=== PATIENT | female | born 1955 | race Caucasian/White ===

== ENCOUNTER 2022-12-22 15:17 | Inpatient (IN) | payer MEDICARE, OTHER ==
--- NOTE | 2022-12-22 16:55 | ED ---
SOB HPI - General Chief Complaint: Shortness of Breath Stated Complaint: sob Time Seen by Provider: 12/22/22 16:36 Source: patient Mode of arrival: wheelchair - History of Present Illness Initial Comments: This patient is 67-year-old woman arriving here from the medical clinic to have evaluation for shortness of breath. The patient states that she has been feeling progressively more short of breath going back approximately 2 months. Around that time she had been diagnosed with covid infection. Patient had gone to the clinic today had chest x-ray and was sent here because the x-ray reportedly showed problem with the left lung. The patient has had occasional cough though not remarkable. No sputum. No fever or chills now. She does have occasional sharp pain in the left upper arm/axilla which is brief. She states it sometimes feels like there is a band around her lower chest/upper abdomen. MD Complaint: shortness of breath, chest pain Onset/Timin -: month(s) Radiation: left arm Severity: mild Quality: aching, sharp Consistency: intermittent Improves With: nothing Worsens With: nothing Treatments Prior to Arrival: none - Related Data Home Medications Medication Instructions Recorded Confirmed Cetirizine HCl [Zyrtec] 10 mg PO DAILY PRN 12/22/22 12/22/22 Guaifenesin/Dextromethorphan 1 tab PO DAILY PRN 12/22/22 12/22/22 [Guaifenesin-Dm 400-20 mg Tab] ePHEDrine HCL [Primatene] 12.5 mg PO DAILY PRN 12/22/22 12/22/22 Previous Rx's Medication Instructions Recorded Acetaminophen Tab [Tylenol] 650 mg PO Q6HR PRN #60 tab 12/31/22 HYDROcodone/APAP 5-325MG [[place] 1 tab PO Q6HR PRN 3 Days #12 tab 12/31/22 5-325] Lidocaine 5% Patch [Lidoderm 5% 1 patch TOPICAL DAILY #14 patch 12/31/22 Patch] Sennosides-Docusate Sodium 1 each PO BID #30 tab 12/31/22 [Senokot-S] polyethylene glycoL 3350 [Miralax] 17 gm PO DAILY #30 packet 12/31/22 Allergies Allergy/AdvReac Type Severity Reaction Status Date / Time No Known Allergies Allergy Verified 12/22/22 22:08 Review of Systems ROS Statement: Those systems with pertinent positive or pertinent negative responses have been documented in the HPI. ROS Other: All systems not noted in ROS Statement are negative. Constitutional: Denies: fever, chills Respiratory: Reports: dyspnea. Denies: cough, wheezes, hemoptysis Cardiovascular: Reports: chest pain. Denies: palpitations, edema, syncope Gastrointestinal: Denies: abdominal pain, nausea, vomiting Genitourinary: Denies: dysuria, hematuria Musculoskeletal: Denies: back pain Skin: Denies: rash Neurological: Denies: headache, weakness, numbness Past Medical History Past Medical History: No Reported History History of Any Multi-Drug Resistant Organisms: None Reported Past Surgical History: Section, Tonsillectomy Past Psychological History: No Psychological Hx Reported Smoking Status: Current every day smoker Past Alcohol Use History: None Reported Past Drug Use History: None Reported - Past Family History Father Family Medical History: Diabetes Mellitus Additional Family Medical History / Comment(s): Migraines, depression, unsure but had heart issues Mother Family Medical History: Cancer, COPD, Diabetes Mellitus, Hypertension, Thyroid Disorder Additional Family Medical History / Comment(s): Breast CA, enlarged Heart, Macular degeneration, "Mini strokes" Brother(s) Family Medical History: Cancer, Diabetes Mellitus, Hyperlipidemia Additional Family Medical History / Comment(s): Prostate Cancer, Macular dege neration General Exam General appearance: alert, in distress (Mild respiratory distress), cachectic Head exam: Present: atraumatic, normocephalic Eye exam: Present: normal appearance. Absent: scleral icterus, conjunctival injection Neck exam: Present: normal inspection Respiratory exam: Present: respiratory distress (Mild tachypnea and speaking in phrases), decreased breath sounds (Left-sided), other (Bronchial breath sounds on the left and egophony). Absent: wheezes, rales, rhonchi, chest wall tenderness Cardiovascular Exam: Present: regular rate, normal rhythm, normal heart sounds. Absent: systolic murmur, diastolic murmur, rubs, gallop GI/Abdominal exam: Present: soft. Absent: distended, tenderness, guarding, rebound, rigid, mass Extremities exam: Present: normal inspection, normal capillary refill. Absent: pedal edema, calf tenderness Back exam: Present: normal inspection. Absent: CVA tenderness (R), CVA tenderness (L) Neurological exam: Present: alert Skin exam: Present: warm, dry, intact, normal color. Absent: rash Course Vital Signs 12/22/22 12/22/22 12/22/22 15:51 16:45 18:05 Temperature 98.2 F 98.3 F Pulse Rate 114 H 92 Respiratory 22 22 20 Rate Blood Pressure 164/99 148/94 O2 Sat by Pulse 96 93 L Oximetry 12/22/22 12/22/22 19:39 22:31 Temperature 98.4 F Pulse Rate 87 83 Respiratory 19 16 Rate Blood Pressure 147/91 140/93 O2 Sat by Pulse 95 97 Oximetry Medical Decision Making - Medical Decision Making The patient had chest x-ray which I interpreted as showing total left-sided opacity probable effusion The patient had CT of the chest which I interpreted to show left-sided pleural effusion. Was pt. sent in by a medical professional or institution (, PA, END PACKER, urgent care, hospital, or usp...) When possible be specific @ -[Yes patient sent from clinic for further evaluation Did you speak to anyone other than the patient for history (EMS, parent, family, police, friend...)? What history was obtained from this source @ -[Family did give some history Did you review nursing and triage notes (agree or disagree)? Why? @ -[I reviewed and agree with nursing and triage notes] Were old charts reviewed (outside hosp., previous admission, EMS record, old EKG, old radiological studies, urgent care reports/EKG's, usp records)? Report findings @ -[No old charts were reviewed] Differential Diagnosis (chest pain, altered mental status, abdominal pain women, abdominal pain men, vaginal bleeding, weakness, fever, dyspnea, syncope, headache, dizziness, GI bleed, back pain, seizure, CVA, palpatations, mental health, musculoskeletal)? @ -[Differential Dyspnea: Coronary syndrome, arrhythmia, tamponade, asthma, COPD, pulmonary embolism, pneumonia, pneumothorax, pulmonary effusion, anaphylaxis, diabetic ketoacidosis, flailed chest, pulmonary contusion, diaphragmatic rupture, anemia, neuromuscular, this is not meant to be an all-inclusive list. EKG interpreted by me (3pts min.). @ -[I interpreted as above X-rays interpreted by me (1pt min.). @ -[I interpreted as above CT interpreted by me (1pt min.). @ -[I interpreted as above U/S interpreted by me (1pt. min.). @ -[None done] What testing was considered but not performed or refused? (CT, X-rays, U/S, labs)? Why? @ -[None] What meds were considered but not given or refused? Why? @ -[None] Did you discuss the management of the patient with other professionals (professionals i.e. , PA, END PACKER, lab, RT, psych nurse, executive secretary social welfare, computer support analyst, teacher, optics technical officer, case briefer)? Give summary @ -[Case discussed with admitting physician Was smoking cessation discussed for >3mins.? @ -[No] Was critical care preformed (if so, how long)? @ -[No] Were there social determinants of health that impacted care today? How? (Homelessness, low income, unemployed, alcoholism, drug addiction, t ransportation, low edu. Level, literacy, decrease access to med. care, correction, rehab)? @ -[No] Was there de-escalation of care discussed even if they declined (Discuss DNR or withdrawal of care, Hospice)? DNR status @ -[No] What co-morbidities impacted this encounter? (DM, HTN, Smoking, COPD, CAD, Cancer, CVA, ARF, Chemo, Hep., AIDS, mental health diagnosis, sleep apnea, morbid obesity)? @ -[COPD Was patient admitted / discharged? Hospital course, mention meds given and route, prescriptions, significant lab abnormalities, going to OR and other pertinent info. @ -[This patient is 67-year-old woman who is sent here from the clinic to have further evaluation related to shortness of breath and abnormal chest x-ray. The patient here found to have large left-sided pleural effusion. She'll be admitted to have further evaluation and treatment including pulmonology consultation and probable thoracentesis. Undiagnosed new problem with uncertain prognosis? @ -[No] Drug Therapy requiring intensive monitoring for toxicity (Heparin, Nitro, Insulin, Cardizem)? @ -[No] Were any procedures done? @ -[No] Diagnosis/symptom? @ -[Large left pleural effusion, acute Acute, or Chronic, or Acute on Chronic? @ -[Acute Uncomplicated (without systemic symptoms) or Complicated (systemic symptoms)? @ -[Uncomplicated Side effects of treatment? @ -[No] Exacerbation, Progression, or Severe Exacerbation? @ -[No] Poses a threat to life or bodily function? How? (Chest pain, [place], [place], pneumonia, PE, COPD, DKA, ARF, appy, cholecystitis, CVA, Diverticulitis, Homicidal, Suicidal, threat to staff... and all critical care pts) @ -[Yes, pleural effusion of this size presents risk of pulmonary failure/. Also risk of underlying cancer - Lab Data Result diagrams: 12/30/22 09:22 12/30/22 09:22 Lab Results 12/22/22 12/22/22 12/22/22 Range/Units 16:44 16:44 16:44 WBC 12.0 H (3.8-10.6) k/uL RBC 5.51 H (3.80-5.40) m/uL Hgb 16.4 H (11.4-16.0) gm/dL Hct 48.8 H (34.0-46.0) % MCV 88.4 (80.0-100.0) fL MCH 29.7 (25.0-35.0) pg MCHC 33.6 (31.0-37.0) g/dL RDW 13.1 (11.5-15.5) % Plt Count 441 (150-450) k/uL MPV 7.5 Neutrophils % 77 % Lymphocytes % 14 % Monocytes % 6 % Eosinophils % 1 % Basophils % 1 % Neutrophils # 9.1 H (1.3-7.7) k/uL Lymphocytes # 1.7 (1.0-4.8) k/uL Monocytes # 0.7 (0-1.0) k/uL Eosinophils # 0.1 (0-0.7) k/uL Basophils # 0.1 (0-0.2) k/uL PT 9.6 (9.0-12.0) sec INR 0.9 (<1.2) APTT 23.0 (22.0-30.0) sec Sodium 138 (137-145) mmol/L Potassium 4.5 (3.5-5.1) mmol/L Chloride 106 (98-107) mmol/L Carbon Dioxide 27 (22-30) mmol/L Anion Gap 5 mmol/L BUN 18 H (7-17) mg/dL Creatinine 0.57 (0.52-1.04) mg/dL Est GFR (CKD-EPI)AfAm >90 (>60 ml/min/1.73 sqM) Est GFR (CKD-EPI)NonAf >90 (>60 ml/min/1.73 sqM) Glucose 109 H (74-99) mg/dL Plasma Lactic Acid Rayo (0.7-2.0) mmol/L Calcium 10.2 (8.4-10.2) mg/dL Total Bilirubin 0.6 (0.2-1.3) mg/dL AST 21 (14-36) U/L ALT 18 (4-34) U/L Alkaline Phosphatase 78 (38-126) U/L Troponin I (0.000-0.034) ng/mL Total Protein 7.4 (6.3-8.2) g/dL Albumin 4.4 (3.5-5.0) g/dL Procalcitonin (0.02-0.09) ng/mL 12/22/22 12/22/22 12/22/22 Range/Units 16:44 16:44 16:44 WBC (3.8-10.6) k/uL RBC (3.80-5.40) m/uL Hgb (11.4-16.0) gm/dL Hct (34.0-46.0) % MCV (80.0-100.0) fL MCH (25.0-35.0) pg MCHC (31.0-37.0) g/dL RDW (11.5-15.5) % Plt Count (150-450) k/uL MPV Neutrophils % % Lymphocytes % % Monocytes % % Eosinophils % % Basophils % % Neutrophils # (1.3-7.7) k/uL Lymphocytes # (1.0-4.8) k/uL Monocytes # (0-1.0) k/uL Eosinophils # (0-0.7) k/uL Basophils # (0-0.2) k/uL PT (9.0-12.0) sec INR (<1.2) APTT (22.0-30.0) sec Sodium (137-145) mmol/L Potassium (3.5-5.1) mmol/L Chloride (98-107) mmol/L Carbon Dioxide (22-30) mmol/L Anion Gap mmol/L BUN (7-17) mg/dL Creatinine (0.52-1.04) mg/dL Est GFR (CKD-EPI)AfAm (>60 ml/min/1.73 sqM) Est GFR (CKD-EPI)NonAf (>60 ml/min/1.73 sqM) Glucose (74-99) mg/dL Plasma Lactic Acid Rayo 1.2 (0.7-2.0) mmol/L Calcium (8.4-10.2) mg/dL Total Bilirubin (0.2-1.3) mg/dL AST (14-36) U/L ALT (4-34) U/L Alkaline Phosphatase (38-126) U/L Troponin I <0.012 (0.000-0.034) ng/mL Total Protein (6.3-8.2) g/dL Albumin (3.5-5.0) g/dL Procalcitonin 0.03 (0.02-0.09) ng/mL - EKG Data -: EKG Interpreted by Tn EKG shows normal: sinus rhythm, axis (Normal), intervals (Normal), QRS complexes (Normal), ST-T waves (Normal) Rate: normal (Rate 97 bpm) Disposition Clinical Impression: Pleural effusion, left Disposition: ADMITTED IP TO THIS HOSP Condition: Stable Is patient prescribed a controlled substance at d/c from ED?: No
[2022-12-22 17:07] LABS: Basophils # (A) 0.1 k/uL (0-0.2); Basophils % (A) 1 %; Eosinophils # (A) 0.1 k/uL (0-0.7); Eosinophils % (A) 1 %; HCT 48.8 % (34.0-46.0); HGB 16.4 gm/dL (11.4-16.0); Lymphocytes # (A) 1.7 k/uL (1.0-4.8); Lymphocytes % (A) 14 %; MCH 29.7 pg (25.0-35.0); MCHC 33.6 g/dL (31.0-37.0); MCV 88.4 fL (80.0-100.0); Mean Platelet Volume 7.5; Monocytes # (A) 0.7 k/uL (0-1.0); Monocytes % (A) 6 %; Neutrophils # (A) 9.1 k/uL (1.3-7.7); Neutrophils % (A) 77 %; Platelet Count 441 k/uL (150-450); RBC 5.51 m/uL (3.80-5.40); RDW 13.1 % (11.5-15.5)
[2022-12-22 17:24] LABS: INR 0.9 (<1.2); Prothrombin Time 9.6 sec (9.0-12.0)
[2022-12-22 17:25] LABS: ALT 18 U/L (4-34); AST 21 U/L (14-36); African American GFR (CKD) >90 (>60 ml/min/1.73 sqM); Albumin 4.4 g/dL (3.5-5.0); Alkaline Phosphatase 78 U/L (38-126); Anion Gap 5 mmol/L; Blood Urea Nitrogen 18 mg/dL (7-17); Calcium 10.2 mg/dL (8.4-10.2); Carbon Dioxide 27 mmol/L (22-30); Chloride 106 mmol/L (98-107); Glucose 109 mg/dL (74-99); Non-African American GFR(CKD) >90 (>60 ml/min/1.73 sqM); Potassium 4.5 mmol/L (3.5-5.1); Sodium 138 mmol/L (137-145); Total Bilirubin 0.6 mg/dL (0.2-1.3); Total Protein 7.4 g/dL (6.3-8.2)
--- NOTE | 2022-12-22 17:26 | XR ---
EXAMINATION TYPE: XR chest 2V DATE OF EXAM: 12/22/2022 COMPARISON: None INDICATION: Difficulty breathing TECHNIQUE: Frontal and lateral views of the chest are obtained. FINDINGS: The heart size is indistinct. The pulmonary vasculature is prominent. There is opacification of the left lung. There is scoliosis through the thoracic spine. Some patchy i ncreased lung markings within the right lung field. Infectious etiology and masses including neoplasm could be within the differential. Follow-up is recommended. IMPRESSION: 1. Opacified left lung. Early for atelectasis or large pleural effusion 2. Some patchy suspicious densities within the right suprahilar and perihilar region. Follow-up is re commended.
[2022-12-22] MEDS ORDERED: RX INFO: IV CONTRAST WAS GIVEN 1 EACH MISC MISCELLANE PRN (18:08)
--- NOTE | 2022-12-22 18:48 | CT ---
EXAMINATION TYPE: CT chest w con DATE OF EXAM: 12/22/2022 COMPARISON: Chest x-ray same date HISTORY: SOB CT DLP: 172.3 mGycm, Automated exposure control for dose reduction was used. CONTRAST: Performed injected with 100 mL of Isovue 300. TECHNIQUE: Axial images were obtained at 5 mm thick sections. Reconstructed images are reviewed on [place] computer in the coronal plane. FINDINGS: Portion of the thyroid visualized is normal. There is a large left pleural effusion nearly completely opacifying the left lung. A few central air bronchograms remain present with adjacent compressive atelectasis. There are multiple scattered areas of pneumonitis or irregular lung masses. Consider atypical pneumon ia. Consider metastasis. The largest of these appears to be in the posterior lateral right lung base measuring 1.4 cm. Series 201 image 42. Enlarged subcarinal lymph node measuring 1.2 cm is present. A pretracheal lymph node is subcentimete r in size. The ascending aorta diameter at the level of the main pulmonary artery is 3.2 cm. The navdeep n pulmonary artery diameter at the bifurcation is 2.[address] sections are obtained through the upper abdomen. Abdomen is essentially unremarkable. IMPRESSION: 1. Multiple spiculated densities within the right lung. Correlate for metastasis. Infectious etiology is within the differential. 2. Large left pleural effusion with compressive atelectasis. 3. Enlarged subcarinal lymph node
[2022-12-22] MEDS ORDERED: ACETAMINOPHEN TAB 325 MG TAB PO PRN (22:06)
[2022-12-22] MEDS ORDERED: NALOXONE 0.4 MG/ML 1 ML VIAL IV PRN (22:06)
[2022-12-22] MEDS: SODIUM CHLORIDE 0.9% 1,000 ML IV SCH (23:17)
[2022-12-22] MEDS: MORPHINE SULFATE 4 MG/ML SYRINGE IV PRN (23:17)
--- NOTE | 2022-12-22 23:46 | P.HPIM ---
History of Present Illness H&P Date: 12/22/22 Patient is a 67-year-old female with a PMH of lifelong tobacco abuse who presents to the emergency room with complaints of gradually worsening shortness of breath. Patient suspects she had COVID roughly a year and a half ago and subsequently had chronic fatigue and mild exertional dyspnea. She then was again diagnosed with COVID 2 months ago and reports that her breathing has worsened significantly since then. She reports an unintentional 80 pound weight loss in the last one year. Reports a chronic productive cough. Denies chest discomfort. Denied fever or chills. Denied lower extremity swelling or pain. She also states left foot drop and left lower extremity weakness over the past 1 month. Denied lower back pain, urinary or bowel incontinence. Denied facial droop, speech impairment, visual impairments, or left upper extremity weakness. Chest CT in the emergency room revealed findings of multiple densities in the right lung suspicious for metastasis with large left-sided pleural effusion and compressive atelectasis with enlarged subcarinal lymph node at 1.2 cm. EKG revealed sinus rhythm at [address]/T-wave changes noted as reviewed by me. Laboratory evaluation revealed leukocytosis of 12.0, in the 116.5, troponin less than 0.012, with BUN 18. ED documentation reviewed and case discussed with ED provider. Review of systems: Pertinent positives and negatives as discussed in HPI, a complete review of systems was performed and all other systems are negative. Physical examination: Vital signs reviewed General: non toxic, no distress, appears at stated age, normal weight Derm: no unusual rashes/lesions, warm Head: atraumatic, normocephalic, symmetric Eyes: EOMI, no lid lag, anicteric sclera, pupils equal round reactive to light ENT: Nose and ears atraumatic Neck: No cervical lymphadenopathy, trachea midline, supple Mouth: no lip lesion, mucus membranes moist Cardiovascular: S1S2 reg, no murmur, positive dorsalis pedis pulse bilateral, no edema Lungs: Poor breath sounds over the entire left lung, some scattered coarse breath sounds bilaterally, no accessory muscle use Abdominal: soft, nontender to palpation, no guarding Ext: muscle strength 3/5 of LLE at ankle, knee, and hip joints, strength 5 out of 5 in all other extremities grossly, no gross muscle atrophy, no contractures, Neuro: CN II-XI grossly intact, no gross focal neuro deficits Psych: Alert, oriented, appropriate affect Assessment: Exertional dyspnea with suspected pulmonary metastatic lesions with left-sided pleural effusion vs less likely atypical pneumonia Significant unintentional weight loss LLE weakness, unclear etiology Leukocytosis, likely reactive from metastasis Imaging: Chest CT in the emergency room revealed findings of multiple densities in the right lung suspicious for metastasis with large left-sided pleural effusion and compressive atelectasis with enlarged subcarinal lymph node at 1.2 cm. EKG revealed sinus rhythm at [address]/T-wave changes noted as reviewed by me. Data Review: Laboratory evaluation revealed leukocytosis of 12.0, in the 116.5, troponin less than 0.012, with BUN 18. Plan: Hold off on antibiotics at this time Obtain procalcitonin levels Pulmonary consult for thoracentesis PT consult DVT prophylaxis: Lovenox subq The patient is admitted with an anticipated greater than 2 midnight stay for evaluation of dyspnea CODE STATUS: Full Code Discussed with: Patient Anticipated discharge place: Home Past Medical History Past Medical History: No Reported History History of Any Multi-Drug Resistant Organisms: None Reported Past Surgical History: Section, Tonsillectomy Past Psychological History: No Psychological Hx Reported Smoking Status: Current every day smoker Past Alcohol Use History: None Reported Past Drug Use History: None Reported - Past Family History Father Family Medical History: Diabetes Mellitus Additional Family Medical History / Comment(s): Migraines, depression, unsure but had heart issues Mother Family Medical History: Cancer, COPD, Diabetes Mellitus, Hypertension, Thyroid Disorder Additional Family Medical History / Comment(s): Breast CA, enlarged Heart, Macular degeneration, "Mini strokes" Brother(s) Family Medical History: Cancer, Diabetes Mellitus, Hyperlipidemia Additional Family Medical History / Comment(s): Prostate Cancer, Macular de generation Medications and Allergies Home Medications Medication Instructions Recorded Confirmed Type Cetirizine HCl [Zyrtec] 10 mg PO DAILY PRN 12/22/22 12/22/22 History Guaifenesin/Dextromethorphan 1 tab PO DAILY PRN 12/22/22 12/22/22 History [Guaifenesin-Dm 400-20 mg Tab] ePHEDrine HCL [Primatene] 12.5 mg PO DAILY PRN 12/22/22 12/22/22 History Allergies Allergy/AdvReac Type Severity Reaction Status Date / Time No Known Allergies Allergy Verified 12/22/22 22:08 Physical Exam Vitals: Vital Signs Temp Pulse Resp BP Pulse Ox 12/22/22 22:31 98.4 F 83 16 140/93 97 12/22/22 19:39 87 19 147/91 95 12/22/22 18:05 98.3 F 92 20 148/94 93 L 12/22/22 16:45 22 12/22/22 15:51 98.2 F 114 H 22 164/99 96 Intake and Output 12/22/22 12/22/22 12/23/22 14:59 22:59 06:59 Other: Weight 45.132 kg Results CBC & Chem 7: 12/22/22 16:44 12/22/22 16:44 Labs: Abnormal Lab Results - Last 24 Hours (Table) 12/22/22 12/22/22 Range/Units 16:44 16:44 WBC 12.0 H (3.8-10.6) k/uL RBC 5.51 H (3.80-5.40) m/uL Hgb 16.4 H (11.4-16.0) gm/dL Hct 48.8 H (34.0-46.0) % Neutrophils # 9.1 H (1.3-7.7) k/uL BUN 18 H (7-17) mg/dL Glucose 109 H (74-99) mg/dL
[2022-12-23] MEDS ORDERED: HEPARIN SODIUM,PORCINE 5,000 UNIT/ML 1 ML VIAL SQ SCH
--- NOTE | 2022-12-23 05:56 | P.CNPUL ---
History of Present Illness Consult date: 12/23/22 Requesting physician: Shanna Ortega Reason for consult: pleural effusion, abnormal CXR/CT Chief complaint: Shortness of breath History of present illness: I am seeing this patient in new consultation today 12/23/2022 on the general medical floor after she presented yesterday evening with a chief complaint of chronic/progressive shortness of breath. Patient is a 67-year-old female with a limited past medical history, she does not routinely follow with a doctor. She has significant familial history of cancer, her mother had breast cancer, and her brother had prostate cancer. She does continue to smoke approximately 3/4 to 1 pack per day, and has over a [id number] history. She admits to losing approximately 80 pounds over the last year. She is cachectic and frail. Patient has been experiencing chronic fatigue and dyspnea especially on exertion for the last year. She attributes this to possible COVID-19 infection 1 year ago. The shortness of breath has been worse over the last month and a half. She does report a positive home Covid test approximately 1-1/2 months ago. At that time, she had fever, cough, and worsening shortness of breath. She is not improved, so she went to a local urgent care clinic yesterday, which found some abnormal chest x-ray findings, and directed her to the emergency room. Patient is currently sitting up in bed, on room air, in no acute distress. Chest CT shows multiple spiculated densities within the right lung, with the largest measuring 1.4 cm. There is a large left pleural effusion with compressive atelectasis, and there are also and enlarged 1.2 cm subcarinal lymph node. These findings are suspicious for metastasis, however, infectious etiology is not entirely ruled out. Currently patient denies any fever, chills, myalgias, chest pain, hemoptysis. Denies any other infectious symptoms. Denies history of malignancies or heart failure. CBC on arrival shows a WBC count of 12, hemoglobin 16.4, hematocrit 48.8, platelets 441. BMP on arrival was unremarkable. Troponin less than 0.012. She also has had some issues with ambulating. There is a walker at the bedside. Patient is hemodynamically stable. Review of Systems REVIEW OF SYSTEMS: CONSTITUTIONAL: Admits significant weight loss over the past year of approximately 80 pounds EYES: Denies change in vision. EARS, NOSE, MOUTH, THROAT: Denies headaches, denies sore throat. CARDIOVASCULAR: Denies chest pain, palpitations or syncopal episodes. RESPIRATORY: See HPI GASTROINTESTINAL: Denies abdominal pain, nausea and vomiting, or diarrhea. Admits reduced appetite GENITOURINARY: Denies hematuria, denies infections. MUSKULOSKELETAL: Denies pain, denies swelling. Admits difficulty ambulating and left lower extremity weakness INTEGUMENTARY: Denies rash, denies eczema. NEUROLOGICAL: Denies recent memory loss, no recent seizure activity. PSYCHIATRIC: Denies anxiety, denies depression. HEMATOLOGIC/LYMPHATIC: Denies anemia, denies enlarged lymph node Past Medical History Past Medical History: No Reported History History of Any Multi-Drug Resistant Organisms: None Reported Past Surgical History: Section, Tonsillectomy Past Anesthesia/Blood Transfusion Reactions: No Reported Reaction Past Psychological History: No Psychological Hx Reported Smoking Status: Current every day smoker Past Alcohol Use History: None Reported Past Drug Use History: None Reported - Past Family History Father Family Medical History: Diabetes Mellitus Additional Family Medical History / Comment(s): Migraines, depression, unsure but had heart issues Mother Family Medical History: Cancer, COPD, Diabetes Mellitus, Hypertension, Thyroid Disorder Additional Family Medical History / Comment(s): Breast CA, enlarged Heart, Macular degeneration, "Mini strokes" Brother(s) Family Medical History: Cancer, Diabetes Mellitus, Hyperlipidemia Additional Family Medical History / Comment(s): Prostate Cancer, Macular dege neration Medications and Allergies Home Medications Medication Instructions Recorded Confirmed Type Cetirizine HCl [Zyrtec] 10 mg PO DAILY PRN 12/22/22 12/22/22 History Guaifenesin/Dextromethorphan 1 tab PO DAILY PRN 12/22/22 12/22/22 History [Guaifenesin-Dm 400-20 mg Tab] ePHEDrine HCL [Primatene] 12.5 mg PO DAILY PRN 12/22/22 12/22/22 History Allergies Allergy/AdvReac Type Severity Reaction Status Date / Time No Known Allergies Allergy Verified 12/22/22 22:08 Physical Exam Vitals: Vital Signs Temp Pulse Pulse Resp BP BP Pulse Ox 12/23/22 01:05 97.8 F 80 18 148/87 96 12/22/22 23:50 80 18 12/22/22 23:15 98.4 F 87 18 160/81 97 12/22/22 22:31 98.4 F 83 16 140/93 97 12/22/22 19:39 87 19 147/91 95 12/22/22 18:05 98.3 F 92 20 148/94 93 L 12/22/22 16:45 22 12/22/22 15:51 98.2 F 114 H 22 164/99 96 Intake and Output 12/22/22 12/22/22 12/23/22 14:59 22:59 06:59 Other: Voiding Method Toilet Weight 45.132 kg 45.132 kg GENERAL EXAM: Alert, 67-year-old white female who is frail and cachectic, comfortable in no apparent distress. HEAD: Normocephalic and atraumatic EYES: Normal reaction of pupils, equal size. NOSE: Clear with pink turbinates. THROAT: No erythema or exudates. NECK: No masses, no JVD. CHEST: No chest wall deformity. LUNGS: Equal air entry with diminished left lung sounds, with evidence of effusion/consolidation. On room air. No conversational dyspnea or accessory muscle use.. CVS: S1 and S2 normal with no audible murmur, regular rhythm. No extra heart sounds ABDOMEN: No hepatosplenomegaly, active bowel sounds, no guarding or rigidity. SPINE: No scoliosis or deformity SKIN: No rashes CENTRAL NERVOUS SYSTEM: No focal deficits, tone is normal in all 4 extremities. EXTREMITIES: There is no peripheral edema, clubbing, or cyanosis. Left lower extremity strength 3/5, other remaining extremity strength 5/5. Peripheral pulses are intact. Results - Laboratory Findings CBC and BMP: 12/22/22 16:44 12/22/22 16:44 PT/INR, D-dimer PT 9.6 sec (9.0-12.0) 12/22/22 16:44 INR 0.9 (<1.2) 12/22/22 16:44 Abnormal lab findings: Abnormal Labs 12/22/22 12/22/22 16:44 16:44 WBC 12.0 H RBC 5.51 H Hgb 16.4 H Hct 48.8 H Neutrophils # 9.1 H BUN 18 H Glucose 109 H - Diagnostic Findings Chest x-ray: image reviewed CT scan - chest: image reviewed Assessment and Plan Assessment: Dyspnea, secondary to a large left pleural effusion, possibly malignant. Chest CT shows multiple spiculated densities within the right lung, with the largest measuring 1.4 cm. There is a large left pleural effusion with compressive atelectasis, and there are also and enlarged 1.2 cm subcarinal lymph node. These findings are suspicious for pulmonary malignancy with metastasis, however, infectious etiology is not entirely ruled out. Multiple spiculated pulmonary nodules, seen in the right lung, with the largest measuring 1.4 cm Cachexia and severe protein-calorie malnutrition Leukocytosis, possibly reactive Unintentional weight loss, approximately 80 lbs over the last one year Chronic ongoing nicotine dependence, with over [id number]-[id number] history Difficulties ambulating, related to left lower extremity weakness Plan: Patient's medications, labs, imaging reviewed On room air Anticipate left-sided thoracentesis later this morning for diagnostic and therapeutic purposes Chest ultrasound with markings planed for the morning Not taking any anticoagulants Procalcitonin level is pending, however, pneumonia with parapneumonic effusion is felt to be less likely. We will continue to follow, and further recommendations are forthcoming I have personally seen and examined the patient, performed the documentation and the assessment and plan as written. Number of minutes spent on the visit:20 Time with Patient: Greater than 30
--- NOTE | 2022-12-23 09:01 | US ---
EXAMINATION TYPE: US chest DATE OF EXAM: 12/23/2022 COMPARISON: NONE CLINICAL INDICATION: Female, 67 years old with history of left pleural effusion; pain and SOB TECHNIQUE: Targeted ultrasound of the posterior lower Left EXAM MEASUREMENTS: Left Pleural Effusion pocket size: 14.5 cm Left skin surface to fluid distance: 3.1 cm Left side marked for possible thoracentesis outside the dept. Pulmonologists are able to review the images in the patient?s EMR. IMPRESSIONS: Left pleural effusion
--- NOTE | 2022-12-23 09:28 | P.PN ---
Subjective Progress Note Date: 12/23/22 Ongoing dyspnea on exertion and pain with inspiration. Pending thoracentesis today. Gen: awake, alert HEENT: normocephalic, atraumatic, good hearing acuity, moist mucous membranes Resp: good air exchange, breathing comfortably with no accessory muscle use, diminished breath sounds on the left CVS: good distal perfusion x 4, GI: soft, NTTP, ND : no SPT, no CVAT, bernard catheter not present MSK: no pitting edema, no clubbing Neuro: non-focal, moving all extremities Psych: cooperative, euthymic mood Hospital course: Patient is a 67-year-old female with a PMH of lifelong tobacco abuse who presents to the emergency room with complaints of gradually worsening shortness of breath. Chest CT in the emergency room revealed findings of multiple densities in the right lung suspicious for metastasis with large left-sided pleural effusion and compressive atelectasis with enlarged subcarinal lymph node at 1.2 cm. EKG revealed sinus rhythm at [address]/T-wave changes noted as reviewed by me. Laboratory evaluation revealed leukocytosis of 12.0, in the 116.5, troponin less than 0.012, with BUN 18. ED documentation reviewed and case discussed with ED provider and patient was admitted for further workup. Seen by pulmonology, who recommended thoracentesis. Pro calcitonin was 0.03, therefore no antibiotics were initiated. Assessment/plan: Left-sided pleural effusion Multiple spiculated pulmonary nodules Subcarinal lymphadenopathy -Pulmonology consulted -Pro calcitonin is reviewed as above in hospital course -Lab work reviewed in the hospital course above -EKG is personally interpreted: Normal sinus rhythm with appropriate axis, intervals, no evidence of ischemia -Computed tomography scan of the chest is personally interpreted: Significant left-sided pleural effusion, multiple right-sided nodules -Chest x-ray is personally interpreted: Significant left-sided effusion -A.m. labs ordered: CBC, basic metabolic panel, magnesium Significant unintentional weight loss -Dietitian consult for calorie count LLE weakness, unclear etiology -PT consult DVT prophylaxis: Lovenox subq The patient is admitted with an anticipated greater than 2 midnight stay for evaluation of dyspnea CODE STATUS: Full Code Discussed with: Patient Anticipated discharge place: Home Objective - Vital Signs Vital signs: Vital Signs Temp 97.6 F 12/23/22 07:30 Pulse 86 12/23/22 07:30 Resp 18 12/23/22 07:30 BP 148/88 12/23/22 07:30 Pulse Ox 95 12/23/22 07:30 FiO2 Intake & Output 12/22/22 12/23/22 12/23/22 18:59 06:59 18:59 Intake Total 100 Balance 100 Weight 45.132 kg 45.132 kg Intake: Oral 100 Other: Voiding Method Toilet # Voids 2 - Labs CBC & Chem 7: 12/22/22 16:44 12/22/22 16:44 Labs: Abnormal Lab Results - Last 24 Hours (Table) 12/22/22 12/22/22 Range/Units 16:44 16:44 WBC 12.0 H (3.8-10.6) k/uL RBC 5.51 H (3.80-5.40) m/uL Hgb 16.4 H (11.4-16.0) gm/dL Hct 48.8 H (34.0-46.0) % Neutrophils # 9.1 H (1.3-7.7) k/uL BUN 18 H (7-17) mg/dL Glucose 109 H (74-99) mg/dL
[2022-12-23] MEDS: ENOXAPARIN 40 MG/0.4 ML SYRINGE SQ SCH (09:43)
[2022-12-23] MEDS: FAMOTIDINE 20 MG TAB PO SCH ×2 (09:43→21:30)
[2022-12-23] MEDS ORDERED: LIDOCAINE 1% INJ 10MG/ML (20 ML MDV) ONE (10:21)
[2022-12-23] MEDS: MORPHINE SULFATE 4 MG/ML SYRINGE IV PRN ×3 (10:39→21:30)
--- NOTE | 2022-12-23 10:57 | XR ---
EXAMINATION TYPE: XR chest 1V portable DATE OF EXAM: 12/23/2022 COMPARISON: NONE HISTORY: Postthoracentesis. TECHNIQUE: Single frontal view of the chest is obtained. FINDINGS: There is a large left hydropneumothorax with complete collapse of the lung at this time. S mallbore chest tube is seen on the left side. IMPRESSION: Large hydropneumothorax on the left side. These findings were relayed to the ordering provider.
--- NOTE | 2022-12-23 11:02 | XR ---
EXAMINATION TYPE: XR chest 1V portable DATE OF EXAM: 12/23/2022 COMPARISON: 22,023 at 9:45 AM. HISTORY: Follow-up for pneumothorax after thoracentesis. TECHNIQUE: Single frontal view of the chest is obtained. IMPRESSION: Left-sided chest tube there is positioned toward the left apex. There is no significant change in the appearance to the large hydropneumothorax on the left side.
[2022-12-23 11:25] LABS: Basophils # (A) 0.09 X 10*3/uL (0.00-0.10); Basophils % (A) 0.9 %; Eosinophils # (A) 0.07 X 10*3/uL (0.04-0.35); Eosinophils % (A) 0.7 %; HCT 42.5 % (37.2-46.3); HGB 14.7 d/dL (12.0-15.0); Lymphocytes # (A) 1.52 X 10*3/uL (0.90-5.00); Lymphocytes % (A) 15.8 %; MCH 30.4 pg (27.0-32.0); MCHC 34.6 d/dL (32.0-37.0); MCV 87.8 FL (80.0-97.0); Monocytes # (A) 0.84 X 10*3/uL (0.20-1.00); Monocytes % (A) 8.7 %; NRBC Per 100 WBC 0 X 10*3/uL (0.00-0.01); Neutrophils # (A) 7.07 X 10*3/uL (1.80-7.70); Neutrophils % (A) 73.5 %; Platelet Count 395 X 10*3/uL (140-440); RBC 4.84 X 10*6/uL (4.10-5.20); WBC 9.63 X 10*3/uL (4.50-10.00)
[2022-12-23 12:00] LABS: BUN/Creat Ratio 21.33 Ratio (12.00-20.00); Blood Urea Nitrogen 12.8 mg/dL (9.0-27.0); Calcium 9.4 mg/dL (8.7-10.3); Carbon Dioxide 26.3 mmol/L (21.6-31.8); Chloride 101 mmol/L (96-109); Glucose 120 mg/dL (70-110); Magnesium 2.2 mg/dL (1.5-2.4); Potassium 3.7 mmol/L (3.5-5.5); Sodium 136 mmol/L (135-145)
--- NOTE | 2022-12-23 12:22 | OP ---
OPERATIVE REPORT DATE OF SERVICE : PROCEDURE PERFORMED: Placement of an 11-Azeri left-sided Thora-Vent/chest tube. PREOPERATIVE DIAGNOSES: Left-sided hydropneumothorax, and trapped lung, failure of the lung to expand post thoracentesis. POSTOPERATIVE DIAGNOSIS: Left-sided hydropneumothorax, and trapped lung, failure of the lung to expand post thoracentesis. ANESTHESIA USED: 5 mL of 1% lidocaine. DESCRIPTION OF PROCEDURE: The patient was placed in the sitting upright position, the area of the left anterior chest wall was prepared in a sterile fashion. Drapes were applied. The area at the level of the midclavicular line and 3rd intercostal space was locally anesthetized with lidocaine, and the pleural space was entered with the needle and the area was localized and anesthetized. Then a small tiny incision was made at the same site, and a size 11- Azeri Thora-Vent was used, trocar and catheter were advanced over that site into the pleural space and when the pleural surface was entered, the catheter was advanced over the trocar, and the trocar was pulled out of pleural space. There was bubbling noted in the Pleur-evac container, and this was connected to a Pleur-evac with suction. The procedure was well tolerated, no complications, still followup chest x-ray showed no expansion of the left lung, mostly because it is trapped and is a trapped lung. The Thora-Vent will remain in place for now. Procedure tolerated. No complications. MMODL / IJN: [id number] /
--- NOTE | 2022-12-23 12:22 | OP ---
OPERATIVE REPORT DATE OF SERVICE : PROCEDURE PERFORMED: Left-sided thoracentesis. PREOPERATIVE DIAGNOSIS: Large left-sided pleural effusion. POSTOPERATIVE DIAGNOSES: Large left-sided pleural effusion and trapped lung with failure of lung to expand and hydropneumothorax. ANESTHESIA USED: 2 mL of 1% lidocaine. DESCRIPTION OF PROCEDURE: The patient was placed in a sitting upright position, the area below the left scapula was prepared in a sterile fashion. Drapes were applied. The area was localized earlier by ultrasound, and the area was locally anesthetized with lidocaine after it was prepared in a sterile fashion and drapes were applied. Then, a 26-gauge needle was inserted at the same site, which is the 8th intercostal space at the tip of the scapula, advanced into the pleural space until fluid was obtained. Then, a small tiny incision was made at the same site and a thoracentesis catheter was used, the catheter and needle were inserted at the same site, advanced into the pleural space. Fluid was obtained and as soon as the fluid was obtained, the catheter was advanced over the needle into the pleural space. I was able to drain a total of 1200 mL of dark blackish and brown fluid from the left pleural space. The patient was drained fully, at the end of the procedure, there was evidence of air noted, and obviously the patient had what seemed to be a trapped lung, and the lung failed to expand. I attempted to evacuate the air with a large syringe from the thoracentesis catheter, but no changes were noted. Chest x-ray showed a large hydropneumothorax, and again, the lung was completely collapsed and not expanding a bit. I then discussed the different options with the patient, and decided to place a Thora-Vent tube in the left pleural space and this was done. Please refer to separate operative report. MMODL / IJN: [id number] /
[2022-12-23 13:18] VITALS: BMI 19.4
[2022-12-23] MEDS: HYDROmorphone 1 MG/ML 1 ML SYRINGE IVP PRN (13:43)
[2022-12-23] MEDS: ONDANSETRON 4 MG/2 ML VIAL IVP PRN (14:16)
--- NOTE | 2022-12-23 14:42 | P.GSCN ---
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 She has a previous medical history of current tobacco dependence, COPD, covid infection, 80 pound unintentional weight loss over the last year, and significant family history of cancer. The patient was seen yesterday in her primary care office for evaluation for significant shortness of breath which has got progressively worse over the last 2 months. Chest x-ray was completed and was abnormal and the patient was recommended to report to [facility] emergency room for evaluation and treatment. Chest x-ray completed in the emergency room demonstrated opacified left lung, and patchy suspicious densities in the right suprahilar and perihilar regions. CT of the chest was completed demonstrating large left pleural effusion with compressive atelectasis, as well as multiple spiculated densities within the right lung concerning for metastasis. Laboratory demonstrated WBC 12, hemoglobin 16.4, INR 0.9, creatinine 0.57, lactic acid 1.2, procalcitonin 0.03. The patient was admitted for evaluation and treatment with consultation placed to pulmonology. This morning she underwent left-sided thoracentesis with removal of 1.2 L dark brown fluid which was sent for culture and cytology, hi ghly suspicious for carcinoma based on patient's history. Unfortunately after her thoracentesis the left lung was not reexpanding and decision was made to place a thoravent, however the lung did not reexpand even with thoravent to suction. Consultation was placed to Dr. Garcia from cardiothoracic surgery for surgical recommendations. Review of Systems Review of systems was completed and is negative except as noted - Respiratory Reports as per HPI, Reports dyspnea Past Medical History Past Medical History: COPD Additional Past Medical History / Comment(s): Covid History of Any Multi-Drug Resistant Organisms: None Reported Past Surgical History: Section, Tonsillectomy Past Anesthesia/Blood Transfusion Reactions: No Reported Reaction Past Psychological History: No Psychological Hx Reported Smoking Status: Current every day smoker Past Alcohol Use History: None Reported Past Drug Use History: None Reported - Past Family History Father Family Medical History: Diabetes Mellitus Additional Family Medical History / Comment(s): Migraines, depression, unsure but had heart issues Mother Family Medical History: Cancer, COPD, Diabetes Mellitus, Hypertension, Thyroid Disorder Additional Family Medical History / Comment(s): Breast CA, enlarged Heart, Ma cular degeneration, "Mini strokes" Brother(s) Family Medical History: Cancer, Diabetes Mellitus, Hyperlipidemia Additional Family Medical History / Comment(s): Prostate Cancer, Macular degeneration Medications and Allergies Home Medications Medication Instructions Recorded Confirmed Type Cetirizine HCl [Zyrtec] 10 mg PO DAILY PRN 12/22/22 12/22/22 History Guaifenesin/Dextromethorphan 1 tab PO DAILY PRN 12/22/22 12/22/22 History [Guaifenesin-Dm 400-20 mg Tab] ePHEDrine HCL [Primatene] 12.5 mg PO DAILY PRN 12/22/22 12/22/22 History Acetaminophen Tab [Tylenol] 650 mg PO Q6HR PRN #60 tab 12/31/22 Rx HYDROcodone/APAP 5-325MG [Linden 1 tab PO Q6HR PRN 3 Days #12 tab 12/31/22 Rx 5-325] Lidocaine 5% Patch [Lidoderm 5% 1 patch TOPICAL DAILY #14 patch 12/31/22 Rx Patch] Sennosides-Docusate Sodium 1 each PO BID #30 tab 12/31/22 Rx [Senokot-S] polyethylene glycoL 3350 [Miralax] 17 gm PO DAILY #30 packet 12/31/22 Rx Allergies Allergy/AdvReac Type Severity Reaction Status Date / Time No Known Allergies Allergy Verified 12/22/22 22:08 Surgical - Exam Vital Signs Temp Pulse Resp BP Pulse Ox 98.2 F 114 H 22 164/99 96 12/22/22 15:51 12/22/22 15:51 12/22/22 15:51 12/22/22 15:51 12/22/22 15:51 CONSTITUTIONAL: Awake and alert, appears short of breath including conversational dyspnea, cachectic and frail EYES: Pupils equal, round, reactive to light, normal ocular movement ENT: Moist mucous membranes without oral lesions present NECK: No masses, no bruits, trachea midline RESPIRATORY: Lungs sounds diminished bilaterally, left greater than right. Respirations even, nonlabored. Currently on room air with oxygen saturation 95%. Weak cough. Left-sided thoravent present to continuous wall suction, no air leak present, positive tidaling, no drainage CARDIOVASCULAR: S1, S2 present. Regular rate and rhythm. Palpable peripheral pulses bilaterally. No edema present GASTROINTESTINAL: Abdomen soft, nontender, nondistended without masses or organomegaly noted. There is no rebound or guarding present. Active bowel sounds present 4 quadrants. GENITOURINARY: Deferred INTEGUMENTARY: Skin is warm and dry NEUROLOGIC: Cranial nerves II through XII intact, normal coordination, no obvious motor or sensory deficits, speech is normal MUSKULOSKELETAL: Able to move all extremities, strength equal bilaterally, normal posture PSYCHIATRIC: Alert and oriented to person place and time, appropriate affect, intact judgment and insight Results - Labs 12/30/22 09:22 12/30/22 09:22 Abnormal Lab Results - Last 24 Hours (Table) 12/22/22 12/22/22 12/23/22 Range/Units 16:44 16:44 07:39 WBC 12.0 H (3.8-10.6) k/uL RBC 5.51 H (3.80-5.40) m/uL Hgb 16.4 H (11.4-16.0) gm/dL Hct 48.8 H (34.0-46.0) % Neutrophils # 9.1 H (1.3-7.7) k/uL BUN 18 H (7-17) mg/dL BUN/Creatinine Ratio 21.33 H (12.00-20.00) Ratio Glucose 109 H 120 H (74-99) mg/dL Diabetes panel 12/22/22 12/23/22 Range/Units 16:44 07:39 Sodium 138 136 (137-145) mmol/L Potassium 4.5 3.7 (3.5-5.1) mmol/L Chloride 106 101 (98-107) mmol/L Carbon Dioxide 27 26.3 (22-30) mmol/L BUN 18 H 12.8 (7-17) mg/dL Creatinine 0.57 0.6 (0.52-1.04) mg/dL Glucose 109 H 120 H (74-99) mg/dL Calcium 10.2 9.4 (8.4-10.2) mg/dL AST 21 (14-36) U/L ALT 18 (4-34) U/L Alkaline Phosphatase 78 (38-126) U/L Total Protein 7.4 (6.3-8.2) g/dL Albumin 4.4 (3.5-5.0) g/dL Calcium panel 12/22/22 12/23/22 Range/Units 16:44 07:39 Calcium 10.2 9.4 (8.4-10.2) mg/dL Albumin 4.4 (3.5-5.0) g/dL Pituitary panel 12/22/22 12/23/22 Range/Units 16:44 07:39 Sodium 138 136 (137-145) mmol/L Potassium 4.5 3.7 (3.5-5.1) mmol/L Chloride 106 101 (98-107) mmol/L Carbon Dioxide 27 26.3 (22-30) mmol/L BUN 18 H 12.8 (7-17) mg/dL Creatinine 0.57 0.6 (0.52-1.04) mg/dL Glucose 109 H 120 H (74-99) mg/dL Calcium 10.2 9.4 (8.4-10.2) mg/dL Adrenal panel 12/22/22 12/23/22 Range/Units 16:44 07:39 Sodium 138 136 (137-145) mmol/L Potassium 4.5 3.7 (3.5-5.1) mmol/L Chloride 106 101 (98-107) mmol/L Carbon Dioxide 27 26.3 (22-30) mmol/L BUN 18 H 12.8 (7-17) mg/dL Creatinine 0.57 0.6 (0.52-1.04) mg/dL Glucose 109 H 120 H (74-99) mg/dL Calcium 10.2 9.4 (8.4-10.2) mg/dL Total Bilirubin 0.6 (0.2-1.3) mg/dL AST 21 (14-36) U/L ALT 18 (4-34) U/L Alkaline Phosphatase 78 (38-126) U/L Total Protein 7.4 (6.3-8.2) g/dL Albumin 4.4 (3.5-5.0) g/dL - Imaging Chest x-ray: report reviewed, image reviewed CT scan - chest: report reviewed, image reviewed Assessment and Plan Assessment: Large left pleural effusion, status post thoracentesis without reexpansion of the left lung, status post thoravent placement Shortness of breath Multiple spiculated densities within the right lung concerning for metastasis on CT Frail, cachectic 80 pound unintentional weight loss over the last year Current tobacco dependence COPD History of covid infection Significant family history of cancer Plan: The patient was seen and examined at the bedside. Chart/diagnoses reviewed. Case to be discussed with Dr. Garcia. Thoravent increased to -30 cm wall suction. Continue current treatment. Encourage smoking cessation. Await fluid pathology, suspicious for cancer. Medical management of the comorbidities per internal medicine, pulmonology. More recommendations to follow once discussed with Dr. Garcia. Thank you Dr. Small for this consult. I have personally seen and examined the patient, performed the documentation and the assessment and plan as written. Number of minutes spent on the visit: 30. Jazz Ahumada NP-C I have personally seen and examined the patient and agree with the assessment and plan as dictated by the ANESTHESIOLOGISTS' ASSISTANT. Lane Garcia MD
[2022-12-23 16:34] LABS: Total Protein 7.8 d/dL (6.2-8.2)
[2022-12-23 17:27] LABS: Appearance,BF Turbid (Clear)
[2022-12-23] MEDS: SODIUM CHLORIDE 0.9% 1,000 ML IV SCH (21:34)
[2022-12-24] MEDS: HYDROmorphone 1 MG/ML 1 ML SYRINGE IVP PRN (00:31)
[2022-12-24] MEDS: ONDANSETRON 4 MG/2 ML VIAL IVP PRN ×2 (00:31→18:24)
[2022-12-24] MEDS: MORPHINE SULFATE 4 MG/ML SYRINGE IV PRN ×5 (06:10→22:09)
[2022-12-24] MEDS: ENOXAPARIN 40 MG/0.4 ML SYRINGE SQ SCH (08:43)
[2022-12-24] MEDS: FAMOTIDINE 20 MG TAB PO SCH ×2 (08:44→22:08)
--- NOTE | 2022-12-24 09:13 | XR ---
EXAMINATION TYPE: XR chest 1V portable DATE OF EXAM: 12/24/2022 COMPARISON: 12/23/2022. HISTORY: Pneumothorax after thoracentesis. TECHNIQUE: Single frontal view of the chest is obtained. FINDINGS: There is no significant change in the position of the chest tube and no significant change in the large hydropneumothorax on the left side. Patchy interstitial changes on the right are unchanged. The heart is also unchanged. IMPRESSION: No significant change.
[2022-12-24 10:57] LABS: Basophils # (A) 0.08 X 10*3/uL (0.00-0.10); Basophils % (A) 0.5 %; Eosinophils # (A) 0.03 X 10*3/uL (0.04-0.35); Eosinophils % (A) 0.2 %; HCT 43.7 % (37.2-46.3); HGB 14.6 d/dL (12.0-15.0); Lymphocytes # (A) 1.18 X 10*3/uL (0.90-5.00); Lymphocytes % (A) 7.9 %; MCH 29.9 pg (27.0-32.0); MCHC 33.4 d/dL (32.0-37.0); MCV 89.4 FL (80.0-97.0); Mean Platelet Volume 10.3 FL (9.5-12.2); Monocytes # (A) 1.49 X 10*3/uL (0.20-1.00); NRBC Per 100 WBC 0 X 10*3/uL (0.00-0.01); Neutrophils # (A) 12.02 X 10*3/uL (1.80-7.70); Neutrophils % (A) 80.9 %; Platelet Count 424 X 10*3/uL (140-440); RBC 4.89 X 10*6/uL (4.10-5.20); RDW 13.1 % (11.5-14.5); WBC 14.87 X 10*3/uL (4.50-10.00)
--- NOTE | 2022-12-24 10:57 | P.PN ---
Subjective Progress Note Date: 12/24/22 Principal diagnosis: Large left pleural effusion, status post thoracentesis without reexpansion of the left lung (ex vacuo pneumothorax), status post thoravent placement, multiple spiculated densities within the right lung concerning for metastasis on CT. History of 80 pound unintentional weight loss over the last year, current tobacco dependence, COPD, covid infection, significant family history of cancer The patient was seen and examined yesterday with Dr. Garcia. Case was discussed between Dr. Garcia and pulmonology. No plans for surgical intervention. Dr. Garcia did recommend possible bronchoscopy. The patient was seen this morning with family present. Discussed plan with patient/family. All questions answered. Objective - Vital Signs Vital signs: Vital Signs Temp 99.7 F H 12/24/22 07:32 Pulse 95 12/24/22 08:00 Resp 18 12/24/22 08:00 BP 130/85 12/24/22 07:32 Pulse Ox 92 L 12/24/22 07:32 FiO2 Intake & Output 12/23/22 12/24/22 12/24/22 18:59 06:59 18:59 Intake Total 160 Output Total 0 0 0 Balance 160 0 0 Weight 45.132 kg Intake: Intake, IV Titration 160 Amount Sodium Chloride 0.9% 1, 160 000 ml @ 20 mls/hr IV . Q24H ON LICENSE OF [facility] Rx#:[id number] Output: Chest Tube Drainage 0 0 0 Thora-Vent Left Upper 0 0 0 Anterior Chest Other: Voiding Method Bedside Commode Bedside Commode # Voids 2 - Exam CONSTITUTIONAL: Appears calm, cooperative, no acute distress RESPIRATORY: Lungs sounds very diminished bilaterally, left greater than right. Respirations even, slightly labored with talking. Currently on room air with oxygen saturation 92%. Left-sided thoravent present to continuous wall suction without air leak present CARDIOVASCULAR: S1, S2 present. Regular rate and rhythm. Palpable peripheral pulses bilaterally. No edema present. No calf pain or tenderness noted GASTROINTESTINAL: Abdomen soft, nontender, nondistended. Active bowel sounds present 4 quadrants. GENITOURINARY: Continues to void INTEGUMENTARY: Skin is warm and dry NEUROLOGIC: Cranial nerves II through XII intact MUSKULOSKELETAL: Able to move all extremities, strength equal bilaterally, gait normal PSYCHIATRIC: Alert and oriented to person place and time, appropriate affect, intact judgment and insight - Allied health notes Allied health notes reviewed: nursing - Labs CBC & Chem 7: 12/23/22 07:39 12/23/22 07:39 Labs: Abnormal Lab Results - Last 24 Hours (Table) 12/23/22 12/23/22 12/23/22 Range/Units 07:39 07:39 09:30 BUN/Creatinine Ratio 21.33 H (12.00-20.00) Ratio Glucose 120 H (70-110) mg/dL Lactate Dehydrogenase 345 H (120-246) U/L Fluid Appearance Turbid A (Clear) Microbiology - Last 24 Hours (Table) 12/23/22 09:30 Gram Stain - Preliminary Pleural Fluid Body Fluid Culture - Preliminary - Imaging and Cardiology Chest x-ray: report reviewed, image reviewed Assessment and Plan Assessment: Large left pleural effusion, status post thoracentesis without reexpansion of the left lung (ex-vacuo pneumothorax), status post thoravent placement Shortness of breath Multiple spiculated densities within the right lung concerning for metastasis on CT Frail, cachectic 80 pound unintentional weight loss over the last year Current tobacco dependence COPD History of covid infection Significant family history of cancer Plan: No surgical intervention recommended Recommend possible bronchoscopy, will defer to pulmonology judgment Continue current treatment Encourage smoking cessation Patient has very poor prognosis, consider hospice Medical management of the comorbidities per internal medicine, pulmonology Please call us with any further questions
[2022-12-24 11:07] LABS: BUN/Creat Ratio 29.83 Ratio (12.00-20.00); Blood Urea Nitrogen 17.9 mg/dL (9.0-27.0); Calcium 9.7 mg/dL (8.7-10.3); Carbon Dioxide 26.3 mmol/L (21.6-31.8); Chloride 102 mmol/L (96-109); Glucose 121 mg/dL (70-110); Magnesium 2.3 mg/dL (1.5-2.4); Potassium 4.7 mmol/L (3.5-5.5); Sodium 137 mmol/L (135-145)
--- NOTE | 2022-12-24 11:08 | P.PN ---
Subjective Progress Note Date: 12/24/22 Dyspnea has improved today per patient. Pt underwent thoracentesis yesterday, but noted to have no re-expansion of the left lung. CT surgery was consulted and thoravent placed to suction Gen: awake, alert HEENT: normocephalic, atraumatic, good hearing acuity, moist mucous membranes Resp: good air exchange, breathing comfortably with no accessory muscle use, diminished breath sounds on the left CVS: good distal perfusion x 4, GI: soft, NTTP, ND : no SPT, no CVAT, bernard catheter not present MSK: no pitting edema, no clubbing Neuro: non-focal, moving all extremities Psych: cooperative, euthymic mood Hospital course: Patient is a 67-year-old female with a PMH of lifelong tobacco abuse who prese nts to the emergency room with complaints of gradually worsening shortness of breath. Chest CT in the emergency room revealed findings of multiple densities in the right lung suspicious for metastasis with large left-sided pleural effusion and compressive atelectasis with enlarged subcarinal lymph node at 1.2 cm. EKG revealed sinus rhythm at [address]/T-wave changes noted as reviewed by me. Laboratory evaluation revealed leukocytosis of 12.0, in the 116.5, troponin less than 0.012, with BUN 18. ED documentation reviewed and case discussed with ED provider and patient was admitted for further workup. Seen by pulmonology, who recommended thoracentesis. Pro calcitonin was 0.03, th erefore no antibiotics were initiated. Pulmonology did thoracentesis on 12/23 and drained 1.2L of blackish brown fluid from pleural space. F/u CXR demonstrated hydropneumothorax ex vacuo and trapped lung. CT surgery was consulted. Thoravent placed to suction on 12/23. Assessment/plan: Left-sided pleural effusion Left hydropneumothorax ex vacuo Multiple spiculated pulmonary nodules Subcarinal lymphadenopathy -Pulmonology consulted, their thoracentesis note and progress note reviewed today - thoracentesis on 12/23 and drained 1.2L of blackish brown fluid from pleural space. F/u CXR demonstrated hydropneumothorax ex vacuo and trapped lung. CT surgery was consulted. Thoravent placed to suction on 12/23. -CT surgery consult, appreciate recs - no surgical intervention, consider bronchoscopy -CXR on 12/23 post thoracentesis was personally interpreted, see hospital course above for my interpretation -CBC shows leukocytosis to 15; Pleural Fluid shows turbid appearance, [address] WBC, 574196 RBC, 67% PMNs -A.m. labs ordered: CBC, basic metabolic panel, magnesium Significant unintentional weight loss Moderate protein-calorie malnutrition -Dietitian consult for calorie count note reviewed, recommend ensure plus high protein TID, heart healthy diet, high kcal/pro ONS TID LLE weakness, unclear etiology -PT consult, dc recs - home with home care vs [facility] depending on progress DVT prophylaxis: Lovenox subq The patient is admitted with an anticipated greater than 2 midnight stay for evaluation of dyspnea CODE STATUS: Full Code Discussed with: Patient Anticipated discharge place: Home vs [facility] Objective - Vital Signs Vital signs: Vital Signs Temp 99.7 F H 12/24/22 07:32 Pulse 95 12/24/22 08:00 Resp 18 12/24/22 08:00 BP 130/85 12/24/22 07:32 Pulse Ox 92 L 12/24/22 07:32 FiO2 Intake & Output 12/23/22 12/24/22 12/24/22 18:59 06:59 18:59 Intake Total 160 Output Total 0 0 0 Balance 160 0 0 Weight 45.132 kg Intake: Intake, IV Titration 160 Amount Sodium Chloride 0.9% 1, 160 000 ml @ 20 mls/hr IV . Q24H [facility] Rx#:[id number] Output: Chest Tube Drainage 0 0 0 Thora-Vent Left Upper 0 0 0 Anterior Chest Other: Voiding Method Bedside Commode Bedside Commode # Voids 2 - Labs CBC & Chem 7: 12/24/22 06:25 12/23/22 07:39 Labs: Abnormal Lab Results - Last 24 Hours (Table) 12/23/22 12/23/22 12/23/22 Range/Units 07:39 07:39 09:30 WBC (4.50-10.00) X 10*3/uL Neutrophils # (1.80-7.70) X 10*3/uL Monocytes # (0.20-1.00) X 10*3/uL Eosinophils # (0.04-0.35) X 10*3/uL BUN/Creatinine Ratio 21.33 H (12.00-20.00) Ratio Glucose 120 H (70-110) mg/dL Lactate Dehydrogenase 345 H (120-246) U/L Fluid Appearance Turbid A (Clear) 12/24/22 Range/Units 06:25 WBC 14.87 H (4.50-10.00) X 10*3/uL Neutrophils # 12.02 H (1.80-7.70) X 10*3/uL Monocytes # 1.49 H (0.20-1.00) X 10*3/uL Eosinophils # 0.03 L (0.04-0.35) X 10*3/uL BUN/Creatinine Ratio (12.00-20.00) Ratio Glucose (70-110) mg/dL Lactate Dehydrogenase (120-246) U/L Fluid Appearance (Clear) Microbiology - Last 24 Hours (Table) 12/23/22 09:30 Gram Stain - Preliminary Pleural Fluid Body Fluid Culture - Preliminary
--- NOTE | 2022-12-24 12:31 | P.PN ---
Subjective Progress Note Date: 12/24/22 I am seeing this patient in new consultation today 12/23/2022 on the general medical floor after she presented yesterday evening with a chief complaint of chronic/progressive shortness of breath. Patient is a 67-year-old female with a limited past medical history, she does not routinely follow with a doctor. She has significant familial history of cancer, her mother had breast cancer, and her brother had prostate cancer. She does continue to smoke approximately 3/4 to 1 pack per day, and has over a [id number] history. She admits to losing approximately 80 pounds over the last year. She is cachectic and frail. Patient has been experiencing chronic fatigue and dyspnea especially on exertion for the last year. She attributes this to possible COVID-19 infection 1 year ago. The shortness of breath has been worse over the last month and a half. She does report a positive home Covid test approximately 1-1/2 months ago. At that time, she had fever, cough, and worsening shortness of breath. She is not improved, so she went to a local urgent care clinic yesterday, which found some abnormal chest x-ray findings, and directed her to the emergency room. Patient is currently sitting up in bed, on room air, in no acute distress. Chest CT shows multiple spiculated densities within the right lung, with the largest measuring 1.4 cm. There is a large left pleural effusion with compressive atelectasis, and there are also and enlarged 1.2 cm subcarinal lymph node. These findings are suspicious for metastasis, however, infectious etiology is not entirely ruled out. Currently patient denies any fever, chills, myalgias, chest pain, hemoptysis. Denies any other infectious symptoms. Denies history of malignancies or heart failure. CBC on arrival shows a WBC count of 12, hemoglobin 16.4, hematocrit 48.8, platelets 441. BMP on arrival was unremarkable. Troponin less than 0.012. She also has had some issues with ambulating. There is a walker at the bedside. Patient is hemodynamically stable. The patient is seen today 12/24/2022 in follow-up on the regular medical floor. She is currently sitting up in bed. Awake and alert in no acute distress. She is maintaining good O2 saturations in the 90s on room air. Yesterday she did undergo a left-sided thoracentesis with 1.2 L of dark black fluid returned. She did have a trapped lung with failure to expand and a hydropneumothorax. She subsequently had undergone Thoravent placement. Her chest x-ray reveals no significant change. No improvement in the large hydropneumothorax on the left. Fluid cytology and cultures pending. Pro-calcitonin 0.03. White count 14.8. Hemoglobin 14.6. Platelets 424. Sodium 137. Potassium 4.7. Bicarb 26. BUN 18. Creatinine 0.6. Glucose 121. Lovenox for DVT prophylaxis. Objective - Vital Signs Vital signs: Vital Signs Temp 99.7 F H 12/24/22 07:32 Pulse 95 12/24/22 08:00 Resp 18 12/24/22 08:00 BP 130/85 12/24/22 07:32 Pulse Ox 92 L 12/24/22 07:32 FiO2 Intake & Output 12/23/22 12/24/22 12/24/22 18:59 06:59 18:59 Intake Total 160 Output Total 0 0 0 Balance 160 0 0 Weight 45.132 kg Intake: Intake, IV Titration 160 Amount Sodium Chloride 0.9% 1, 160 000 ml @ 20 mls/hr IV . Q24H [facility] Rx#:[id number] Output: Chest Tube Drainage 0 0 0 Thora-Vent Left Upper 0 0 0 Anterior Chest Other: Voiding Method Bedside Commode Bedside Commode # Voids 2 - Exam GENERAL EXAM: Alert, pleasant 67-year-old female who is frail and cachectic, on room air, fairly comfortable in no apparent distress. HEAD: Normocephalic and atraumatic EYES: Normal reaction of pupils, equal size. NOSE: Clear with pink turbinates. THROAT: No erythema or exudates. NECK: No masses, no JVD. CHEST: No chest wall deformity. LUNGS: Equal air entry with diminished left lung sounds, with evidence of effusion/consolidation. No conversational dyspnea. CVS: S1 and S2 normal with no audible murmur, regular rhythm. No extra heart sounds ABDOMEN: No hepatosplenomegaly, active bowel sounds, no guarding or rigidity. SPINE: No scoliosis or deformity SKIN: No rashes CENTRAL NERVOUS SYSTEM: No focal deficits, tone is normal in all 4 extremities. EXTREMITIES: There is no peripheral edema, clubbing, or cyanosis. Left lower extremity strength 3/5, other remaining extremity strength 5/5. Peripheral pulses are intact. - Labs CBC & Chem 7: 12/24/22 06:25 12/24/22 06:25 Labs: Abnormal Lab Results - Last 24 Hours (Table) 12/23/22 12/23/22 12/24/22 Range/Units 07:39 09:30 06:25 WBC 14.87 H (4.50-10.00) X 10*3/uL Neutrophils # 12.02 H (1.80-7.70) X 10*3/uL Monocytes # 1.49 H (0.20-1.00) X 10*3/uL Eosinophils # 0.03 L (0.04-0.35) X 10*3/uL BUN/Creatinine Ratio (12.00-20.00) Ratio Glucose (70-110) mg/dL Lactate Dehydrogenase 345 H (120-246) U/L Fluid Appearance Turbid A (Clear) 12/24/22 Range/Units 06:25 WBC (4.50-10.00) X 10*3/uL Neutrophils # (1.80-7.70) X 10*3/uL Monocytes # (0.20-1.00) X 10*3/uL Eosinophils # (0.04-0.35) X 10*3/uL BUN/Creatinine Ratio 29.83 H (12.00-20.00) Ratio Glucose 121 H (70-110) mg/dL Lactate Dehydrogenase (120-246) U/L Fluid Appearance (Clear) Microbiology - Last 24 Hours (Table) 12/23/22 09:30 Gram Stain - Preliminary Pleural Fluid Body Fluid Culture - Preliminary Assessment and Plan Assessment: Dyspnea, secondary to a large left pleural effusion, possibly malignant. Chest CT shows multiple spiculated densities within the right lung, with the largest measuring 1.4 cm. There is a large left pleural effusion with compressive atelectasis, and there are also and enlarged 1.2 cm subcarinal lymph node. These findings are suspicious for pulmonary malignancy with metastasis, however, infectious etiology is not entirely ruled out. Large left pleural effusion status post thoracentesis 12/23/2022 with 1.2 L of dark black fluid returned with trapped lung and hydropneumothorax, status post T hora-Vent placement on 12/23/2022. Cytology and cultures pending. Multiple spiculated pulmonary nodules, seen in the right lung, with the largest measuring 1.4 cm Cachexia and severe protein-calorie malnutrition Leukocytosis, possibly reactive Unintentional weight loss, approximately 80 lbs over the last one year Chronic ongoing nicotine dependence, with over 90-mmbi-ssbm history Difficulties ambulating, related to left lower extremity weakness Plan: The patient was seen and evaluated Chest x-ray, labs and medications reviewed Fluid analysis, cytology and cultures are pending No plans for bronchoscopy at this time Thora vent flushed and remains in place Lovenox for DVT prophylaxis We will continue to follow I have personally seen and examined the patient, performed the documentation and the assessment and plan as written. Number of minutes spent on the visit: 10.
[2022-12-24] MEDS: SODIUM CHLORIDE 0.9% 1,000 ML IV SCH (22:12)
[2022-12-25] MEDS: MORPHINE SULFATE 4 MG/ML SYRINGE IV PRN ×5 (05:17→22:15)
[2022-12-25 08:43] LABS: Basophils # (A) 0.06 X 10*3/uL (0.00-0.10); Basophils % (A) 0.5 %; Eosinophils # (A) 0.06 X 10*3/uL (0.04-0.35); Eosinophils % (A) 0.5 %; HCT 39.2 % (37.2-46.3); HGB 13.2 d/dL (12.0-15.0); Lymphocytes # (A) 1.11 X 10*3/uL (0.90-5.00); Lymphocytes % (A) 9.1 %; MCH 29.8 pg (27.0-32.0); MCHC 33.7 d/dL (32.0-37.0); MCV 88.5 FL (80.0-97.0); Monocytes % (A) 10.6 %; NRBC Per 100 WBC 0 X 10*3/uL (0.00-0.01); Neutrophils # (A) 9.67 X 10*3/uL (1.80-7.70); Platelet Count 322 X 10*3/uL (140-440); RBC 4.43 X 10*6/uL (4.10-5.20); RDW 13.2 % (11.5-14.5); WBC 12.24 X 10*3/uL (4.50-10.00)
[2022-12-25] MEDS: ENOXAPARIN 40 MG/0.4 ML SYRINGE SQ SCH (09:21)
[2022-12-25] MEDS: FAMOTIDINE 20 MG TAB PO SCH ×2 (09:21→22:12)
--- NOTE | 2022-12-25 10:35 | P.PN ---
Subjective Progress Note Date: 12/25/22 Dyspnea has improved today again per patient. thoravent is still to suction. Gen: awake, alert HEENT: normocephalic, atraumatic, good hearing acuity, moist mucous membranes Resp: good air exchange, breathing comfortably with no accessory muscle use, diminished breath sounds on the left CVS: good distal perfusion x 4, GI: soft, NTTP, ND : no SPT, no CVAT, bernard catheter not present MSK: no pitting edema, no clubbing Neuro: non-focal, moving all extremities Psych: cooperative, euthymic mood Hospital course: Patient is a 67-year-old female with a PMH of lifelong tobacco abuse who presents to the emergency room with complaints of gradually worsening shortness of breath. Chest CT in the emergency room revealed findings of multiple densities in the right lung suspicious for metastasis with large left-sided pleural effusion and compressive atelectasis with enlarged subcarinal lymph node at 1.2 cm. EKG revealed sinus rhythm at [address]/T-wave changes noted as reviewed by me. Laboratory evaluation revealed leukocytosis of 12.0, in the 116.5, troponin less than 0.012, with BUN 18. ED documentation reviewed and case discussed with ED provider and patient was admitted for further workup. Seen by pulmonology, who recommended thoracentesis. Pro calcitonin was 0.03, therefore no antibiotics were initiated. Pulmonology did thoracentesis on 12/23 and drained 1.2L of blackish brown fluid from pleural space. F/u CXR demonstrated hydropneumothorax ex vacuo and trapped lung. CT surgery was consulted. Thoravent placed to suction on 12/23. Pleural Fluid shows turbid appearance, 92152 WBC, 132668 RBC, 67% PMNs. Assessment/plan: Left-sided pleural effusion Left hydropneumothorax ex vacuo Multiple spiculated pulmonary nodules Subcarinal lymphadenopathy -Pulmonology consulted, their note reviewed today from 12/24 - no plans for bronchoscopy at this time -CT surgery consult, appreciate recs - note today pending, no surgical intervention planned -CXR on 12/23 post thoracentesis was personally interpreted, see hospital course above for my interpretation -CBC shows leukocytosis to 12 -A.m. labs ordered: CBC, basic metabolic panel, magnesium -AM CXR ordered for tomorrow Significant unintentional weight loss Moderate protein-calorie malnutrition -Dietitian consult for calorie count note reviewed on 12/24, recommend ensure plus high protein TID, heart healthy diet, high kcal/pro ONS TID LLE weakness, unclear etiology -PT consult, dc recs - home with home care vs [facility] depending on progress DVT prophylaxis: Lovenox subq The patient is admitted with an anticipated greater than 2 midnight stay for evaluation of dyspnea CODE STATUS: Full Code Discussed with: Patient Anticipated discharge place: Home vs [facility] Objective - Vital Signs Vital signs: Vital Signs Temp 98.1 F 12/25/22 07:24 Pulse 93 12/25/22 07:24 Resp 18 12/25/22 07:24 BP 136/86 12/25/22 07:24 Pulse Ox 96 12/25/22 07:24 FiO2 Intake & Output 12/24/22 12/25/22 12/25/22 18:59 06:59 18:59 Output Total 0 5 0 Balance 0 -5 0 Output: Chest Tube Drainage 0 5 0 Thora-Vent Left Upper 0 5 0 Anterior Chest Other: Voiding Method Bedside Commode # Voids 5 1 - Labs CBC & Chem 7: 12/25/22 06:20 12/24/22 06:25 Labs: Abnormal Lab Results - Last 24 Hours (Table) 12/24/22 12/24/22 12/25/22 Range/Units 06:25 06:25 06:20 WBC 14.87 H 12.24 H (4.50-10.00) X 10*3/uL Neutrophils # 12.02 H 9.67 H (1.80-7.70) X 10*3/uL Monocytes # 1.49 H 1.30 H (0.20-1.00) X 10*3/uL Eosinophils # 0.03 L (0.04-0.35) X 10*3/uL BUN/Creatinine Ratio 29.83 H (12.00-20.00) Ratio Glucose 121 H (70-110) mg/dL Microbiology - Last 24 Hours (Table) 12/23/22 09:30 Gram Stain - Preliminary Pleural Fluid Body Fluid Culture - Preliminary 12/23/22 09:30 Acid Fast Bacilli Smear - Preliminary Pleural Fluid
--- NOTE | 2022-12-25 13:43 | P.PN ---
Subjective Progress Note Date: 12/25/22 I am seeing this patient in new consultation today 12/23/2022 on the general medical floor after she presented yesterday evening with a chief complaint of chronic/progressive shortness of breath. Patient is a 67-year-old female with a limited past medical history, she does not routinely follow with a doctor. She has significant familial history of cancer, her mother had breast cancer, and her brother had prostate cancer. She does continue to smoke approximately 3/4 to 1 pack per day, and has over a 20-wccu-barh history. She admits to losing approximately 80 pounds over the last year. She is cachectic and frail. Patient has been experiencing chronic fatigue and dyspnea especially on exertion for the last year. She attributes this to possible COVID-19 infection 1 year ago. The shortness of breath has been worse over the last month and a half. She does report a positive home Covid test approximately 1-1/2 months ago. At that time, she had fever, cough, and worsening shortness of breath. She is not improved, so she went to a local urgent care clinic yesterday, which found some abnormal chest x-ray findings, and directed her to the emergency room. Patient is currently sitting up in bed, on room air, in no acute distress. Chest CT shows multiple spiculated densities within the right lung, with the largest measuring 1.4 cm. There is a large left pleural effusion with compressive atelectasis, and there are also and enlarged 1.2 cm subcarinal lymph node. These findings are suspicious for metastasis, however, infectious etiology is not entirely ruled out. Currently patient denies any fever, chills, myalgias, chest pain, hemoptysis. Denies any other infectious symptoms. Denies history of malignancies or heart failure. CBC on arrival shows a WBC count of 12, hemoglobin 16.4, hematocrit 48.8, platelets 441. BMP on arrival was unremarkable. Troponin less than 0.012. She also has had some issues with ambulating. There is a walker at the bedside. Patient is hemodynamically stable. The patient is seen today 12/24/2022 in follow-up on the regular medical floor. She is currently sitting up in bed. Awake and alert in no acute distress. She is maintaining good O2 saturations in the 90s on room air. Yesterday she did undergo a left-sided thoracentesis with 1.2 L of dark black fluid returned. She did have a trapped lung with failure to expand and a hydropneumothorax. She subsequently had undergone Thoravent placement. Her chest x-ray reveals no significant change. No improvement in the large hydropneumothorax on the left. Fluid cytology and cultures pending. Pro-calcitonin 0.03. White count 14.8. Hemoglobin 14.6. Platelets 424. Sodium 137. Potassium 4.7. Bicarb 26. BUN 18. Creatinine 0.6. Glucose 121. Lovenox for DVT prophylaxis. The patient is seen today 12/25/2022 in follow-up on the regular medical floor. She is currently sitting up in a chair at the bedside. Awake and alert in no acute distress. Her event remains in place to the left chest attached to a Pleur-evac and wall suction. There continues to be black colored drainage. C ytology is pending. Gram stain and cultures are revealing no growth thus far. White count 12.2. Hemoglobin 13.2. Platelets 322. Normal saline at KVO. Lovenox for DVT prophylaxis. Objective - Vital Signs Vital signs: Vital Signs Temp 98.1 F 12/25/22 07:24 Pulse 93 12/25/22 07:24 Resp 18 12/25/22 07:24 BP 136/86 12/25/22 07:24 Pulse Ox 96 12/25/22 07:24 FiO2 Intake & Output 12/24/22 12/25/22 12/25/22 18:59 06:59 18:59 Output Total 0 5 0 Balance 0 -5 0 Output: Chest Tube Drainage 0 5 0 Thora-Vent Left Upper 0 5 0 Anterior Chest Other: Voiding Method Bedside Commode # Voids 5 1 - Exam GENERAL EXAM: Alert, 67-year-old female, sitting up in a chair, on room air, fairly comfortable in no apparent distress. HEAD: Normocephalic and atraumatic EYES: Normal reaction of pupils, equal size. NOSE: Clear with pink turbinates. THROAT: No erythema or exudates. NECK: No masses, no JVD. CHEST: No chest wall deformity. LUNGS: Equal air entry with diminished left lung sounds, with evidence of effusion/consolidation. CVS: S1 and S2 normal with no audible murmur, regular rhythm. No extra heart sounds ABDOMEN: No hepatosplenomegaly, active bowel sounds, no guarding or rigidity. SPINE: No scoliosis or deformity SKIN: No rashes CENTRAL NERVOUS SYSTEM: No focal deficits, tone is normal in all 4 extremities. EXTREMITIES: There is no peripheral edema, clubbing, or cyanosis. Peripheral pulses are intact. - Labs CBC & Chem 7: 12/25/22 06:20 12/24/22 06:25 Labs: Abnormal Lab Results - Last 24 Hours (Table) 12/25/22 Range/Units 06:20 WBC 12.24 H (4.50-10.00) X 10*3/uL Neutrophils # 9.67 H (1.80-7.70) X 10*3/uL Monocytes # 1.30 H (0.20-1.00) X 10*3/uL Microbiology - Last 24 Hours (Table) 12/23/22 09:30 Gram Stain - Preliminary Pleural Fluid Body Fluid Culture - Preliminary 12/23/22 09:30 Acid Fast Bacilli Smear - Preliminary Pleural Fluid Assessment and Plan Assessment: Dyspnea, secondary to a large left pleural effusion, possibly malignant. Chest CT shows multiple spiculated densities within the right lung, with the largest m easuring 1.4 cm. There is a large left pleural effusion with compressive atelectasis, and there are also and enlarged 1.2 cm subcarinal lymph node. These findings are suspicious for pulmonary malignancy with metastasis, however, infectious etiology is not entirely ruled out. Large left pleural effusion status post thoracentesis 12/23/2022 with 1.2 L of dark black fluid returned with trapped lung and hydropneumothorax, status post Thora-Vent placement on 12/23/2022. Gram stain and cultures reveal no growth thus far. Cytology pending. Multiple spiculated pulmonary nodules, seen in the right lung, with the largest measuring 1.4 cm Cachexia and severe protein-calorie malnutrition Leukocytosis, possibly reactive Unintentional weight loss, approximately 80 lbs over the last one year Chronic ongoing nicotine dependence, with over [id number] history Difficulties ambulating, related to left lower extremity weakness Plan: The patient was seen and evaluated Labs and medications reviewed Cultures revealing no growth thus far Cytology pending pending Thora vent remains in place Lovenox for DVT prophylaxis We will continue to follow I have personally seen and examined the patient, performed the documentation and the assessment and plan as written. Number of minutes spent on the visit: 10.
[2022-12-26] MEDS: MORPHINE SULFATE 4 MG/ML SYRINGE IV PRN ×5 (02:32→21:36)
[2022-12-26] MEDS: SODIUM CHLORIDE 0.9% 1,000 ML IV SCH ×2 (06:38→21:38)
--- NOTE | 2022-12-26 07:46 | XR ---
EXAMINATION TYPE: XR chest 1V portable DATE OF EXAM: 12/26/2022 CLINICAL HISTORY: Difficulty breathing progress study. Trapped lung. TECHNIQUE: Single AP portable upright view of the chest is obtained. COMPARISON: Chest x-ray from 2 days earlier FINDINGS: Persistent left apical chest tube with improved left apical pneumothorax. Osseous structur es are demineralized with underlying scoliosis. Worsening left lung consolidation but improving left apical pneumothorax. Chronic changes in the right lung are redemonstrated. IMPRESSION: Worsening left mid lung opacity suggesting increasing left-sided pleural fluid. Left apic al pneumothorax slightly improved. Stable left apical chest tube. Persistent left lung atelectasis. R ight lung remains clear.
[2022-12-26 08:05] LABS: African American GFR (CKD) >90 (>60 ml/min/1.73 sqM); Anion Gap 3 mmol/L; Blood Urea Nitrogen 15 mg/dL (7-17); Calcium 9.1 mg/dL (8.4-10.2); Carbon Dioxide 27 mmol/L (22-30); Chloride 103 mmol/L (98-107); Glucose 91 mg/dL (74-99); Non-African American GFR(CKD) >90 (>60 ml/min/1.73 sqM); Potassium 4.3 mmol/L (3.5-5.1); Sodium 133 mmol/L (137-145)
[2022-12-26 08:06] LABS: Basophils % (A) 0 %; Eosinophils # (A) 0.1 k/uL (0-0.7); Eosinophils % (A) 1 %; HCT 40.8 % (34.0-46.0); HGB 13.8 gm/dL (11.4-16.0); Lymphocytes # (A) 1.3 k/uL (1.0-4.8); Lymphocytes % (A) 12 %; MCHC 33.7 g/dL (31.0-37.0); MCV 88.8 fL (80.0-100.0); Mean Platelet Volume 9.2; Monocytes # (A) 1.1 k/uL (0-1.0); Monocytes % (A) 11 %; Neutrophils # (A) 7.9 k/uL (1.3-7.7); Neutrophils % (A) 74 %; Platelet Count 303 k/uL (150-450); RBC 4.59 m/uL (3.80-5.40); RDW 13.5 % (11.5-15.5); WBC 10.7 k/uL (3.8-10.6)
[2022-12-26] MEDS: FAMOTIDINE 20 MG TAB PO SCH ×2 (08:12→20:12)
[2022-12-26] MEDS: ENOXAPARIN 40 MG/0.4 ML SYRINGE SQ SCH (08:12)
--- NOTE | 2022-12-26 11:21 | P.PN ---
Subjective Progress Note Date: 12/26/22 Dyspnea is a bit worse today. CXR shows improved apical aeration and likely mild expansion of the left lung, but re-accumulation of left pleural effusion. Gen: awake, alert HEENT: normocephalic, atraumatic, good hearing acuity, moist mucous membranes Resp: good air exchange, breathing comfortably with no accessory muscle use, diminished breath sounds on the left CVS: good distal perfusion x 4, GI: soft, NTTP, ND : no SPT, no CVAT, bernard catheter not present MSK: no pitting edema, no clubbing Neuro: non-focal, moving all extremities Psych: cooperative, euthymic mood Hospital course: Patient is a 67-year-old female with a PMH of lifelong tobacco abuse who presents to the emergency room with complaints of gradually worsening shortness of breath. Chest CT in the emergency room revealed findings of multiple densities in the right lung suspicious for metastasis with large left-sided pleural effusion and compressive atelectasis with enlarged subcarinal lymph node at 1.2 cm. EKG revealed sinus rhythm at [address]/T-wave changes noted as reviewed by me. Laboratory evaluation revealed leukocytosis of 12.0, in the 116.5, troponin less than 0.012, with BUN 18. ED documentation reviewed and case discussed with ED provider and patient was admitted for further workup. Seen by pulmonology, who recommended thoracentesis. Pro calcitonin was 0.03, therefore no antibiotics were initiated. Pulmonology did thoracentesis on 12/23 and drained 1.2L of blackish brown fluid from pleural space. F/u CXR demonstrated hydropneumothorax ex vacuo and trapped lung. CT surgery was consulted. Thoravent placed to suction on 12/23. Pleural Fluid shows turbid appearance, 67059 WBC, [id number] RBC, 67% PMNs. Repeat CXR on 12/26 showed improved apical aeration and likely mild expansion of the left lung, but re-accumulation of left pleural effusion. Assessment/plan: Left-sided pleural effusion Left hydropneumothorax ex vacuo Multiple spiculated pulmonary nodules Subcarinal lymphadenopathy -Pulmonology consulted, their note reviewed today from 12/25 - pending pathology -CT surgery consult, appreciate recs - no surgical intervention planned -CXR on 12/26 was personally interpreted, see hospital course above -CBC shows leukocytosis to 10.7, BMP shows Na of 133 -A.m. labs ordered: CBC, basic metabolic panel, magnesium -For pain control, her morphine 4mg IV q4h PRN was increased to frequency of q2h PRN today Significant unintentional weight loss Moderate protein-calorie malnutrition -Dietitian consult for calorie count note reviewed on 12/24, recommend ensure plus high protein TID, heart healthy diet, high kcal/pro ONS TID LLE weakness, unclear etiology -PT consult, dc recs - home with home care vs [facility] depending on progress DVT prophylaxis: Lovenox subq The patient is admitted with an anticipated greater than 2 midnight stay for evaluation of dyspnea CODE STATUS: Full Code Discussed with: Patient Anticipated discharge place: Home vs [facility] Objective - Vital Signs Vital signs: Vital Signs Temp 97.2 F L 12/26/22 06:59 Pulse 98 12/26/22 06:59 Resp 20 12/26/22 09:13 BP 135/88 12/26/22 06:59 Pulse Ox 93 L 12/26/22 06:59 FiO2 Intake & Output 12/25/22 12/26/22 12/26/22 18:59 06:59 18:59 Intake Total 1080 Output Total 210 910 Balance 870 -910 Weight 45.132 kg Intake: Oral 1080 Output: Chest Tube Drainage 210 910 Thora-Vent Left Upper 210 910 Anterior Chest Other: Voiding Method Bedside Commode # Voids 4 1 - Labs CBC & Chem 7: 12/26/22 06:31 12/26/22 06:31 Labs: Abnormal Lab Results - Last 24 Hours (Table) 12/26/22 12/26/22 Range/Units 06:31 06:31 WBC 10.7 H (3.8-10.6) k/uL Neutrophils # 7.9 H (1.3-7.7) k/uL Monocytes # 1.1 H (0-1.0) k/uL Sodium 133 L (137-145) mmol/L Microbiology - Last 24 Hours (Table) 12/23/22 09:30 Gram Stain - Preliminary Pleural Fluid Body Fluid Culture - Preliminary
--- NOTE | 2022-12-26 12:17 | P.PN ---
Subjective Progress Note Date: 12/26/22 I am seeing this patient in new consultation today 12/23/2022 on the general medical floor after she presented yesterday evening with a chief complaint of chronic/progressive shortness of breath. Patient is a 67-year-old female with a limited past medical history, she does not routinely follow with a doctor. She has significant familial history of cancer, her mother had breast cancer, and her brother had prostate cancer. She does continue to smoke approximately 3/4 to 1 pack per day, and has over a 74-[id number]-eqne history. She admits to losing approximately 80 pounds over the last year. She is cachectic and frail. Patient has been experiencing chronic fatigue and dyspnea especially on exertion for the last year. She attributes this to possible COVID-19 infection 1 year ago. The shortness of breath has been worse over the last month and a half. She does report a positive home Covid test approximately 1-1/2 months ago. At that time, she had fever, cough, and worsening shortness of breath. She is not improved, so she went to a local urgent care clinic yesterday, which found some abnormal chest x-ray findings, and directed her to the emergency room. Patient is currently sitting up in bed, on room air, in no acute distress. Chest CT shows multiple spiculated densities within the right lung, with the largest measuring 1.4 cm. There is a large left pleural effusion with compressive atelectasis, and there are also and enlarged 1.2 cm subcarinal lymph node. These findings are suspicious for metastasis, however, infectious etiology is not entirely ruled out. Currently patient denies any fever, chills, myalgias, chest pain, hemoptysis. Denies any other infectious symptoms. Denies history of malignancies or heart failure. CBC on arrival shows a WBC count of 12, hemoglobin 16.4, hematocrit 48.8, platelets 441. BMP on arrival was unremarkable. Troponin less than 0.012. She also has had some issues with ambulating. There is a walker at the bedside. Patient is hemodynamically stable. The patient is seen today 12/24/2022 in follow-up on the regular medical floor. She is currently sitting up in bed. Awake and alert in no acute distress. She is maintaining good O2 saturations in the 90s on room air. Yesterday she did undergo a left-sided thoracentesis with 1.2 L of dark black fluid returned. She did have a trapped lung with failure to expand and a hydropneumothorax. She subsequently had undergone Thoravent placement. Her chest x-ray reveals no significant change. No improvement in the large hydropneumothorax on the left. Fluid cytology and cultures pending. Pro-calcitonin 0.03. White count 14.8. Hemoglobin 14.6. Platelets 424. Sodium 137. Potassium 4.7. Bicarb 26. BUN 18. Creatinine 0.6. Glucose 121. Lovenox for DVT prophylaxis. The patient is seen today 12/25/2022 in follow-up on the regular medical floor. She is currently sitting up in a chair at the bedside. Awake and alert in no acute distress. Her event remains in place to the left chest attached to a Pleur-evac and wall suction. There continues to be black colored drainage. C ytology is pending. Gram stain and cultures are revealing no growth thus far. White count 12.2. Hemoglobin 13.2. Platelets 322. Normal saline at KVO. Lovenox for DVT prophylaxis. The patient is seen today 12/26/2022 in follow-up on the regular medical floor. She is resting comfortably in bed. Awake and alert in no acute distress. Chest x-ray shows worsening left midlung opacity suggesting increased left-sided pleural fluid. Left apical pneumothorax slightly improved. Thora-Vent remains in place. Right lung remains clear. Pleural fluid cytology pending. White count 10.7. 13.8. Platelets 303. Sodium 133. Potassium 4.3. Bicarb 27. BUN 15. Creatinine 0.53. She remains on Lovenox for DVT prophylaxis. Objective - Vital Signs Vital signs: Vital Signs Temp 97.2 F L 12/26/22 06:59 Pulse 98 12/26/22 06:59 Resp 20 12/26/22 09:13 BP 135/88 12/26/22 06:59 Pulse Ox 93 L 12/26/22 06:59 FiO2 Intake & Output 12/25/22 12/26/22 12/26/22 18:59 06:59 18:59 Intake Total 1080 Output Total 210 910 Balance 870 -910 Weight 45.132 kg Intake: Oral 1080 Output: Chest Tube Drainage 210 910 Thora-Vent Left Upper 210 910 Anterior Chest Other: Voiding Method Bedside Commode # Voids 4 1 - Exam GENERAL EXAM: Alert, 67-year-old female, sitting up in a chair, on room air, fairly comfortable in no apparent distress. HEAD: Normocephalic and atraumatic EYES: Normal reaction of pupils, equal size. NOSE: Clear with pink turbinates. THROAT: No erythema or exudates. NECK: No masses, no JVD. CHEST: No chest wall deformity. LUNGS: Equal air entry with diminished left lung sounds, with evidence of effusion/consolidation. Thora-Vent in place CVS: S1 and S2 normal with no audible murmur, regular rhythm. No extra heart sounds ABDOMEN: No hepatosplenomegaly, active bowel sounds, no guarding or rigidity. SPINE: No scoliosis or deformity SKIN: No rashes CENTRAL NERVOUS SYSTEM: No focal deficits, tone is normal in all 4 extremities. EXTREMITIES: There is no peripheral edema, clubbing, or cyanosis. Peripheral pulses are intact. - Labs CBC & Chem 7: 12/26/22 06:31 12/26/22 06:31 Labs: Abnormal Lab Results - Last 24 Hours (Table) 12/26/22 12/26/22 Range/Units 06:31 06:31 WBC 10.7 H (3.8-10.6) k/uL Neutrophils # 7.9 H (1.3-7.7) k/uL Monocytes # 1.1 H (0-1.0) k/uL Sodium 133 L (137-145) mmol/L Microbiology - Last 24 Hours (Table) 12/23/22 09:30 Gram Stain - Preliminary Pleural Fluid Body Fluid Culture - Preliminary Assessment and Plan Assessment: Dyspnea, secondary to a large left pleural effusion, possibly malignant. Chest CT shows multiple spiculated densities within the right lung, with the largest measuring 1.4 cm. There is a large left pleural effusion with compressive atelectasis, and there are also and enlarged 1.2 cm subcarinal lymph node. These findings are suspicious for pulmonary malignancy with metastasis, however, infectious etiology is not entirely ruled out. Large left pleural effusion status post thoracentesis 12/23/2022 with 1.2 L of dark black fluid returned with trapped lung and hydropneumothorax, status post Thora-Vent placement on 12/23/2022. Gram stain and cultures reveal no growth thus far. Cytology pending. Multiple spiculated pulmonary nodules, seen in the right lung, with the largest measuring 1.4 cm Cachexia and severe protein-calorie malnutrition Leukocytosis, possibly reactive Unintentional weight loss, approximately 80 lbs over the last one year Chronic ongoing nicotine dependence, with over [id number] history Difficulties ambulating, related to left lower extremity weakness Plan: The patient was seen and evaluated Chest x-ray, labs and medications reviewed Cultures revealing no growth thus far Cytology pending Thora vent remains in place We will continue to follow I have personally seen and examined the patient, performed the documentation and the assessment and plan as written. Number of minutes spent on the visit: 10.
[2022-12-27] MEDS: MORPHINE SULFATE 4 MG/ML SYRINGE IV PRN ×5 (05:13→20:04)
--- NOTE | 2022-12-27 08:21 | P.PN ---
Subjective Progress Note Date: 12/27/22 Dyspnea is a bit worse today. Gen: awake, alert HEENT: normocephalic, atraumatic, good hearing acuity, moist mucous membranes Resp: good air exchange, breathing comfortably with no accessory muscle use, diminished breath sounds on the left CVS: good distal perfusion x 4, GI: soft, NTTP, ND : no SPT, no CVAT, bernard catheter not present MSK: no pitting edema, no clubbing Neuro: non-focal, moving all extremities Psych: cooperative, euthymic mood Hospital course: Patient is a 67-year-old female with a PMH of lifelong tobacco abuse who presents to the emergency room with complaints of gradually worsening shortness of breath. Chest CT in the emergency room revealed findings of multiple densities in the right lung suspicious for metastasis with large left-sided pleural effusion and compressive atelectasis with enlarged subcarinal lymph node at 1.2 cm. EKG revealed sinus rhythm at [address]/T-wave changes noted as reviewed by me. Laboratory evaluation revealed leukocytosis of 12.0, in the 116.5, troponin less than 0.012, with BUN 18. ED documentation reviewed and case discussed with ED provider and patient was admitted for further workup. Seen by pulmonology, who recommended thoracentesis. Pro calcitonin was 0.03, therefore no antibiotics were initiated. Pulmonology did thoracentesis on 12/23 and drained 1.2L of blackish brown fluid from pleural space. F/u CXR demonstrat ed hydropneumothorax ex vacuo and trapped lung. CT surgery was consulted. Thoravent placed to suction on 12/23. Pleural Fluid [place] turbid appearance, [address] WBC, 173717 RBC, 67% PMNs. Repeat CXR on 12/26 showed improved apical aeration and likely mild expansion of the left lung, but re-accumulation of left pleural effusion. Assessment/plan: Left-sided pleural effusion Left hydropneumothorax ex vacuo Multiple spiculated pulmonary nodules Subcarinal lymphadenopathy -Pulmonology consulted, their note reviewed today from 12/25 - pending pathology -CT surgery consult, appreciate recs - no surgical intervention planned -CXR on 12/26 was personally interpreted, see hospital course above -A.m. labs ordered: CBC, basic metabolic panel, magnesium -For pain control, her morphine 4mg IV q4h PRN was increased to frequency of q2h PRN today Significant unintentional weight loss Moderate protein-calorie malnutrition -Dietitian consult for calorie count note reviewed on 12/24, recommend ensure p tsering high protein TID, heart healthy diet, high kcal/pro ONS TID LLE weakness, unclear etiology -PT consult, dc recs - home with home care vs [facility] depending on progress DVT prophylaxis: Lovenox subq The patient is admitted with an anticipated greater than 2 midnight stay for evaluation of dyspnea CODE STATUS: Full Code Discussed with: Patient Anticipated discharge place: Home vs [facility] Objective - Vital Signs Vital signs: Vital Signs Temp 98.2 F 12/27/22 07:26 Pulse 98 12/27/22 07:26 Resp 19 12/27/22 07:26 BP 150/92 12/27/22 07:26 Pulse Ox 93 L 12/27/22 07:26 FiO2 Intake & Output 12/26/22 12/27/22 12/27/22 18:59 06:59 18:59 Intake Total 200 Output Total 350 160 Balance -150 -160 Intake: Oral 200 Output: Chest Tube Drainage 350 160 Thora-Vent Left Upper 350 160 Anterior Chest Other: Voiding Method Bedside Commode # Voids 1 2 - Labs CBC & Chem 7: 12/26/22 06:31 12/26/22 06:31 Labs: Abnormal Lab Results - Last 24 Hours (Table) 12/26/22 Range/Units 06:31 Sodium 133 L (137-145) mmol/L Microbiology - Last 24 Hours (Table) 12/23/22 09:30 Gram Stain - Preliminary Pleural Fluid Body Fluid Culture - Preliminary
[2022-12-27] MEDS: FAMOTIDINE 20 MG TAB PO SCH ×2 (08:29→20:04)
[2022-12-27] MEDS: guaiFENesin-DM 600/30MG 1 EACH TAB.ER.12H PO SCH ×2 (08:30→20:35)
[2022-12-27] MEDS: ENOXAPARIN 40 MG/0.4 ML SYRINGE SQ SCH (08:30)
--- NOTE | 2022-12-27 10:29 | P.PN ---
Subjective Progress Note Date: 12/27/22 I am seeing this patient in new consultation today 12/23/2022 on the general medical floor after she presented yesterday evening with a chief complaint of chronic/progressive shortness of breath. Patient is a 67-year-old female with a limited past medical history, she does not routinely follow with a doctor. She has significant familial history of cancer, her mother had breast cancer, and her brother had prostate cancer. She does continue to smoke approximately 3/4 to 1 pack per day, and has over a [id number] history. She admits to losing approximately 80 pounds over the last year. She is cachectic and frail. Patient has been experiencing chronic fatigue and dyspnea especially on exertion for the last year. She attributes this to possible COVID-19 infection 1 year ago. The shortness of breath has been worse over the last month and a half. She does report a positive home Covid test approximately 1-1/2 months ago. At that time, she had fever, cough, and worsening shortness of breath. She is not improved, so she went to a local urgent care clinic yesterday, which found some abnormal chest x-ray findings, and directed her to the emergency room. Patient is currently sitting up in bed, on room air, in no acute distress. Chest CT shows multiple spiculated densities within the right lung, with the largest measuring 1.4 cm. There is a large left pleural effusion with compressive atelectasis, and there are also and enlarged 1.2 cm subcarinal lymph node. These findings are suspicious for metastasis, however, infectious etiology is not entirely ruled out. Currently patient denies any fever, chills, myalgias, chest pain, hemoptysis. Denies any other infectious symptoms. Denies history of malignancies or heart failure. CBC on arrival shows a WBC count of 12, hemoglobin 16.4, hematocrit 48.8, platelets 441. BMP on arrival was unremarkable. Troponin less than 0.012. She also has had some issues with ambulating. There is a walker at the bedside. Patient is hemodynamically stable. The patient is seen today 12/24/2022 in follow-up on the regular medical floor. She is currently sitting up in bed. Awake and alert in no acute distress. She is maintaining good O2 saturations in the 90s on room air. Yesterday she did undergo a left-sided thoracentesis with 1.2 L of dark black fluid returned. She did have a trapped lung with failure to expand and a hydropneumothorax. She subsequently had undergone Thoravent placement. Her chest x-ray reveals no significant change. No improvement in the large hydropneumothorax on the left. Fluid cytology and cultures pending. Pro-calcitonin 0.03. White count 14.8. Hemoglobin 14.6. Platelets 424. Sodium 137. Potassium 4.7. Bicarb 26. BUN 18. Creatinine 0.6. Glucose 121. Lovenox for DVT prophylaxis. The patient is seen today 12/25/2022 in follow-up on the regular medical floor. She is currently sitting up in a chair at the bedside. Awake and alert in no acute distress. Her event remains in place to the left chest attached to a Pleur-evac and wall suction. There continues to be black colored drainage. C ytology is pending. Gram stain and cultures are revealing no growth thus far. White count 12.2. Hemoglobin 13.2. Platelets 322. Normal saline at KVO. Lovenox for DVT prophylaxis. The patient is seen today 12/26/2022 in follow-up on the regular medical floor. She is resting comfortably in bed. Awake and alert in no acute distress. Chest x-ray shows worsening left midlung opacity suggesting increased left-sided pleural fluid. Left apical pneumothorax slightly improved. Thora-Vent remains in place. Right lung remains clear. Pleural fluid cytology pending. White count 10.7. 13.8. Platelets 303. Sodium 133. Potassium 4.3. Bicarb 27. BUN 15. Creatinine 0.53. She remains on Lovenox for DVT prophylaxis. The patient is seen today the 2022 in follow-up on the regular medical floor. She is currently sitting up in bed. Awake and alert in no acute distress. She denies any worsening shortness of breath, cough or hemoptysis. Maintaining O2 saturation in the 90s on room air. Afebrile. Hemodynamically stable. Left-sided Thora vent remains in place. Continuing to drain fluid with a total of 850 ML's. The fluid is less dark and more blood-tinged. Culture revealed no growth. Cytology is pending. Objective - Vital Signs Vital signs: Vital Signs Temp 98.2 F 12/27/22 07:26 Pulse 98 12/27/22 07:26 Resp 19 12/27/22 07:26 BP 150/92 12/27/22 07:26 Pulse Ox 93 L 12/27/22 07:26 FiO2 Intake & Output 12/26/22 12/27/22 12/27/22 18:59 06:59 18:59 Intake Total 200 Output Total 350 160 Balance -150 -160 Intake: Oral 200 Output: Chest Tube Drainage 350 160 Thora-Vent Left Upper 350 160 Anterior Chest Other: Voiding Method Bedside Commode # Voids 1 2 - Exam GENERAL EXAM: Alert, pleasant 67-year-old female, appears older than stated age, fairly comfortable in no apparent distress. HEAD: Normocephalic and atraumatic EYES: Normal reaction of pupils, equal size. NOSE: Clear with pink turbinates. THROAT: No erythema or exudates. NECK: No masses, no JVD. CHEST: No chest wall deformity. LUNGS: Equal air entry with diminished left lung sounds, with evidence of effus ion/consolidation. Thora-Vent in place CVS: S1 and S2 normal with no audible murmur, regular rhythm. No extra heart sounds ABDOMEN: No hepatosplenomegaly, active bowel sounds, no guarding or rigidity. SPINE: No scoliosis or deformity SKIN: No rashes CENTRAL NERVOUS SYSTEM: No focal deficits, tone is normal in all 4 extremities. EXTREMITIES: There is no peripheral edema, clubbing, or cyanosis. Peripheral pulses are intact. - Labs CBC & Chem 7: 12/26/22 06:31 12/26/22 06:31 Labs: Microbiology - Last 24 Hours (Table) 12/23/22 09:30 Gram Stain - Final Pleural Fluid Body Fluid Culture - Final Assessment and Plan Assessment: Dyspnea, secondary to a large left pleural effusion, possibly malignant. Chest CT shows multiple spiculated densities within the right lung, with the largest measuring 1.4 cm. There is a large left pleural effusion with compressive atelectasis, and there are also and enlarged 1.2 cm subcarinal lymph node. These findings are suspicious for pulmonary malignancy with metastasis, however, infectious etiology is not entirely ruled out. Large left pleural effusion status post thoracentesis 12/23/2022 with 1.2 L of dark black fluid returned with trapped lung and hydropneumothorax, status post Thora-Vent placement on 12/23/2022. Gram stain and cultures reveal no growth thus far. Cytology pending. Multiple spiculated pulmonary nodules, seen in the right lung, with the largest measuring 1.4 cm Cachexia and severe protein-calorie malnutrition Leukocytosis, possibly reactive Unintentional weight loss, approximately 80 lbs over the last one year Chronic ongoing nicotine dependence, with over [id number] history Difficulties ambulating, related to left lower extremity weakness Plan: The patient was seen and evaluated Medications reviewed Cultures revealing no growth thus far Cytology pending Thora vent remains in place Follow-up chest x-ray in a.m. We will continue to follow I have personally seen and examined the patient, performed the documentation and the assessment and plan as written. Number of minutes spent on the visit: 10.
[2022-12-27] MEDS: SENNOSIDES-DOCUSATE SODIUM 1 EACH TAB PO SCH ×2 (14:24→20:04)
[2022-12-27] MEDS: polyethylene glycoL 3350 17 GM POWD.PACK PO SCH (14:24)
[2022-12-27] MEDS: LIDOCAINE 5% PATCH TOPICAL SCH (14:25)
[2022-12-28] MEDS: MORPHINE SULFATE 4 MG/ML SYRINGE IV PRN ×5 (05:17→20:56)
[2022-12-28] MEDS: SODIUM CHLORIDE 0.9% 1,000 ML IV SCH (05:44)
--- NOTE | 2022-12-28 07:44 | XR ---
EXAMINATION TYPE: XR chest 1V portable DATE OF EXAM: 12/28/2022 6:52 AM CLINICAL INDICATION:Female, 67 years old with history of Left effusion, pneumothorax; [facility] COMPARISON: Chest radiographs from 12/26/[address]22 radiographs. 12/22/2022 CT TECHNIQUE: XR chest 1V portable Frontal view of the chest. FINDINGS: Lungs/Pleura: Large left pleural effusion. There is no evidence of right pleural effusion, focal cons olidation, or pneumothorax. Scattered right airspace opacities/pulmonary nodules. Pulmonary vascularity: Unremarkable. Heart/mediastinum: Cardiomediastinal silhouette is unremarkable. Musculoskeletal: No acute osseous pathology. Other findings: None Lines/Tubes: Left thoracotomy tube is present with small pneumothorax similar prior. IMPRESSION: No change from 12/26/2022 with small pneumothorax, chest tube in place and large left pleural effusion . Patchy right airspace opacities/nodules remain
[2022-12-28] MEDS: LIDOCAINE 5% PATCH TOPICAL SCH (09:18)
[2022-12-28] MEDS: ENOXAPARIN 40 MG/0.4 ML SYRINGE SQ SCH (09:18)
[2022-12-28] MEDS: polyethylene glycoL 3350 17 GM POWD.PACK PO SCH (09:19)
[2022-12-28] MEDS: guaiFENesin-DM 600/30MG 1 EACH TAB.ER.12H PO SCH ×2 (09:19→20:57)
[2022-12-28] MEDS: SENNOSIDES-DOCUSATE SODIUM 1 EACH TAB PO SCH ×2 (09:19→20:57)
[2022-12-28] MEDS: FAMOTIDINE 20 MG TAB PO SCH ×2 (09:19→20:57)
--- NOTE | 2022-12-28 13:20 | P.PN ---
Subjective Progress Note Date: 12/28/22 I am seeing this patient in new consultation today 12/23/2022 on the general medical floor after she presented yesterday evening with a chief complaint of chronic/progressive shortness of breath. Patient is a 67-year-old female with a limited past medical history, she does not routinely follow with a doctor. She has significant familial history of cancer, her mother had breast cancer, and her brother had prostate cancer. She does continue to smoke approximately 3/4 to 1 pack per day, and has over a [id number] history. She admits to losing approximately 80 pounds over the last year. She is cachectic and frail. Patient has been experiencing chronic fatigue and dyspnea especially on exertion for the last year. She attributes this to possible COVID-19 infection 1 year ago. The shortness of breath has been worse over the last month and a half. She does report a positive home Covid test approximately 1-1/2 months ago. At that time, she had fever, cough, and worsening shortness of breath. She is not improved, so she went to a local urgent care clinic yesterday, which found some abnormal chest x-ray findings, and directed her to the emergency room. Patient is currently sitting up in bed, on room air, in no acute distress. Chest CT shows multiple spiculated densities within the right lung, with the largest measuring 1.4 cm. There is a large left pleural effusion with compressive atelectasis, and there are also and enlarged 1.2 cm subcarinal lymph node. These findings are suspicious for metastasis, however, infectious etiology is not entirely ruled out. Currently patient denies any fever, chills, myalgias, chest pain, hemoptysis. Denies any other infectious symptoms. Denies history of malignancies or heart failure. CBC on arrival shows a WBC count of 12, hemoglobin 16.4, hematocrit 48.8, platelets 441. BMP on arrival was unremarkable. Troponin less than 0.012. She also has had some issues with ambulating. There is a walker at the bedside. Patient is hemodynamically stable. The patient is seen today 12/24/2022 in follow-up on the regular medical floor. She is currently sitting up in bed. Awake and alert in no acute distress. She is maintaining good O2 saturations in the 90s on room air. Yesterday she did undergo a left-sided thoracentesis with 1.2 L of dark black fluid returned. She did have a trapped lung with failure to expand and a hydropneumothorax. She subsequently had undergone Thoravent placement. Her chest x-ray reveals no significant change. No improvement in the large hydropneumothorax on the left. Fluid cytology and cultures pending. Pro-calcitonin 0.03. White count 14.8. Hemoglobin 14.6. Platelets 424. Sodium 137. Potassium 4.7. Bicarb 26. BUN 18. Creatinine 0.6. Glucose 121. Lovenox for DVT prophylaxis. The patient is seen today 12/25/2022 in follow-up on the regular medical floor. She is currently sitting up in a chair at the bedside. Awake and alert in no acute distress. Her event remains in place to the left chest attached to a Pleur-evac and wall suction. There continues to be black colored drainage. C ytology is pending. Gram stain and cultures are revealing no growth thus far. White count 12.2. Hemoglobin 13.2. Platelets 322. Normal saline at KVO. Lovenox for DVT prophylaxis. The patient is seen today 12/26/2022 in follow-up on the regular medical floor. She is resting comfortably in bed. Awake and alert in no acute distress. Chest x-ray shows worsening left midlung opacity suggesting increased left-sided pleural fluid. Left apical pneumothorax slightly improved. Thora-Vent remains in place. Right lung remains clear. Pleural fluid cytology pending. White count 10.7. 13.8. Platelets 303. Sodium 133. Potassium 4.3. Bicarb 27. BUN 15. Creatinine 0.53. She remains on Lovenox for DVT prophylaxis. The patient is seen today the 2022 in follow-up on the regular medical floor. She is currently sitting up in bed. Awake and alert in no acute distress. She denies any worsening shortness of breath, cough or hemoptysis. Maintaining O2 saturation in the 90s on room air. Afebrile. Hemodynamically stable. Left-sided Thora vent remains in place. Continuing to drain fluid with a total of 850 ML's. The fluid is less dark and more blood-tinged. Culture revealed no growth. Cytology is pending. The patient is seen today 12/28/2022 in follow-up on the regular medical floor. She is awake and alert in no acute distress. Continues to maintain good O2 saturations in the 90s on room air. She denies any worsening shortness of breath, cough or congestion. No hemoptysis. Chest x-ray reveals no significant change from previous a small pneumothorax and large left pleural effusion. Thora vent remains in place. Additional 210 MLS output since yesterday. Pathology still pending on pleural fluid. Objective - Vital Signs Vital signs: Vital Signs Temp 98.2 F 12/28/22 08:00 Pulse 96 12/28/22 08:00 Resp 22 12/28/22 08:00 BP 133/84 12/28/22 08:00 Pulse Ox 90 L 12/28/22 13:09 FiO2 Intake & Output 12/27/22 12/28/22 12/28/22 18:59 06:59 18:59 Output Total 430 80 Balance -430 -80 Output: Chest Tube Drainage 130 80 Thora-Vent Left Upper 130 80 Anterior Chest Urine 300 Other: Voiding Method Bedside Commode # Voids 2 1 - Exam GENERAL EXAM: Alert, frail 67-year-old female, comfortable in no apparent distress. HEAD: Normocephalic and atraumatic EYES: Normal reaction of pupils, equal size. NOSE: Clear with pink turbinates. THROAT: No erythema or exudates. NECK: No masses, no JVD. CHEST: No chest wall deformity. LUNGS: Equal air entry with diminished left lung sounds, with evidence of effusion/consolidation. Thora-Vent in place CVS: S1 and S2 normal with no audible murmur, regular rhythm. No extra heart sounds ABDOMEN: No hepatosplenomegaly, active bowel sounds, no guarding or rigidity. SPINE: No scoliosis or deformity SKIN: No rashes CENTRAL NERVOUS SYSTEM: No focal deficits, tone is normal in all 4 extremities. EXTREMITIES: There is no peripheral edema, clubbing, or cyanosis. Peripheral pulses are intact. - Labs CBC & Chem 7: 12/26/22 06:31 12/26/22 06:31 Labs: Microbiology - Last 24 Hours (Table) 12/23/22 09:30 Gram Stain - Final Pleural Fluid Body Fluid Culture - Final Assessment and Plan Assessment: Dyspnea, secondary to a large left pleural effusion, possibly malignant. Chest CT shows multiple spiculated densities within the right lung, with the largest measuring 1.4 cm. There is a large left pleural effusion with compressive atelectasis, and there are also and enlarged 1.2 cm subcarinal lymph node. These findings are suspicious for pulmonary malignancy with metastasis, however, infectious etiology is not entirely ruled out. Large left pleural effusion status post thoracentesis 12/23/2022 with 1.2 L of dark black fluid returned with trapped lung and hydropneumothorax, status post Thora-Vent placement on 12/23/2022. Gram stain and cultures reveal no growth thus far. Cytology pending. Multiple spiculated pulmonary nodules, seen in the right lung, with the largest measuring 1.4 cm Cachexia and severe protein-calorie malnutrition Leukocytosis, possibly reactive Unintentional weight loss, approximately 80 lbs over the last one year Chronic ongoing nicotine dependence, with over [id number] history Difficulties ambulating, related to left lower extremity weakness Plan: The patient was seen and evaluated Medications reviewed Cytology pending Thora vent remains in place We will continue to follow I have personally seen and examined the patient, performed the documentation and the assessment and plan as written. Number of minutes spent on the visit: 10.
--- NOTE | 2022-12-28 15:46 | P.PN ---
Subjective Progress Note Date: 12/28/22 Hospital Course: suspicious for metastasis with large left-sided pleural effusion and compressive atelectasis with enlarged subcarinal lymph node at 1.2 cm. EKG revealed sinus rhythm at [address]/T-wave changes noted as reviewed by me. Laboratory evaluation revealed leukocytosis of 12.0, in the 116.5, troponin less than 0.012, with BUN 18. ED documentation reviewed and case discussed with ED provider and patient was admitted for further workup. Seen by pulmonology, who recommended thoracentesis. Pro calcitonin was 0.03, therefore no antibiotics were initiated. Pulmonology did thoracentesis on 12/23 and drained 1.2L of blackish brown fluid from pleural space. F/u CXR demonstrated hydropneumothorax ex vacuo and trapped lung. CT surgery was consulted. Thoravent placed to suction on 12/23. Pleural Fluid shows turbid appearance, [address] WBC, 363852 RBC, 67% PMNs. Repeat CXR on 12/26 showed improved apical aeration and likely mild expansion of the left lung, but re-accumulation of left pleural effusion. Subjective: Patient seen and examined at bedside. No acute events overnight. He claims that her respiratory function is slightly improving. Able to ambulate without assistance. Thoravent in place. Pertinent positives and negatives as discussed above, a complete review of systems was performed and all other systems are negative. Vitals Signs Reviewed. General: nontoxic, no distress, appears at stated age, thin-appearing Derm: warm, dry, left sided thoravent in place Head: atraumatic, normocephalic, symmetric Eyes: EOMI, no lid lag, anicteric sclera Mouth: no lip lesion, mucus membranes moist Cardiovascular: S1S2 reg, no murmur Lungs: Bilateral rales, worse on left , no accessory muscle use Abdominal: soft, nontender to palpation, no guarding, no appreciable organomegaly Ext: no gross muscle atrophy, no edema, no contractures Neuro: CN II-XI grossly intact, no focal neuro deficits Psych: Alert, oriented, appropriate affect Data Reviewed Today: Pertinent Labs: No new labs Imaging: Chest x-ray independently interpreted, similar experience 12/26 Assessment and Plan: Left-sided pleural effusion Left hydropneumothorax ex vacuo Multiple spiculated pulmonary nodules Subcarinal lymphadenopathy -Pulmonology note reviewed, pending cytology -CT surgery also following -For pain control, on Dilaudid 1 mg every 4 hours IV as needed, IV morphine 4 mg as needed every 2 hours Significant unintentional weight loss Moderate protein-calorie malnutrition -Dietitian following LLE weakness, unclear etiology -PT consult, dc recs - home with home care vs [facility] depending on progress DVT prophylaxis: Lovenox subq CODE STATUS: Full Code Discussed with: Patient Anticipated discharge place: Home vs [facility] Objective - Vital Signs Vital signs: Vital Signs Temp 97.9 F 12/28/22 13:56 Pulse 94 12/28/22 13:56 Resp 16 12/28/22 13:56 BP 123/82 12/28/22 13:56 Pulse Ox 96 12/28/22 13:56 FiO2 Intake & Output 12/27/22 12/28/22 12/28/22 18:59 06:59 18:59 Output Total 430 80 Balance -430 -80 Weight 45.132 kg Output: Chest Tube Drainage 130 80 Thora-Vent Left Upper 130 80 Anterior Chest Urine 300 Other: Voiding Method Bedside Commode # Voids 2 1 - Labs CBC & Chem 7: 12/26/22 06:31 12/26/22 06:31
[2022-12-29] MEDS: SODIUM CHLORIDE 0.9% 1,000 ML IV SCH (01:04)
[2022-12-29] MEDS: MORPHINE SULFATE 4 MG/ML SYRINGE IV PRN ×7 (03:06→20:31)
[2022-12-29] MEDS: FAMOTIDINE 20 MG TAB PO SCH ×2 (08:30→20:31)
[2022-12-29] MEDS: ENOXAPARIN 40 MG/0.4 ML SYRINGE SQ SCH (08:30)
[2022-12-29] MEDS: LIDOCAINE 5% PATCH TOPICAL SCH (08:30)
[2022-12-29] MEDS: polyethylene glycoL 3350 17 GM POWD.PACK PO SCH ×2 (08:31→08:32)
[2022-12-29] MEDS: guaiFENesin-DM 600/30MG 1 EACH TAB.ER.12H PO SCH ×3 (08:31→20:31)
[2022-12-29] MEDS: SENNOSIDES-DOCUSATE SODIUM 1 EACH TAB PO SCH ×2 (08:31→20:31)
--- NOTE | 2022-12-29 13:57 | P.PN ---
Subjective Progress Note Date: 12/29/22 I am seeing this patient in new consultation today 12/23/2022 on the general medical floor after she presented yesterday evening with a chief complaint of chronic/progressive shortness of breath. Patient is a 67-year-old female with a limited past medical history, she does not routinely follow with a doctor. She has significant familial history of cancer, her mother had breast cancer, and her brother had prostate cancer. She does continue to smoke approximately 3/4 to 1 pack per day, and has over a [id number] history. She admits to losing approximately 80 pounds over the last year. She is cachectic and frail. Patient has been experiencing chronic fatigue and dyspnea especially on exertion for the last year. She attributes this to possible COVID-19 infection 1 year ago. The shortness of breath has been worse over the last month and a half. She does report a positive home Covid test approximately 1-1/2 months ago. At that time, she had fever, cough, and worsening shortness of breath. She is not improved, so she went to a local urgent care clinic yesterday, which found some abnormal chest x-ray findings, and directed her to the emergency room. Patient is currently sitting up in bed, on room air, in no acute distress. Chest CT shows multiple spiculated densities within the right lung, with the largest measuring 1.4 cm. There is a large left pleural effusion with compressive atelectasis, and there are also and enlarged 1.2 cm subcarinal lymph node. These findings are suspicious for metastasis, however, infectious etiology is not entirely ruled out. Currently patient denies any fever, chills, myalgias, chest pain, hemoptysis. Denies any other infectious symptoms. Denies history of malignancies or heart failure. CBC on arrival shows a WBC count of 12, hemoglobin 16.4, hematocrit 48.8, platelets 441. BMP on arrival was unremarkable. Troponin less than 0.012. She also has had some issues with ambulating. There is a walker at the bedside. Patient is hemodynamically stable. The patient is seen today 12/24/2022 in follow-up on the regular medical floor. She is currently sitting up in bed. Awake and alert in no acute distress. She is maintaining good O2 saturations in the 90s on room air. Yesterday she did undergo a left-sided thoracentesis with 1.2 L of dark black fluid returned. She did have a trapped lung with failure to expand and a hydropneumothorax. She subsequently had undergone Thoravent placement. Her chest x-ray reveals no significant change. No improvement in the large hydropneumothorax on the left. Fluid cytology and cultures pending. Pro-calcitonin 0.03. White count 14.8. Hemoglobin 14.6. Platelets 424. Sodium 137. Potassium 4.7. Bicarb 26. BUN 18. Creatinine 0.6. Glucose 121. Lovenox for DVT prophylaxis. The patient is seen today 12/25/2022 in follow-up on the regular medical floor. She is currently sitting up in a chair at the bedside. Awake and alert in no acute distress. Her event remains in place to the left chest attached to a Pleur-evac and wall suction. There continues to be black colored drainage. C ytology is pending. Gram stain and cultures are revealing no growth thus far. White count 12.2. Hemoglobin 13.2. Platelets 322. Normal saline at KVO. Lovenox for DVT prophylaxis. The patient is seen today 12/26/2022 in follow-up on the regular medical floor. She is resting comfortably in bed. Awake and alert in no acute distress. Chest x-ray shows worsening left midlung opacity suggesting increased left-sided pleural fluid. Left apical pneumothorax slightly improved. Thora-Vent remains in place. Right lung remains clear. Pleural fluid cytology pending. White count 10.7. 13.8. Platelets 303. Sodium 133. Potassium 4.3. Bicarb 27. BUN 15. Creatinine 0.53. She remains on Lovenox for DVT prophylaxis. The patient is seen today the 2022 in follow-up on the regular medical floor. She is currently sitting up in bed. Awake and alert in no acute distress. She denies any worsening shortness of breath, cough or hemoptysis. Maintaining O2 saturation in the 90s on room air. Afebrile. Hemodynamically stable. Left-sided Thora vent remains in place. Continuing to drain fluid with a total of 850 ML's. The fluid is less dark and more blood-tinged. Culture revealed no growth. Cytology is pending. The patient is seen today 12/28/2022 in follow-up on the regular medical floor. She is awake and alert in no acute distress. Continues to maintain good O2 saturations in the 90s on room air. She denies any worsening shortness of breath, cough or congestion. No hemoptysis. Chest x-ray reveals no significant change from previous a small pneumothorax and large left pleural effusion. Thora vent remains in place. Additional 210 MLS output since yesterday. Pathology still pending on pleural fluid. The patient is seen today 12/29/2022 in follow-up on the regular medical floor. She is awake and alert in no acute distress. Maintaining O2 saturations in the 90s on room air. She's been afebrile. Hemodynamically stable. Oral fluid cultures revealed no growth. Pathology is still pending. White count 10.7. Hemoglobin 13.8. Platelets 303. Sodium 133. Potassium 4.3. Bicarb 27. BUN 15. Creatinine 0.53. Thoravent remains in place. Additional 425 ML's bloody return today. Objective - Vital Signs Vital signs: Vital Signs Temp 98.5 F 12/29/22 13:18 Pulse 107 H 12/29/22 13:18 Resp 18 12/29/22 13:18 BP 145/91 12/29/22 13:18 Pulse Ox 94 L 12/29/22 13:18 FiO2 Intake & Output 12/28/22 12/29/22 12/29/22 18:59 06:59 18:59 Intake Total 720 Output Total 295 130 Balance 425 -130 Weight 45.132 kg Intake: Oral 720 Output: Chest Tube Drainage 295 130 Thora-Vent Left Upper 295 130 Anterior Chest Other: # Voids 2 2 1 # Bowel Movements 0 - Exam GENERAL EXAM: Alert, frail 67-year-old female, sitting up in bed, on room air, comfortable in no apparent distress. HEAD: Normocephalic and atraumatic EYES: Normal reaction of pupils, equal size. NOSE: Clear with pink turbinates. THROAT: No erythema or exudates. NECK: No masses, no JVD. CHEST: No chest wall deformity. LUNGS: Equal air entry with diminished left lung sounds, with evidence of effusion/consolidation. Thora-Vent in place CVS: S1 and S2 normal with no audible murmur, regular rhythm. No extra heart sounds ABDOMEN: No hepatosplenomegaly, active bowel sounds, no guarding or rigidity. SPINE: No scoliosis or deformity SKIN: No rashes CENTRAL NERVOUS SYSTEM: No focal deficits, tone is normal in all 4 extremities. EXTREMITIES: There is no peripheral edema, clubbing, or cyanosis. Peripheral pulses are intact. - Labs CBC & Chem 7: 12/26/22 06:31 12/26/22 06:31 Assessment and Plan Assessment: Dyspnea, secondary to a large left pleural effusion, possibly malignant. Chest CT shows multiple spiculated densities within the right lung, with the largest measuring 1.4 cm. There is a large left pleural effusion with compressive atelectasis, and there are also and enlarged 1.2 cm subcarinal lymph node. These findings are suspicious for pulmonary malignancy with metastasis, however, infectious etiology is not entirely ruled out. Large left pleural effusion status post thoracentesis 12/23/2022 with 1.2 L of dark black fluid returned with trapped lung and hydropneumothorax, status post Thora-Vent placement on 12/23/2022. Gram stain and cultures reveal no growth thus far. Cytology pending. Multiple spiculated pulmonary nodules, seen in the right lung, with the largest measuring 1.4 cm Cachexia and severe protein-calorie malnutrition Leukocytosis, possibly reactive Unintentional weight loss, approximately 80 lbs over the last one year Chronic ongoing nicotine dependence, with over [id number] history Difficulties ambulating, related to left lower extremity weakness Plan: The patient was seen and evaluated Medications and labs reviewed Called pathology, cytology pending Thora vent remains in place Continues to drain bloody fluid We will continue to follow I have personally seen and examined the patient, performed the documentation and the assessment and plan as written. Number of minutes spent on the visit: 10.
--- NOTE | 2022-12-29 15:13 | P.PN ---
Subjective Progress Note Date: 12/29/22 Hospital Course: Patient is a 67-year-old female with a PMH of lifelong tobacco abuse who presents to the emergency room with complaints of gradually worsening shortness of breath. Chest CT in the emergency room revealed findings of multiple densities in the right lung suspicious for metastasis with large left-sided pleural effusion and compressive atelectasis with enlarged subcarinal lymph node at 1.2 cm. EKG revealed sinus rhythm at [address]/T-wave changes noted as reviewed by me. Laboratory evaluation revealed leukocytosis of 12.0, in the 116.5, troponin less than 0.012, with BUN 18. ED documentation reviewed and case discussed with ED provider and patient was admitted for further workup. Seen by pulmonology, who recommended thoracentesis. Pro calcitonin was 0.03, therefore no antibiotics were initiated. Pulmonology did thoracentesis on 12/23 and drained 1.2L of blackish brown fluid from pleural space. F/u CXR demonstrated hydropneumothorax ex vacuo and trapped lung. CT surgery was consulted. Thoravent placed to suction on 12/23. Pleural Fluid [place] turbid appearance, [address]207 WBC, 073080 RBC, 67% PMNs. Repeat CXR on 12/26 showed improved apical aeration and likely mild expansion of the left lung, but re-accumulation of left pleural effusion. Subjective: Patient seen and examined at bedside. No acute events overnight. She claims that her respiratory function is slightly improving. Able to ambulate without assistance. Thoravent in place. Pertinent positives and negatives as discussed above, a complete review of systems was performed and all other systems are negative. Vitals Signs Reviewed. General: nontoxic, no distress, appears at stated age, thin-appearing Derm: warm, dry, left sided thoravent in place Head: atraumatic, normocephalic, symmetric Eyes: EOMI, no lid lag, anicteric sclera Mouth: no lip lesion, mucus membranes moist Cardiovascular: S1S2 reg, no murmur Lungs: Bilateral rales, worse on left , no accessory muscle use Abdominal: soft, nontender to palpation, no guarding, no appreciable organomegaly Ext: no gross muscle atrophy, no edema, no contractures Neuro: CN II-XI grossly intact, no focal neuro deficits Psych: Alert, oriented, appropriate affect Data Reviewed Today: Pertinent Labs: No new labs Imaging: No new imaging Assessment and Plan: Left-sided pleural effusion Left hydropneumothorax ex vacuo Multiple spiculated pulmonary nodules Subcarinal lymphadenopathy -Pulmonology note reviewed, pending cytology -CT surgery also following -For pain control, on Dilaudid 1 mg every 4 hours IV as needed, IV morphine 4 mg as needed every 2 hours -Patient may need a Pleurx catheter if continues to have recurrent effusion Significant unintentional weight loss Moderate protein-calorie malnutrition -Dietitian following LLE weakness, unclear etiology -PT consult, dc recs - home with home care vs [facility] depending on progress DVT prophylaxis: Lovenox subq CODE STATUS: Full Code Discussed with: Patient Anticipated discharge place: Home vs [facility] Objective - Vital Signs Vital signs: Vital Signs Temp 98.5 F 12/29/22 13:18 Pulse 107 H 12/29/22 13:18 Resp 18 12/29/22 13:18 BP 145/91 12/29/22 13:18 Pulse Ox 94 L 12/29/22 13:18 FiO2 Intake & Output 12/28/22 12/29/22 12/29/22 18:59 06:59 18:59 Intake Total 720 Output Total 295 130 250 Balance 425 -130 -250 Weight 45.132 kg Intake: Oral 720 Output: Chest Tube Drainage 295 130 250 Thora-Vent Left Upper 295 130 250 Anterior Chest Other: # Voids 2 2 1 # Bowel Movements 0 - Labs CBC & Chem 7: 12/26/22 06:31 12/26/22 06:31
[2022-12-30] MEDS: SODIUM CHLORIDE 0.9% 1,000 ML IV SCH ×2 (01:04→23:14)
[2022-12-30] MEDS: MORPHINE SULFATE 4 MG/ML SYRINGE IV PRN ×7 (01:38→23:47)
[2022-12-30] MEDS: LIDOCAINE 5% PATCH TOPICAL SCH (07:50)
[2022-12-30 09:50] LABS: HCT 41.4 % (34.0-46.0); MCHC 33.8 g/dL (31.0-37.0); Mean Platelet Volume 7.2; Platelet Count 447 k/uL (150-450); RBC 4.66 m/uL (3.80-5.40); RDW 12.9 % (11.5-15.5); WBC 8.8 k/uL (3.8-10.6)
[2022-12-30 10:18] LABS: African American GFR (CKD) >90 (>60 ml/min/1.73 sqM); Anion Gap 4 mmol/L; Blood Urea Nitrogen 10 mg/dL (7-17); Carbon Dioxide 29 mmol/L (22-30); Chloride 100 mmol/L (98-107); Glucose 88 mg/dL (74-99); Non-African American GFR(CKD) >90 (>60 ml/min/1.73 sqM); Sodium 133 mmol/L (137-145)
[2022-12-30] MEDS: SENNOSIDES-DOCUSATE SODIUM 1 EACH TAB PO SCH ×2 (10:19→21:15)
[2022-12-30] MEDS: polyethylene glycoL 3350 17 GM POWD.PACK PO SCH (10:19)
[2022-12-30] MEDS: FAMOTIDINE 20 MG TAB PO SCH ×2 (10:19→21:15)
[2022-12-30] MEDS: guaiFENesin-DM 600/30MG 1 EACH TAB.ER.12H PO SCH ×2 (10:19→21:15)
--- NOTE | 2022-12-30 11:31 | CDI ---
Documentation Clarification Form Date: 12/30/2022 09:54:46 AM From: Juliet Crouch RN CCDS Phone: [phone] Admit Date: 12/22/2022 10:08:00 PM Patient Name: Yoko Vazquez Visit Number: [id number] Discharge Date: ATTENTION: The Clinical Documentation Specialists (CDI) and [facility] Coding Staff appreciate your assistance in clarifying documentation. Please respond to the clarification below the line at the bottom and electronically sign. The CDI & [facility] Coding staff will review the response and follow-up if needed. Please note: Queries are made part of the Legal Health Record. If you have any questions, please contact the author of this message via ITS. Dr. Dima Bacon Conflicting documentation has been found in the medical record. As attending physician, please provide clarification. Moderate protein-calorie malnutrition, Medicine progress notes 12/26 12/29 Severe protein calorie malnutrition, Pulmonary consult 12/23 and through Pulmonary notes 12/29. History/Risk Factors: 67-year-old female was sent to the ED from the medical clinic for evaluation of shortness of breath progressively getting worse for two months with occasional cough. Exertional dyspnea with suspected pulmonary metastatic lesions with left- sided pleural effusion vs less likely atypical pneumonia Chest x-ray reportedly showed a problem with the left lung. Medical history: COVID 19 approximately two months prior with worsening shortness of breath and current every day smoker. 12/23, Pulmonary consult. Clinical Indicators: 12/23, Pulmonary consult: Alert, 67 year old white female who is frail and cachectic, comfortable in no apparent distress. Admits significant weight loss over the past year. Dietitian Consult Patients weight is: 45.132kg Patients height is: 5ft Calculated BMI is: 19.4kg Dietary consult 12/28 Diagnostic statement: SOB interfering with to moderate muscle wasting and fat loss. Mild to moderate muscle wasting to clavicle, acromion process, thigh, and patellar region. Mild to moderate subcutaneous fat wasting to temples and check region. Unable to chew foods due to lack of molars and a sound in her ear when she chews. Nutrition: fair 25/50% consumed. Treatment: Nutritional education, dietary consult above, calorie count, 1.5 Boosts per day. Food texture changed. Please clarify which diagnosis is most appropriate: [ x ] Moderate protein calorie malnutrition. [ ] Severe protein calorie malnutrition. [ ] Other (please specify) [ ] Unable to determine Reference: Using the ASPEN Guidelines, Undernutrition (Malnutrition) is characterized by at least two of the following six findings. The severity can be determined based on the criteria listed below. Malnutrition Characteristics for Moderate and Severe Malnutrition Type of Malnutrition Acute Illness or Injury Chronic Illness Degree of Malnutrition Non-severe (moderate) Malnutrition Severe Malnutrition Non-severe (moderate) Malnutrition Severe Malnutrition Energy Intake <75% for >7 days = 50% for = 5 days <75% for = 1 month =75% for = 1 month Weight Loss 1-2% in one week, 5% in 1 month, 7.5% in 3 months 2% in one week, >5% in 1 month, >7.5% in 3 months 5% in one month, 7.5% in 3 months, 10% in 6 months, 20% in 1 year >5% in one month, >7.5% in 3 months, >10% in 6 months, >20% in 1 year Body Fat Wasting Mild Moderate Mild Severe Muscle Wasting Mild Moderate Mild Severe Presence of Edema Mild Moderate to Severe 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 Consensus statement: Academy of Nutrition and Dietetics and [place] [employer] for Parenteral and Enteral Nutrition: characteristics recommended for the identification and documentation of adult malnutrition (undernutrition).FLAVIO Renner Parenter Enteral Nutr. 2012;36(3):275-283. (Template Last Revised: June 2020) MTDD
--- NOTE | 2022-12-30 13:06 | P.PN ---
Subjective Progress Note Date: 12/30/22 Hospital Course: Patient is a 67-year-old female with a PMH of lifelong tobacco abuse who presents to the emergency room with complaints of gradually worsening shortness of breath. Chest CT in the emergency room revealed findings of multiple densities in the right lung suspicious for metastasis with large left-sided pleural effusion and compressive atelectasis with enlarged subcarinal lymph node at 1.2 cm. EKG revealed sinus rhythm at [address]/T-wave changes noted as reviewed by me. Laboratory evaluation revealed leukocytosis of 12.0, in the 116.5, troponin less than 0.012, with BUN 18. ED documentation reviewed and case discussed with ED provider and patient was admitted for further workup. Seen by pulmonology, who recommended thoracentesis. Pro calcitonin was 0.03, therefore no antibiotics were initiated. Pulmonology did thoracentesis on 12/23 and drained 1.2L of blackish brown fluid from pleural space. F/u CXR demonstrated hydropneumothorax ex vacuo and trapped lung. CT surgery was consulted. Thoravent placed to suction on 12/23. Pleural Fluid shows turbid appearance, 97529 WBC, 569278 RBC, 67% PMNs. Repeat CXR on 12/26 showed improved apical aeration and likely mild expansion of the left lung, but re-accumulation of left pleural effusion. Cytology showed rare atypia. Patient pending bronchoscopy. Subjective: Patient seen and examined at bedside. No acute events overnight. She claims that her respiratory function is slightly improving. Able to ambulate without assistance. Thoravent in place. Pertinent positives and negatives as discussed above, a complete review of systems was performed and all other systems are negative. Vitals Signs Reviewed. General: nontoxic, no distress, appears at stated age, thin-appearing Derm: warm, dry, left sided thoravent in place Head: atraumatic, normocephalic, symmetric Eyes: EOMI, no lid lag, anicteric sclera Mouth: no lip lesion, mucus membranes moist Cardiovascular: S1S2 reg, no murmur Lungs: Bilateral rales, worse on left , no accessory muscle use Abdominal: soft, nontender to palpation, no guarding, no appreciable organomegaly Ext: no gross muscle atrophy, no edema, no contractures Neuro: CN II-XI grossly intact, no focal neuro deficits Psych: Alert, oriented, appropriate affect Data Reviewed Today: Pertinent Labs: WBC 8.8, hemoglobin 14, sodium 133, creatinine 0.5 to Imaging: No new imaging Assessment and Plan: Left-sided pleural effusion Left hydropneumothorax ex vacuo Multiple spiculated pulmonary nodules Subcarinal lymphadenopathy -Pulmonology following, likely bronchoscopy today -Cytology showed rare atypia -CT surgery also following -For pain control, on Dilaudid 1 mg every 4 hours IV as needed, IV morphine 4 mg as needed every 2 hours -Patient may need a Pleurx catheter if continues to have recurrent effusion Significant unintentional weight loss Moderate protein-calorie malnutrition -Dietitian following LLE weakness, unclear etiology -PT consult, dc recs - home with home care vs [facility] depending on progress DVT prophylaxis: Lovenox subq CODE STATUS: Full Code Discussed with: Patient Anticipated discharge place: Home vs [facility] Objective - Vital Signs Vital signs: Vital Signs Temp 97.7 F 12/30/22 07:29 Pulse 101 H 12/30/22 08:00 Resp 19 12/30/22 08:00 BP 146/95 12/30/22 07:29 Pulse Ox 94 L 12/30/22 08:24 FiO2 Intake & Output 12/29/22 12/30/22 12/30/22 18:59 06:59 18:59 Intake Total 720 Output Total 250 285 Balance -250 435 Intake: Intake, IV Titration 240 Amount Sodium Chloride 0.9% 1, 240 000 ml @ 20 mls/hr IV . [facility] Rx#:[id number] Oral 480 Output: Chest Tube Drainage 250 285 Thora-Vent Left Upper 250 285 Anterior Chest Other: Voiding Method Bedside Commode # Voids 3 2 - Labs CBC & Chem 7: 12/30/22 09:22 12/30/22 09:22 Labs: Abnormal Lab Results - Last 24 Hours (Table) 12/30/22 Range/Units 09:22 Sodium 133 L (137-145) mmol/L
[2022-12-30] MEDS ORDERED: LACTATED RINGERS 1,000 ML IV ONE (13:40)
[2022-12-30] MEDS ORDERED: fentaNYL (PF) 50 MCG/ML 2 ML AMP ONE (13:51)
[2022-12-30] MEDS ORDERED: MIDAZOLAM 2 MG/2 ML VIAL ONE (13:51)
[2022-12-30] MEDS ORDERED: SUCCINYLCHOLINE CHLORIDE 200 MG/10 ML VIAL IV ONE (13:51)
[2022-12-30] MEDS ORDERED: LIDOCAINE 2% INJ 20 MG/ML (2 ML VIAL) ONE (13:51)
[2022-12-30] MEDS ORDERED: PHENYLEPHRINE-0.9% NACL SYG 1,000 MCG/10 ML SYRINGE ONE (13:51)
[2022-12-30] MEDS ORDERED: PROPOFOL 10 MG/ML 20 ML VIAL IV ONE (13:51)
--- NOTE | 2022-12-30 16:04 | P.PN ---
Subjective Progress Note Date: 12/30/22 I am seeing this patient in new consultation today 12/23/2022 on the general medical floor after she presented yesterday evening with a chief complaint of chronic/progressive shortness of breath. Patient is a 67-year-old female with a limited past medical history, she does not routinely follow with a doctor. She has significant familial history of cancer, her mother had breast cancer, and her brother had prostate cancer. She does continue to smoke approximately 3/4 to 1 pack per day, and has over a [id number] history. She admits to losing approximately 80 pounds over the last year. She is cachectic and frail. Patient has been experiencing chronic fatigue and dyspnea especially on exertion for the last year. She attributes this to possible COVID-19 infection 1 year ago. The shortness of breath has been worse over the last month and a half. She does report a positive home Covid test approximately 1-1/2 months ago. At that time, she had fever, cough, and worsening shortness of breath. She is not improved, so she went to a local urgent care clinic yesterday, which found some abnormal chest x-ray findings, and directed her to the emergency room. Patient is currently sitting up in bed, on room air, in no acute distress. Chest CT shows multiple spiculated densities within the right lung, with the largest measuring 1.4 cm. There is a large left pleural effusion with compressive atelectasis, and there are also and enlarged 1.2 cm subcarinal lymph node. These findings are suspicious for metastasis, however, infectious etiology is not entirely ruled out. Currently patient denies any fever, chills, myalgias, chest pain, hemoptysis. Denies any other infectious symptoms. Denies history of malignancies or heart failure. CBC on arrival shows a WBC count of 12, hemoglobin 16.4, hematocrit 48.8, platelets 441. BMP on arrival was unremarkable. Troponin less than 0.012. She also has had some issues with ambulating. There is a walker at the bedside. Patient is hemodynamically stable. The patient is seen today 12/24/2022 in follow-up on the regular medical floor. She is currently sitting up in bed. Awake and alert in no acute distress. She is maintaining good O2 saturations in the 90s on room air. Yesterday she did undergo a left-sided thoracentesis with 1.2 L of dark black fluid returned. She did have a trapped lung with failure to expand and a hydropneumothorax. She subsequently had undergone Thoravent placement. Her chest x-ray reveals no significant change. No improvement in the large hydropneumothorax on the left. Fluid cytology and cultures pending. Pro-calcitonin 0.03. White count 14.8. Hemoglobin 14.6. Platelets 424. Sodium 137. Potassium 4.7. Bicarb 26. BUN 18. Creatinine 0.6. Glucose 121. Lovenox for DVT prophylaxis. The patient is seen today 12/25/2022 in follow-up on the regular medical floor. She is currently sitting up in a chair at the bedside. Awake and alert in no acute distress. Her event remains in place to the left chest attached to a Pleur-evac and wall suction. There continues to be black colored drainage. C ytology is pending. Gram stain and cultures are revealing no growth thus far. White count 12.2. Hemoglobin 13.2. Platelets 322. Normal saline at KVO. Lovenox for DVT prophylaxis. The patient is seen today 12/26/2022 in follow-up on the regular medical floor. She is resting comfortably in bed. Awake and alert in no acute distress. Chest x-ray shows worsening left midlung opacity suggesting increased left-sided pleural fluid. Left apical pneumothorax slightly improved. Thora-Vent remains in place. Right lung remains clear. Pleural fluid cytology pending. White count 10.7. 13.8. Platelets 303. Sodium 133. Potassium 4.3. Bicarb 27. BUN 15. Creatinine 0.53. She remains on Lovenox for DVT prophylaxis. The patient is seen today the 2022 in follow-up on the regular medical floor. She is currently sitting up in bed. Awake and alert in no acute distress. She denies any worsening shortness of breath, cough or hemoptysis. Maintaining O2 saturation in the 90s on room air. Afebrile. Hemodynamically stable. Left-sided Thora vent remains in place. Continuing to drain fluid with a total of 850 ML's. The fluid is less dark and more blood-tinged. Culture revealed no growth. Cytology is pending. The patient is seen today 12/28/2022 in follow-up on the regular medical floor. She is awake and alert in no acute distress. Continues to maintain good O2 saturations in the 90s on room air. She denies any worsening shortness of breath, cough or congestion. No hemoptysis. Chest x-ray reveals no significant change from previous a small pneumothorax and large left pleural effusion. Thora vent remains in place. Additional 210 MLS output since yesterday. Pathology still pending on pleural fluid. The patient is seen today 12/29/2022 in follow-up on the regular medical floor. She is awake and alert in no acute distress. Maintaining O2 saturations in the 90s on room air. She's been afebrile. Hemodynamically stable. Oral fluid cultures revealed no growth. Pathology is still pending. White count 10.7. Hemoglobin 13.8. Platelets 303. Sodium 133. Potassium 4.3. Bicarb 27. BUN 15. Creatinine 0.53. Thoravent remains in place. Additional 425 ML's bloody return today. The patient is seen today 12/30/2022 in follow-up on the regular medical floor. She is sitting up in bed. Awake and alert in no acute distress. Continues to maintain good O2 saturations in the 90s on room air. White count 8.8. Hemoglobin 14.0. Platelets 447. Sodium 133. Potassium 4.0. Bicarb 29. BUN 10. Creatinine 0.52. Thora vent remains in place. Pleural fluid cultures revealed no growth. Cytology revealed rare atypia cells but no significant evidence of malignancy. The plan is for bronchoscopy with biopsies today. The patient and her family are agreeable to the plan. Objective - Vital Signs Vital signs: Vital Signs Temp 96.9 F L 12/30/22 14:33 Pulse 99 12/30/22 15:03 Resp 22 12/30/22 15:03 BP 107/62 12/30/22 15:03 Pulse Ox 97 12/30/22 15:03 FiO2 Intake & Output 12/29/22 12/30/22 12/30/22 18:59 06:59 18:59 Intake Total 720 450 Output Total 250 285 Balance -250 435 450 Weight 45.132 kg Intake: IV 450 Intake, IV Titration 240 Amount Sodium Chloride 0.9% 1, 240 000 ml @ 20 mls/hr IV . Q24H [facility] Rx#:[id number] Oral 480 Output: Chest Tube Drainage 250 285 Thora-Vent Left Upper 250 285 Anterior Chest Other: Voiding Method Bedside Commode # Voids 3 2 - Exam GENERAL EXAM: Alert, frail pleasant 67-year-old female, on room air, comfortable in no apparent distress. HEAD: Normocephalic and atraumatic EYES: Normal reaction of pupils, equal size. NOSE: Clear with pink turbinates. THROAT: No erythema or exudates. NECK: No masses, no JVD. CHEST: No chest wall deformity. LUNGS: Equal air entry with diminished left lung sounds, with evidence of effusion/consolidation. Thora-Vent in place CVS: S1 and S2 normal with no audible murmur, regular rhythm. No extra heart sounds ABDOMEN: No hepatosplenomegaly, active bowel sounds, no guarding or rigidity. SPINE: No scoliosis or deformity SKIN: No rashes CENTRAL NERVOUS SYSTEM: No focal deficits, tone is normal in all 4 extremities. EXTREMITIES: There is no peripheral edema, clubbing, or cyanosis. Peripheral pulses are intact. - Labs CBC & Chem 7: 12/30/22 09:22 12/30/22 09:22 Labs: Abnormal Lab Results - Last 24 Hours (Table) 12/30/22 Range/Units 09: Sodium 133 L (137-145) mmol/L Assessment and Plan Assessment: Dyspnea, secondary to a large left pleural effusion, possibly malignant. Chest CT shows multiple spiculated densities within the right lung, with the largest measuring 1.4 cm. There is a large left pleural effusion with compressive atelectasis, and there are also and enlarged 1.2 cm subcarinal lymph node. These findings are suspicious for pulmonary malignancy with metastasis, however, infectious etiology is not entirely ruled out. Bronchoscopy with BAL and biopsies performed today 12/30/2022 Large left pleural effusion status post thoracentesis 12/23/2022 with 1.2 L of dark black fluid returned with trapped lung and hydropneumothorax, status post Thora-Vent placement on 12/23/2022. Gram stain and cultures reveal no growth. Cytology revealed rare atypia but no definitive malignancy. Multiple spiculated pulmonary nodules, seen in the right lung, with the largest measuring 1.4 cm Cachexia and severe protein-calorie malnutrition Leukocytosis, possibly reactive Unintentional weight loss, approximately 80 lbs over the last one year Chronic ongoing nicotine dependence, with over 21-[id number]-vayu history Difficulties ambulating, related to left lower extremity weakness Plan: The patient was seen and evaluated Medications and labs reviewed Pleural fluid cytology negative for malignancy Bronchoscopy with BAL and biopsies today Plan to remove the Thora vent tomorrow Possible discharge in the a.m. We will continue to follow I have personally seen and examined the patient, performed the documentation and the assessment and plan as written. Number of minutes spent on the visit: 10.
--- NOTE | 2022-12-30 20:46 | PCN ---
PROCEDURE NOTE PROCEDURES PERFORMED: Bronchoscopy, airway examination, therapeutic lavage, BAL left lower lobe, brushes left lower lobe, transbronchial and endobronchial biopsies left lower lobe, and transbronchial needle aspiration of station 7 nodes subcarinal. PREOPERATIVE DIAGNOSIS: Rule out lung cancer. POSTOPERATIVE DIAGNOSIS: Rule out lung cancer. [employer] POSITIONER: Dr. Polanco. [employer] PHYSICIAN: Dr. Patrica Pritchard. The patient's procedure was done in room #1 [facility]. The patient was provided general anesthesia by Anesthesia including Dr. Snow. There was informed consent and universal timeout. The patient was moved to the endoscopy suite, where the patient received general anesthesia provided by [facility]. The patient was intubated. The patient was connected to the ventilator. Next, once the patient was adequately sedated and under the effects of general anesthesia, the bronchoscope was inserted through the bronchoscope. The adapter connected to the endotracheal tube. Next, we did a thorough inspection of the right lung. Right upper lobe and its 3 segments, right middle lobe and its 2 segments, right lower lobe and its 5 segments, all appeared normal. On the left side, there was distinct abnormality in the left lower lobe. Firstly, there were thick secretions noted in the left upper lobe, which were suctioned with some difficulty. Afterwards, there was significant abnormality noted in the yanna the left lower lobe proper to the superior basal segment of the left lower lobe. Those areas were the areas that we sampled. Initially, we did brushes in this area, subsequent to that, we did multiple endobronchial and transbronchial biopsies in this area. Subsequently, we did a wash in the left lower lobe. Next, we used the transbronchial needle aspiration device to do a sampling of the subcarinal nodes/station 7 nodes. The patient seemed to tolerate the procedure well. We did take pictures of the left lower lobe. The yanna in the mucosa was very macerated, very abnormal, and somewhat heaped. It bled easily. There was no distinct mass or tumor to know of note. The patient tolerated the procedure well. The bronchoscope was withdrawn. There was no significant bleeding. The patient will be recovered. The samples will be sent to the laboratory for analysis. MMODL / IJN: [id number] /
--- NOTE | 2022-12-30 22:02 | XR ---
EXAMINATION TYPE: XR chest 1V portable DATE OF EXAM: 12/30/2022 COMPARISON: 12/28/2022 INDICATION: Post left lung biopsies TECHNIQUE: Single frontal view of the chest is obtained. FINDINGS: The heart size is enlarged. The pulmonary vasculature is normal. There is a left apical pneumothorax . Finding appears similar to the earlier exam. Second chest tube is present. Patchy infiltrates in the right lung. IMPRESSION: 1. Left apical pneumothorax appears similar to comparison.
[2022-12-31] MEDS: MORPHINE SULFATE 4 MG/ML SYRINGE IV PRN ×3 (05:25→13:49)
[2022-12-31 08:30] LABS: Appearance,BF Blood Tinged (Clear); RBC, Body Fluid 3885 /UL (0-2000)
[2022-12-31] MEDS: FAMOTIDINE 20 MG TAB PO SCH (09:41)
[2022-12-31] MEDS: SENNOSIDES-DOCUSATE SODIUM 1 EACH TAB PO SCH (09:41)
[2022-12-31] MEDS: polyethylene glycoL 3350 17 GM POWD.PACK PO SCH (09:42)
[2022-12-31] MEDS: guaiFENesin-DM 600/30MG 1 EACH TAB.ER.12H PO SCH (09:42)
[2022-12-31] MEDS: LIDOCAINE 5% PATCH TOPICAL SCH (09:42)
[2022-12-31 11:57] LABS: Nucleated Cells, Body Fluid 210 /UL
[2022-12-31 14:13] VITALS: BP 101/67; PULSE 99; RESP 16; TEMP 97.7
--- NOTE | 2022-12-31 14:15 | P.PN ---
Subjective Progress Note Date: 12/31/22 I am seeing this patient in new consultation today 12/23/2022 on the general medical floor after she presented yesterday evening with a chief complaint of chronic/progressive shortness of breath. Patient is a 67-year-old female with a limited past medical history, she does not routinely follow with a doctor. She has significant familial history of cancer, her mother had breast cancer, and her brother had prostate cancer. She does continue to smoke approximately 3/4 to 1 pack per day, and has over a 47-[id number]-bhkj history. She admits to losing approximately 80 pounds over the last year. She is cachectic and frail. Patient has been experiencing chronic fatigue and dyspnea especially on exertion for the last year. She attributes this to possible COVID-19 infection 1 year ago. The shortness of breath has been worse over the last month and a half. She does report a positive home Covid test approximately 1-1/2 months ago. At that time, she had fever, cough, and worsening shortness of breath. She is not improved, so she went to a local urgent care clinic yesterday, which found some abnormal chest x-ray findings, and directed her to the emergency room. Patient is currently sitting up in bed, on room air, in no acute distress. Chest CT shows multiple spiculated densities within the right lung, with the largest measuring 1.4 cm. There is a large left pleural effusion with compressive atelectasis, and there are also and enlarged 1.2 cm subcarinal lymph node. These findings are suspicious for metastasis, however, infectious etiology is not entirely ruled out. Currently patient denies any fever, chills, myalgias, chest pain, hemoptysis. Denies any other infectious symptoms. Denies history of malignancies or heart failure. CBC on arrival shows a WBC count of 12, hemoglobin 16.4, hematocrit 48.8, platelets 441. BMP on arrival was unremarkable. Troponin less than 0.012. She also has had some issues with ambulating. There is a walker at the bedside. Patient is hemodynamically stable. The patient is seen today 12/24/2022 in follow-up on the regular medical floor. She is currently sitting up in bed. Awake and alert in no acute distress. She is maintaining good O2 saturations in the 90s on room air. Yesterday she did undergo a left-sided thoracentesis with 1.2 L of dark black fluid returned. She did have a trapped lung with failure to expand and a hydropneumothorax. She subsequently had undergone Thoravent placement. Her chest x-ray reveals no significant change. No improvement in the large hydropneumothorax on the left. Fluid cytology and cultures pending. Pro-calcitonin 0.03. White count 14.8. Hemoglobin 14.6. Platelets 424. Sodium 137. Potassium 4.7. Bicarb 26. BUN 18. Creatinine 0.6. Glucose 121. Lovenox for DVT prophylaxis. The patient is seen today 12/25/2022 in follow-up on the regular medical floor. She is currently sitting up in a chair at the bedside. Awake and alert in no acute distress. Her event remains in place to the left chest attached to a Pleur-evac and wall suction. There continues to be black colored drainage. C ytology is pending. Gram stain and cultures are revealing no growth thus far. White count 12.2. Hemoglobin 13.2. Platelets 322. Normal saline at KVO. Lovenox for DVT prophylaxis. The patient is seen today 12/26/2022 in follow-up on the regular medical floor. She is resting comfortably in bed. Awake and alert in no acute distress. Chest x-ray shows worsening left midlung opacity suggesting increased left-sided pleural fluid. Left apical pneumothorax slightly improved. Thora-Vent remains in place. Right lung remains clear. Pleural fluid cytology pending. White count 10.7. 13.8. Platelets 303. Sodium 133. Potassium 4.3. Bicarb 27. BUN 15. Creatinine 0.53. She remains on Lovenox for DVT prophylaxis. The patient is seen today the 2022 in follow-up on the regular medical floor. She is currently sitting up in bed. Awake and alert in no acute distress. She denies any worsening shortness of breath, cough or hemoptysis. Maintaining O2 saturation in the 90s on room air. Afebrile. Hemodynamically stable. Left-sided Thora vent remains in place. Continuing to drain fluid with a total of 850 ML's. The fluid is less dark and more blood-tinged. Culture revealed no growth. Cytology is pending. The patient is seen today 12/28/2022 in follow-up on the regular medical floor. She is awake and alert in no acute distress. Continues to maintain good O2 saturations in the 90s on room air. She denies any worsening shortness of breath, cough or congestion. No hemoptysis. Chest x-ray reveals no significant change from previous a small pneumothorax and large left pleural effusion. Thora vent remains in place. Additional 210 MLS output since yesterday. Pathology still pending on pleural fluid. The patient is seen today 12/29/2022 in follow-up on the regular medical floor. She is awake and alert in no acute distress. Maintaining O2 saturations in the 90s on room air. She's been afebrile. Hemodynamically stable. Oral fluid cultures revealed no growth. Pathology is still pending. White count 10.7. Hemoglobin 13.8. Platelets 303. Sodium 133. Potassium 4.3. Bicarb 27. BUN 15. Creatinine 0.53. Thoravent remains in place. Additional 425 ML's bloody return today. The patient is seen today 12/30/2022 in follow-up on the regular medical floor. She is sitting up in bed. Awake and alert in no acute distress. Continues to maintain good O2 saturations in the 90s on room air. White count 8.8. Hemoglobin 14.0. Platelets 447. Sodium 133. Potassium 4.0. Bicarb 29. BUN 10. Creatinine 0.52. Thora vent remains in place. Pleural fluid cultures revealed no growth. Cytology revealed rare atypia cells but no significant evidence of malignancy. The plan is for bronchoscopy with biopsies today. The patient and her family are agreeable to the plan. The patient is seen today 12/31/2022 in follow-up on the regular medical floor. She is awake and alert in no acute distress. Continues to maintain good O2 saturations in the 90s on room air. She did undergo bronchoscopy with biopsies yesterday. Cultures and cytology pending. Thoravent remains in place to the left chest. Denies any worsening shortness of breath, cough or congestion. Objective - Vital Signs Vital signs: Vital Signs Temp 98.5 F 12/31/22 07:13 Pulse 96 12/31/22 07:13 Resp 15 12/31/22 07:13 BP 130/82 12/31/22 07:13 Pulse Ox 95 12/31/22 07:13 FiO2 Intake & Output 12/30/22 12/31/22 12/31/22 18:59 06:59 18:59 Intake Total 450 Output Total 125 110 Balance 325 -110 Weight 45.132 kg Intake: IV 450 Output: Chest Tube Drainage 125 110 Thora-Vent Left Upper 125 110 Anterior Chest Other: Voiding Method Bedside Commode Bedside Commode # Voids 3 2 - Exam GENERAL EXAM: Alert, frail pleasant 67-year-old female, comfortable in no apparent distress. HEAD: Normocephalic and atraumatic EYES: Normal reaction of pupils, equal size. NOSE: Clear with pink turbinates. THROAT: No erythema or exudates. NECK: No masses, no JVD. CHEST: No chest wall deformity. Thora-Vent in place LUNGS: Equal air entry with diminished left lung sounds, with evidence of effus ion/consolidation. CVS: S1 and S2 normal with no audible murmur, regular rhythm. No extra heart so unds ABDOMEN: No hepatosplenomegaly, active bowel sounds, no guarding or rigidity. SPINE: No scoliosis or deformity SKIN: No rashes CENTRAL NERVOUS SYSTEM: No focal deficits, tone is normal in all 4 extremities. EXTREMITIES: There is no peripheral edema, clubbing, or cyanosis. Peripheral pulses are intact. - Labs CBC & Chem 7: 12/30/22 09:22 12/30/22 09:22 Labs: Abnormal Lab Results - Last 24 Hours (Table) 12/30/22 Range/Units 14:00 Fluid Appearance Blood Tinged A (Clear) Fluid RBC 3885 H (0-2000) /uL Assessment and Plan Assessment: Dyspnea, secondary to a large left pleural effusion, possibly malignant. Chest CT shows multiple spiculated densities within the right lung, with the largest measuring 1.4 cm. There is a large left pleural effusion with compressive atelectasis, and there are also and enlarged 1.2 cm subcarinal lymph node. These findings are suspicious for pulmonary malignancy with metastasis, however, infectious etiology is not entirely ruled out. Bronchoscopy with BAL and biopsies performed 12/30/2022. Otalgia pending Large left pleural effusion status post thoracentesis 12/23/2022 with 1.2 L of dark black fluid returned with trapped lung and hydropneumothorax, status post Thora-Vent placement on 12/23/2022 and removed on 12/31/2022. Gram stain and cultures reveal no growth. Cytology revealed rare atypia but no definitive mal ignancy. Multiple spiculated pulmonary nodules, seen in the right lung, with the largest measuring 1.4 cm Cachexia and severe protein-calorie malnutrition Leukocytosis, possibly reactive Unintentional weight loss, approximately 80 lbs over the last one year Chronic ongoing nicotine dependence, with over [id number] history Difficulties ambulating, related to left lower extremity weakness Plan: The patient was seen and evaluated Medications and labs reviewed Thora vent removed today Follow up chest x-ray reviewed Cleared for discharge Follow up in our office in 1 week for biopsy results I have personally seen and examined the patient, performed the documentation and the assessment and plan as written. Number of minutes spent on the visit: 10.
--- NOTE | 2022-12-31 14:27 | P.DS ---
Providers Date of admission: 12/22/22 22:08 Expected date of discharge: 12/31/22 Attending physician: Shanna Ortega MD Consults: 12/22/22 23:45 Consult Physician Urgent Consulting Provider: Lila Guzman Consult Reason/Comments: Pleural effusion, suspected malignancy Do you want consulting provider notified?: Yes 12/23/22 12:16 Consult Physician Routine Consulting Provider: Dev Garcia Consult Reason/Comments: rt pneumothorax/trapped lung postthoracentesis/post thoravent placement Do you want consulting provider notified?: Yes 12/31/22 10:15 Consult Physician Routine Consulting Provider: Irma Durham Consult Reason/Comments: chronic pain Do you want consulting provider notified?: Yes Primary care physician: Physician Nonstaff Hospital Course: Discharge Diagnosis: Left-sided pleural effusion Left hydropneumothorax ex vacuo Multiple spiculated pulmonary nodules Subcarinal lymphadenopathy Significant unintentional weight loss Moderate protein-calorie malnutrition LLE weakness Hospital Course: Patient is a 67-year-old female with a PMH of lifelong tobacco abuse who presents to the emergency room with complaints of gradually worsening shortness of breath. Chest CT in the emergency room revealed findings of multiple densities in the right lung suspicious for metastasis with large left-sided pleural effusion and compressive atelectasis with enlarged subcarinal lymph node at 1.2 cm. EKG revealed sinus rhythm at [address]/T-wave changes noted as reviewed by me. Laboratory evaluation revealed leukocytosis of 12.0, in the 116.5, troponin less than 0.012, with BUN 18. ED documentation reviewed and case discussed with ED provider and patient was admitted for further workup. Seen by pulmonology, who recommended thoracentesis. Pro calcitonin was 0.03, therefore no antibiotics were initiated. Pulmonology did thoracentesis on 12/23 and drained 1.2L of blackish brown fluid from pleural space. F/u CXR demonstrated hydropneumothorax ex vacuo and trapped lung. CT surgery was consulted. Thoravent placed to suction on 12/23. Pleural Fluid shows turbid appearance, [address] WBC, 097139 RBC, 67% PMNs. Repeat CXR on 12/26 showed improved apical aeration and likely mild expansion of the left lung, but re-accumulation of left pleural effusion. Cytology showed rare atypia. Bronchoscopy showed some friable tissue, no distinct mass, biopsies taken. Thoravent discontinued, patient being discharged home with close follow-up with pulmonology. Patient seen and examined at bedside. Vital signs reviewed and stable. General: nontoxic, no distress, appears at stated age, thin-appearing Derm: warm, dry Head: atraumatic, normocephalic, symmetric Eyes: EOMI, no lid lag, anicteric sclera Mouth: no lip lesion, mucus membranes moist Cardiovascular: S1S2 reg, no murmur Lungs: Reduced breath sounds on the left, no accessory muscle use Abdominal: soft, nontender to palpation, no guarding, no appreciable organomegaly Ext: no gross muscle atrophy, no edema, no contractures Neuro: CN II-XI grossly intact, no focal neuro deficits Psych: Alert, oriented, appropriate affect A total of 36 minutes of time were spent preparing this complex discharge summary. Patient was discharged on 12/31/22 at 14:21. Patient Condition at Discharge: Stable Plan - Discharge Summary Discharge Rx Participant: Yes New Discharge Prescriptions: New Lidocaine 5% Patch [Lidoderm 5% Patch] 1 patch TOPICAL DAILY #14 patch polyethylene glycoL 3350 [Miralax] 17 gm PO DAILY #30 packet HYDROcodone/APAP 5-325MG [[place] 5-325] 1 tab PO Q6HR PRN 3 Days #12 tab PRN Reason: Breakthrough Pain Sennosides-Docusate Sodium [Senokot-S] 1 each PO BID #30 tab Acetaminophen Tab [Tylenol] 650 mg PO Q6HR PRN #60 tab PRN Reason: Mild Pain Or Fever > 100.5 Continue ePHEDrine HCL [Primatene] 12.5 mg PO DAILY PRN PRN Reason: Shortness Of Breath Cetirizine HCl [Zyrtec] 10 mg PO DAILY PRN PRN Reason: Allergy Symptoms Guaifenesin/Dextromethorphan [Guaifenesin-Dm 400-20 mg Tab] 1 tab PO DAILY PRN PRN Reason: Congestion Discharge Medication List Cetirizine HCl [Zyrtec] 10 mg PO DAILY PRN 12/22/22 [History] Guaifenesin/Dextromethorphan [Guaifenesin-Dm 400-20 mg Tab] 1 tab PO DAILY PRN 12/22/22 [History] ePHEDrine HCL [Primatene] 12.5 mg PO DAILY PRN 12/22/22 [History] Acetaminophen Tab [Tylenol] 650 mg PO Q6HR PRN #60 tab 12/31/22 [Rx] HYDROcodone/APAP 5-325MG [[place] 5-325] 1 tab PO Q6HR PRN 3 Days #12 tab 12/31/22 [Rx] Lidocaine 5% Patch [Lidoderm 5% Patch] 1 patch TOPICAL DAILY #14 patch 12/31/22 [Rx] Sennosides-Docusate Sodium [Senokot-S] 1 each PO BID #30 tab 12/31/22 [Rx] polyethylene glycoL 3350 [Miralax] 17 gm PO DAILY #30 packet 12/31/22 [Rx] Follow up Appointment(s)/Referral(s): Rg Polanco DO [Doctor of Osteopathic Medicine] - 1 Week None,Stated [REFERRING] - 1-2 days Enio &Michael [NON-STAFF] - As Needed (*Contact Gwen to inquire about obtaining the AFO ankle brace. ) Patient Instructions/Handouts: Pleural Effusion (DC) Activity/Diet/Wound Care/Special Instructions: Please see pulmonology in 1 week. Also see PCP. Discharge Disposition: HOME SELF-CARE
--- NOTE | 2022-12-31 14:28 | XR ---
EXAMINATION TYPE: XR chest 1V portable DATE OF EXAM: 12/31/2022 12:17 PM CLINICAL INDICATION:Female, 67 years old with history of pneumothorax; [facility] COMPARISON: Chest radiographs from and 12/30/2022. TECHNIQUE: XR chest 1V portable Frontal view of the chest. FINDINGS/IMPRESSION: 1. Removal of left thoracotomy tube with persistent pleural effusion and pneumothorax with increased collapse of the lung compared to prior. 2. Stable appearing right lung with multiple opacities throughout the lung..
--- NOTE | 2022-12-31 15:27 | P.PAINPG ---
Objective - Vital Signs Vital signs: Vital Signs Temp 97.7 F 12/31/22 14:00 Pulse 99 12/31/22 14:00 Resp 16 12/31/22 14:00 BP 101/67 12/31/22 14:00 Pulse Ox 96 12/31/22 14:00 FiO2 Intake & Output 12/30/22 12/31/22 12/31/22 18:59 06:59 18:59 Intake Total 450 Output Total 125 110 Balance 325 -110 Weight 45.132 kg Intake: IV 450 Output: Chest Tube Drainage 125 110 Thora-Vent Left Upper 125 110 Anterior Chest Other: Voiding Method Bedside Commode Bedside Commode # Voids 3 2 - Labs CBC & Chem 7: 12/30/22 09:22 12/30/22 09:22 Labs: Abnormal Lab Results - Last 24 Hours (Table) 12/30/22 Range/Units 14:00 Fluid Appearance Blood Tinged A (Clear) Fluid RBC 3885 H (0-2000) /uL PQRS Measure Charge Sheet Comment: HISTORY OF PRESENT ILLNESS: 67 yr old inpatient female w family at side as a referral from Dr Polanco presents today w severe and chronic LBP secondary to DDD, spondylosis and facet arthropathy without myelopathy for evaluation. Pt states pain level is provoked at 8 /10 in intensity, constant, localized in the mid to lower lumbar spine, sharp, achy in character w shooting pain towards the BLEs. Pain is provoked by any movement. Pain is alleviated by medications (Dilaudid 1mg IVP q4h prn, MS 4mg IVP q2h prn, Tyl 650mg q6h prn, Narcan prn), heat, repositioning and rest. Pt is interested in an VON if OR ready. PMH: OA PSH: Section, Tonsillectomy SH: Daily tobacco use, No ETOH abuse, No illicit drug use FH: Fa- DM. Mo- BreastCA, DM II, HTN, CAD, CVA. Bro- Prostate CA/ DM II. All: See list Meds: See list REVIEW OF ORGAN SYSTEMS: CONSTITUTIONAL: No fevers or chills. No recent weight loss. NEUROLOGICAL: + numbness and tingling along the distal extremities. No seizure disorders or headaches. MUSCULOSKELETAL: + pain PSYCHIATRIC: Denies current depression or suicidal thoughts. Physical Examinations : Constitutional : Cooperative , not in acute distress . Neurologic : Cranial nerve II to XII intact. No focal neurological deficits. Psychiatric : alert & oriented x 3. Matching mood & appropriate affect. Judgment & insight intact. Musculoskeletal : Cervical Spine Motor strength in the deltoid and biceps: Normal right side. Normal Left side Motor strength biceps and the wrist extensors: Normal right side . Normal left side Motor strength in the triceps muscle: Normal right side. Normal left side Deep tendon reflexes: Normal at the biceps. Normal at Brachioradialis. Normal at triceps Vertebral body tenderness to deep palpation over Cervical facet loading test: positive bilaterally Spurling test: positive bilaterally Neck distraction test: positive bilater ally Marco sign: positive bilaterally Lumbar spine Motor strength lower extremities ,thigh and legs 5/5 Right side , 5/5 Left side Deep tendon reflexes : Normal Knee Jerk. Normal Ankle Jerk Vertebral body tenderness over Hsu Test positive Lumbar facet Loading Test: positive Right / positive Left Range of motion of the lumbar spine Flexion 30 degrees, extension 10 degrees Straight Leg Raise test: Left/ Right po sitive at degree Idalia test: positive right / positive left. Severe tenderness over the Sacroiliac joint on the Right / Left sides Gaenslen test: positive bilaterally Seated flexion test: positive bilaterally. Sacral spine : Severe tenderness over the Sacroiliac joint: right side / left side Range of motion: Flexion of the lumbar spine <60 degrees Range of motion: Extension of the lumbar spine <20 degrees Gaenslen's Test positive Antonio's Test positive Idalia test: positive right side / left side Thigh Thrust Test Sacral Thrust Test Imaging: None on file Assessment/ Plan : Lumbar DDD Recommendation of medication management. [place] 5/325mg 3 day course, to take with Tyl 650mg q6h prn pain. May follow up in Pain Clinic on an outpatient basis. All questions answered. I have spent greater than 30 minutes on patient care today. Dr August was avai lable by phone for the evaluation of this patient. The time was used to review the medical records including relevant urine studies and Prescription history (MAPs), review of the available imaging, evaluation and examination of the patient, coordination of care with the medical staff and if applicable referring physicians, as well as creation of the medical record - Pain Location Back Non-Pharmacological Interventions: Darkened Room, Distraction, Inactivity, Reduce Environmental Stimuli, Relaxation Technique Pharmacological Interventions: Discuss Pain Med Options, PRN Medication Left Chest Non-Pharmacological Interventions: Position/Reposition Pharmacological Interventions: Scheduled Medication PQRS Narrative: Blood Pressure [Left Arm] 101/67 Blood Pressure 140/93 Pain Intensity [Left Chest] 4 Pain Intensity [None] 0 Pain Intensity [Back] 5 Pain Intensity 3 Pain Scale Used Numeric (1 - 10) Scale Used Numeric (1 - 10) Home Medications: Ambulatory Orders Cetirizine HCl [Zyrtec] 10 mg PO DAILY PRN 12/22/22 Guaifenesin/Dextromethorphan [Guaifenesin-Dm 400-20 mg Tab] 1 tab PO DAILY PRN 12/22/22 ePHEDrine HCL [Primatene] 12.5 mg PO DAILY PRN 12/22/22 Acetaminophen Tab [Tylenol] 650 mg PO Q6HR PRN #60 tab 12/31/22 HYDROcodone/APAP 5-325MG [[place] 5-325] 1 tab PO Q6HR PRN 3 Days #12 tab 12/31/22 Lidocaine 5% Patch [Lidoderm 5% Patch] 1 patch TOPICAL DAILY #14 patch 12/31/22 Sennosides-Docusate Sodium [Senokot-S] 1 each PO BID #30 tab 12/31/22 polyethylene glycoL 3350 [Miralax] 17 gm PO DAILY #30 packet 12/31/22 Controlled Substance Measures - Controlled Substance Measures Is patient prescribed a controlled substance at discharge?: No
--- NOTE | 2023-01-05 10:39 | CDI ---
Documentation Clarification Form Date: 01/05/23 From: Kacy Meyer Admit Date: 12/22/2022 10:08:00 PM Patient Name: Yoko Vazquez Visit Number: [id number] Discharge Date: 12/31/2022 04:38:00 PM ATTENTION: The Clinical Documentation Specialists (CDI) and [facility] Coding Staff appreciate your assistance in clarifying documentation. Please respond to the clarification below the line at the bottom and electronically sign. The CDI & [facility] Coding staff will review the response and follow-up if needed. Please note: Queries are made part of the Legal Health Record. If you have any questions, please contact the author of this message via ITS. Dr. Dima Bacon, The final diagnosis of the pathology report states Lung, Left Lower Lobe Biopsy: Invasive pulmonary adenocarcinoma. Coding guidelines do not allow coding professionals to code based on pathology results; therefore, clarification is requested. History/risk factors: 67 year old smoker with left chest mass. Worsening shortness of breath, chronic fatigue and mild exertional dyspnea. Clinical Indicators: Left sided pleural effusion, left hydropneumothorax ex vacuo. Multiple speculated pulmonary nodules. Subcarnial lymphadenopathy. Moderate PCM. Treatment: Bronchoscopy, airway examination, therapeuticlavage,BALleft lower lobe, brushes left lower lobe, transbronchial and endobronchialbiopsiesleft lower lobe, and transbronchial needle aspirationof station [id number]. Please clarify if you agree with the pathology report diagnosis of left lower lobe of lung invasive adnenocarcinoma: [x ] Yes [ ] No [ ] Other (please specify) [ ] Unable to determine MTDD
== END 2022-12-31 16:38 | disposition home or self-care (01) | DRG 167 ==
LOC: EC 15:17 → 4SSUR 22:08
PROVIDERS: ADMIT Internal Medicine; ATTEND Internal Medicine
PROC: 0W9B30Z Drainage of Left Pleural Cavity with Drainage Device, Percutaneous Approach (ICD-10-PCS; 2022-12-23)
PROC: 0BDB8ZX Extraction of Left Lower Lobe Bronchus, Via Natural or Artificial Opening Endoscopic, Diagnostic (ICD-10-PCS; principal; 2022-12-30 07:30)
PROC: 0B9J8ZX Drainage of Left Lower Lung Lobe, Via Natural or Artificial Opening Endoscopic, Diagnostic (ICD-10-PCS; principal; 2022-12-30 07:30)
PROC: 07D78ZX Extraction of Thorax Lymphatic, Via Natural or Artificial Opening Endoscopic, Diagnostic (ICD-10-PCS; principal; 2022-12-30 07:30)
PROC: 0BBB8ZX Excision of Left Lower Lobe Bronchus, Via Natural or Artificial Opening Endoscopic, Diagnostic (ICD-10-PCS; principal; 2022-12-30 07:30)
PROC: 0BBJ8ZX Excision of Left Lower Lung Lobe, Via Natural or Artificial Opening Endoscopic, Diagnostic (ICD-10-PCS; principal; 2022-12-30 07:30)
PROC: 0BBG8ZX Excision of Left Upper Lung Lobe, Via Natural or Artificial Opening Endoscopic, Diagnostic (ICD-10-PCS; principal; 2022-12-30 07:30)
DX: C34.32 Malignant neoplasm of lower lobe, left bronchus or lung (principal); C77.1 Secondary and unspecified malignant neoplasm of intrathoracic lymph nodes; E44.0 Moderate protein-calorie malnutrition; R64 Cachexia; J94.8 Other specified pleural conditions; Z68.1 Body mass index [BMI] 19.9 or less, adult; J98.11 Atelectasis; J91.0 Malignant pleural effusion; J44.9 Chronic obstructive pulmonary disease, unspecified; G89.29 Other chronic pain; M51.36 Other intervertebral disc degeneration, lumbar region; M47.816 Spondylosis without myelopathy or radiculopathy, lumbar region; M21.372 Foot drop, left foot; R91.8 Other nonspecific abnormal finding of lung field; R59.0 Localized enlarged lymph nodes; R53.82 Chronic fatigue, unspecified; F17.210 Nicotine dependence, cigarettes, uncomplicated; Z71.6 Tobacco abuse counseling; Z79.899 Other long term (current) drug therapy; Z86.16 Personal history of COVID-19
CPT/HCPCS: 31623; 31624; 31625; 31629; 36415; 71045; 71046; 71260; 76604; 80048; 80053; 83605; 83615; 83735; 84145; 84155; 84157; 84484; 85025; 85027; 85610; 85730; 87070; 87102; 87116; 87205; 87206; 87252; 87496; 87498; 87502; 87529; 87634; 87798; 88104; 88108; 88305; 88341; 88342; 89050; 93005; 94760; 99285

== ENCOUNTER 2023-01-15 15:43 | Inpatient (IN) | payer MEDICARE, OTHER ==
[2023-01-15] MEDS ORDERED: MORPHINE SULFATE 4 MG/ML SYRINGE IV STA (16:28)
--- NOTE | 2023-01-15 16:42 | ED ---
General Adult HPI - General Chief complaint: Recheck/Abnormal Lab/Rx Stated complaint: oxygen low Time Seen by Provider: 01/15/23 16:17 Source: patient Mode of arrival: ambulatory Limitations: no limitations - History of Present Illness Initial comments: This patient is 67-year-old woman recently found to have large left pleural effusion which was subsequently drained (12/23) here. She had a follow-up with her primary physician today. She states she went in because she has been having some left sided pain similar to what she had with the initial effusion. They took an x-ray and found that she was having reaccumulation of fluid though not to the extent of the previous effusion. She was then sent here. The patient states that she had not received a diagnosis. She states that the thoracentesis fluid was nondiagnostic. She subsequently had bronchoscopy and has not received results of that. Patient denies fever or chills. She does have occasional cough, nonproductive. -: days(s) Location: chest Radiation: other (Left arm) Quality: aching Consistency: intermittent Improves with: none Worsens with: none Associated Symptoms: chest pain, cough Treatments Prior to Arrival: none - Related Data Home Medications Medication Instructions Recorded Confirmed Cetirizine HCl [Zyrtec] 10 mg PO DAILY PRN 12/22/22 01/15/23 Guaifenesin/Dextromethorphan 1 tab PO DAILY PRN 12/22/22 01/15/23 [Guaifenesin-Dm 400-20 mg Tab] ePHEDrine HCL [Primatene] 12.5 mg PO DAILY PRN 12/22/22 01/15/23 Previous Rx's Medication Instructions Recorded Acetaminophen Tab [Tylenol] 650 mg PO Q6HR PRN #60 tab 12/31/22 Allergies Allergy/AdvReac Type Severity Reaction Status Date / Time No Known Allergies Allergy Verified 01/15/23 17:08 Review of Systems ROS Statement: Those systems with pertinent positive or pertinent negative responses have been documented in the HPI. ROS Other: All systems not noted in ROS Statement are negative. Constitutional: Denies: fever, chills, weakness Respiratory: Reports: cough. Denies: dyspnea, wheezes, hemoptysis Cardiovascular: Reports: chest pain, dyspnea on exertion. Denies: palpitations, edema, syncope Gastrointestinal: Denies: abdominal pain, vomiting, diarrhea Genitourinary: Denies: dysuria, hematuria Musculoskeletal: Denies: back pain Skin: Denies: rash Neurological: Denies: headache, weakness, numbness Past Medical History Past Medical History: No Reported History Additional Past Medical History / Comment(s): plueral effusion History of Any Multi-Drug Resistant Organisms: None Reported Past Surgical History: Section, Tonsillectomy Additional Past Surgical History / Comment(s): breast biopsy Past Anesthesia/Blood Transfusion Reactions: No Reported Reaction Past Psychological History: No Psychological Hx Reported Smoking Status: Former smoker Past Alcohol Use History: None Reported Past Drug Use History: None Reported - Past Family History Father Family Medical History: Diabetes Mellitus Additional Family Medical History / Comment(s): Migraines, depression, unsure but had heart issues Mother Family Medical History: Cancer, COPD, Diabetes Mellitus, Hypertension, Thyroid Disorder Additional Family Medical History / Comment(s): Breast CA, enlarged Heart, Macular degeneration, "Mini strokes" Brother(s) Family Medical History: Cancer, Diabetes Mellitus, Hyperlipidemia Additional Family Medical History / Comment(s): Prostate Cancer, Macular degeneration General Exam Limitations: no limitations General appearance: alert, in no apparent distress, cachectic Head exam: Present: atraumatic, normocephalic Eye exam: Present: normal appearance. Absent: scleral icterus, conjunctival injection Neck exam: Present: normal inspection Respiratory exam: Present: wheezes, decreased breath sounds (Left base). Absent: respiratory distress, rales, rhonchi, stridor Cardiovascular Exam: Present: normal rhythm, tachycardia, normal heart sounds. Absent: systolic murmur, diastolic murmur, rubs, gallop GI/Abdominal exam: Present: soft. Absent: distended, tenderness, guarding, rebound, rigid, mass Extremities exam: Present: normal inspection, normal capillary refill. Absent: pedal edema, calf tenderness Back exam: Present: normal inspection. Absent: CVA tenderness (R), CVA tenderness (L) Neurological exam: Present: alert Skin exam: Present: warm, dry, intact, normal color. Absent: rash Course Vital Signs 01/15/23 01/15/23 01/15/23 15:47 18:12 21:47 Temperature 97.8 F 97.6 F Pulse Rate 128 H 106 H 89 Respiratory 20 16 20 Rate Blood Pressure 130/82 131/99 144/95 O2 Sat by Pulse 89 L 98 97 Oximetry EKG Findings - EKG Results: EKG: interpreted by ERMD, sinus rhythm, normal axis, normal ST/T EKG shows: tachycardia (Rate 111 bpm) - Blocks, Williams, Hypertrophy, ST Abn: AV and intraventricular conduction: right bundle branch block (fixed/intermittent, complete/incomplete) (Incomplete) Medical Decision Making - Medical Decision Making Patient had chest x-ray which I interpreted as showing presence of left sided pneumothorax and left pleural effusion. Was pt. sent in by a medical professional or institution (, PA, LOAN COLLECTOR, urgent care, hospital, or assisted...) When possible be specific @ -Patient is sent from the clinic to have further evaluation Did you speak to anyone other than the patient for history (EMS, parent, family, police, friend...)? What history was obtained from this source @ -[No] Did you review nursing and triage notes (agree or disagree)? Why? @ -[I reviewed and agree with nursing and triage notes] Were old charts reviewed (outside hosp., previous admission, EMS record, old EKG, old radiological studies, urgent care reports/EKG's, assisted records)? Report findings @ -[Yes old charts were reviewed] Differential Diagnosis (chest pain, altered mental status, abdominal pain women, abdominal pain men, vaginal bleeding, weakness, fever, dyspnea, syncope, headache, dizziness, GI bleed, back pain, seizure, CVA, palpatations, mental health, musculoskeletal)? @ -[Differential Dyspnea: Coronary syndrome, arrhythmia, tamponade, asthma, COPD, pulmonary embolism, pneumonia, pneumothorax, pulmonary effusion, anaphylaxis, diabetic ketoacidosis, flailed chest, pulmonary contusion, diaphragmatic rupture, anemia, neuromuscular, this is not meant to be an all-inclusive list. EKG interpreted by me (3pts min.). @ -[I interpreted As above] X-rays interpreted by me (1pt min.). @ -[I interpreted as above CT interpreted by me (1pt min.). @ -[None done] U/S interpreted by me (1pt. min.). @ -[None done] What testing was considered but not performed or refused? (CT, X-rays, U/S, labs)? Why? @ -[None] What meds were considered but not given or refused? Why? @ -[None] Did you discuss the management of the patient with other professionals (professionals i.e. , PA, LOAN COLLECTOR, lab, RT, psych nurse, clinical social work aide, sheet metal assembler and riveter, teacher, staff air tactical officer, case consultant)? Give summary @ -[Case discussed with admitting physician and patient will be admitted. Treatment recommendations are incorporated Was smoking cessation discussed for >3mins.? @ -[No] Was critical care preformed (if so, how long)? @ -[No] Were there social determinants of health that impacted care today? How? (Homelessness, low income, unemployed, alcoholism, drug addiction, transportation, low edu. Level, literacy, decrease access to med. care, alf, rehab)? @ -[No] Was there de-escalation of care discussed even if they declined (Discuss DNR or withdrawal of care, Hospice)? DNR status @ -[No] What co-morbidities impacted this encounter? (DM, HTN, Smoking, COPD, CAD, Cancer, CVA, ARF, Chemo, Hep., AIDS, mental health diagnosis, sleep apnea, morbid obesity)? @ -[None] Was patient admitted / discharged? Hospital course, mention meds given and route, prescriptions, significant lab abnormalities, going to OR and other pertinent info. @ -[Patient admitted to have pulmonology and oncology consultations. Undiagnosed new problem with uncertain prognosis? @ -[No] Drug Therapy requiring intensive monitoring for toxicity (Heparin, Nitro, Insulin, Cardizem)? @ -[No] Were any procedures done? @ -[No] Diagnosis/symptom? @ -[Acute dyspnea. Left lung pneumothorax and pleural effusion Lung cancer Acute, or Chronic, or Acute on Chronic? @ -[Acute on chronic Uncomplicated (without systemic symptoms) or Complicated (systemic symptoms)? @ -[Complicated by low pulse oximetry/dyspnea Side effects of treatment? @ -[No] Exacerbation, Progression, or Severe Exacerbation? @ -[No] Poses a threat to life or bodily function? How? (Chest pain, USA, VT, pneumonia, PE, COPD, DKA, ARF, appy, cholecystitis, CVA, Diverticulitis, Homicidal, Suicidal, threat to staff... and all critical care pts) @ -[Yes worsening of pneumothorax/pleural effusion may result in respiratory failure/ - Lab Data Result diagrams: 01/16/23 06:36 01/16/23 06:36 Lab Results 01/15/23 01/15/23 01/15/23 Range/Units 16:55 16:55 16:55 WBC 12.2 H (3.8-10.6) k/uL RBC 5.74 H (3.80-5.40) m/uL Hgb 16.9 H (11.4-16.0) gm/dL Hct 50.4 H (34.0-46.0) % MCV 87.7 (80.0-100.0) fL MCH 29.4 (25.0-35.0) pg MCHC 33.5 (31.0-37.0) g/dL RDW 12.9 (11.5-15.5) % Plt Count 545 H (150-450) k/uL MPV 7.2 Neutrophils % 74 % Lymphocytes % 16 % Monocytes % 6 % Eosinophils % 2 % Basophils % 1 % Neutrophils # 9.1 H (1.3-7.7) k/uL Lymphocytes # 2.0 (1.0-4.8) k/uL Monocytes # 0.7 (0-1.0) k/uL Eosinophils # 0.2 (0-0.7) k/uL Basophils # 0.1 (0-0.2) k/uL PT 10.0 (10.0-12.5) sec INR 0.9 (<1.2) APTT 22.6 (22.0-30.0) sec Sodium 138 (137-145) mmol/L Potassium 4.5 (3.5-5.1) mmol/L Chloride 105 (98-107) mmol/L Carbon Dioxide 23 (22-30) mmol/L Anion Gap 10 mmol/L BUN 14 (7-17) mg/dL Creatinine 0.46 L (0.52-1.04) mg/dL Est GFR (CKD-EPI)AfAm >90 (>60 ml/min/1.73 sqM) Est GFR (CKD-EPI)NonAf >90 (>60 ml/min/1.73 sqM) Glucose 101 H (74-99) mg/dL Calcium 10.4 H (8.4-10.2) mg/dL Magnesium 2.3 (1.6-2.3) mg/dL Total Bilirubin 0.6 (0.2-1.3) mg/dL AST 23 (14-36) U/L ALT 15 (4-34) U/L Alkaline Phosphatase 80 (38-126) U/L Troponin I (0.000-0.034) ng/mL NT-Pro-B Natriuret Pep 160 pg/mL Total Protein 7.0 (6.3-8.2) g/dL Albumin 4.1 (3.5-5.0) g/dL 01/15/23 Range/Units 16:55 WBC (3.8-10.6) k/uL RBC (3.80-5.40) m/uL Hgb (11.4-16.0) gm/dL Hct (34.0-46.0) % MCV (80.0-100.0) fL MCH (25.0-35.0) pg MCHC (31.0-37.0) g/dL RDW (11.5-15.5) % Plt Count (150-450) k/uL MPV Neutrophils % % Lymphocytes % % Monocytes % % Eosinophils % % Basophils % % Neutrophils # (1.3-7.7) k/uL Lymphocytes # (1.0-4.8) k/uL Monocytes # (0-1.0) k/uL Eosinophils # (0-0.7) k/uL Basophils # (0-0.2) k/uL PT (10.0-12.5) sec INR (<1.2) APTT (22.0-30.0) sec Sodium (137-145) mmol/L Potassium (3.5-5.1) mmol/L Chloride (98-107) mmol/L Carbon Dioxide (22-30) mmol/L Anion Gap mmol/L BUN (7-17) mg/dL Creatinine (0.52-1.04) mg/dL Est GFR (CKD-EPI)AfAm (>60 ml/min/1.73 sqM) Est GFR (CKD-EPI)NonAf (>60 ml/min/1.73 sqM) Glucose (74-99) mg/dL Calcium (8.4-10.2) mg/dL Magnesium (1.6-2.3) mg/dL Total Bilirubin (0.2-1.3) mg/dL AST (14-36) U/L ALT (4-34) U/L Alkaline Phosphatase (38-126) U/L Troponin I <0.012 (0.000-0.034) ng/mL NT-Pro-B Natriuret Pep pg/mL Total Protein (6.3-8.2) g/dL Albumin (3.5-5.0) g/dL Disposition Clinical Impression: Pleural effusion, left, Pneumothorax, Lung cancer Disposition: ADMITTED IP TO THIS HOSP Condition: Fair Is patient prescribed a controlled substance at d/c from ED?: No
--- NOTE | 2023-01-15 17:16 | XR ---
EXAMINATION TYPE: XR chest 2V DATE OF EXAM: 01/15/2023 4:55 PM CLINICAL INDICATION:Female, 67 years old with history of Chest Pain; [facility] COMPARISON: 12/31/2022 and before TECHNIQUE: XR chest 2V Frontal and lateral views of the chest. FINDINGS: Lines/Tubes: No indwelling lines are seen. Lungs/Pleura: Large left-sided hydropneumothorax redemonstrated, with overall slightly increased size from 12/31/2022. The fluid component appears increased more than the pneumothorax component. Underlyi ng collapse of the left lung appears similar. Left-sided mass not excluded. Right lung remains well-a erated with reticular nodular densities again seen throughout. No sizable right effusion or right pne umothorax. Pulmonary vascularity: Unremarkable. Heart/mediastinum: Stable cardiomediastinal silhouette. Heart size is indeterminate, not grossly enl arged. Musculoskeletal: No acute osseous abnormality identified. Degenerative changes throughout the spine w ith apex right scoliosis. Mild asymmetric elevation of the left hemidiaphragm Other findings: None IMPRESSION: 1. Large left-sided hydropneumothorax redemonstrated, with overall slightly increased size from 12/31. The fluid component appears increased more than the pneumothorax component. Underlying collaps e of the left lung appears similar. 2. Right lung remains well-aerated with reticulonodular densities again seen throughout.
[2023-01-15 17:24] LABS: Basophils # (A) 0.1 k/uL (0-0.2); Basophils % (A) 1 %; Eosinophils # (A) 0.2 k/uL (0-0.7); Eosinophils % (A) 2 %; HCT 50.4 % (34.0-46.0); HGB 16.9 gm/dL (11.4-16.0); Lymphocytes % (A) 16 %; MCH 29.4 pg (25.0-35.0); MCHC 33.5 g/dL (31.0-37.0); MCV 87.7 fL (80.0-100.0); Mean Platelet Volume 7.2; Monocytes # (A) 0.7 k/uL (0-1.0); Monocytes % (A) 6 %; Neutrophils # (A) 9.1 k/uL (1.3-7.7); Neutrophils % (A) 74 %; Platelet Count 545 k/uL (150-450); RBC 5.74 m/uL (3.80-5.40); RDW 12.9 % (11.5-15.5); WBC 12.2 k/uL (3.8-10.6)
[2023-01-15 17:55] LABS: ALT 15 U/L (4-34); African American GFR (CKD) >90 (>60 ml/min/1.73 sqM); Albumin 4.1 g/dL (3.5-5.0); Anion Gap 10 mmol/L; Blood Urea Nitrogen 14 mg/dL (7-17); Calcium 10.4 mg/dL (8.4-10.2); Carbon Dioxide 23 mmol/L (22-30); Chloride 105 mmol/L (98-107); Glucose 101 mg/dL (74-99); INR 0.9 (<1.2); Non-African American GFR(CKD) >90 (>60 ml/min/1.73 sqM); Partial Thromboplastin Time 22.6 sec (22.0-30.0); Sodium 138 mmol/L (137-145); Total Bilirubin 0.6 mg/dL (0.2-1.3)
[2023-01-15 18:01] LABS: NT-Pro-B-Type Natriuretic Pept 160 pg/mL
[2023-01-15 18:06] LABS: AST 23 U/L (14-36); Alkaline Phosphatase 80 U/L (38-126); Magnesium 2.3 mg/dL (1.6-2.3); Potassium 4.5 mmol/L (3.5-5.1)
--- NOTE | 2023-01-15 22:47 | P.HPIM ---
History of Present Illness H&P Date: 01/15/23 Patient is a 67-year-old female with a PMH of tobacco abuse and recently diagnosed metastatic lung cancer presents to the emergency room with complaints of left-sided chest pain and shortness of breath. Patient was recently hospitalized on 12/22 for shortness of breath, at which time a CT chest revealed multiple right lung densities concerning for metastasis with large left-sided pleural effusion. She underwent a thoracentesis and subsequent finding of hydropneumothorax with the Serevent placed. She had bronchoscopy with transbronchial biopsy and was discharged home pending biopsy results. Biopsy results reviewed, showing invasive pulmonary adenocarcinoma. She was seen at her PCPs office earlier today with complaints of intermittent left-sided chest pain, sharp in nature, nonradiating, 4 out of 10 on maximal intensity, somewhat pruritic. She also reported mild shortness of breath with nonproductive cough. She also reports weight loss of 100 pounds in the last one year. Chest x-ray at her PCPs office showed reticulation of left-sided pleural fusion. She was sent into the emergency room. The patient had an SpO2 of 89% on room air upon arrival. Patient also reports gradually worsening left lower extremity weakness, for which she was previously seen by PT. In the emergency room, chest x-ray revealed large left-sided hydropneumothorax slightly increased from 12/31 with fluid component. To have increased. There are also right lung reticulonodular densities throughout. EKG revealed sinus tachycardia [address]/T-wave changes as reviewed by me. Laboratory evaluation is remarkable for WBC count 12.2, hemoglobin 16.9, platelets 545, glucose 101, calcium 10.4, troponin less than 0.012. ED documentation reviewed and case discussed with ED provider. Review of systems: Pertinent positives and negatives as discussed in HPI, a complete review of systems was performed and all other systems are negative. Physical examination: Vital signs reviewed General: Somewhat ill-appearing, no distress, appears at stated age, frail Derm: no unusual rashes/lesions, warm Head: atraumatic, normocephalic, symmetric Eyes: EOMI, no lid lag, anicteric sclera, pupils equal round reactive to light ENT: Nose and ears atraumatic Neck: No cervical lymphadenopathy, trachea midline, supple Mouth: no lip lesion, mucus membranes moist Cardiovascular: S1S2 reg, no murmur, positive dorsalis pedis pulse bilateral, no edema Lungs: Absent breath sounds at left lung base, clear breath sounds elsewhere with no wheezing, rales or rub, or rhonchi noted, no accessory muscle use Abdominal: soft, nontender to palpation, no guarding Ext: muscle strength 5 out of 5 in all extremities grossly except left lower extremity 3 out of 5 proximal and distal, no gross muscle atrophy, no cont ractures, Neuro: CN II-XI grossly intact, no gross focal neuro deficits Psych: Alert, oriented, appropriate affect Assessment: Hypoxic respiratory failure, likely secondary to large left-sided hydropneumothorax in setting of metastatic pulmonary adenocarcinoma Left lower extremity weakness, unclear etiology Leukocytosis, likely reactive in setting of malignancy Protein calorie malnutrition Imaging: In the emergency room, chest x-ray revealed large left-sided hydropneumothorax slightly increased from 12/31 with fluid component. To have increased. There are also right lung reticulonodular densities throughout. EKG revealed sinus tachycardia [address]/T-wave changes as reviewed by me. Data Review: Laboratory evaluation is remarkable for WBC count 12.2, hemoglobin 16.9, platelets 545, glucose 101, calcium 10.4, troponin less than 0.012. Plan: Pulmonary and oncology consulted Supplemental oxygen Pain control DVT prophylaxis: Lovenox subcu The patient is admitted with an anticipated greater than 2 midnight stay for evaluation of hypoxic resp failure CODE STATUS: Full Code Discussed with: Patient, daughter Anticipated discharge place: Home Past Medical History Past Medical History: No Reported History Additional Past Medical History / Comment(s): plueral effusion History of Any Multi-Drug Resistant Organisms: None Reported Past Surgical History: Section, Tonsillectomy Additional Past Surgical History / Comment(s): breast biopsy Past Anesthesia/Blood Transfusion Reactions: No Reported Reaction Past Psychological History: No Psychological Hx Reported Smoking Status: Former smoker Past Alcohol Use History: None Reported Past Drug Use History: None Reported - Past Family History Father Family Medical History: Diabetes Mellitus Additional Family Medical History / Comment(s): Migraines, depression, unsure but had heart issues Mother Family Medical History: Cancer, COPD, Diabetes Mellitus, Hypertension, Thyroid Disorder Additional Family Medical History / Comment(s): Breast CA, enlarged Heart, Macular degeneration, "Mini strokes" Brother(s) Family Medical History: Cancer, Diabetes Mellitus, Hyperlipidemia Additional Family Medical History / Comment(s): Prostate Cancer, Macular degeneration Medications and Allergies Home Medications Medication Instructions Recorded Confirmed Type Cetirizine HCl [Zyrtec] 10 mg PO DAILY PRN 12/22/22 01/15/23 History Guaifenesin/Dextromethorphan 1 tab PO DAILY PRN 12/22/22 01/15/23 History [Guaifenesin-Dm 400-20 mg Tab] ePHEDrine HCL [Primatene] 12.5 mg PO DAILY PRN 12/22/22 01/15/23 History Acetaminophen Tab [Tylenol] 650 mg PO Q6HR PRN #60 tab 12/31/22 01/15/23 Rx Allergies Allergy/AdvReac Type Severity Reaction Status Date / Time No Known Allergies Allergy Verified 01/15/23 17:08 Physical Exam Vitals: Vital Signs Temp Pulse Resp BP Pulse Ox 01/15/23 21:47 89 20 144/95 97 01/15/23 18:12 97.6 F 106 H 16 131/99 98 01/15/23 15:47 97.8 F 128 H 20 130/82 89 L Intake and Output 01/15/23 01/15/23 01/15/23 06:59 14:59 22:59 Other: Weight 40.823 kg Results CBC & Chem 7: 01/15/23 16:55 01/15/23 16:55 Labs: Abnormal Lab Results - Last 24 Hours (Table) 01/15/23 01/15/23 Range/Units 16:55 16:55 WBC 12.2 H (3.8-10.6) k/uL RBC 5.74 H (3.80-5.40) m/uL Hgb 16.9 H (11.4-16.0) gm/dL Hct 50.4 H (34.0-46.0) % Plt Count 545 H (150-450) k/uL Neutrophils # 9.1 H (1.3-7.7) k/uL Creatinine 0.46 L (0.52-1.04) mg/dL Glucose 101 H (74-99) mg/dL Calcium 10.4 H (8.4-10.2) mg/dL
[2023-01-16] MEDS: HYDROcodone/APAP 5-325MG 1 EACH TAB PO PRN ×4 (02:25→18:22)
[2023-01-16 07:38] LABS: HCT 46.2 % (34.0-46.0); HGB 15.3 gm/dL (11.4-16.0); MCH 29.7 pg (25.0-35.0); MCHC 33.1 g/dL (31.0-37.0); MCV 89.7 fL (80.0-100.0); Mean Platelet Volume 7.1; Platelet Count 474 k/uL (150-450); RBC 5.14 m/uL (3.80-5.40); RDW 13.1 % (11.5-15.5); WBC 8.9 k/uL (3.8-10.6)
[2023-01-16 07:58] LABS: African American GFR (CKD) >90 (>60 ml/min/1.73 sqM); Anion Gap 5 mmol/L; Blood Urea Nitrogen 18 mg/dL (7-17); Calcium 9.9 mg/dL (8.4-10.2); Carbon Dioxide 30 mmol/L (22-30); Chloride 102 mmol/L (98-107); Glucose 97 mg/dL (74-99); Non-African American GFR(CKD) >90 (>60 ml/min/1.73 sqM); Sodium 137 mmol/L (137-145)
[2023-01-16] MEDS: ENOXAPARIN 40 MG/0.4 ML SYRINGE SQ SCH (08:09)
[2023-01-16 12:18] VITALS: BMI 18.1
--- NOTE | 2023-01-16 13:28 | P.CNPUL ---
History of Present Illness Consult date: 01/16/23 Requesting physician: Juan Rizo Reason for consult: dyspnea, abnormal CXR/CT Chief complaint: Shortness of breath History of present illness: This is a pleasant 67-year-old female with a limited past medical history, she does not routinely follow with a doctor. She does smoke approximately 3/4 to 1 pack per day, and has over a [id number] history. She admits to losing approximately 80 pounds over the last year. She is cachectic and frail. Patient has been experiencing chronic fatigue and dyspnea especially on exertion for the last year. She was admitted here last month for severe shortness of breath and she was found to have significant abnormalities of the lungs. She had undergone thoracentesis and subsequent bronchoscopy with biopsies on 12/30/2022. Recently found to be positive for non-small cell carcinoma. She returned here to the emergency room yesterday after being at her new PCPs office. A chest x-ray showed reaccumulation of left pleural effusion. She was referred here for the same. Chest x-ray reveals large left-sided hydropneumothorax redemonstrated, slightly increased from 12/31/2022. Underlying collapse of the left lung appears similar. White count 8.9. Hemoglobin 15.3. Platelets 474. Sodium 137. Potassium 5.0. Bicarb 30. BUN 18. Creatinine 0.62. He is seen today in consultation on the regular medical floor. She is currently resting fairly comfortably in bed. Awake and alert in no acute distress. Maintaining O2 saturations up to 99% on 3 L/m per nasal cannula. She's afebrile. Hemodynamically stable. Review of Systems REVIEW OF SYSTEMS: CONSTITUTIONAL: Positive for significant weight loss. EYES: Denies change in vision. EARS, NOSE, MOUTH, THROAT: Denies headaches, denies sore throat. CARDIOVASCULAR: Denies chest pain, palpitations or syncopal episodes. RESPIRATORY: Positive for shortness of breath, cough, congestion no hemoptysis. GASTROINTESTINAL: Denies change in appetite, denies abdominal pain GENITOURINARY: Denies hematuria, denies infections. MUSKULOSKELETAL: Denies pain, denies swelling. INTEGUMENTARY: Denies rash, denies eczema. NEUROLOGICAL: Denies recent memory loss, no recent seizure activity. PSYCHIATRIC: Denies anxiety, denies depression. HEMATOLOGIC/LYMPHATIC: Denies anemia, denies enlarged lymph nodes. Past Medical History Past Medical History: No Reported History Additional Past Medical History / Comment(s): plueral effusion History of Any Multi-Drug Resistant Organisms: None Reported Past Surgical History: Section, Tonsillectomy Additional Past Surgical History / Comment(s): breast biopsy Past Anesthesia/Blood Transfusion Reactions: No Reported Reaction Past Psychological History: No Psychological Hx Reported Smoking Status: Former smoker Past Alcohol Use History: None Reported Past Drug Use History: None Reported - Past Family History Father Family Medical History: Diabetes Mellitus Additional Family Medical History / Comment(s): Migraines, depression, unsure but had heart issues Mother Family Medical History: Cancer, COPD, Diabetes Mellitus, Hypertension, Thyroid Disorder Additional Family Medical History / Comment(s): Breast CA, enlarged Heart, Macular degeneration, "Mini strokes" Brother(s) Family Medical History: Cancer, Diabetes Mellitus, Hyperlipidemia Additional Family Medical History / Comment(s): Prostate Cancer, Macular degeneration Medications and Allergies Home Medications Medication Instructions Recorded Confirmed Type Cetirizine HCl [Zyrtec] 10 mg PO DAILY PRN 12/22/22 01/15/23 History Guaifenesin/Dextromethorphan 1 tab PO DAILY PRN 12/22/22 01/15/23 History [Guaifenesin-Dm 400-20 mg Tab] ePHEDrine HCL [Primatene] 12.5 mg PO DAILY PRN 12/22/22 01/15/23 History Acetaminophen Tab [Tylenol] 650 mg PO Q6HR PRN #60 tab 12/31/22 01/15/23 Rx Allergies Allergy/AdvReac Type Severity Reaction Status Date / Time No Known Allergies Allergy Verified 01/15/23 17:08 Physical Exam Vitals: Vital Signs Temp Pulse Pulse Resp BP BP Pulse Ox 01/16/23 08:00 98.1 F 75 20 133/85 01/16/23 01:48 97.9 F 89 15 135/84 99 01/15/23 22:36 97.8 F 80 16 135/85 01/15/23 21:47 89 20 144/95 97 01/15/23 18:12 97.6 F 106 H 16 131/99 98 01/15/23 15:47 97.8 F 128 H 20 130/82 89 L Intake and Output 01/15/23 01/16/23 01/16/23 22:59 06:59 14:59 Output Total 0 Balance 0 Output: Urine 0 Other: Voiding Method Bedside Commode Bedside Commode Weight 40.823 kg 40.823 kg 40.823 kg GENERAL EXAM: Alert, doesn't, cachectic 67-year-old female appears older than stated age, on 3 L nasal cannula, fairly comfortable in no apparent distress. HEAD: Normocephalic. EYES: Normal reaction of pupils, equal size. NOSE: Clear with pink turbinates. THROAT: No erythema or exudates. NECK: No masses, no JVD. CHEST: No chest wall deformity. LUNGS: Equal air entry with diminished, crackles, few scattered rhonchi at the left lung. CVS: S1 and S2 normal with no audible murmur, regular rhythm. ABDOMEN: No hepatosplenomegaly, normal bowel sounds, no guarding or rigidity. SPINE: No scoliosis or deformity SKIN: No rashes CENTRAL NERVOUS SYSTEM: No focal deficits, tone is normal in all 4 extremities. EXTREMITIES: There is no peripheral edema. No clubbing, no cyanosis. Peripheral pulses are intact. Results - Laboratory Findings CBC and BMP: 01/16/23 06:36 01/16/23 06:36 PT/INR, D-dimer PT 10.0 sec (10.0-12.5) 01/15/23 16:55 INR 0.9 (<1.2) 01/15/23 16:55 Abnormal lab findings: Abnormal Labs 01/15/23 01/15/23 01/16/23 16:55 16:55 06:36 WBC 12.2 H RBC 5.74 H Hgb 16.9 H Hct 50.4 H 46.2 H Plt Count 545 H 474 H Neutrophils # 9.1 H BUN Creatinine 0.46 L Glucose 101 H Calcium 10.4 H 01/16/23 06:36 WBC RBC Hgb Hct Plt Count Neutrophils # BUN 18 H Creatinine Glucose Calcium - Diagnostic Findings Chest x-ray: image reviewed Assessment and Plan Assessment: Acute on chronic hypoxemic respiratory failure secondary to recurrent left-sided pleural effusions and invasive non-small cell carcinoma of the lung. Bronchoscopy with biopsies performed 12/30/2022. No treatment has been initiated thus far. History of large left pleural effusion status post thoracentesis 12/23/2022 with 1.2 L of dark black fluid returned with trapped lung and hydropneumothorax, status post Thora-Vent placement on 12/23/2022 and removed on 12/31/2022. Gram stain and cultures reveal no growth. Cytology revealed rare atypia but no definitive malignancy. Multiple spiculated pulmonary nodules, seen in the right lung, with the largest measuring 1.4 cm Cachexia and severe protein-calorie malnutrition Unintentional weight loss, approximately 80 lbs over the last one year Chronic and ongoing nicotine dependence, with over [id number] history Difficulties ambulating, related to left lower extremity weakness Plan: The patient was seen and evaluated Chest x-ray, labs and medications reviewed No plans for repeat thoracentesis at this time Patient and family aware of diagnosis Oncology consult pending Would need outpatient PET scan Evaluate for possible home oxygen Assure adequate pain control DO NOT RESUSCITATE/DO NOT INTUBATE CODE STATUS Could be discharged from the pulmonary standpoint I have personally seen and examined the patient, performed the documentation and the assessment and plan as written. Number of minutes spent on the visit: 20.
--- NOTE | 2023-01-16 14:09 | P.CONS ---
History of Present Illness - Reason for Consult Consult date: 01/16/23 lung cancer Requesting physician: Clara Small - Chief Complaint SOB - History of Present Illness Patient is a 67 year old female with a history of recently diagnosed non small cell lung carcinoma and 50 pack years smoking history. She was admitted approximately 1 month ago with complaints of shortness of breath and abnormal chest x-ray that was obtained outpatient. Upon admission CT chest revealed multiple spiculated densities within the right lung. And large left pleural effusion with compressive atelectasis and enlarged subcarinal lymph node, measuring 1.2 cm and pretracheal lymph node subcentimeter in size. Patient underwent left-sided thoracentesis and cytology was suspicious for non-small cell carcinoma but was nondiagnostic. Patient then underwent bronchoscopy with transbronchial biopsy on 12/30/2022 which revealed invasive pulmonary adenoc arcinoma. Patient is awaiting follow-up with pulmonology outpatient, but missed follow-up appointment and had to reschedule. She has not yet been referred to an oncologist. Patient reports prior to last admission she was experiencing worsening shortness of breath over the previous 2 months. She also reports approximately 90 pound weight loss over the last 1 year. Denies night sweats. Denies hemoptysis. Patient represented to the emergency room with complaints of worsening shortness of breath, chest pain and cough. Upon admission chest x-ray showed large left- sided hydropneumothorax that was redemonstrated with overall slightly increased size from previous exam on 12/31/2022. Underlying collapse of the left lung appears similar in nature. Right lung remains well aerated with reticular nodular densities again seen throughout. Patient is afebrile. SPO2 99% on 3 L. Counts stable, WBC 8.9, hemoglobin 15.3, platelets 474,000. Pulmonology has been consulted, upon review of note no plan for thoracentesis at this time. Review of Systems 10 point ROS is negative except as stated in the HPI Past Medical History Past Medical History: No Reported History Additional Past Medical History / Comment(s): plueral effusion History of Any Multi-Drug Resistant Organisms: None Reported Past Surgical History: Section, Tonsillectomy Additional Past Surgical History / Comment(s): breast biopsy Past Anesthesia/Blood Transfusion Reactions: No Reported Reaction Past Psychological History: No Psychological Hx Reported Smoking Status: Former smoker Past Alcohol Use History: None Reported Past Drug Use History: None Reported - Past Family History Father Family Medical History: Diabetes Mellitus Additional Family Medical History / Comment(s): Migraines, depression, unsure but had heart issues Mother Family Medical History: Cancer, COPD, Diabetes Mellitus, Hypertension, Thyroid Disorder Additional Family Medical History / Comment(s): Breast CA, enlarged Heart, Macular degeneration, "Mini strokes" Brother(s) Family Medical History: Cancer, Diabetes Mellitus, Hyperlipidemia Additional Family Medical History / Comment(s): Prostate Cancer, Macular degeneration Medications and Allergies Home Medications Medication Instructions Recorded Confirmed Type Cetirizine HCl [Zyrtec] 10 mg PO DAILY PRN 12/22/22 01/15/23 History Guaifenesin/Dextromethorphan 1 tab PO DAILY PRN 12/22/22 01/15/23 History [Guaifenesin-Dm 400-20 mg Tab] ePHEDrine HCL [Primatene] 12.5 mg PO DAILY PRN 12/22/22 01/15/23 History Acetaminophen Tab [Tylenol] 650 mg PO Q6HR PRN #60 tab 12/31/22 01/15/23 Rx Allergies Allergy/AdvReac Type Severity Reaction Status Date / Time No Known Allergies Allergy Verified 01/15/23 17:08 Physical Exam Vitals: Vital Signs Temp Pulse Pulse Resp BP BP Pulse Ox 01/16/23 08:00 98.1 F 75 20 133/85 01/16/23 01:48 97.9 F 89 15 135/84 99 01/15/23 22:36 97.8 F 80 16 135/85 01/15/23 21:47 89 20 144/95 97 01/15/23 18:12 97.6 F 106 H 16 131/99 98 01/15/23 15:47 97.8 F 128 H 20 130/82 89 L Intake and Output 01/15/23 01/16/23 01/16/23 22:59 06:59 14:59 Output Total 0 Balance 0 Output: Urine 0 Other: Voiding Method Bedside Commode Bedside Commode Weight 40.823 kg 40.823 kg - Constitutional General appearance: no acute distress, thin - EENT Eyes: anicteric sclerae, EOMI ENT: hearing grossly normal - Respiratory Respiratory: right: CTA, left: diminished - Cardiovascular Rhythm: regular Heart sounds: normal: S1, S2 - Gastrointestinal General gastrointestinal: soft, no tenderness - Integumentary Integumentary: no cyanotic, no jaundiced - Neurologic grossly intact - Musculoskeletal Musculoskeletal: generalized weakness - Psychiatric Psychiatric: A&O x's 3, appropriate affect, intact judgment & insight Results CBC & Chem 7: 01/16/23 06:36 01/16/23 06:36 Labs: Abnormal Lab Results - Last 24 Hours (Table) 01/15/23 01/15/23 01/16/23 Range/Units 16:55 16:55 06:36 WBC 12.2 H (3.8-10.6) k/uL RBC 5.74 H (3.80-5.40) m/uL Hgb 16.9 H (11.4-16.0) gm/dL Hct 50.4 H 46.2 H (34.0-46.0) % Plt Count 545 H 474 H (150-450) k/uL Neutrophils # 9.1 H (1.3-7.7) k/uL BUN (7-17) mg/dL Creatinine 0.46 L (0.52-1.04) mg/dL Glucose 101 H (74-99) mg/dL Calcium 10.4 H (8.4-10.2) mg/dL 01/16/23 Range/Units 06:36 WBC (3.8-10.6) k/uL RBC (3.80-5.40) m/uL Hgb (11.4-16.0) gm/dL Hct (34.0-46.0) % Plt Count (150-450) k/uL Neutrophils # (1.3-7.7) k/uL BUN 18 H (7-17) mg/dL Creatinine (0.52-1.04) mg/dL Glucose (74-99) mg/dL Calcium (8.4-10.2) mg/dL Comments: cytology and pathology reviewed Chest x-ray: report reviewed CT scan - chest: report reviewed Assessment and Plan (1) Non-small cell lung cancer Current Visit: Yes Status: Acute Priority: High Code(s): C34.90 - MALIGNANT NEOPLASM OF UNSP PART OF UNSP BRONCHUS OR LUNG SNOMED Code(s): 138233595 (2) Pleural effusion, left Current Visit: Yes Status: Acute Priority: High Code(s): J90 - PLEURAL EFF USION, NOT ELSEWHERE CLASSIFIED SNOMED Code(s): 22338302 (3) Pneumothorax Current Visit: Yes Status: Acute Priority: High Code(s): J93.9 - PNEUMOTHORAX, UNSPECIFIED SNOMED Code(s): 53119075 Plan: NSCLC: -New diagnosis of non small cell lung carcinoma. Was admitted approximately 1 month ago with complaints of shortness of breath and abnormal chest x-ray that was obtained outpatient. Upon admission CT chest revealed multiple spiculated densities within the right lung. And large left pleural effusion with compressive atelectasis and enlarged subcarinal lymph node, measuring 1.2 cm and pretracheal lymph node subcentimeter in size. Patient underwent left-sided thoracentesis and cytology was suspicious for non-small cell carcinoma but was nondiagnostic. Patient then underwent bronchoscopy with transbronchial biopsy on 12/30/2022 which revealed invasive pulmonary adenocarcinoma -Hx of 50 pack years smoker. 90lb weight loss over the last 1 yr -Spoke with pulmonology regarding case, has hospital f/u in the next cpl weeks with Dr. Polanco -MRI brain ordered for staging -Will plan to obtain PET CT oupt and request NGS and PDL 1 on pathology Patient and family updated on diagnosis and plan of care
--- NOTE | 2023-01-16 19:34 | P.PN ---
Subjective Progress Note Date: 01/16/23 Hospital course: Patient is a 67-year-old female with a PMH of tobacco abuse and recently diagnosed metastatic lung cancer presents to the emergency room with complaints of left-sided chest pain and shortness of breath. Patient was recently hospitalized on 12/22 for shortness of breath, at which time a CT chest revealed multiple right lung densities concerning for metastasis with large left-sided pleural effusion. She underwent a thoracentesis and subsequent finding of hydropneumothorax with the Serevent placed. She had bronchoscopy with transbronchial biopsy and was discharged home pending biopsy results. Biopsy results reviewed, showing invasive pulmonary adenocarcinoma. She was seen at her PCPs office earlier today with complaints of intermittent left-sided chest pain, sharp in nature, nonradiating, 4 out of 10 on maximal intensity, somewhat pruritic. She also reported mild shortness of breath with nonproductive cough. She also reports weight loss of 100 pounds in the last one year. Chest x-ray at her PCPs office showed reticulation of left-sided pleural fusion. She was sent into the emergency room. The patient had an SpO2 of 89% on room air upon arrival. Patient also reports gradually worsening left lower extremity weakness, for which she was previously seen by PT. Physical examination: Vital signs reviewed General: Chronically ill-appearing, no distress, appears at stated age, frail and emaciated Derm: no unusual rashes/lesions, skin warm and dry Head: atraumatic, normocephalic, symmetric Eyes: EOMI, no lid lag, anicteric sclera ENT: Nose and ears atraumatic Neck: No cervical lymphadenopathy, supple Mouth: no lip lesion, mucus membranes moist Cardiovascular: S1S2 reg, no murmur, positive posterior tibial pulses bilaterally, no edema Lungs: Absent breath sounds at left lung base, clear breath sounds elsewhere with no wheezing, rales or rub, or rhonchi noted, no accessory muscle use Abdominal: soft, nontender to palpation, no guarding Ext: ROM intact. No gross muscle atrophy, no edema, no contractures Neuro: Speech clear, face symmetrical and CN II-XII grossly intact with no noted focal neuro deficits Psych: Alert and oriented to person, place, time, and situation. Appropriate and pleasant affect. Assessment and Plan of Care: Hypoxic respiratory failure, likely secondary to large left-sided hydropneumothorax in setting of metastatic pulmonary adenocarcinoma Left lower extremity weakness, unclear etiology Leukocytosis, likely reactive in setting of malignancy Protein calorie malnutrition -Pulmonary and oncology consulted -Continuation of Supplemental oxygen, wean as patient tolerates. Patient will require home oxygen evaluation prior to discharge. -Symptomatic care and pain management. Data and imaging reviewed: No new imaging for review at this time. Morning labs reviewed. CBC showing resolution of leukocytosis with WBC count of 8.9, normal hemoglobin of 15.3 and improving thrombocytosis with platelet count of 474. BMP was unremarkable. vital signs reviewed. Blood pressure 133/85, heart rate 75, respiratory rate 20, temp 90.1F, SpO2 of 90% on room air. CODE STATUS: DO NOT RESUSCITATE/DO NOT INTUBATE DVT prophylaxis: Lovenox subcu Discussed with: Patient and RN Anticipated discharge date: Clinical course to determine Anticipated discharge place: Home Patient was seen independently by Nurse Pracitioner. This document was prepared using [employer] dictation software. Please allow for errors in automotive service director, while rare they do occur. Objective - Vital Signs Vital signs: Vital Signs Temp 97.9 F 01/16/23 01:48 Pulse 89 01/16/23 01:48 Resp 15 01/16/23 01:48 BP 135/84 01/16/23 01:48 Pulse Ox 99 01/16/23 01:48 FiO2 Intake & Output 01/15/23 01/16/23 01/16/23 18:59 06:59 18:59 Output Total 0 Balance 0 Weight 40.823 kg 40.823 kg Output: Urine 0 Other: Voiding Method Bedside Commode - Labs CBC & Chem 7: 01/16/23 06:36 01/16/23 06:36 Labs: Abnormal Lab Results - Last 24 Hours (Table) 01/15/23 01/15/23 01/16/23 Range/Units 16:55 16:55 06:36 WBC 12.2 H (3.8-10.6) k/uL RBC 5.74 H (3.80-5.40) m/uL Hgb 16.9 H (11.4-16.0) gm/dL Hct 50.4 H 46.2 H (34.0-46.0) % Plt Count 545 H 474 H (150-450) k/uL Neutrophils # 9.1 H (1.3-7.7) k/uL BUN (7-17) mg/dL Creatinine 0.46 L (0.52-1.04) mg/dL Glucose 101 H (74-99) mg/dL Calcium 10.4 H (8.4-10.2) mg/dL 01/16/23 Range/Units 06:36 WBC (3.8-10.6) k/uL RBC (3.80-5.40) m/uL Hgb (11.4-16.0) gm/dL Hct (34.0-46.0) % Plt Count (150-450) k/uL Neutrophils # (1.3-7.7) k/uL BUN 18 H (7-17) mg/dL Creatinine (0.52-1.04) mg/dL Glucose (74-99) mg/dL Calcium (8.4-10.2) mg/dL
[2023-01-17] MEDS: HYDROcodone/APAP 5-325MG 1 EACH TAB PO PRN ×4 (04:11→19:31)
[2023-01-17] MEDS: ENOXAPARIN 40 MG/0.4 ML SYRINGE SQ SCH (08:04)
--- NOTE | 2023-01-17 11:58 | P.PN ---
Subjective Progress Note Date: 01/17/23 This is a pleasant 67-year-old female with a limited past medical history, she does not routinely follow with a doctor. She does smoke approximately 3/4 to 1 pack per day, and has over a 81-[id number]-[id number] history. She admits to losing approximately 80 pounds over the last year. She is cachectic and frail. Elida frankel has been experiencing chronic fatigue and dyspnea especially on exertion for the last year. She was admitted here last month for severe shortness of breath and she was found to have significant abnormalities of the lungs. She had undergone thoracentesis and subsequent bronchoscopy with biopsies on 12/30/2022. Recently found to be positive for non-small cell carcinoma. She returned here to the emergency room yesterday after being at her new PCPs office. A chest x-ray showed reaccumulation of left pleural effusion. She was referred here for the same. Chest x-ray reveals large left-sided hydropneumothorax redemonstrated, slightly increased from 12/31/2022. Underlying collapse of the left lung appears similar. White count 8.9. Hemoglobin 15.3. Platelets 474. Sodium 137. Potassium 5.0. Bicarb 30. BUN 18. Creatinine 0.62. He is seen today in consultation on the regular medical floor. She is currently resting fairly comfortably in bed. Awake and alert in no acute distress. Maintaining O2 saturations up to 99% on 3 L/m per nasal cannula. She's afebrile. Hemodynamically stable. The patient is seen today 01/17/2023 in follow-up on the regular medical floor. She is currently resting in bed. Awake and alert in no acute distress. Denies any worsening shortness of breath, cough or congestion. No fever or chills. She is maintaining O2 saturations in the high 90s on 3 L/m per nasal cannula. Afebrile. Hemodynamically stable. She is scheduled to have an MRI of the brain. She's being followed by oncology. Lovenox for DVT prophylaxis. Objective - Vital Signs Vital signs: Vital Signs Temp 97.8 F 01/17/23 07:40 Pulse 75 01/17/23 07:40 Resp 18 01/17/23 07:40 BP 126/79 01/17/23 07:40 Pulse Ox 99 01/17/23 07:40 FiO2 Intake & Output 10/14/23 10/15/23 10/15/23 18:59 06:59 18:59 Weight 40.823 kg Other: Voiding Method Bedside Commode Bedside Commode Bedside Commode # Voids 1 - Exam GENERAL EXAM: Alert, pleasant, frail 67-year-old female appears older than stated age, on 3 L nasal cannula, fairly comfortable in no apparent distress. HEAD: Normocephalic. EYES: Normal reaction of pupils, equal size. NOSE: Clear with pink turbinates. THROAT: No erythema or exudates. NECK: No masses, no JVD. CHEST: No chest wall deformity. LUNGS: Equal air entry with diminished, crackles, few scattered rhonchi at the left lung. CVS: S1 and S2 normal with no audible murmur, regular rhythm. ABDOMEN: No hepatosplenomegaly, normal bowel sounds, no guarding or rigidity. SPINE: No scoliosis or deformity SKIN: No rashes CENTRAL NERVOUS SYSTEM: No focal deficits, tone is normal in all 4 extremities. EXTREMITIES: There is no peripheral edema. No clubbing, no cyanosis. Peripheral pulses are intact. - Labs CBC & Chem 7: 01/16/23 06:36 01/16/23 06:36 Assessment and Plan Assessment: Acute on chronic hypoxemic respiratory failure secondary to recurrent left-sided pleural effusions and invasive non-small cell carcinoma of the lung. Bronchoscopy with biopsies performed 12/30/2022. No treatment has been initiated thus far. History of large left pleural effusion status post thoracentesis 12/23/2022 with 1.2 L of dark black fluid returned with trapped lung and hydropneumothorax, status post Thora-Vent placement on 12/23/2022 and removed on 12/31/2022. Gram stain and cultures reveal no growth. Cytology revealed rare atypia but no definitive malignancy. Multiple spiculated pulmonary nodules, seen in the right lung, with the largest measuring 1.4 cm Cachexia and severe protein-calorie malnutrition Unintentional weight loss, approximately 80 lbs over the last one year Chronic and ongoing nicotine dependence, with over [id number]-fasy-[id number] history Difficulties ambulating, related to left lower extremity weakness Plan: The patient was seen and evaluated Medications reviewed Awaiting MRI of the brain Would need outpatient PET scan Titrate down the FiO2 as tolerated Evaluate for possible home oxygen This patient was seen independently by the nurse practitioner I have personally seen and examined the patient, performed the documentation and the assessment and plan as written. Number of minutes spent on the visit: 33.
[2023-01-17] MEDS ORDERED: LORazepam 2 MG/ML INJ IV PRN (12:23)
--- NOTE | 2023-01-17 12:31 | P.PN ---
Subjective Progress Note Date: 01/17/23 Hospital course: Patient is a very pleasant 67-year-old female with a past medical history of tobacco use and recently diagnosed metastatic lung cancer. She presented to the emergency department on 01/15/23 with a chief complaint of worsening left-sided chest pain and shortness of breath. Patient was recently hospitalized on 12/22/22-12/31/22 for similar complaints including shortness of breath, nonproductive cough, 90 pound weight loss over the past year, and gradually worsening left lower extremity weakness in which she has been following with physical therapy outpatient. It was during this last admission that patient was found to have a large left sided hydropneumothorax and underwent thoracentesis and biopsy which later resulted in diagnosis of invasive pulmonary small cell lung adenocarcinoma with an endobronchial tumor in the left mainstem bronchus. Patient was discharged home on 12/31/22 and upon outpatient follow-up with her PCP she again reported complaints of intermittent left-sided chest pain, shortness of breath, and worsening left lower extremity weakness and was advised to return to the emergency department for further evaluation. Upon arrival to the emergency department patient was found to be hypoxic at rest with SpO2 of 89% on room air. Patient was placed on supplemental oxygen and underwent a chest x-ray which again confirmed recurrence of large left-sided hydropneumothorax redemonstrated with overall slightly increased from 12/2822. Labs were completed and reviewed. CBC showing polycythemia vera with WBC count of 12.2, hemoglobin 16.9, and platelet count of 545. CMP was unremarkable. Blood glucose was 101. Magnesium normal findings at 2.3. Troponin less than 0.012 and proBNP 160. Physical examination: Vital signs reviewed and stable. Patient appeared to be resting comfortably and currently denies having any complaints of pain or discomfort at this time. She remains on 3 L O2 via nasal cannula. Patient and her daughter were updated on plan of care and all questions answered at this time. General: Chronically ill-appearing, no distress, appears at stated age, frail and emaciated Derm: no unusual rashes/lesions, skin warm and dry Head: atraumatic, normocephalic, symmetric Eyes: EOMI, no lid lag, anicteric sclera ENT: Nose and ears atraumatic Neck: No cervical lymphadenopathy, supple Mouth: no lip lesion, mucus membranes moist Cardiovascular: S1S2 reg, no murmur, positive posterior tibial pulses bilaterally, no edema Lungs: Absent breath sounds at left lung base, clear breath sounds elsewhere with no wheezing, rales or rub, or rhonchi noted, no accessory muscle use Abdominal: soft, nontender to palpation, no guarding Ext: ROM intact. No gross muscle atrophy, no edema, no contractures Neuro: Speech clear, face symmetrical and CN II-XII grossly intact with no noted focal neuro deficits Psych: Alert and oriented to person, place, time, and situation. Appropriate and pleasant affect. Assessment and Plan of Care: Hypoxic respiratory failure, likely secondary to large left-sided hydropneumothorax in setting of metastatic pulmonary adenocarcinoma Left lower extremity weakness, unclear etiology Leukocytosis, likely reactive in setting of malignancy Severe Protein calorie malnutrition -Orders placed for home oxygen evaluation and discussed with RN the importance of weaning patient back off of oxygen as tolerated and completing home oxygen evaluation/ambulatory pulse ox to determine if there is a home oxygen need upon discharge. -Order placed for protein supplements 3 times daily between meals -Pulmonology following and discussed plan of care with pulmonary [employer]. Pulmonology stating no plans for repeat thoracentesis at this time and in agreement with attempts at weaning patient off of oxygen and completing home oxygen evaluation. -Hematology/oncology following and ordered for MRI brain to be completed and recommending patient will need outpatient PET scan upon discharge. -Continue with Symptomatic care and pain management. -PT/OT was consulted for patient's reports of gradually worsening left lower extremity weakness 1 year. Data and imaging reviewed: No new imaging for review at this time. MRI was ordered by hematology/oncology and scheduled for completion tomorrow morning. Morning labs reviewed. CBC showing resolution of leukocytosis with WBC count of 8.9, normal hemoglobin of 15.3 and improving thrombocytosis with platelet c ount of 474. BMP was unremarkable. Vital signs reviewed. Blood pressure 126/79, heart rate 75, respiratory rate 18, and temp 97.8F with SpO2 of 99% on 3 L O2. Discussed with RN and encourage weaning patient back off of oxygen in order placed for ambulatory pulse ox to determine if there is a home oxygen need upon discharge. CODE STATUS: DO NOT RESUSCITATE/DO NOT INTUBATE DVT prophylaxis: Lovenox subcu Discussed with: Patient, patient's daughter at bedside, pulmonary [employer] and RN Anticipated discharge date: Clinical course to determine Anticipated discharge place: Home Patient was seen independently by Nurse Pracitioner. This document was prepared using [employer] dictation software. Please allow for errors in sales training coordinator, while rare they do occur. Objective - Vital Signs Vital signs: Vital Signs Temp 97.8 F 01/17/23 07:40 Pulse 75 01/17/23 07:40 Resp 18 01/17/23 07:40 BP 126/79 01/17/23 07:40 Pulse Ox 99 01/17/23 07:40 FiO2 Intake & Output 01/16/23 01/17/23 01/17/23 18:59 06:59 18:59 Weight 40.823 kg Other: Voiding Method Bedside Commode Bedside Commode # Voids 1 - Labs CBC & Chem 7: 01/16/23 06:36 01/16/23 06:36
[2023-01-18] MEDS: HYDROcodone/APAP 5-325MG 1 EACH TAB PO PRN ×3 (04:08→14:36)
[2023-01-18] MEDS: ENOXAPARIN 40 MG/0.4 ML SYRINGE SQ SCH (08:19)
[2023-01-18] MEDS ORDERED: LORazepam 2 MG/ML INJ IV PRN (09:54)
--- NOTE | 2023-01-18 11:46 | MR ---
EXAMINATION TYPE: MR brain wo/w con DATE OF EXAM: 01/18/2023 COMPARISON: None HISTORY: Lung cancer, evaluate for mets. TECHNIQUE: Multiplanar, multisequence images of the brain and brainstem is performed without and with IV contras t, utilizing 4 mL intravenous Gadavist . FINDINGS: Diffusion weighted images demonstrate no evidence of a recent infarct or other diffusion ab normality. There is mild generalized degenerative changes with focal diffuse areas of abnormal signal in the whi te matter most compatible with remote white matter microvascular ischemia. There is abnormal signal i nvolving the chip ischemia. Midline structures demonstrate normal morphology. The craniocervical junction appears within normal limits. Post contrast images demonstrate a rim-enhancing cystic lesion in the left parietal lobe measuring 2. 5 cm. A 1 cm left lateral parietal lobe ring enhancing lesion Is ill-defined right superior parietal lesion measuring 2.4 cm Right temporal lobe lesion measuring 8 mm Left cerebellar hemisphere 4 mm ring-enhancing lesion There is a 2 mm left cerebellar punctate area of enhancement. There is no midline shift or mass effect.. The dural venous sinuses appear patent. There is changes o f mild chronic sinusitis mastoiditis. Orbits are symmetric. IMPRESSION: 1. Multiple ring-enhancing lesions as described and measured above compatible with intracranial metas tasis.
--- NOTE | 2023-01-18 13:12 | P.PN ---
Subjective Progress Note Date: 01/18/23 Hospital course: Patient is a very pleasant 67-year-old female with a past medical history of tobacco use and recently diagnosed metastatic lung cancer. She presented to the emergency department on 01/15/23 with a chief complaint of worsening left-sided chest pain and shortness of breath. Patient was recently hospitalized on 12/22/22-12/31/22 for similar complaints including shortness of breath, nonproductive cough, 90 pound weight loss over the past year, and gradually worsening left lower extremity weakness in which she has been following with physical therapy outpatient. It was during this last admission that patient was found to have a large left sided hydropneumothorax and underwent thoracentesis and biopsy which later resulted in diagnosis of invasive pulmonary small cell lung adenocarcinoma with an endobronchial tumor in the left mainstem bronchus. Patient was discharged home on 12/31/22 and upon outpatient follow-up with her PCP she again reported complaints of intermittent left-sided chest pain, shortness of breath, and worsening left lower extremity weakness and was advised to return to the emergency department for further evaluation. Upon arrival to the emergency department patient was found to be hypoxic at rest with SpO2 of 89% on room air. Patient was placed on supplemental oxygen and underwent a chest x-ray which again confirmed recurrence of large left-sided hydropneumothorax redemonstrated with overall slightly increased from 12/2822. Labs were completed and reviewed. CBC showing polycythemia vera with WBC count of 12.2, hemoglobin 16.9, and platelet count of 545. CMP was unremarkable. Blood glucose was 101. Magnesium normal findings at 2.3. Troponin less than 0.012 and proBNP 160. Physical examination: Patient appeared to be resting comfortably at this time, she just returned from MRI and reports feeling "sleepy". Patient was premedicated for MRI with Ativan. Patient and patient's daughter at bedside, all questions answered at this time. Patient denies having any new complaints at this time. She reports breathing comfortably at rest but reports significantly worsens with any movement or exertion. In addition patient reports feeling weak and tired. General: Chronically ill-appearing, no distress, appears at stated age, frail and emaciated Derm: no unusual rashes/lesions, skin warm and dry Head: atraumatic, normocephalic, symmetric Eyes: EOMI, no lid lag, anicteric sclera ENT: Nose and ears atraumatic Neck: No cervical lymphadenopathy, supple Mouth: no lip lesion, mucus membranes moist Cardiovascular: S1S2 reg, no murmur, positive posterior tibial pulses bilaterally, no edema Lungs: Absent breath sounds at left lung base, clear breath sounds elsewhere with no wheezing, rales or rub, or rhonchi noted, no accessory muscle use Abdominal: soft, nontender to palpation, no guarding Ext: Movement and sensation intact. No gross muscle atrophy, no edema, no contractures. Patient with left foot drop. Neuro: Speech clear, face symmetrical and CN II-XII grossly intact with no noted focal neuro deficits Psych: Alert and oriented to person, place, time, and situation. Appropriate and pleasant affect. Assessment and Plan of Care: Hypoxic respiratory failure, likely secondary to large left-sided hydropne umothorax in setting of metastatic pulmonary adenocarcinoma Left lower extremity weakness with foot drop 1 year Leukocytosis, likely reactive in setting of malignancy Severe Protein calorie malnutrition -Orders placed for home oxygen evaluation and discussed with RN the importance of weaning patient back off of oxygen as tolerated and completing home oxygen evaluation/ambulatory pulse ox to determine if there is a home oxygen need upon discharge. -Continue protein supplements 3 times daily between meals -Pulmonology following and discussed plan of care with pulmonary [employer] ADMINISTR[employer]. Pulmonology stating no plans for repeat thoracentesis at this time and in agreement with attempts at weaning patient off of oxygen and completing home oxygen evaluation. -Hematology/oncology following and ordered for MRI brain to be completed and recommending patient will need outpatient PET scan upon discharge. MRI was completed and currently pending results -Continue with Symptomatic care and pain management. -PT/OT was consulted for patient's reports of gradually worsening left lower extremity weakness 1 year. -Patient requires AFO brace for treatment of left foot drop to optimize patient's ability to ambulate and complete ADLs. Data and imaging reviewed: Vital signs reviewed. Blood pressure 136/80, heart rate 78, respiratory rate 17, temp 97.8F, SpO2 of 99% on 3 L O2. Noted imaging available for review at this time, patient completed MRI brain and currently pending results. CODE STATUS: DO NOT RESUSCITATE/DO NOT INTUBATE DVT prophylaxis: Lovenox subcu Discussed with: Patient, patient's daughter at bedside, pulmonary ACCOUNTS ADMINISTRATOR and RN Anticipated discharge date: Clinical course to determine Anticipated discharge place: Home Patient was seen independently by Nurse Pracitioner. This document was prepared using [employer] dictation software. Please allow for errors in intervention teacher, while rare they do occur. Objective - Vital Signs Vital signs: Vital Signs Temp 97.8 F 01/18/23 07:03 Pulse 78 01/18/23 07:03 Resp 17 01/18/23 07:03 BP 136/80 01/18/23 07:03 Pulse Ox 99 01/18/23 07:03 FiO2 Intake & Output 01/17/23 01/18/23 01/18/23 18:59 06:59 18:59 Intake Total 590 Output Total 0 Balance 590 Intake: Oral 590 Output: Urine 0 Other: Voiding Method Bedside Commode Bedside Commode # Voids 1 2 - Labs CBC & Chem 7: 01/16/23 06:36 01/16/23 06:36
--- NOTE | 2023-01-18 13:21 | P.PN ---
Subjective Progress Note Date: 01/18/23 This is a pleasant 67-year-old female with a limited past medical history, she does not routinely follow with a doctor. She does smoke approximately 3/4 to 1 pack per day, and has over a [id number] history. She admits to losing approximately 80 pounds over the last year. She is cachectic and frail. Elida frankel has been experiencing chronic fatigue and dyspnea especially on exertion for the last year. She was admitted here last month for severe shortness of breath and she was found to have significant abnormalities of the lungs. She had undergone thoracentesis and subsequent bronchoscopy with biopsies on 12/30/2022. Recently found to be positive for non-small cell carcinoma. She returned here to the emergency room yesterday after being at her new PCPs office. A chest x-ray showed reaccumulation of left pleural effusion. She was referred here for the same. Chest x-ray reveals large left-sided hydropneumothorax redemonstrated, slightly increased from 12/31/2022. Underlying collapse of the left lung appears similar. White count 8.9. Hemoglobin 15.3. Platelets 474. Sodium 137. Potassium 5.0. Bicarb 30. BUN 18. Creatinine 0.62. He is seen today in consultation on the regular medical floor. She is currently resting fairly comfortably in bed. Awake and alert in no acute distress. Maintaining O2 saturations up to 99% on 3 L/m per nasal cannula. She's afebrile. Hemodynamically stable. The patient is seen today 01/17/2023 in follow-up on the regular medical floor. She is currently resting in bed. Awake and alert in no acute distress. Denies any worsening shortness of breath, cough or congestion. No fever or chills. She is maintaining O2 saturations in the high 90s on 3 L/m per nasal cannula. Afebrile. Hemodynamically stable. She is scheduled to have an MRI of the brain. She's being followed by oncology. Diamond for DVT prophylaxis. The patient is seen today 01/18/2023 in follow-up on the regular medical floor. She is awake and alert in no acute distress. Resting in bed. Denies any worsening shortness of breath, cough or congestion. Is currently maintaining O2 saturations in the 90s on 3 L/m per nasal cannula. Afebrile. Hemodynamically stable. MRI of the brain reveals multiple ring-enhancing lesions compatible with intracranial metastasis. She remains on Lovenox for DVT prophylaxis. Objective - Vital Signs Vital signs: Vital Signs Temp 97.6 F 01/18/23 12:30 Pulse 71 01/18/23 12:30 Resp 16 01/18/23 12:30 BP 136/91 01/18/23 12:30 Pulse Ox 100 01/18/23 12:30 FiO2 Intake & Output 01/17/23 01/18/23 01/18/23 18:59 06:59 18:59 Intake Total 590 Output Total 0 Balance 590 Intake: Oral 590 Output: Urine 0 Other: Voiding Method Bedside Commode Bedside Commode Bedside Commode # Voids 1 2 - Exam GENERAL EXAM: Alert, pleasant, frail 67-year-old female on 3 L nasal cannula, comfortable in no apparent distress. HEAD: Normocephalic. EYES: Normal reaction of pupils, equal size. NOSE: Clear with pink turbinates. THROAT: No erythema or exudates. NECK: No masses, no JVD. CHEST: No chest wall deformity. LUNGS: Equal air entry with diminished, crackles, few scattered rhonchi at the left lung. CVS: S1 and S2 normal with no audible murmur, regular rhythm. ABDOMEN: No hepatosplenomegaly, normal bowel sounds, no guarding or rigidity. SPINE: No scoliosis or deformity SKIN: No rashes CENTRAL NERVOUS SYSTEM: No focal deficits, tone is normal in all 4 extremities. EXTREMITIES: There is no peripheral edema. No clubbing, no cyanosis. Peripheral pulses are intact. - Labs CBC & Chem 7: 01/16/23 06:36 01/16/23 06:36 Assessment and Plan Assessment: Acute on chronic hypoxemic respiratory failure secondary to recurrent left-sided pleural effusions and invasive non-small cell carcinoma of the lung. Bronchoscopy with biopsies performed 12/30/2022. No treatment has been initiated thus far. MRI of the brain reveals multiple ring-enhancing lesions compatible with metastatic disease. History of large left pleural effusion status post thoracentesis 12/23/2022 with 1.2 L of dark black fluid returned with trapped lung and hydropneumothorax, status post Thora-Vent placement on 12/23/2022 and removed on 12/31/2022. Gram stain and cultures reveal no growth. Cytology revealed rare atypia but no definitive malignancy. Multiple spiculated pulmonary nodules, seen in the right lung, with the largest measuring 1.4 cm Cachexia and severe protein-calorie malnutrition Unintentional weight loss, approximately 80 lbs over the last one year Chronic and ongoing nicotine dependence, with over [id number] history Difficulties ambulating, related to left lower extremity weakness Plan: The patient was seen and evaluated Medications reviewed MRI of the brain results reviewed May need radiation prior to chemotherapy Will need outpatient PET scan Titrate down the FiO2 as tolerated Evaluate for possible home oxygen Prognosis is guarded DO NOT INTUBATE/DO NOT RESUSCITATE CODE STATUS This patient was seen independently by the nurse practitioner I have personally seen and examined the patient, performed the documentation and the assessment and plan as written. Number of minutes spent on the visit: 23.
[2023-01-18] MEDS ORDERED: DEXAMETHASONE SOD PHOSPHATE 4 MG/ML 1 ML VIAL IVP PRN (15:25)
--- NOTE | 2023-01-18 16:44 | P.PN ---
Subjective Progress Note Date: 01/18/23 Principal diagnosis: NSCLC In follow-up today patient is drowsy as she received Ativan prior to her MRI of the brain. Patient's family reports that the left foot drop started as a "limp" about a year ago, this was progressive over the last 6 months to now, there is no numbness or tingling in the leg. Patient is lost about 90 pounds in the last year, she reports some difficulty finding words at times and organizing her thoughts. She is reporting uncontrolled pain on her left side on current analgesic regimen. Mild shortness of breath on exertion. Utilizes a walker for ambulating Objective - Vital Signs Vital signs: Vital Signs Temp 97.6 F 01/18/23 12:30 Pulse 71 01/18/23 12:30 Resp 16 01/18/23 12:30 BP 136/91 01/18/23 12:30 Pulse Ox 100 01/18/23 12:30 FiO2 Intake & Output 01/17/23 01/18/23 01/18/23 18:59 06:59 18:59 Intake Total 590 Output Total 0 Balance 590 Intake: Oral 590 Output: Urine 0 Other: Voiding Method Bedside Commode Bedside Commode Bedside Commode # Voids 1 2 1 - Constitutional General appearance: Present: cooperative, no acute distress, thin - EENT Eyes: Present: anicteric sclerae, EOMI ENT: Present: hearing grossly normal - Respiratory Respiratory: left: diminished (LLL), bilateral: CTA - Cardiovascular Details: Skin warm and dry to the touch, radial pulse 2+ - Peripheral edema leg Peripheral Edema: bilateral: None - Neurologic Neurologic: Present: CNII-XII intact (Grossly) - Psychiatric Psychiatric: Present: A&O x's 3, appropriate affect, intact judgment & insight - Labs CBC & Chem 7: 01/16/23 06:36 01/16/23 06:36 - Imaging and Cardiology MRI - head: report reviewed (MRI of the brain with and without contrast. Rim enhancing cystic lesion in the left parietal lobe 2.5 cm, 1 cm left lateral parietal lobe ring enhancing lesion, ill-defined right superior parietal lesion 2.4 cm, right temporal lobe lesion measuring 8 mm, left cerebellar hemisphere 4 mm ring-enhanci) Assessment and Plan (1) Non-small cell lung cancer Current Visit: Yes Status: Acute Priority: High Code(s): C34.90 - MALIGNANT NEOPLASM OF UNSP PART OF UNSP BRONCHUS OR LUNG SNOMED Code(s): 792674818 (2) Metastatic adenocarcinoma to brain Current Visit: Yes Status: Acute Priority: High Code(s): C79.31 - SECONDARY MALIGNANT NEOPLASM OF BRAIN SNOMED Code(s): 37536819 (3) Pleural effusion, left Current Visit: Yes Status: Acute Priority: High Code(s): J90 - PLEURAL EFFUSION, NOT ELSEWHERE CLASSIFIED SNOMED Code(s): 89934597 Plan: Metastatic non-small cell lung cancer -MRI of the brain was unfortunately positive for multiple lesions. -Discussed the case at length with Radiation Oncology. Radiation Oncology consulted. -Dexamethasone for mild symptoms. Will prescribe oral dexamethasone once patient is closer to discharge -PET scan for initial staging scheduled, appointment in discharge plan -Tissue block requested for NGS and PDL 1 testing -Follow up with Medical Oncologist after staging PET and molecular testing completed -Follow-up with Radiation Oncologist as soon as possible after discharge Pain, suspect from malignancy -Katy changed to Percocet. Will see how patient's pain is controlled tomorrow. Rx will be sent for the same from the office so that patient has enough medication to get to her follow-up appointment with Medical Oncologist who is prescribing -Stool softeners for prevention of narcotic-induced constipation ordered All of the above was discussed with the patient and both of her daughters. All questions were answered to their satisfaction at this time. Pending recommendations from Pulmonary regarding possible drain placement for recurrent pleural effusion. attests: I seen and examined patient, performed H&P, developed impression and plan of care. Discussed with dictator. Agree with documentation, dictated as a scribe. Time with Patient: Greater than 30 (>60 min)
[2023-01-18] MEDS: oxyCODONE-APAP 7.5-325MG 1 EACH TAB PO PRN (19:33)
[2023-01-18] MEDS: SENNOSIDES-DOCUSATE SODIUM 1 EACH TAB PO SCH (22:02)
[2023-01-19] MEDS: DEXAMETHASONE SOD PHOSPHATE 4 MG/ML 1 ML VIAL IVP SCH ×3 (00:08→16:04)
[2023-01-19] MEDS: oxyCODONE-APAP 7.5-325MG 1 EACH TAB PO PRN ×3 (04:58→13:52)
[2023-01-19] MEDS: ENOXAPARIN 40 MG/0.4 ML SYRINGE SQ SCH (09:04)
[2023-01-19] MEDS: SENNOSIDES-DOCUSATE SODIUM 1 EACH TAB PO SCH (09:04)
--- NOTE | 2023-01-19 11:19 | P.PN ---
Subjective Progress Note Date: 01/19/23 This is a pleasant 67-year-old female with a limited past medical history, she does not routinely follow with a doctor. She does smoke approximately 3/4 to 1 pack per day, and has over a [id number] history. She admits to losing approximately 80 pounds over the last year. She is cachectic and frail. Elida frankel has been experiencing chronic fatigue and dyspnea especially on exertion for the last year. She was admitted here last month for severe shortness of breath and she was found to have significant abnormalities of the lungs. She had undergone thoracentesis and subsequent bronchoscopy with biopsies on 12/30/2022. Recently found to be positive for non-small cell carcinoma. She returned here to the emergency room yesterday after being at her new PCPs office. A chest x-ray showed reaccumulation of left pleural effusion. She was referred here for the same. Chest x-ray reveals large left-sided hydropneumothorax redemonstrated, slightly increased from 12/31/2022. Underlying collapse of the left lung appears similar. White count 8.9. Hemoglobin 15.3. Platelets 474. Sodium 137. Potassium 5.0. Bicarb 30. BUN 18. Creatinine 0.62. He is seen today in consultation on the regular medical floor. She is currently resting fairly comfortably in bed. Awake and alert in no acute distress. Maintaining O2 saturations up to 99% on 3 L/m per nasal cannula. She's afebrile. Hemodynamically stable. The patient is seen today 01/17/2023 in follow-up on the regular medical floor. She is currently resting in bed. Awake and alert in no acute distress. Denies any worsening shortness of breath, cough or congestion. No fever or chills. She is maintaining O2 saturations in the high 90s on 3 L/m per nasal cannula. Afebrile. Hemodynamically stable. She is scheduled to have an MRI of the brain. She's being followed by oncology. Diamond for DVT prophylaxis. The patient is seen today 01/18/2023 in follow-up on the regular medical floor. She is awake and alert in no acute distress. Resting in bed. Denies any worsening shortness of breath, cough or congestion. Is currently maintaining O2 saturations in the 90s on 3 L/m per nasal cannula. Afebrile. Hemodynamically stable. MRI of the brain reveals multiple ring-enhancing lesions compatible with intracranial metastasis. She remains on Lovenox for DVT prophylaxis. The patient is seen today 01/19/2023 in follow-up on the regular medical floor. She is sitting up in bed having breakfast. No worsening shortness breath, cough or congestion. Maintaining O2 saturations in the 90s on 3 L/m per nasal cannula. She is aware of her MRI results. She has been initiated on Decadron. Pending radiation oncology consultation. Her pain is adequately controlled. She remains on Lovenox for DVT prophylaxis. Objective - Vital Signs Vital signs: Vital Signs Temp 97.9 F 01/19/23 08:57 Pulse 82 01/19/23 08:57 Resp 14 01/19/23 08:57 BP 136/85 01/19/23 08:57 Pulse Ox 100 01/19/23 08:57 FiO2 Intake & Output 01/18/23 01/19/23 01/19/23 18:59 06:59 18:59 Intake Total 890 Balance 890 Intake: Oral 890 Other: Voiding Method Bedside Commode Bedside Commode Bedside Commode # Voids 1 2 - Exam GENERAL EXAM: Alert, pleasant, frail 67-year-old female sitting up in bed, on 3 liters nasal cannula, fairly comfortable in no apparent distress. HEAD: Normocephalic. EYES: Normal reaction of pupils, equal size. NOSE: Clear with pink turbinates. THROAT: No erythema or exudates. NECK: No masses, no JVD. CHEST: No chest wall deformity. LUNGS: Equal air entry with diminished, crackles, few scattered rhonchi at the left lung. CVS: S1 and S2 normal with no audible murmur, regular rhythm. ABDOMEN: No hepatosplenomegaly, normal bowel sounds, no guarding or rigidity. SPINE: No scoliosis or deformity SKIN: No rashes CENTRAL NERVOUS SYSTEM: No focal deficits, tone is normal in all 4 extremities. EXTREMITIES: There is no peripheral edema. No clubbing, no cyanosis. Peripheral pulses are intact. - Labs CBC & Chem 7: 01/16/23 06:36 01/16/23 06:36 Assessment and Plan Assessment: Acute on chronic hypoxemic respiratory failure secondary to recurrent left-sided pleural effusions and invasive non-small cell carcinoma of the lung. Bronchoscopy with biopsies performed 12/30/2022. No treatment has been initiated thus far. MRI of the brain reveals multiple ring-enhancing lesions compatible with metastatic disease. She's been initiated on Decadron History of large left pleural effusion status post thoracentesis 12/23/2022 with 1.2 L of dark black fluid returned with trapped lung and hydropneumothorax, status post Thora-Vent placement on 12/23/2022 and removed on 12/31/2022. Gram stain and cultures reveal no growth. Cytology revealed rare atypia but no definitive malignancy. Multiple spiculated pulmonary nodules, seen in the right lung, with the largest measuring 1.4 cm Cachexia and severe protein-calorie malnutrition Unintentional weight loss, approximately 80 lbs over the last one year Chronic and ongoing nicotine dependence, with over [id number] history Difficulties ambulating, related to left lower extremity weakness Plan: The patient was seen and evaluated Medications reviewed Radiation oncology consult pending Follow-up chest x-ray today Titrate down the FiO2 as tolerated Evaluate for possible home oxygen Prognosis is guarded DO NOT INTUBATE/DO NOT RESUSCITATE CODE STATUS This patient was seen independently by the nurse practitioner I have personally seen and examined the patient, performed the documentation and the assessment and plan as written. Number of minutes spent on the visit: 22.
[2023-01-19 12:55] VITALS: BP 126/75; PULSE 84; RESP 20; TEMP 98.2
--- NOTE | 2023-01-19 13:18 | P.PN ---
Subjective Progress Note Date: 01/19/23 Principal diagnosis: NSCLC In follow-up today patient is much more awake then yesterday, she reports that she has noted a few more TIDWELL then she has had in the past, rt temporal area, no other new neurological symptoms. Pain in the left flank/back is well controlled since changes to pain medications. Pt and family feel that she is able to go home. Objective - Vital Signs Vital signs: Vital Signs Temp 98.2 F 01/19/23 11:40 Pulse 84 01/19/23 11:40 Resp 20 01/19/23 11:40 BP 126/75 01/19/23 11:40 Pulse Ox 97 01/19/23 11:40 FiO2 Intake & Output 01/18/23 01/19/23 01/19/23 18:59 06:59 18:59 Intake Total 890 Balance 890 Intake: Oral 890 Other: Voiding Method Bedside Commode Bedside Commode Bedside Commode # Voids 1 2 - Constitutional General appearance: Present: cooperative, no acute distress, thin - EENT Eyes: Present: anicteric sclerae, EOMI ENT: Present: hearing grossly normal - Respiratory Details: Respirations even and unlabored at rest - Cardiovascular Details: Skin warm and dry to the touch, radial pulse 2+ - Peripheral edema leg Peripheral Edema: bilateral: None - Integumentary Integumentary: Present: normal - Neurologic Neurologic Comment(s): Cranial nerves grossly intact - Psychiatric Psychiatric: Present: A&O x's 3, appropriate affect, intact judgment & insight - Labs CBC & Chem 7: 01/16/23 06:36 01/16/23 06:36 Assessment and Plan (1) Non-small cell lung cancer Current Visit: Yes Status: Acute Priority: High Code(s): C34.90 - MALIGNANT NEOPLASM OF UNSP PART OF UNSP BRONCHUS OR LUNG SNOMED Code(s): 761711570 (2) Metastatic adenocarcinoma to brain Current Visit: Yes Status: Acute Priority: High Code(s): C79.31 - S ECONDARY MALIGNANT NEOPLASM OF BRAIN SNOMED Code(s): 32706045 (3) Pleural effusion, left Current Visit: Yes Status: Acute Priority: High Code(s): J90 - PLEURAL EFFUSION, NOT ELSEWHERE CLASSIFIED SNOMED Code(s): 59781488 Plan: Metastatic non-small cell lung cancer -MRI of the brain was unfortunately positive for multiple lesions. Ensured that the patient understood that she has metastatic disease, incurable cancer but treatable for some time to reduce symptoms and prolong life. Patient verbalized understanding -Radiation Oncology met with pt yesterday. Discussed case with them again today. They will f/u with her outpt to simulate and start SRS. -Oral Dexamethasone for mild neuro symptoms. Rx will be sent to pt [facility] pharmacy at daughter request. -PET scan for initial staging WILL BE scheduled-I documented that it was already sched and it is not. Pt daughter will be contacted with appt date and time -Tissue block received and sent for NGS and PDL 1 testing -Follow up with Medical Oncologist after staging PET sched and molecular testing completed, will contact pt daughter with appt date and time - Pain, suspect from malignancy -[place] changed to Percocet. Pt reports adequate pain control. -Rx being sent from the office so that patient has enough medication to get to her follow-up appointment with Medical Oncologist, who is prescribing -Stool softeners for prevention of narcotic-induced constipation ordered as well All of the above was discussed with the patient and daughter Theodora at bedside. All questions were answered to their satisfaction at this time.
--- NOTE | 2023-01-19 13:35 | P.DS ---
Providers Date of admission: 01/15/23 18:45 Expected date of discharge: 01/19/23 Attending physician: Juan Rizo MD Consults: 01/15/23 18:44 Consult Physician Routine Consulting Provider: Clara Small Consult Reason/Comments: Pleural effusion/Pneumothorax Do you want consulting provider notified?: Yes 01/15/23 20:29 Consult Physician Routine Consulting Provider: Indu Escobedo Consult Reason/Comments: lung ca Do you want consulting provider notified?: Yes 01/18/23 15:15 Consult Physician Routine Consulting Provider: Hector Segura Consult Reason/Comments: brain mets Do you want consulting provider notified?: Already Contacted Primary care physician: Farzaneh Landeros MD Hospital Course: Discharge Diagnosis: Metastatic non-small cell lung cancer Pain, likely related to malignancy Acute on chronic hypoxic respiratory failure Leukocytosis, reactive Chronic Left lower extremity weakness with foot drop Severe protein calorie malnutrition Hospital Course: Patient is a very pleasant 67-year-old female with a past medical history of tobacco use and recently diagnosed metastatic lung cancer. She presented to the emergency department on 01/15/23 with a chief complaint of worsening left-sided chest pain and shortness of breath. Patient was recently hospitalized on 12/22/22-12/31/22 for similar complaints including shortness of breath, no nproductive cough, 90 pound weight loss over the past year, and gradually worsening left lower extremity weakness in which she has been following with physical therapy outpatient. It was during this last admission that patient was found to have a large left sided hydropneumothorax and underwent thoracentesis and biopsy which later resulted in diagnosis of invasive pulmonary small cell lung adenocarcinoma with an endobronchial tumor in the left mainstem bronchus. Patient was discharged home on 12/31/22 and upon outpatient follow-up with her PCP she again reported complaints of intermittent left-sided chest pain, shortness of breath, and worsening left lower extremity weakness and was advised to return to the emergency department for further evaluation. Upon arrival to the emergency department patient was found to be hypoxic at rest with SpO2 of 89% on room air. Patient was placed on supplemental oxygen and underwent a chest x-ray which again confirmed recurrence of large left-sided h ydropneumothorax redemonstrated with overall slightly increased from 12/2822. Labs were completed and reviewed. CBC showing polycythemia vera with WBC count of 12.2, hemoglobin 16.9, and platelet count of 545. CMP was unremarkable. Blood glucose was 101. Magnesium normal findings at 2.3. Troponin less than 0.012 and proBNP 160. Patient was evaluated by oncology and pulmonology. Brain MRI showed multiple ring-enhancing lesions indicative of an intracranial metastasis. Patient to be discharged home and follow-up with oncology as well as radiation oncology. Pain medication and steroids being provided by oncology. Overall prognosis is poor. Patient seen and examined at bedside. Vital signs reviewed and stable. General: Chronically ill-appearing, no distress, appears at stated age, frail and emaciated Derm: no unusual rashes/lesions, skin warm and dry Head: atraumatic, normocephalic, symmetric Eyes: EOMI, no lid lag, anicteric sclera ENT: Nose and ears atraumatic Neck: No cervical lymphadenopathy, supple Mouth: no lip lesion, mucus membranes moist Cardiovascular: S1S2 reg, no murmur, positive posterior tibial pulses bilaterally, no edema Lungs: Absent breath sounds at left lung base, clear breath sounds elsewhere with no wheezing, rales or rub, or rhonchi noted, no accessory muscle use Abdominal: soft, nontender to palpation, no guarding Ext: Movement and sensation intact. No gross muscle atrophy, no edema, no contractures. Patient with left foot drop. Neuro: Speech clear, face symmetrical and CN II-XII grossly intact with no noted focal neuro deficits Psych: Alert and oriented to person, place, time, and situation. Appropriate and pleasant affect. A total of 33 minutes of time were spent preparing this complex discharge summary. Patient was discharged on 01/19/23 at 13:31. Patient Condition at Discharge: Fair Plan - Discharge Summary Discharge Rx Participant: No New Discharge Prescriptions: Continue ePHEDrine HCL [Primatene] 12.5 mg PO DAILY PRN PRN Reason: Shortness Of Breath Cetirizine HCl [Zyrtec] 10 mg PO DAILY PRN PRN Reason: Allergy Symptoms Acetaminophen Tab [Tylenol] 650 mg PO Q6HR PRN #60 tab PRN Reason: Mild Pain Or Fever > 100.5 Guaifenesin/Dextromethorphan [Guaifenesin-Dm 400-20 mg Tab] 1 tab PO DAILY PRN PRN Reason: Congestion Discharge Medication List Cetirizine HCl [Zyrtec] 10 mg PO DAILY PRN 12/22/22 [History] Guaifenesin/Dextromethorphan [Guaifenesin-Dm 400-20 mg Tab] 1 tab PO DAILY PRN 12/22/22 [History] ePHEDrine HCL [Primatene] 12.5 mg PO DAILY PRN 12/22/22 [History] Acetaminophen Tab [Tylenol] 650 mg PO Q6HR PRN #60 tab 12/31/22 [Rx] Follow up Appointment(s)/Referral(s): Hector Segura MD [STAFF PHYSICIAN] - 3 Days None,Stated [REFERRING] - 1-2 days David Escobedo MD [STAFF PHYSICIAN] - 10 Days Patient Instructions/Handouts: Brain Metastasis (DC) Activity/Diet/Wound Care/Special Instructions: Please see oncology. Discharge Disposition: HOME SELF-CARE
--- NOTE | 2023-01-19 16:20 | P.CONS ---
History of Present Illness - Reason for Consult Consult date: 01/18/23 brain metastases Requesting physician: Indu Escobedo - Chief Complaint dyspnea - History of Present Illness the patient is a 67-year-old female with a history of recently diagnosed metastatic adenocarcinoma of the left lung with likely involvement of the contralateral right lung and approximately 5 brain metastases. She has been hospitalized secondary to recurrent effusion and dyspnea. At the time of my consultation, the patient's daughters fill in most of the information. She has recently returned from an MRI of the brain which required anxiolytics, that have left the patient sleeping. The patient's oncologic history began when she first presented to the emergency room on 12/22/2022. She had had increasing dyspnea for approximately 2 months. The patient's daughter's report that she has lost significant weight over the past year, close to 90 pounds. A computed tomography scan of the chest on December 22 revealed a large left pleural effusion with near complete opacification of the left lung. There was abnormal mediastinal adenopathy as well as scattered right pulmonary lesions. Thoracentesis was performed, and on December 23 she had a chest tube placed. This revealed 1.2 L of dark fluid. Rare atypical cells seen, but not diagnostic of malignancy. She subsequently underwent bronchoscopy on December 30. This revealed abnormalities in the left lower lobe bronchus. Biopsies of this location were consistent with invasive pulmonary adenocarcinoma. The patient was so Zach discharged, but unfortunately was readmitted on January 15 secondary to left-sided chest wall pain and dyspnea. she did undergo an MRI of the brain for staging on January 18. This revealed a 2.5 cm left parietal lesion, a 1 cm left lateral parietal lesion, a 2.4 cm right superior parietal lesion, an 8 mm temporal lesion and a 4 mm left cerebellar lesion. There was also a punctate second area of cerebellar enhancement. At the current time, the patient reports her breathing is actually not too bad. She does have some dyspnea on exertion. The patient's daughter's report she is ambulatory, but is currently using a walker. She notes she has had some left- sided foot drop in the past 6 months. She has met with the medical oncology team. They have discussed outpatient PET CT as well as NGS testing. Review of Systems ROS unobtainable: due to mental status Past Medical History Past Medical History: No Reported History, Cancer Additional Past Medical History / Comment(s): plueral effusion History of Any Multi-Drug Resistant Organisms: None Reported Past Surgical History: Section, Tonsillectomy Additional Past Surgical History / Comment(s): breast biopsy Past Anesthesia/Blood Transfusion Reactions: No Reported Reaction Past Psychological History: No Psychological Hx Reported Smoking Status: Former smoker Past Alcohol Use History: None Reported Past Drug Use History: None Reported - Past Family History Father Family Medical History: Diabetes Mellitus Additional Family Medical History / Comment(s): Migraines, depression, unsure but had heart issues Mother Family Medical History: Cancer, COPD, Diabetes Mellitus, Hypertension, Thyroid Disorder Additional Family Medical History / Comment(s): Breast CA, enlarged Heart, Macular degeneration, "Mini strokes" Brother(s) Family Medical History: Cancer, Diabetes Mellitus, Hyperlipidemia Additional Family Medical History / Comment(s): Prostate Cancer, Macular degeneration Medications and Allergies Home Medications Medication Instructions Recorded Confirmed Type Cetirizine HCl [Zyrtec] 10 mg PO DAILY PRN 12/22/22 01/15/23 History Guaifenesin/Dextromethorphan 1 tab PO DAILY PRN 12/22/22 01/15/23 History [Guaifenesin-Dm 400-20 mg Tab] ePHEDrine HCL [Primatene] 12.5 mg PO DAILY PRN 12/22/22 01/15/23 History Acetaminophen Tab [Tylenol] 650 mg PO Q6HR PRN #60 tab 12/31/22 01/15/23 Rx Allergies Allergy/AdvReac Type Severity Reaction Status Date / Time No Known Allergies Allergy Verified 01/15/23 17:08 Physical Exam Vitals: Vital Signs Temp Pulse Resp BP Pulse Ox Pulse Ox Pulse Ox 01/19/23 14:13 95 92 L 01/19/23 11:40 98.2 F 84 20 126/75 97 01/19/23 08:57 97.9 F 82 14 136/85 100 01/19/23 02:00 97.8 F 93 16 154/90 92 L 01/18/23 20:00 98.0 F 85 20 111/70 95 Pulse Ox 01/19/23 14:13 87 L 01/19/23 11:40 01/19/23 08:57 01/19/23 02:00 01/18/23 20:00 Intake and Output 01/19/23 01/19/23 01/19/23 06:59 14:59 22:59 Intake Total 590 Balance 590 Intake: Oral 590 Other: Voiding Method Bedside Commode # Voids 2 - Constitutional General appearance: no acute distress, thin - EENT Eyes: EOMI, PERRLA ENT: hearing grossly normal - Neck Neck: no lymphadenopathy - Respiratory Respiratory: right: CTA, left: diminished - Cardiovascular Rhythm: regular - Gastrointestinal General gastrointestinal: no distended, no tenderness - Integumentary Integumentary: no calor, no cellulitis - Neurologic Neurologic: CNII-XII intact - Psychiatric Psychiatric: no A&O x's 3 (Patient sleeping during most of consult, briefly woke near the end of discussion with her daughters.) Results CBC & Chem 7: 01/16/23 06:36 01/16/23 06:36 CT scan - chest: report reviewed, image reviewed MRI - head: report reviewed, image reviewed Assessment and Plan Assessment: the patient is a 67-year-old female with a history of recently diagnosed metastatic adenocarcinoma of the left lung with likely involvement of the contralateral right lung and approximately 5 brain metastases. She has been hospitalized secondary to recurrent effusion and dyspnea. Plan: 1. Brain metastases: I discussed with the patient's daughters the high likelihood this relates to her underlying lung cancer. I explained that she does have some mild vasogenic edema, and therefore we would initiate Decadron. I explained this could likely be tapered down to just 4 mg twice a day at discharge. I discussed that we would likely need to address these areas of GEOMETRY TEACHER involvement prior to systemic treatment. I discussed that the patient may be a candidate for radiosurgery. However, we will have her return as an outpatient follow-up to better evaluate her performance status. 2. Metastatic adenocarcinoma of the lung: This is a new diagnosis. As noted above, the patient likely has a malignant left effusion as well. We anticipate an outpatient PET CT. Oncology has discuss sending her tumor for NGS testing as well. Time: I spent 35 minutes with this patient, of which greater than 50% of that time was spent counseling, coordinating care, and reviewing the risks, benefits, and all potential complications of radiation. I appreciate the opportunity to participate in the care of this patient.
== END 2023-01-19 17:26 | disposition home or self-care (01) | DRG 186 ==
LOC: EC 15:43 → 5NMEDONC 18:45
PROVIDERS: ADMIT Family Medicine; ATTEND Family Medicine
DX: J94.8 Other specified pleural conditions (principal); E43 Unspecified severe protein-calorie malnutrition; J96.21 Acute and chronic respiratory failure with hypoxia; J93.9 Pneumothorax, unspecified; C34.02 Malignant neoplasm of left main bronchus; C78.00 Secondary malignant neoplasm of unspecified lung; C79.31 Secondary malignant neoplasm of brain; J98.11 Atelectasis; Z68.1 Body mass index [BMI] 19.9 or less, adult; J90 Pleural effusion, not elsewhere classified; G89.3 Neoplasm related pain (acute) (chronic); D45 Polycythemia vera; D72.829 Elevated white blood cell count, unspecified; F17.200 Nicotine dependence, unspecified, uncomplicated; L29.9 Pruritus, unspecified; M21.379 Foot drop, unspecified foot; R53.82 Chronic fatigue, unspecified; Z66 Do not resuscitate; Z80.3 Family history of malignant neoplasm of breast; Z81.8 Family history of other mental and behavioral disorders; Z82.49 Family history of ischemic heart disease and other diseases of the circulatory system; Z82.5 Family history of asthma and other chronic lower respiratory diseases; Z83.3 Family history of diabetes mellitus; Z85.118 Personal history of other malignant neoplasm of bronchus and lung
CPT/HCPCS: 36415; 70553; 71046; 80048; 80053; 83735; 83880; 84484; 85025; 85027; 85610; 85730; 93005; 96374; 99285

== ENCOUNTER 2023-03-11 18:08 | Inpatient (IN) | payer MEDICARE, OTHER ==
--- NOTE | 2023-03-11 19:01 | ED ---
General Adult HPI - General Chief complaint: Shortness of Breath Stated complaint: SOB Time Seen by Provider: 03/11/23 18:25 Source: patient, family, RN notes reviewed, old records reviewed Mode of arrival: wheelchair Limitations: no limitations - History of Present Illness Initial comments: This is a 67-year-old female presents emergency Department with a past medical history significant for COPD and lung cancer recently diagnosed. 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 Patient comes in today because over the last 3 days the patient has had difficulty breathing. And is getting progressively worse. Patient is much worse with exertion. Patient denies any chest pain or palpitations. Patient states she is on 2 L at home and normally oxygenating 93- 94% however today she's on 5 L and only actually 87-88% well at rest. Patient states she's had a thoracentesis in the past. Patient denies any fever or chills - Related Data Home Medications Medication Instructions Recorded Confirmed Cetirizine HCl [Zyrtec] 10 mg PO DAILY PRN 12/22/22 01/15/23 Guaifenesin/Dextromethorphan 1 tab PO DAILY PRN 12/22/22 01/15/23 [Guaifenesin-Dm 400-20 mg Tab] ePHEDrine HCL [Primatene] 12.5 mg PO DAILY PRN 12/22/22 01/15/23 Previous Rx's Medication Instructions Recorded Acetaminophen Tab [Tylenol] 650 mg PO Q6HR PRN #60 tab 12/31/22 Allergies Allergy/AdvReac Type Severity Reaction Status Date / Time No Known Allergies Allergy Verified 01/15/23 17:08 Review of Systems ROS Statement: Those systems with pertinent positive or pertinent negative responses have been documented in the HPI. ROS Other: All systems not noted in ROS Statement are negative. Past Medical History Past Medical History: Cancer Additional Past Medical History / Comment(s): plueral effusion History of Any Multi-Drug Resistant Organisms: None Reported Past Surgical History: Section, Tonsillectomy Additional Past Surgical History / Comment(s): breast biopsy Past Anesthesia/Blood Transfusion Reactions: No Reported Reaction Past Psychological History: No Psychological Hx Reported Smoking Status: Former smoker Past Alcohol Use History: None Reported Past Drug Use History: None Reported - Past Family History Father Family Medical History: Diabetes Mellitus Additional Family Medical History / Comment(s): Migraines, depression, unsure but had heart issues Mother Family Medical History: Cancer, COPD, Diabetes Mellitus, Hypertension, Thyroid Disorder Additional Family Medical History / Comment(s): Breast CA, enlarged Heart, Macular degeneration, "Mini strokes" Brother(s) Family Medical History: Cancer, Diabetes Mellitus, Hyperlipidemia Additional Family Medical History / Comment(s): Prostate Cancer, Macular degeneration General Exam - General Exam Comments Initial Comments: GENERAL: Patient is well-developed and well-nourished. Patient is nontoxic and well- hydrated and is in moderate distress. ENT: Neck is soft and supple. No significant lymphadenopathy is noted. Oropharynx is clear. Moist mucous membranes. Neck has full range of motion without eliciting any pain. EYES: The sclera were anicteric and conjunctiva were pink and moist. Extraocular movements were intact and pupils were equal round and reactive to light. Eyelids were unremarkable. PULMONARY: Lung sounds diminished on the left side CARDIOVASCULAR: There is a regular rate and rhythm without any murmurs gallops or rubs. Femoral pulses are equal bilaterally ABDOMEN: Soft and nontender with normal bowel sounds. No palpable organomegaly was noted. There is no palpable pulsatile mass. SKIN: Skin is clear with no lesions or rashes and otherwise unremarkable. NEUROLOGIC: Patient is alert and oriented x3. Cranial nerves II through XII are grossly intact. Motor and sensory are also intact. Normal speech, volume and content. Symmetrical smile. MUSCULOSKELETAL: Normal extremities with adequate strength and full range of motion. LYMPHATICS: No significant lymphadenopathy is noted PSYCHIATRIC: Normal psychiatric evaluation. Limitations: no limitations Course Vital Signs 03/11/23 03/11/23 03/11/23 18:15 18:33 19:39 Temperature 98.4 F Pulse Rate 124 H 110 H 112 H Respiratory 36 H 34 H 30 H Rate Blood Pressure 180/100 143/82 156/99 O2 Sat by Pulse 86 L 86 L 94 L Oximetry 03/11/23 20:46 Temperature Pulse Rate 103 H Respiratory 25 H Rate Blood Pressure 150/93 O2 Sat by Pulse 93 L Oximetry Medical Decision Making - Medical Decision Making EKG is reviewed by myself. EKG shows sinus tachycardia at 110 bpm WA interval 164 Awan 102 QT interval 340 QTC is 379. Patient's EKG shows no ST segment elevation or depression. Was pt. sent in by a medical professional or institution (Dr., PA, TREND INVESTIGATOR, urgent care, hospital, or half-way...) When possible be specific @ -No Did you speak to anyone other than the patient for history (EMS, parent, family, police, friend...)? What history was obtained from this source @ -No Did you review nursing and triage notes (agree or disagree)? Why? @ -I reviewed and agree with nursing and triage notes Were old charts reviewed (outside hosp., previous admission, EMS record, old EKG, old radiological studies, urgent care reports/EKG's, half-way records)? Report findings @ I Reviewed prior radiological studies. Prior lab work prior since. Patient Differential Diagnosis (chest pain, altered mental status, abdominal pain women, abdominal pain men, vaginal bleeding, weakness, fever, dyspnea, syncope, headache, dizziness, GI bleed, back pain, seizure, CVA, palpatations, mental health, musculoskeletal)? @ -Differential Dyspnea: Coronary syndrome, arrhythmia, tamponade, asthma, COPD, pulmonary embolism, pneumonia, pneumothorax, pulmonary effusion, anaphylaxis, diabetic ketoacidosis, flailed chest, pulmonary contusion, diaphragmatic rupture, anemia, neuromuscular, this is not meant to be an all-inclusive list. EKG interpreted by me (3pts min.). @ -As above X-rays interpreted by me (1pt min.). @ -Is a hydropneumothorax, which was there in December and in January. CT interpreted by me (1pt min.). @ -None done U/S interpreted by me (1pt. min.). @ -None done What testing was considered but not performed or refused? (CT, X-rays, U/S, labs)? Why? @ -None What meds were considered but not given or refused? Why? @ -None Did you discuss the management of the patient with other professionals (professionals i.e. , PA, TREND INVESTIGATOR, lab, RT, psych nurse, social media manager, dietetic aide, teacher, global safety officer, shelter case manager)? Give summary @ -Dr. Ortega he agreed to admit the patient. I spoke with Dr. Guzman and he came down and saw the patient and placed a chest tube which did not reinflate the lung Was smoking cessation discussed for >3mins.? @ -No Was critical care preformed (if so, how long)? @ -No Were there social determinants of health that impacted care today? How? (Homelessness, low income, unemployed, alcoholism, drug addiction, transportation, low edu. Level, literacy, decrease access to med. care, assisted, rehab)? @ -No Was there de-escalation of care discussed even if they declined (Discuss DNR or withdrawal of care, Hospice)? DNR status @ -No What co-morbidities impacted this encounter? (DM, HTN, Smoking, COPD, CAD, Cancer, CVA, ARF, Chemo, Hep., AIDS, mental health diagnosis, sleep apnea, morbid obesity)? @ -None Was patient admitted / discharged? Hospital course, mention meds given and route, prescriptions, significant lab abnormalities, going to OR and other pertinent info. @ -Patient had a hydropneumothorax in Dr. Megan came down and put a chest tube in the patient. Patient's lung did not reinflate. Patient is given negative CT abdomen which Dr. Ortega will follow-up on patient will be going to the ICU. Undiagnosed new problem with uncertain prognosis? @ -No Drug Therapy requiring intensive monitoring for toxicity (Heparin, Nitro, Insulin, Cardizem)? @ -No Were any procedures done? @ -No Diagnosis/symptom? @ -Hydropneumothorax Acute, or Chronic, or Acute on Chronic? @ -Acute Uncomplicated (without systemic symptoms) or Complicated (systemic symptoms)? @ -Complicated Side effects of treatment? @ -No Exacerbation, Progression, or Severe Exacerbation? @ -No Poses a threat to life or bodily function? How? (Chest pain, [place], [place], pneumonia, PE, COPD, DKA, ARF, appy, cholecystitis, CVA, Diverticulitis, Homicidal, Suicidal, threat to staff... and all critical care pts) @ -Yes This could lead to Hypoxia and end organ dysfunction Diagnosis/symptom? @ -Lung cancer Acute, or Chronic, or Acute on Chronic? @ -Acute Uncomplicated (without systemic symptoms) or Complicated (systemic symptoms)? @ -Complicated - Lab Data Result diagrams: 03/11/23 18:51 03/11/23 18:51 Lab Results 03/11/23 03/11/23 03/11/23 Range/Units 18:51 18:51 18:51 WBC 18.9 H (3.8-10.6) k/uL RBC 4.36 (3.80-5.40) m/uL Hgb 12.5 (11.4-16.0) gm/dL Hct 38.5 (34.0-46.0) % MCV 88.3 (80.0-100.0) fL MCH 28.6 (25.0-35.0) pg MCHC 32.4 (31.0-37.0) g/dL RDW 15.3 (11.5-15.5) % Plt Count 694 H (150-450) k/uL MPV 7.8 Neutrophils % 91 % Lymphocytes % 4 % Monocytes % 3 % Eosinophils % 0 % Basophils % 1 % Neutrophils # 17.2 H (1.3-7.7) k/uL Lymphocytes # 0.8 L (1.0-4.8) k/uL Monocytes # 0.6 (0-1.0) k/uL Eosinophils # 0.1 (0-0.7) k/uL Basophils # 0.1 (0-0.2) k/uL Hypochromasia Slight Poikilocytosis Slight PT 10.1 (10.0-12.5) sec INR 0.9 (<1.2) APTT 22.1 (22.0-30.0) sec Sodium 134 L (137-145) mmol/L Potassium 4.1 (3.5-5.1) mmol/L Chloride 98 (98-107) mmol/L Carbon Dioxide 25 (22-30) mmol/L Anion Gap 11 mmol/L BUN 18 H (7-17) mg/dL Creatinine 0.37 L (0.52-1.04) mg/dL Est GFR (CKD-EPI)AfAm >90 (>60 ml/min/1.73 sqM) Est GFR (CKD-EPI)NonAf >90 (>60 ml/min/1.73 sqM) Glucose 104 H (74-99) mg/dL Plasma Lactic Acid Rayo (0.7-2.0) mmol/L Calcium 9.5 (8.4-10.2) mg/dL Magnesium 1.8 (1.6-2.3) mg/dL Total Bilirubin 0.4 (0.2-1.3) mg/dL AST 18 (14-36) U/L ALT 18 (4-34) U/L Alkaline Phosphatase 108 (38-126) U/L Troponin I (0.000-0.034) ng/mL NT-Pro-B Natriuret Pep 417 pg/mL Total Protein 6.3 (6.3-8.2) g/dL Albumin 3.5 (3.5-5.0) g/dL 03/11/23 03/11/23 Range/Units 18:51 18:51 WBC (3.8-10.6) k/uL RBC (3.80-5.40) m/uL Hgb (11.4-16.0) gm/dL Hct (34.0-46.0) % MCV (80.0-100.0) fL MCH (25.0-35.0) pg MCHC (31.0-37.0) g/dL RDW (11.5-15.5) % Plt Count (150-450) k/uL MPV Neutrophils % % Lymphocytes % % Monocytes % % Eosinophils % % Basophils % % Neutrophils # (1.3-7.7) k/uL Lymphocytes # (1.0-4.8) k/uL Monocytes # (0-1.0) k/uL Eosinophils # (0-0.7) k/uL Basophils # (0-0.2) k/uL Hypochromasia Poikilocytosis PT (10.0-12.5) sec INR (<1.2) APTT (22.0-30.0) sec Sodium (137-145) mmol/L Potassium (3.5-5.1) mmol/L Chloride (98-107) mmol/L Carbon Dioxide (22-30) mmol/L Anion Gap mmol/L BUN (7-17) mg/dL Creatinine (0.52-1.04) mg/dL Est GFR (CKD-EPI)AfAm (>60 ml/min/1.73 sqM) Est GFR (CKD-EPI)NonAf (>60 ml/min/1.73 sqM) Glucose (74-99) mg/dL Plasma Lactic Acid Rayo 2.2 H* (0.7-2.0) mmol/L Calcium (8.4-10.2) mg/dL Magnesium (1.6-2.3) mg/dL Total Bilirubin (0.2-1.3) mg/dL AST (14-36) U/L ALT (4-34) U/L Alkaline Phosphatase (38-126) U/L Troponin I 0.067 H* (0.000-0.034) ng/mL NT-Pro-B Natriuret Pep pg/mL Total Protein (6.3-8.2) g/dL Albumin (3.5-5.0) g/dL Disposition Clinical Impression: Lung cancer, Hydropneumothorax Disposition: ADMITTED IP TO THIS HOSP Referrals: Fazraneh Landeros MD [Primary Care Provider] - 1-2 days Time of Disposition: 21:16
[2023-03-11 19:28] LABS: INR 0.9 (<1.2); Partial Thromboplastin Time 22.1 sec (22.0-30.0); Prothrombin Time 10.1 sec (10.0-12.5)
[2023-03-11 19:30] LABS: ALT 18 U/L (4-34); AST 18 U/L (14-36); African American GFR (CKD) >90 (>60 ml/min/1.73 sqM); Albumin 3.5 g/dL (3.5-5.0); Alkaline Phosphatase 108 U/L (38-126); Anion Gap 11 mmol/L; Blood Urea Nitrogen 18 mg/dL (7-17); Calcium 9.5 mg/dL (8.4-10.2); Carbon Dioxide 25 mmol/L (22-30); Chloride 98 mmol/L (98-107); Glucose 104 mg/dL (74-99); Magnesium 1.8 mg/dL (1.6-2.3); Non-African American GFR(CKD) >90 (>60 ml/min/1.73 sqM); Potassium 4.1 mmol/L (3.5-5.1); Sodium 134 mmol/L (137-145); Total Bilirubin 0.4 mg/dL (0.2-1.3); Total Protein 6.3 g/dL (6.3-8.2)
[2023-03-11 19:32] LABS: Basophils # (A) 0.1 k/uL (0-0.2); Basophils % (A) 1 %; Eosinophils # (A) 0.1 k/uL (0-0.7); Eosinophils % (A) 0 %; HCT 38.5 % (34.0-46.0); HGB 12.5 gm/dL (11.4-16.0); Hypochromasia Slight; Lymphocytes # (A) 0.8 k/uL (1.0-4.8); Lymphocytes % (A) 4 %; MCH 28.6 pg (25.0-35.0); MCHC 32.4 g/dL (31.0-37.0); MCV 88.3 fL (80.0-100.0); Mean Platelet Volume 7.8; Monocytes # (A) 0.6 k/uL (0-1.0); Monocytes % (A) 3 %; Neutrophils # (A) 17.2 k/uL (1.3-7.7); Neutrophils % (A) 91 %; Platelet Count 694 k/uL (150-450); Poikilocytosis Slight; RBC 4.36 m/uL (3.80-5.40); RDW 15.3 % (11.5-15.5); WBC 18.9 k/uL (3.8-10.6)
--- NOTE | 2023-03-11 19:34 | XR ---
EXAMINATION: XR chest 2V: 03/11/2023 7:04 PM CLINICAL INDICATION: difficulty breathing TECHNIQUE: AP and lateral views COMPARISON: 01/15/2023 FINDINGS: RIGHT HEMITHORAX: There is marked interval worsening in the overall lung inflation pattern throughout the right upper, mid, and lower lung zone by consolidative opacity. Right pleural space appears nega tive. LEFT HEMITHORAX: The left hydropneumothorax is redemonstrated with complete airlessness throughout th e left lung parenchyma. The volume of fluid has decreased from approximately 60% of the left hemithor ax volume on 01/15/2023 to approximately 40% currently. IMPRESSION: Interval worsening on the right with airspace filling process throughout the right lung parenchyma.
[2023-03-11 19:38] LABS: NT-Pro-B-Type Natriuretic Pept 417 pg/mL
[2023-03-11] MEDS ORDERED: MORPHINE SULFATE 4 MG/ML SYRINGE IVP STA (20:40)
--- NOTE | 2023-03-11 21:04 | XR ---
EXAMINATION: XR chest 1V portable DATE AND TIME: 03/11/2023 8:38 PM CLINICAL INDICATION: PHH; tube placement TECHNIQUE: Portable AP supine COMPARISON: Chest radiograph 03/11/2023 at 7:04 PM FINDINGS: LEFT HEMITHORAX: Since the prior study a left chest tube has been placed in the left pleural effusion has been removed. There is complete atelectasis of the left lung parenchyma, with large pneumothorax throughout the left hemithorax. RIGHT HEMITHORAX: Unchanged consolidative opacity throughout the right upper, mid, and lower lung zon es. Right pleural space appears negative, as seen. Note: Radiograph was obtained with the patient in the supine position. IMPRESSION: Post left chest tube placement CXR.
[2023-03-11] MEDS ORDERED: NALOXONE 0.4 MG/ML 1 ML VIAL IV PRN (21:16)
[2023-03-11] MEDS ORDERED: PIPERACILLIN-TAZOBACTAM 3.375 GM in SODIUM CHLORIDE 0.9% 100 ML IVPB STA (21:19)
[2023-03-11] MEDS ORDERED: methylPREDNISolone SOD SUCCI 125 MG/2 ML VIAL IV STA (21:22)
--- NOTE | 2023-03-11 21:44 | CT ---
EXAMINATION TYPE: CT chest angio for PE DATE OF EXAM: 03/11/2023 COMPARISON: None HISTORY: Dyspnea, lung CA, chest tube recently placed. Pneumothorax. R/O PE. CT DLP: 200.1 mGycm. Automated Exposure Control for Dose Reduction was Utilized. CONTRAST: CTA scan of the thorax is performed with IV Contrast, patient injected with 100 ml mL of Is ovue 370. MIP Images are created on CT scanner and reviewed. 3D reconstructed images are created on an independent workstation and reviewed. FINDINGS: LUNGS / PLEURAL SPACES Left hemithorax: Left chest tube is within the pleural space. There is complete atelectasis of the left upper lobe and left lower lobe, with left pneumothorax filling 80% of the left hemithorax and dependent pleural effusion filling the remaining 20% of the left hemithorax. Right hemithorax: There is markedly extensive interstitial thickening throughout the right upper, m id and lower lung zones with associated scattered consolidative opacity throughout the right lung parenchyma. MEDIASTINUM There is satisfactory enhancement of the pulmonary artery and its branches, with no no CT evidence for pulmonary embolism. There is no acute aortic process. Moderately prominent carotid calcifications noted. No cardiomegaly or pericardial effusion. There are no greater than 1 cm hilar or mediastinal lymph nodes. OTHER No additional significant abnormality is seen. IMPRESSION: Negative for pulmonary embolism. Moderate coronary calcifications. Right and left hemithorax findings as discussed.
[2023-03-11] MEDS: MORPHINE SULFATE 4 MG/ML SYRINGE IVP PRN (23:43)
[2023-03-12] MEDS ORDERED: NALOXONE 0.4 MG/ML 1 ML VIAL IV PRN (00:04)
[2023-03-12 00:21] LABS: Glucose,Whole Blood 114 mg/dL (70-110)
[2023-03-12] MEDS ORDERED: KETOROLAC 15 MG/ML 1 ML VIAL IVP STA (00:35)
--- NOTE | 2023-03-12 01:22 | P.HPIM ---
History of Present Illness H&P Date: 03/11/23 Patient is a 67-year-old female with a PMH of metastatic non-small cell endobronchial tumor (following with Dr. Escobedo, currently on Immunotherapy), chronic hypoxic respiratory failure on 2-3 L nasal cannula oxygen continuously at home, chronic left lower extremity weakness with foot drop, who presents to the emergency room with complaints of shortness of breath. The patient has had multiple recent hospitalizations for similar complaints with most recent admission from 01/15-01/19 showing recurrent large left-sided hydropneumothorax. Patient states her normal SpO2 at home is around 93-94% on 2 L but have worsened to 88% on 5 L earlier today. She reports a mild nonproductive cough which is unchanged. Denied fever, chills, nausea, vomiting, chest pain, abdominal pain. In the emergency room, a left-sided chest tube was placed with subsequent chest CTA showing extensive interstitial thickening of the right lung with left sided pneumothorax and pleural effusion. EKG revealed sinus tachycardia 110 bpm with an incomplete right bundle-branch block as reviewed by me. Laboratory evalu ation revealed leukocytosis of 18.9, lactic acid 2.2, sodium 134, BUN 18, troponin 0.37, troponin 0.067 with proBNP 417. Upon arrival in the emergency room, the patient's SpO2 was 86% on 5 L is a cannula oxygen, respiratory rate 36, and pulse 124 BP 180/100 and temp 98.4F. ED documentation reviewed and case discussed with ED provider. Review of systems: Pertinent positives and negatives as discussed in HPI, a complete review of systems was performed and all other systems are negative. Physical examination: Vital signs reviewed General: Chronically ill-appearing female, appears older than stated age, normal weight Derm: no unusual rashes/lesions, warm Head: atraumatic, normocephalic, symmetric Eyes: EOMI, no lid lag, anicteric sclera, pupils equal round reactive to light ENT: Nose and ears atraumatic Neck: No cervical lymphadenopathy, trachea midline, supple Mouth: no lip lesion, mucus membranes moist Cardiovascular: S1S2 reg, no murmur, positive dorsalis pedis pulse bilateral, no edema Lungs: Bilateral coarse breath sounds noted without wheezing, no accessory muscle use Abdominal: soft, nontender to palpation, no guarding Ext: muscle strength 4 out of 5 in all extremities except left lower extremity strength to out of 5 with left foot drop, no gross muscle atrophy, no contractures, Neuro: CN II-XI grossly intact, no gross focal neuro deficits Psych: Alert, oriented, appropriate affect Assessment: Acute on chronic hypoxic respiratory failure, likely multifactorial secondary to possible right-sided pneumonitis and left sided pneumothorax Lactic acidosis Elevated troponin, suspect type II SIRS, without clear infectious etiology Chronic left lower extremity weakness Imaging: In the emergency room, a left-sided chest tube was placed with subsequent chest CTA showing extensive interstitial thickening of the right lung with left sided pneumothorax and pleural effusion. EKG revealed sinus tachycardia 110 bpm with an incomplete right bundle-branch block as reviewed by me. Data Review: Laboratory evaluation revealed leukocytosis of 18.9, lactic acid 2.2, sodium 134, BUN 18, troponin 0.37, troponin 0.067 with proBNP 417. Upon arrival in the emergency room, the patient's SpO2 was 86% on 5 L is a cannula oxygen, respiratory rate 36, and pulse 124 BP 180/100 and temp 98.4F. Plan: Continue high flow nasal cannula oxygen Oncology and pulmonary medicine consulted Follow-up blood cultures Continue with empiric broad-spectrum antibiotic coverage with Zosyn Continue with Solu-Medrol 60 mg every 6 hourly for suspected pneumonitis DVT prophylaxis: heparin subcu The patient is admitted with an anticipated greater than 2 midnight stay for evaluation of hypoxic resp failure CODE STATUS: No Code Discussed with: Patient Anticipated discharge place: Home Past Medical History Past Medical History: Cancer Additional Past Medical History / Comment(s): plueral effusion History of Any Multi-Drug Resistant Organisms: None Reported Past Surgical History: Section, Tonsillectomy Additional Past Surgical History / Comment(s): breast biopsy Past Anesthesia/Blood Transfusion Reactions: No Reported Reaction Past Psychological History: No Psychological Hx Reported Smoking Status: Former smoker Past Alcohol Use History: None Reported Past Drug Use History: None Reported - Past Family History Father Family Medical History: Diabetes Mellitus Additional Family Medical History / Comment(s): Migraines, depression, unsure but had heart issues Mother Family Medical History: Cancer, COPD, Diabetes Mellitus, Hypertension, Thyroid Disorder Additional Family Medical History / Comment(s): Breast CA, enlarged Heart, Macular degeneration, "Mini strokes" Brother(s) Family Medical History: Cancer, Diabetes Mellitus, Hyperlipidemia Additional Family Medical History / Comment(s): Prostate Cancer, Macular degeneration Medications and Allergies Home Medications Medication Instructions Recorded Confirmed Type Cetirizine HCl [Zyrtec] 10 mg PO DAILY PRN 12/22/22 03/11/23 History Guaifenesin/Dextromethorphan 1 tab PO QID PRN 12/22/22 03/11/23 History [Guaifenesin-Dm 400-20 mg Tab] ePHEDrine HCL [Primatene] 12.5 mg PO QID PRN 12/22/22 03/11/23 History Acetaminophen Tab [Tylenol] 650 mg PO Q6HR PRN #60 tab 12/31/22 03/11/23 Rx ALPRAZolam [Xanax] 0.25 mg PO DAILY PRN 03/11/23 03/11/23 History Afatinib Dimaleate [Gilotrif] 40 mg PO HS@2300 03/11/23 03/11/23 History Famotidine 40 mg PO HS PRN 03/11/23 03/11/23 History Loperamide HCl [Imodium A-D] 2 mg PO QID PRN 03/11/23 03/11/23 History Ondansetron [Zofran] 4 mg PO Q6H PRN 03/11/23 03/11/23 History Sennosides/Docusate Sodium [Senna 1 cap PO BID PRN 03/11/23 03/11/23 History Plus 8.6-50 mg Softgel] dexAMETHasone [Decadron] 2 mg PO DAILY 03/11/23 03/11/23 History droNABinol 5 mg PO HS 03/11/23 03/11/23 History oxyCODONE-APAP 7.5-325MG [Percocet 1 tab PO Q4H PRN 03/11/23 03/11/23 History 7.5-325 mg] Allergies Allergy/AdvReac Type Severity Reaction Status Date / Time No Known Allergies Allergy Verified 03/11/23 22:03 Physical Exam Vitals: Vital Signs Temp Pulse Resp BP Pulse Ox 03/11/23 22:00 92 30 H 149/84 98 03/11/23 21:59 99 30 H 148/85 97 03/11/23 21:00 110 H 28 H 166/97 93 L 03/11/23 20:46 103 H 25 H 150/93 93 L 03/11/23 19:39 112 H 30 H 156/99 94 L 03/11/23 18:33 110 H 34 H 143/82 86 L 03/11/23 18:15 98.4 F 124 H 36 H 180/100 86 L Intake and Output 03/11/23 03/11/23 03/12/23 14:59 22:59 06:59 Other: Weight 46.72 kg Results CBC & Chem 7: 03/11/23 18:51 03/11/23 18:51 Labs: Abnormal Lab Results - Last 24 Hours (Table) 03/11/23 03/11/23 03/11/23 Range/Units 18:51 18:51 18:51 WBC 18.9 H (3.8-10.6) k/uL Plt Count 694 H (150-450) k/uL Neutrophils # 17.2 H (1.3-7.7) k/uL Lymphocytes # 0.8 L (1.0-4.8) k/uL Sodium 134 L (137-145) mmol/L BUN 18 H (7-17) mg/dL Creatinine 0.37 L (0.52-1.04) mg/dL Glucose 104 H (74-99) mg/dL Plasma Lactic Acid Rayo 2.2 H* (0.7-2.0) mmol/L Troponin I (0.000-0.034) ng/mL 03/11/23 Range/Units 18:51 WBC (3.8-10.6) k/uL Plt Count (150-450) k/uL Neutrophils # (1.3-7.7) k/uL Lymphocytes # (1.0-4.8) k/uL Sodium (137-145) mmol/L BUN (7-17) mg/dL Creatinine (0.52-1.04) mg/dL Glucose (74-99) mg/dL Plasma Lactic Acid Rayo (0.7-2.0) mmol/L Troponin I 0.067 H* (0.000-0.034) ng/mL
[2023-03-12] MEDS: SODIUM CHLORIDE 0.9% 1,000 ML IV SCH ×2 (01:34→10:03)
[2023-03-12] MEDS: MORPHINE SULFATE 4 MG/ML SYRINGE IVP PRN ×7 (01:41→20:59)
[2023-03-12] MEDS ORDERED: IPRATROPIUM-ALBUTEROL 3 ML NEB INHALATION PRN (02:10)
[2023-03-12] MEDS: HYDROcodone/APAP 5-325MG 1 EACH TAB PO PRN ×4 (03:00→22:41)
[2023-03-12 03:05] LABS: Basophils # (A) 0.1 k/uL (0-0.2); Basophils % (A) 1 %; Eosinophils % (A) 0 %; HCT 37.2 % (34.0-46.0); HGB 12.2 gm/dL (11.4-16.0); Hypochromasia Slight; Lymphocytes # (A) 0.4 k/uL (1.0-4.8); Lymphocytes % (A) 3 %; MCH 29.1 pg (25.0-35.0); MCHC 32.9 g/dL (31.0-37.0); MCV 88.5 fL (80.0-100.0); Mean Platelet Volume 7.3; Monocytes # (A) 0.4 k/uL (0-1.0); Monocytes % (A) 3 %; Neutrophils # (A) 13.5 k/uL (1.3-7.7); Neutrophils % (A) 94 %; Platelet Count 660 k/uL (150-450); RBC 4.21 m/uL (3.80-5.40); WBC 14.5 k/uL (3.8-10.6)
[2023-03-12 03:39] LABS: African American GFR (CKD) >90 (>60 ml/min/1.73 sqM); Anion Gap 10 mmol/L; Blood Urea Nitrogen 14 mg/dL (7-17); Calcium 9.1 mg/dL (8.4-10.2); Carbon Dioxide 24 mmol/L (22-30); Chloride 98 mmol/L (98-107); Glucose 130 mg/dL (74-99); Magnesium 1.9 mg/dL (1.6-2.3); Non-African American GFR(CKD) >90 (>60 ml/min/1.73 sqM); Potassium 4.5 mmol/L (3.5-5.1); Sodium 132 mmol/L (137-145)
--- NOTE | 2023-03-12 03:42 | P.CNPUL ---
History of Present Illness Consult date: 03/12/23 Requesting physician: Jas Valdes Reason for consult: dyspnea Chief complaint: Shortness of breath History of present illness: I am seeing this patient in consultation today 03/12/2023 after she was brought into the emergency room yesterday evening with acute shortness of breath. Patient is a 67-year-old female with past medical history significant for a relatively new diagnosis of advanced lung cancer with metastasis to the lung and brain. Patient originally presented back in December, she was short of breath and had a left-sided pleural effusion. Following the thoracentesis, the patient had a significant large left-sided hydropneumothorax. Likely representing trapped lung. She did have ThoraVent placed from 12/23-01/01. The lung never fully expanded. Pleural fluid cytology showed rare atypia, but was essentially nondiagnostic. Patient did undergo a bronchoscopy with transbronchial biopsy of the left lower lobe during this admission, and it did show invasive pulmonary adenocarcinoma. Brain MRI did show multiple ring-enhancing lesions concerning for intracranial metastasis. Patient has become established with an oncologist, David West. Currently on Gilotrif. This was recently started. She has reportedly received 11 doses. Patient returned to the emergency room yesterday evening complaining of progressively worsening shortness of breath starting over the weekend. She normally wears 3 L/m nasal cannula, and this was increased to 5 L because of shortness of breath and low oxygen levels. Patient states that her shortness of breath is even worse on exertion. Denies any change in her chronic cough, hemoptysis, fever, chills, chest pain. She has had reduced appetite and hasn't been eating the last couple days. Admits adequate fluid intake. Chest x-ray on arrival redemonstrated the patient's left-sided hydropneumothorax. There is also worsening airspace disease throughout the right lung. Dr. Guzman did come in to place a left-sided chest tube. A follow up chest CTA done on arrival did not show any pulmonary embolism. It did show a persistent left-sided hydropneumothorax. There is adequate placement of a left-sided chest tube. The right hemithorax showed extensive interstitial thickening throughout the right upper mid and lower lung zones with associated scattered consolidative opacities throughout the right Lung parenchyma. Could represent immunotherapy induced pneumonitis, disease progression with lymphangitic carcinomatosis, infectious process, among other things. CBC on arrival showed some leukocytosis with a WBC count 18.9, hemoglobin 12.5, hematocrit 38.5, platelets 694. BMP shows sodium 134, potassium 4.1, chloride 98, serum bicarb 25, BUN 18, creatinine 0.37, glucose 104. No IV maintenance fluids infusing. Lactic acid level II.2. Troponins mildly elevated at 0.067. NT proBNP 417. Negative for influenza, RSV, COVID-19. Patient was empirically started on Zosyn. Also started on high- dose steroids. Patient is currently sitting up in bed, on 5 L/m nasal cannula, she is mildly dyspneic at rest. Heart rate appears sinus tachycardia on bedside monitor. Blood pressure is stable, and is actually slightly hypertensive. She reports some left sided chest pain at the chest tube insertion site. There is a left-sided chest tube connected to an At[facility] and suction -20 cm H2O. There is an intermittent air leak. There is a total of [address] brown CT output. Patient's current prognosis is poor related to above-mentioned comorbidities. She wishes to be a DO NOT RESUSCITATE/DO NOT INTUBATE. Daughter is at bedside and is in agreement. She had also been a DO NOT RESUSCITATE/DO NOT INTUBATE on her prior admission. We will continue to monitor the patient in the intensive care unit Review of Systems REVIEW OF SYSTEMS: CONSTITUTIONAL: Admits significant weight loss prior to cancer diagnosis, estimated 80 pounds. She has since gained some weight back. EYES: Denies change in vision. EARS, NOSE, MOUTH, THROAT: Denies headaches, denies sore throat. CARDIOVASCULAR: Denies radiating chest pain, palpitations or syncopal episodes. RESPIRATORY: See HPI GASTROINTESTINAL: Denies change in abdominal pain, nausea and vomiting. Admits reduced appetite over the last 2-3 days. Also, she does have some intermittent diarrhea which started after starting her immunotherapy. GENITOURINARY: Denies hematuria, denies infections. MUSKULOSKELETAL: Denies pain, denies swelling. States that she has left foot drop and chronic left lower extremity swelling INTEGUMENTARY: Denies rash, denies eczema. NEUROLOGICAL: Denies recent memory loss, no recent seizure activity. PSYCHIATRIC: Denies anxiety, denies depression. HEMATOLOGIC/LYMPHATIC: Denies anemia, denies enlarged lymph node Past Medical History Past Medical History: Cancer Additional Past Medical History / Comment(s): plueral effusion History of Any Multi-Drug Resistant Organisms: None Reported Past Surgical History: Section, Tonsillectomy Additional Past Surgical History / Comment(s): breast biopsy Past Anesthesia/Blood Transfusion Reactions: No Reported Reaction Past Psychological History: No Psychological Hx Reported Smoking Status: Former smoker Past Alcohol Use History: None Reported Past Drug Use History: None Reported - Past Family History Father Family Medical History: Diabetes Mellitus Additional Family Medical History / Comment(s): Migraines, depression, unsure but had heart issues Mother Family Medical History: Cancer, COPD, Diabetes Mellitus, Hypertension, Thyroid Disorder Additional Family Medical History / Comment(s): Breast CA, enlarged Heart, Macular degeneration, "Mini strokes" Brother(s) Family Medical History: Cancer, Diabetes Mellitus, Hyperlipidemia Additional Family Medical History / Comment(s): Prostate Cancer, Macular degeneration Medications and Allergies Home Medications Medication Instructions Recorded Confirmed Type Cetirizine HCl [Zyrtec] 10 mg PO DAILY PRN 12/22/22 03/11/23 History Guaifenesin/Dextromethorphan 1 tab PO QID PRN 12/22/22 03/11/23 History [Guaifenesin-Dm 400-20 mg Tab] ePHEDrine HCL [Primatene] 12.5 mg PO QID PRN 12/22/22 03/11/23 History Acetaminophen Tab [Tylenol] 650 mg PO Q6HR PRN #60 tab 12/31/22 03/11/23 Rx ALPRAZolam [Xanax] 0.25 mg PO DAILY PRN 03/11/23 03/11/23 History Afatinib Dimaleate [Gilotrif] 40 mg PO HS@2300 03/11/23 03/11/23 History Famotidine 40 mg PO HS PRN 03/11/23 03/11/23 History Loperamide HCl [Imodium A-D] 2 mg PO QID PRN 03/11/23 03/11/23 History Ondansetron [Zofran] 4 mg PO Q6H PRN 03/11/23 03/11/23 History Sennosides/Docusate Sodium [Senna 1 cap PO BID PRN 03/11/23 03/11/23 History Plus 8.6-50 mg Softgel] dexAMETHasone [Decadron] 2 mg PO DAILY 03/11/23 03/11/23 History droNABinol 5 mg PO HS 03/11/23 03/11/23 History oxyCODONE-APAP 7.5-325MG [Percocet 1 tab PO Q4H PRN 03/11/23 03/11/23 History 7.5-325 mg] Allergies Allergy/AdvReac Type Severity Reaction Status Date / Time No Known Allergies Allergy Verified 03/11/23 22:03 Physical Exam Vitals: Vital Signs Temp Pulse Resp BP Pulse Ox 03/12/23 02:08 33 H 03/12/23 02:00 98 55 H 180/94 97 03/12/23 01:50 101 H 42 H 180/94 93 L 03/12/23 01:40 105 H 16 180/94 95 03/12/23 01:30 104 H 67 H 167/92 03/12/23 01:20 96 32 H 167/92 96 03/12/23 01:10 101 H 59 H 167/92 95 03/12/23 01:00 89 31 H 181/106 98 03/12/23 00:51 97 03/12/23 00:50 101 H 40 H 181/106 98 03/12/23 00:40 106 H 33 H 181/106 98 03/12/23 00:30 105 H 12 178/100 98 03/12/23 00:28 105 H 39 H 178/100 96 03/12/23 00:10 163/91 03/12/23 00:05 96 03/12/23 00:00 96 47 H 160/86 95 03/11/23 23:00 93 30 H 160/86 99 03/11/23 22:00 99 41 H 148/85 98 03/11/23 21:59 99 30 H 148/85 97 03/11/23 21:00 110 H 28 H 166/97 93 L 03/11/23 20:46 103 H 25 H 150/93 93 L 03/11/23 19:39 112 H 30 H 156/99 94 L 03/11/23 18:33 110 H 34 H 143/82 86 L 03/11/23 18:15 98.4 F 124 H 36 H 180/100 86 L Intake and Output 03/11/23 03/11/23 03/12/23 14:59 22:59 06:59 Other: Weight 46.72 kg 46.72 kg GENERAL EXAM: Alert, 67-year-old white female, cachectic and malnourished appearing, in some mild respiratory distress. HEAD: Normocephalic and atraumatic EYES: Normal reaction of pupils, equal size. NOSE: Clear with pink turbinates. THROAT: No erythema or exudates. NECK: No masses, no JVD. CHEST: No chest wall deformity. Left-sided chest tube secured and connected to [facility] and suction -20 cm H2O LUNGS: Markedly diminished left-sided lung sounds. Scattered rhonchi heard on right side. Currently on 5 L/m nasal cannula. Tachypneic. CVS: S1 and S2 normal with no audible murmur, regular rhythm. No extra heart sounds ABDOMEN: No hepatosplenomegaly, active bowel sounds, no guarding or rigidity. SPINE: No scoliosis or deformity SKIN: No rashes CENTRAL NERVOUS SYSTEM: No focal deficits, tone is normal in all 4 extremities. EXTREMITIES: There is 2+ left lower extremity pitting edema. No clubbing, or cyanosis. Peripheral pulses are intact. Results - Laboratory Findings CBC and BMP: 03/12/23 01:24 03/12/23 01:24 PT/INR, D-dimer PT 10.1 sec (10.0-12.5) 03/11/23 18:51 INR 0.9 (<1.2) 03/11/23 18:51 Abnormal lab findings: Abnormal Labs 03/11/23 03/11/23 03/11/23 18:51 18:51 18:51 WBC 18.9 H Plt Count 694 H Neutrophils # 17.2 H Lymphocytes # 0.8 L Sodium 134 L BUN 18 H Creatinine 0.37 L Glucose 104 H POC Glucose (mg/dL) Plasma Lactic Acid Rayo 2.2 H* Troponin I 03/11/23 03/11/23 03/12/23 18:51 23:04 00:19 WBC Plt Count Neutrophils # Lymphocytes # Sodium BUN Creatinine Glucose POC Glucose (mg/dL) 114 H Plasma Lactic Acid Rayo 2.2 H* Troponin I 0.067 H* - Diagnostic Findings Chest x-ray: image reviewed CT scan - chest: image reviewed Assessment and Plan Assessment: Acute on chronic hypoxemic respiratory failure, secondary to a persistent left- sided hydropneumothorax, likely representing trapped lung. Status/post left-eduardo ed chest tube insertion. Chest CTA demonstrated diffuse interstitial thickening throughout the right lung with scattered opacities possibly representing immunotherapy induced pneumonitis versus disease progression with lymphangitic carcinomatosis, versus infectious process. There is also a small right sided pleural effusion. Metastatic pulmonary adenocarcinoma, recently started on Gilotrif. Recent left lower lobe transbronchial biopsy on 12/30/22 was positive for pulmonary adenocarcinoma. Follow up MRI of the brain reveals multiple ring-enhancing lesions compatible with metastatic disease. She is on Decadron at home. History of large left pleural effusion status post thoracentesis 12/23/2022 with 1.2 L of dark black fluid returned with trapped lung and hydropneumothorax, status post Thora-Vent placement on 12/23/2022 and removed on 12/31/2022. The lung never fully re-expanded. Gram stain and cultures reveal no growth. Cytology revealed rare atypia but no definitive malignancy. Multiple spiculated pulmonary nodules, seen in the right lung, with the largest measuring 1.4 cm Chronic hypoxemic respiratory failure, secondary to above Leukocytosis Thrombocytosis, likely related to malignancy Elevated troponin, likely related to slight/demand mismatch Cachexia and severe protein-calorie malnutrition Unintentional weight loss, approximately 80 lbs over the last one year Recent former smoker, quitting in December, Difficulties ambulating, related to left lower extremity weakness Plan: Patient's medications, labs, imaging reviewed. Patient is to be admitted to the intensive care unit for closer monitoring. There is a left-sided chest tube connected to the atrium and suction at -20 cm H2O. There is a left-sided hydropneumothorax, lung is trapped. There is an intermittent air leak. There is 80 ML's of dark brown/red chest tube output. Continue supplemental oxygen. Can provide IS. Continue on empiric antibiotics. Procalcitonin level pending. Blood cultures pending. Patient was recently started on Gilotrif. She is reportedly received 11 doses. Add high-dose IV steroids. Oncology was added to the case. If immunotherapy induced pneumonitis is felt to be favorable, I would hold immunotherapy. This will be discussed with Dr. Guzman later this morning. Start the patient on gentle IV hydration, she did receive IV contrast. Currently receiving morphine for pain management, I will add [place]'s for better pain control Heparin for DVT prophylaxis and Protonix for GI prophylaxis. We will continue to follow. Patient's overall prognosis is poor related to above-mentioned comorbidities. She is a DO NOT INTUBATE/DO NOT RESUSCITATE. This was confirmed with daughter, who is at bedside. She will be monitored in the intensive care unit for now. I have personally seen and examined the patient, performed the documentation and the assessment and plan as written. Number of minutes spent on the visit:20 J evaluation that was done in the emergency department. His evaluation was done in more than 30 minutes. I met this patient yesterday in the emergency department. She was in acute hypoxic respiratory failure. The patient is known to have metastatic adenocarcinoma of the lung. This was confirmed on an earlier admission. There was a large hydropneumothorax on the left. I reviewed the bronchoscopy that was done by my partners. There was mention of some endobronchial abnormalities of the left lower lobe. I was not completely convinced that the left lung was checked. Based on that, I performed a chest tube insertion on her yesterday. Following the chest tube insertion, the left lung is still trapped and there is no significantly expansion. There was a total of 200 mL of pleural fluid drained does far through the chest tube. There is episodic air leak. However, the chest x-ray from today is not showing any significantly expansion of the left lung. Chest tube is in a good location. At the same time, the patient was given a CTA of the chest yesterday. The findings on the left were discussed. There was no evidence of any pulmonary embolism. There was diffuse right lung hazy pulmonary infiltrate/consolidation the exact nature is not clear. Could be infectious. Could be inflammatory related to her drug. The patient is taken afatinib 40 mg on a daily basis. The pro-calcitonin level is nonelevated. Update the patient IV Zosyn. I started the patient IV Solu-Medrol. She is currently on oxygen at 5 L nasal cannula. At home she is also on 2 L. She is complaining of some pain at the chest tube insertion site. She has taken Dilaudid for pain control. Blood work is stable. Lactic acid level is down to 1.7. BUN is at 14 with a creatinine of 0.35. The viral screen was also negative. The lungs noted at 14.5, hemoglobin is 12.2. We'll consult medical oncology. We'll stop the oral chemotherapeutic agent for now. I'm considering removing the chest tube tomorrow if the chest x-ray shows persistent trapped left lung. We'll continue to follow. Time with Patient: Greater than 30
[2023-03-12] MEDS ORDERED: SODIUM CHLORIDE 0.9% 1,000 ML IV ONE (05:20)
[2023-03-12] MEDS: methylPREDNISolone SOD SUCCI 125 MG/2 ML VIAL IV SCH ×4 (05:24→20:58)
[2023-03-12] MEDS: PIPERACILLIN-TAZOBACTAM 3.375 GM in SODIUM CHLORIDE 0.9% 100 ML IVPB SCH ×3 (06:43→20:58)
--- NOTE | 2023-03-12 07:52 | XR ---
EXAMINATION TYPE: XR chest 1V portable DATE OF EXAM: 03/12/2023 Comparison: 03/11/2023 Clinical History: 67-year-old female follow up post chest tube Findings: Left chest tube remains in place. Ongoing left-sided hydropneumothorax with large pneumothorax result ing in collapse of the left lung and moderate pleural effusion. The patient is rotated towards the le ft ultrasound and normal cardiomediastinal contours. Ongoing patchy interstitial infiltrates through out the right lung. Air has developed below the right of the diaphragm. It has the appearance of some interposed colon. Impression: 1. Left-sided chest tube in place with ongoing large hydropneumothorax with collapsed lung and modera te effusion. 2. Ongoing patchy and interstitial opacities extensively throughout the right lung. 3. New air has developed below the right hemidiaphragm. The appearance suggests air located within co gayatri. However, given that this is a new finding, further clinical assessment is advised. Recommend ass essment for any signs of an acute abdomen. Acute abdominal series should be considered.
--- NOTE | 2023-03-12 08:26 | P.PCN ---
Date of Procedure: 03/12/23 Preoperative Diagnosis: Left-sided hydropneumothorax Postoperative Diagnosis: Left-sided hydropneumothorax Procedure(s) Performed: Left-sided chest tube Anesthesia: local Surgeon: Lila Guzman Estimated Blood Loss (ml): 0 Pathology: none sent Condition: critical Disposition: ICU Operative Findings: A time-out was completed verifying correct patient, procedure, site, positioning, and special equipment if applicable. The patient was positioned appropriately for chest tube placement. The patients is left chest was prepped and draped in sterile fashion. 1% Lidocaine was used to anesthetize the surrounding skin area. A 2 cm skin incision was made in the mid-axillary line at the inframammarycrease. Utilizing blunt dissection a subcutaneous tunnel was created cephalad just adjacent to the superior rib. The pleural space was entered bluntly and gush of air was observed. A finger was inserted into the pleural space to check for anatomy and guide tube insertion. A [36F/28F thoracostomy tube was inserted using a Mara clamp and positioned appropriately. The chest tube was sutured securely to the skin and a sterile dressing applied. A pleurevac was attached to the chest tube and a chest x-ray obtained. I personally performed this procedure and I was was present for the entire procedure. Estimated Blood Loss: 0 The patient tolerated the procedure well and there were no complications.
[2023-03-12] MEDS: PANTOPRAZOLE 40 MG/10 ML VIAL IVP SCH (08:30)
[2023-03-12] MEDS ORDERED: FUROSEMIDE 10 MG/ML 2 ML VIAL IV ONE (08:30)
[2023-03-12] MEDS ORDERED: HEPARIN SODIUM,PORCINE 5,000 UNIT/ML 1 ML VIAL SQ SCH (09:00)
[2023-03-12] MEDS: IPRATROPIUM-ALBUTEROL 3 ML NEB INHALATION SCH ×4 (09:18→21:14)
--- NOTE | 2023-03-12 13:10 | XR ---
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 Interstitial infiltrate throughout the right lung persist. There is marked gaseous distention throughout the bowel. Persistent air is seen below the right hemid iaphragm. We are unable to exclude the presence of free air. IMPRESSION: 1. Diffuse gaseous distention throughout the bowel loops. Possible diffuse ileus. 2. Air is redemonstrated below the right hemidiaphragm. Still unable to exclude the presence of free intraperitoneal air. 3. Appearance of the chest is stable with left-sided chest tube in place and large left hydropneumoth orax. Infiltrates throughout the right lung are unchanged.
--- NOTE | 2023-03-12 14:54 | P.PN ---
Subjective Progress Note Date: 03/12/23 Pt reports ongoing dyspnea. S/p chest tube yesterday. Discussed with pulmonology today, if no improvement in aeration of left lung, they will likely remove chest tube tomorrow. CXR appeared to have air above liver on the right which appeared to be colon, but represented a new finding when compared to y esterdays scan. Gen: awake, alert HEENT: normocephalic, atraumatic, good hearing acuity, moist mucous membranes Resp: Tachypneic with accessory muscle use, right-sided crackles CVS: good distal perfusion x 4, GI: soft, NTTP, ND : no SPT, no CVAT, bernard catheter not present MSK: no pitting edema, no clubbing Neuro: non-focal, moving all extremities Psych: cooperative, euthymic mood Hospital course: Patient is a 67-year-old female with a PMH of metastatic non-small cell endobronchial tumor (following with Dr. Escobedo, currently on Immunotherapy), chronic hypoxic respiratory failure on 2-3 L nasal cannula oxygen continuously at home, chronic left lower extremity weakness with foot drop, who presented to the emergency room with complaints of shortness of breath. The patient has had multiple recent hospitalizations for similar complaints with most recent admission from 01/15-01/19 showing recurrent large left-sided hydropneumothorax. Patient states her normal SpO2 at home is around 93-94% on 2 L but have worsened to 88% on 5 L earlier today. She reports a mild nonproductive cough which is unchanged. Denied fever, chills, nausea, vomiting, chest pain, abdominal pain. In the emergency room, a left-sided chest tube was placed with subsequent chest CTA showing extensive interstitial thickening of the right lung with left sided pneumothorax and pleural effusion. EKG revealed sinus tachycardia 110 bpm with an incomplete right bundle-branch block as reviewed by me. Laboratory evaluation revealed leukocytosis of 18.9, lactic acid 2.2, sodium 134, BUN 18, troponin 0.37, troponin 0.067 with proBNP 417. Upon arrival in the emergency room, the patient's SpO2 was 86% on 5 L is a cannula oxygen, respiratory rate 36, and pulse 124 BP 180/100 and temp 98.4F. Assessment/plan: Acute on chronic hypoxic respiratory failure Left sided hydropneumothorax, Trapped Lung Metastatic NSCLC, with endobronchial tumor, currently on immunotherapy - pulmonology consultation appreciated - chest tube in place to suction, consideration of removal on 03/12 - acute abdomen series ordered and interpreted by me as follows: new finding of hemicolon above liver and under diaphragm on right, appears to have bowl loops above diaphragm on left, c/w diaphragmatic hernia - patient does appear volume overloaded, given one time dose of lasix 20mg IV once today, and IVF discontinued - continue zosyn: PC, however, is low at 0.04, and can consider de-escalating tomorrow - continue steroids: methylprednisolone 60mg IV q6h in case of pneumonitis, agree with holding immunotherapy - oncology consult is pending - morphine PRN for pain control - continue high flow nasal cannula Elevated troponin, suspect type II - monitor on telemetry Chronic left lower extremity weakness DVT prophylaxis: heparin subcu discontinued and enoxaparin 40mg SQ started The patient is admitted with an anticipated greater than 2 midnight stay for evaluation of hypoxic resp failure CODE STATUS: No Code Discussed with: Patient Anticipated discharge place: Home Objective - Vital Signs Vital signs: Vital Signs Temp 98.2 F 03/12/23 12:00 Pulse 111 H 03/12/23 14:30 Resp 24 03/12/23 14:30 BP 136/74 03/12/23 14:30 Pulse Ox 93 L 03/12/23 14:30 FiO2 Intake & Output 03/11/23 03/12/23 03/12/23 18:59 06:59 18:59 Intake Total 525 1900 Output Total 530 1220 Balance -5 680 Weight 46.72 kg 50 kg Intake: IV 600 Sodium Chloride 0.9% 1, 600 000 ml @ 75 mls/hr IV . [id number] RALPH Rx#:[id number] Intake, IV Titration 525 1000 Amount Sodium Chloride 0.9% 1, 525 000 ml @ 75 mls/hr IV . [id number] RALPH Rx#:[id number] Sodium Chloride 0.9% 1, 1000 000 ml @ 999 mls/hr IV . Q1H1M ONE Rx#:[id number] Oral 300 Output: Chest Tube Drainage 130 20 Chest Tube Left Lower 130 20 Urine 400 1200 - Labs CBC & Chem 7: 03/12/23 01:24 03/12/23 01:24 Labs: Abnormal Lab Results - Last 24 Hours (Table) 03/11/23 03/11/23 03/11/23 Range/Units 18:51 18:51 18:51 WBC 18.9 H (3.8-10.6) k/uL Plt Count 694 H (150-450) k/uL Neutrophils # 17.2 H (1.3-7.7) k/uL Lymphocytes # 0.8 L (1.0-4.8) k/uL Sodium 134 L (137-145) mmol/L BUN 18 H (7-17) mg/dL Creatinine 0.37 L (0.52-1.04) mg/dL Glucose 104 H (74-99) mg/dL POC Glucose (mg/dL) (70-110) mg/dL Plasma Lactic Acid Rayo 2.2 H* (0.7-2.0) mmol/L Troponin I (0.000-0.034) ng/mL 03/11/23 03/11/23 03/12/23 Range/Units 18:51 23:04 00:19 WBC (3.8-10.6) k/uL Plt Count (150-450) k/uL Neutrophils # (1.3-7.7) k/uL Lymphocytes # (1.0-4.8) k/uL Sodium (137-145) mmol/L BUN (7-17) mg/dL Creatinine (0.52-1.04) mg/dL Glucose (74-99) mg/dL POC Glucose (mg/dL) 114 H (70-110) mg/dL Plasma Lactic Acid Rayo 2.2 H* (0.7-2.0) mmol/L Troponin I 0.067 H* (0.000-0.034) ng/mL 03/12/23 03/12/23 03/12/23 Range/Units 01:24 01:24 03:46 WBC 14.5 H (3.8-10.6) k/uL Plt Count 660 H (150-450) k/uL Neutrophils # 13.5 H (1.3-7.7) k/uL Lymphocytes # 0.4 L (1.0-4.8) k/uL Sodium 132 L (137-145) mmol/L BUN (7-17) mg/dL Creatinine 0.35 L (0.52-1.04) mg/dL Glucose 130 H (74-99) mg/dL POC Glucose (mg/dL) (70-110) mg/dL Plasma Lactic Acid Rayo 3.7 H* (0.7-2.0) mmol/L Troponin I (0.000-0.034) ng/mL 03/12/23 Range/Units 03:46 WBC (3.8-10.6) k/uL Plt Count (150-450) k/uL Neutrophils # (1.3-7.7) k/uL Lymphocytes # (1.0-4.8) k/uL Sodium (137-145) mmol/L BUN (7-17) mg/dL Creatinine (0.52-1.04) mg/dL Glucose (74-99) mg/dL POC Glucose (mg/dL) (70-110) mg/dL Plasma Lactic Acid Rayo (0.7-2.0) mmol/L Troponin I 0.065 H* (0.000-0.034) ng/mL
--- NOTE | 2023-03-12 16:23 | P.CONS ---
History of Present Illness - Reason for Consult Consult date: 03/12/23 hx NSCLC Requesting physician: Hugh Bah - Chief Complaint SOB - History of Present Illness Patient is a 67 year old female with a history of non small cell lung carcinoma and 50 pack years smoking history. She was initally seen on consult when she presented with complaints of shortness of breath and abnormal chest x-ray that was obtained outpatient. Upon admission CT chest revealed multiple spiculated densities within the right lung. And large left pleural effusion with compressive atelectasis and enlarged subcarinal lymph node, measuring 1.2 cm and pretracheal lymph node subcentimeter in size. Patient underwent left-sided thoracentesis and cytology was suspicious for non-small cell carcinoma but was nondiagnostic. Patient then underwent bronchoscopy with transbronchial biopsy on 12/30/2022 which revealed invasive pulmonary adenocarcinoma. brain MRI revealed multiple ring-enhancing lesions of left parietal lobe, right superior parietal lobe. Right superior parietal lobe, right temporal lobe, left cerebral hemisphere and left cerebral punctate area of enhancement. He was referred to radiation oncology and underwent 2 treatments of whole brain radiation did not tolerate well and treatment was stopped. 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 Patient presented to the emergency room with complaints of worsening shortness of breath. Upon admission chest x-ray at hydropneumothorax is redemonstrated with complete airlessness throughout the left lung parenchyma. The volume of fluid has decreased from approx 60% of the left hemithorax volume on 01/15/23 to approx 40%. Interval worsening of the right with airspace filling process throughout the right lung parenchyma. CT chest negative for PE. Complete atelectasis of the left upper lobe and left lower lobe, with left pneumothorax fillin 80% of the left hemithorax and dependent pleural effusion filling the remaining 20% of the left hemithorax. Markedly extensive interstitial thickening throughout the right upper, mid and lower lung zones with associated scattered consolidative opacity throughout the right lung parenchyma. Pulmonology consulted left-sided chest tube placed. Patient was started on IV steroids and breathing treatments. IV antibiotics started. Coated, influenza, RSV negative. CBC revealed WBC 14.5, hemoglobin 12.2, platelets 660,000. Patient afebrile. SPO2 90% on 5 L nasal cannula. At today's visit patient was seen in the ICU. She reports breathing is unchanged and waxes and wanes. Denies CP and dizziness Review of Systems 10 point ROS is negative except as stated in the HPI Past Medical History Past Medical History: Cancer Additional Past Medical History / Comment(s): plueral effusion History of Any Multi-Drug Resistant Organisms: None Reported Past Surgical History: Section, Tonsillectomy Additional Past Surgical History / Comment(s): breast biopsy Past Anesthesia/Blood Transfusion Reactions: No Reported Reaction Past Psychological History: No Psychological Hx Reported Smoking Status: Former smoker Past Alcohol Use History: None Reported Past Drug Use History: None Reported - Past Family History Father Family Medical History: Diabetes Mellitus Additional Family Medical History / Comment(s): Migraines, depression, unsure but had heart issues Mother Family Medical History: Cancer, COPD, Diabetes Mellitus, Hypertension, Thyroid Disorder Additional Family Medical History / Comment(s): Breast CA, enlarged Heart, Ma cular degeneration, "Mini strokes" Brother(s) Family Medical History: Cancer, Diabetes Mellitus, Hyperlipidemia Additional Family Medical History / Comment(s): Prostate Cancer, Macular degeneration Medications and Allergies Home Medications Medication Instructions Recorded Confirmed Type Cetirizine HCl [Zyrtec] 10 mg PO DAILY PRN 12/22/22 03/11/23 History Guaifenesin/Dextromethorphan 1 tab PO QID PRN 12/22/22 03/11/23 History [Guaifenesin-Dm 400-20 mg Tab] ePHEDrine HCL [Primatene] 12.5 mg PO QID PRN 12/22/22 03/11/23 History Acetaminophen Tab [Tylenol] 650 mg PO Q6HR PRN #60 tab 12/31/22 03/11/23 Rx ALPRAZolam [Xanax] 0.25 mg PO DAILY PRN 03/11/23 03/11/23 History Afatinib Dimaleate [Gilotrif] 40 mg PO HS@2300 03/11/23 03/11/23 History Famotidine 40 mg PO HS PRN 03/11/23 03/11/23 History Loperamide HCl [Imodium A-D] 2 mg PO QID PRN 03/11/23 03/11/23 History Ondansetron [Zofran] 4 mg PO Q6H PRN 03/11/23 03/11/23 History Sennosides/Docusate Sodium [Senna 1 cap PO BID PRN 03/11/23 03/11/23 History Plus 8.6-50 mg Softgel] dexAMETHasone [Decadron] 2 mg PO DAILY 03/11/23 03/11/23 History droNABinol 5 mg PO HS 03/11/23 03/11/23 History oxyCODONE-APAP 7.5-325MG [Percocet 1 tab PO Q4H PRN 03/11/23 03/11/23 History 7.5-325 mg] Allergies Allergy/AdvReac Type Severity Reaction Status Date / Time No Known Allergies Allergy Verified 03/11/23 22:03 Physical Exam Vitals: Vital Signs Temp Pulse Resp BP Pulse Ox 03/12/23 10:00 106 H 23 176/88 03/12/23 09:30 114 H 28 H 169/96 90 L 03/12/23 09:18 104 H 03/12/23 09:00 99 26 H 158/88 93 L 03/12/23 08:30 102 H 35 H 169/95 94 L 03/12/23 08:00 98.2 F 103 H 29 H 156/90 92 L 03/12/23 07:30 98 30 H 170/102 94 L 03/12/23 07:00 107 H 24 152/92 94 L 03/12/23 06:30 100 28 H 160/99 95 03/12/23 06:00 102 H 22 157/84 91 L 03/12/23 05:30 98 25 H 160/89 95 03/12/23 05:00 103 H 31 H 166/96 94 L 03/12/23 04:30 102 H 29 H 163/91 94 L 03/12/23 04:00 98.2 F 96 26 H 159/93 95 03/12/23 03:30 99 24 165/95 95 03/12/23 03:00 93 28 H 160/101 97 03/12/23 02:30 99 27 H 163/90 97 03/12/23 02:08 33 H 03/12/23 02:00 98 25 H 180/94 97 03/12/23 01:50 101 H 32 H 180/94 93 L 03/12/23 01:40 105 H 26 H 180/94 95 03/12/23 01:30 104 H 35 H 167/92 03/12/23 01:20 96 32 H 167/92 96 03/12/23 01:10 101 H 19 167/92 95 03/12/23 01:00 89 31 H 181/106 98 03/12/23 00:51 97 03/12/23 00:50 101 H 40 H 181/106 98 03/12/23 00:40 106 H 33 H 181/106 98 03/12/23 00:30 105 H 12 178/100 98 03/12/23 00:28 105 H 39 H 178/100 96 03/12/23 00:10 163/91 03/12/23 00:05 96 03/12/23 00:00 96 47 H 160/86 95 03/11/23 23:00 93 30 H 160/86 99 03/11/23 22:00 99 41 H 148/85 98 03/11/23 21:59 99 30 H 148/85 97 03/11/23 21:00 110 H 28 H 166/97 93 L 03/11/23 20:46 103 H 25 H 150/93 93 L 03/11/23 19:39 112 H 30 H 156/99 94 L 03/11/23 18:33 110 H 34 H 143/82 86 L 03/11/23 18:15 98.4 F 124 H 36 H 180/100 86 L Intake and Output 03/11/23 03/12/23 03/12/23 22:59 06:59 14:59 Intake Total 525 1075 Output Total 530 220 Balance -5 855 Intake: IV 75 Sodium Chloride 0.9% 1, 75 000 ml @ 75 mls/hr IV . [id number] [facility] Rx#:[id number] Intake, IV Titration 525 1000 Amount Sodium Chloride 0.9% 1, 525 000 ml @ 75 mls/hr IV . [id number] [facility] Rx#:[id number] Sodium Chloride 0.9% 1, 1000 000 ml @ 999 mls/hr IV . Q1H1M ONE Rx#:[id number] Output: Chest Tube Drainage 130 20 Chest Tube Left Lower 130 20 Urine 400 200 Other: Weight 46.72 kg 50 kg - Constitutional General appearance: mild distress, thin - EENT Eyes: anicteric sclerae, EOMI ENT: hearing grossly normal - Respiratory conversational dyspnea Respiratory: right: rales (RLL), left: diminished, rhonchi - Cardiovascular tachycardic Rhythm: regular Heart sounds: normal: S1, S2 - Gastrointestinal General gastrointestinal: soft, no tenderness - Integumentary Integumentary: no cyanotic - Musculoskeletal Musculoskeletal: generalized weakness - Psychiatric Psychiatric: A&O x's 3 Results CBC & Chem 7: 03/12/23 01:24 03/12/23 01:24 Labs: Abnormal Lab Results - Last 24 Hours (Table) 03/11/23 03/11/23 03/11/23 Range/Units 18:51 18:51 18:51 WBC 18.9 H (3.8-10.6) k/uL Plt Count 694 H (150-450) k/uL Neutrophils # 17.2 H (1.3-7.7) k/uL Lymphocytes # 0.8 L (1.0-4.8) k/uL Sodium 134 L (137-145) mmol/L BUN 18 H (7-17) mg/dL Creatinine 0.37 L (0.52-1.04) mg/dL Glucose 104 H (74-99) mg/dL POC Glucose (mg/dL) (70-110) mg/dL Plasma Lactic Acid Rayo 2.2 H* (0.7-2.0) mmol/L Troponin I (0.000-0.034) ng/mL 03/11/23 03/11/23 03/12/23 Range/Units 18:51 23:04 00:19 WBC (3.8-10.6) k/uL Plt Count (150-450) k/uL Neutrophils # (1.3-7.7) k/uL Lymphocytes # (1.0-4.8) k/uL Sodium (137-145) mmol/L BUN (7-17) mg/dL Creatinine (0.52-1.04) mg/dL Glucose (74-99) mg/dL POC Glucose (mg/dL) 114 H (70-110) mg/dL Plasma Lactic Acid Rayo 2.2 H* (0.7-2.0) mmol/L Troponin I 0.067 H* (0.000-0.034) ng/mL 03/12/23 03/12/23 03/12/23 Range/Units 01:24 01:24 03:46 WBC 14.5 H (3.8-10.6) k/uL Plt Count 660 H (150-450) k/uL Neutrophils # 13.5 H (1.3-7.7) k/uL Lymphocytes # 0.4 L (1.0-4.8) k/uL Sodium 132 L (137-145) mmol/L BUN (7-17) mg/dL Creatinine 0.35 L (0.52-1.04) mg/dL Glucose 130 H (74-99) mg/dL POC Glucose (mg/dL) (70-110) mg/dL Plasma Lactic Acid Rayo 3.7 H* (0.7-2.0) mmol/L Troponin I (0.000-0.034) ng/mL 03/12/23 Range/Units 03:46 WBC (3.8-10.6) k/uL Plt Count (150-450) k/uL Neutrophils # (1.3-7.7) k/uL Lymphocytes # (1.0-4.8) k/uL Sodium (137-145) mmol/L BUN (7-17) mg/dL Creatinine (0.52-1.04) mg/dL Glucose (74-99) mg/dL POC Glucose (mg/dL) (70-110) mg/dL Plasma Lactic Acid Rayo (0.7-2.0) mmol/L Troponin I 0.065 H* (0.000-0.034) ng/mL Chest x-ray: report reviewed CT scan - chest: report reviewed Assessment and Plan (1) Hydropneumothorax Current Visit: Yes Status: Acute Priority: High Code(s): J94.8 - OTHER SPECIFIED PLEURAL CONDITIONS SNOMED Code(s): 63370810 (2) Non-small cell lung cancer Current Visit: Yes Status: Acute Priority: High Code(s): C34.90 - MALIGNANT NEOPLASM OF UNSP PART OF UNSP BRONCHUS OR LUNG SNOMED Code(s): 062017005 Plan: Metastatic non-small cell lung cancer -Full history in HPI -Underwent 2 treatments of whole brain radiation did not tolerate well and treatment was stopped. 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 Upon review of scans and clinical presentation, concern is for the same. IV steroids started. Case discussed with pulmonology team -Will hold afatinib for now. Will schedule outpt f/u to reassess prior to resuming treatment Hydropneumothorax: -Upon admission chest x-ray at hydropneumothorax is redemonstrated with complete airlessness throughout the left lung parenchyma. The volume of fluid has decreased from approx 60% of the left hemithorax volume on 01/15/23 to approx 40%. Interval worsening of the right with airspace filling process throughout the right lung parenchyma. CT chest negative for PE. Complete atelectasis of the left upper lobe and left lower lobe, with left pneumothorax fillin 80% of the left hemithorax and dependent pleural effusion filling the remaining 20% of the left hemithorax. Markedly extensive interstitial thickening throughout the right upper, mid and lower lung zones with associated scattered consolidative opacity throughout the right lung parenchyma. -Pulmonology consulted and left-sided chest tube was placed. Zosyn started.
[2023-03-12] MEDS ORDERED: [UNRECOGNIZED DRUG - OTHER] PO SCH (21:00)
[2023-03-13] MEDS: MORPHINE SULFATE 4 MG/ML SYRINGE IVP PRN ×4 (01:36→18:11)
[2023-03-13] MEDS: methylPREDNISolone SOD SUCCI 125 MG/2 ML VIAL IV SCH ×4 (04:21→22:00)
[2023-03-13] MEDS: PIPERACILLIN-TAZOBACTAM 3.375 GM in SODIUM CHLORIDE 0.9% 100 ML IVPB SCH ×3 (05:37→22:00)
[2023-03-13] MEDS: HYDROcodone/APAP 5-325MG 1 EACH TAB PO PRN (06:16)
[2023-03-13 06:19] LABS: Basophils % (A) 0 %; Eosinophils % (A) 0 %; HCT 35.1 % (34.0-46.0); HGB 11.1 gm/dL (11.4-16.0); Hypochromasia Slight; Lymphocytes # (A) 0.6 k/uL (1.0-4.8); Lymphocytes % (A) 3 %; MCH 28.8 pg (25.0-35.0); MCHC 31.8 g/dL (31.0-37.0); MCV 90.5 fL (80.0-100.0); Mean Platelet Volume 7.3; Monocytes # (A) 0.8 k/uL (0-1.0); Monocytes % (A) 4 %; Neutrophils # (A) 17.8 k/uL (1.3-7.7); Neutrophils % (A) 92 %; Platelet Count 691 k/uL (150-450); Poikilocytosis Slight; RBC 3.87 m/uL (3.80-5.40); RDW 15.3 % (11.5-15.5); WBC 19.5 k/uL (3.8-10.6)
[2023-03-13 06:54] LABS: African American GFR (CKD) >90 (>60 ml/min/1.73 sqM); Anion Gap 9 mmol/L; Blood Urea Nitrogen 25 mg/dL (7-17); Carbon Dioxide 28 mmol/L (22-30); Chloride 102 mmol/L (98-107); Glucose 109 mg/dL (74-99); Non-African American GFR(CKD) >90 (>60 ml/min/1.73 sqM); Sodium 139 mmol/L (137-145)
--- NOTE | 2023-03-13 08:25 | XR ---
EXAMINATION TYPE: XR chest 1V portable DATE OF EXAM: 03/13/2023 Comparison: 03/12/2023 Clinical History: 67-year-old female check for lung expansion Findings: Redemonstrated large left-sided hydropneumothorax with chest tube in place. Moderate pleural effusion component remains. Diffuse interstitial and patchy opacities throughout the right lung appears to be gradually improving. Prominent air remains along the right hemidiaphragm. Impression: 1. Ongoing large left hydropneumothorax with moderate pleural effusion component. Chest tube in place . 2. Infiltrates throughout the right lung are gradually improving. 3. Ongoing prominent air below the right hemidiaphragm. Again, unable to distinguish if this represen ts interposed colonic air or free intraperitoneal air. This can be correlated clinically.
[2023-03-13] MEDS: ENOXAPARIN 40 MG/0.4 ML SYRINGE SQ SCH (08:32)
[2023-03-13] MEDS: PANTOPRAZOLE 40 MG/10 ML VIAL IVP SCH (08:32)
[2023-03-13] MEDS: IPRATROPIUM-ALBUTEROL 3 ML NEB INHALATION SCH ×4 (08:35→19:58)
[2023-03-13] MEDS ORDERED: FUROSEMIDE 10 MG/ML 2 ML VIAL IV ONE (08:48)
[2023-03-13] MEDS ORDERED: ALPRAZolam 0.25 MG TAB PO STA (08:54)
[2023-03-13] MEDS ORDERED: ACETAMINOPHEN TAB 325 MG TAB PO PRN (09:01)
--- NOTE | 2023-03-13 10:05 | P.PN ---
Subjective Progress Note Date: 03/13/23 I am seeing this patient in consultation today 03/12/2023 after she was brought into the emergency room yesterday evening with acute shortness of breath. Patient is a 67-year-old female with past medical history significant for a relatively new diagnosis of advanced lung cancer with metastasis to the lung and brain. Patient originally presented back in December, she was short of breath and had a left-sided pleural effusion. Following the thoracentesis, the patient had a significant large left-sided hydropneumothorax. Likely representing trapped lung. She did have ThoraVent placed from 12/23-01/01. The lung never fully expanded. Pleural fluid cytology showed rare atypia, but was essentially nondiagnostic. Patient did undergo a bronchoscopy with transbronchial biopsy of the left lower lobe during this admission, and it did show invasive pulmonary adenocarcinoma. Brain MRI did show multiple ring-enhancing lesions concerning for intracranial metastasis. Patient has become established with an oncologist, David West. Currently on Gilotrif. This was recently started. She has reportedly received 11 doses. Patient returned to the emergency room yesterday evening complaining of progressively worsening shortness of breath starting over the weekend. She normally wears 3 L/m nasal cannula, and this was increased to 5 L because of shortness of breath and low oxygen levels. Patient states that her shortness of breath is even worse on exertion. Denies any change in her chronic cough, hemoptysis, fever, chills, chest pain. She has had reduced appetite and hasn't been eating the last couple days. Admits adequate fluid intake. Chest x-ray on arrival redemonstrated the patient's left-sided hydropneumothorax. There is also worsening airspace disease throughout the right lung. Dr. Guzman did come in to place a left-sided chest tube. A follow up chest CTA done on arrival did not show any pulmonary embolism. It did show a persistent left-sided hydropneumothorax. There is adequate placement of a left-sided chest tube. The right hemithorax showed extensive interstitial thickening throughout the right upper mid and lower lung zones with associated scattered consolidative opacities throughout the right Lung parenchyma. Could represent immunotherapy induced pneumonitis, disease progression with lymphangitic carcinomatosis, infectious process, among other things. CBC on arrival showed some leukocytosis with a WBC count 18.9, hemoglobin 12.5, hematocrit 38.5, platelets 694. BMP shows sodium 134, potassium 4.1, chloride 98, serum bicarb 25, BUN 18, creatinine 0.37, glucose 104. No IV maintenance fluids infusing. Lactic acid level II.2. Troponins mildly elevated at 0.067. NT proBNP 417. Negative for influenza, RSV, COVID-19. Patient was empirically started on Zosyn. Also started on high- dose steroids. Patient is currently sitting up in bed, on 5 L/m nasal cannula, she is mildly dyspneic at rest. Heart rate appears sinus tachycardia on bedside monitor. Blood pressure is stable, and is actually slightly hypertensive. She reports some left sided chest pain at the chest tube insertion site. There is a left-sided chest tube connected to an Atrium and suction -20 cm H2O. There is an intermittent air leak. There is a total of [address] brown CT output. Patient's current prognosis is poor related to above-mentioned comorbidities. She wishes to be a DO NOT RESUSCITATE/DO NOT INTUBATE. Daughter is at bedside and is in agreement. She had also been a DO NOT RESUSCITATE/DO NOT INTUBATE on her prior admission. We will continue to monitor the patient in the intensive care unit On today's evaluation of 03/13/2023, the patient is being seen for a follow-up. As mentioned, the patient had a left-sided chest tube inserted. Nevertheless, the left lung is essentially trapped and there is no reexpansion of the left lung. Total amount of fluid output from the left side was in order of 200 mL. Repeat chest x-ray from today is still showing a trapped lung with a left-sided high flow thorax. Chest tube is in a good location. There is still persistent infiltration of the right lung which is somewhat improved compared to yesterday. There is also prominent air below the right hemidiaphragm. Unable to distinguish if this is a thin supposed colonic air versus fully intraperitoneal air. The x-ray of the abdomen showed the same. However, clinically, the patient has no nausea or emesis or abdominal pain. She is tolerating her diet. Abdominal exam is extremely soft of this point in time. Her labs are all adequate. The white cycles of 19.7 with a hemoglobin of 11 sodiums of 139, potassium is at 4 with a BUN of 25 and a creatinine of 0.4. Lactic acid level is down to 1.7. The patient remains on IV Zosyn. The patient remains on IV Solu-Medrol. The patient was taking Afatinib , this was placed on hold. Objective - Vital Signs Vital signs: Vital Signs Temp 98.2 F 03/13/23 08:00 Pulse 116 H 03/13/23 08:00 Resp 25 H 03/13/23 08:00 BP 136/75 03/13/23 08:00 Pulse Ox 92 L 03/13/23 08:00 FiO2 Intake & Output 03/12/23 03/13/23 03/13/23 18:59 06:59 18:59 Intake Total 2125 535 10 Output Total 1680 710 40 Balance 445 -175 -30 Weight 50.9 kg Intake: IV 825 335 10 0.9 KVO 60 10 Piperacillin-Tazobactam 3 200 .375 gm In Sodium Chloride 0.9% 100 ml @ 25 mls/hr IVPB Q8H [facility] Rx#: [id number] Sodium Chloride 0.9% 1, 825 75 000 ml @ 75 mls/hr IV . [id number] [facility] Rx#:[id number] Intake, IV Titration 1000 Amount Sodium Chloride 0.9% 1, 1000 000 ml @ 999 mls/hr IV . Q1H1M [facility] Rx#:[id number] Oral 300 200 Output: Chest Tube Drainage 80 110 40 Chest Tube Left Lower 80 110 40 Urine 1600 600 Other: Voiding Method External Catheter - Exam GENERAL EXAM: Alert, 67-year-old white female, cachectic and malnourished appearing, in some mild respiratory distress. HEAD: Normocephalic and atraumatic EYES: Normal reaction of pupils, equal size. NOSE: Clear with pink turbinates. THROAT: No erythema or exudates. NECK: No masses, no JVD. CHEST: No chest wall deformity. Left-sided chest tube secured and connected to Atrium and suction -20 cm H2O LUNGS: Markedly diminished left-sided lung sounds. Scattered rhonchi heard on right side. Currently on 10L/m nasal cannula. Tachypneic. CVS: S1 and S2 normal with no audible murmur, regular rhythm. No extra heart sounds ABDOMEN: No hepatosplenomegaly, active bowel sounds, no guarding or rigidity. SPINE: No scoliosis or deformity SKIN: No rashes CENTRAL NERVOUS SYSTEM: No focal deficits, tone is normal in all 4 extremities. EXTREMITIES: There is 2+ left lower extremity pitting edema. No clubbing, or cyanosis. Peripheral pulses are intact. - Labs CBC & Chem 7: 03/13/23 05:27 03/13/23 05:27 Labs: Abnormal Lab Results - Last 24 Hours (Table) 03/13/23 03/13/23 Range/Units 05:27 05:27 WBC 19.5 H (3.8-10.6) k/uL Hgb 11.1 L (11.4-16.0) gm/dL Plt Count 691 H (150-450) k/uL Neutrophils # 17.8 H (1.3-7.7) k/uL Lymphocytes # 0.6 L (1.0-4.8) k/uL BUN 25 H (7-17) mg/dL Creatinine 0.47 L (0.52-1.04) mg/dL Glucose 109 H (74-99) mg/dL Microbiology - Last 24 Hours (Table) 03/11/23 18:45 Blood Culture - Preliminary Blood 03/11/23 19:00 Blood Culture - Preliminary Blood Assessment and Plan Assessment: Acute on chronic hypoxemic respiratory failure, secondary to a persistent left- sided hydropneumothorax, likely representing trapped lung. Status/post left- sided chest tube insertion. Chest CTA demonstrated diffuse interstitial thickening throughout the right lung with scattered opacities possibly representing immunotherapy induced pneumonitis versus disease progression with lymphangitic carcinomatosis, versus infectious process. Possibility of a of immunotherapy related pneumonitis cannot be completely ruled out. The patient's pro-calcitonin level was low. The patient is currently on accommodation of Zosyn and steroids. Left-sided chest tube is in place. Left lung is trapped. Essentially no expansion of the left lung is visualized. The patient is currently on 10 L of oxygen nasal cannula. Metastatic pulmonary adenocarcinoma, recently started on Gilotrif. Recent left lower lobe transbronchial biopsy on 12/30/22 was positive for pulmonary adenocarcinoma. Follow up MRI of the brain reveals multiple ring-enhancing lesions compatible with metastatic disease. She is on Decadron at home. Trapped left lung, no reexpansion post chest tube insertion and a chest x-ray findings of essentially unchanged. This is probably related to endobronchial tumor causing complete trapping of the left lung. History of large left pleural effusion status post thoracentesis 12/23/2022 with 1.2 L of dark black fluid returned with trapped lung and hydropneumothorax, status post Thora-Vent placement on 12/23/2022 and removed on 12/31/2022. The lung never fully re-expanded. Gram stain and cultures reveal no growth. Cytology revealed rare atypia but no definitive malignancy. Multiple spiculated pulmonary nodules, seen in the right lung, with the largest measuring 1.4 cm Chronic hypoxemic respiratory failure, secondary to above Leukocytosis Thrombocytosis, likely related to malignancy Elevated troponin, likely related to slight/demand mismatch Cachexia and severe protein-calorie malnutrition Unintentional weight loss, approximately 80 lbs over the last one year Recent former smoker, quitting in December, Difficulties ambulating, related to left lower extremity weakness Air under the right hemidiaphragm. His could be related to bowel shadow and the possibility of a free intraperitoneal air is felt to be less likely. The patient is having a benign abdominal exam. Lactic acid levels are low. Tolerating diet. Plan: I am going to remove the left-sided chest tube today Continue Zosyn Continue steroids Titrate oxygen flow to maintain saturation above 90% Pro calcitonin level is low Dilaudid for pain control Abdominal exam is benign and there is no concern for an acute abdomen Patient is tolerating her diet Lactic acid levels are low Prognosis extremely poor. Case was discussed with medical oncology. We'll continue to follow make further recommendations based on her progress. The patient will be kept in ICU for now. Continue using incentive spirometer
--- NOTE | 2023-03-13 13:22 | P.PN ---
Subjective Progress Note Date: 03/13/23 Pt reports ongoing dyspnea. O2 requirement is up to 10L oxygen. Pt stilll c/o dyspnea. No re-expansion of lung, and chest tube removed today. Gen: awake, alert HEENT: normocephalic, atraumatic, good hearing acuity, moist mucous membranes Resp: Tachypneic with accessory muscle use, right-sided crackles CVS: good distal perfusion x 4, GI: soft, NTTP, ND : no SPT, no CVAT, bernard catheter not present MSK: no pitting edema, no clubbing Neuro: non-focal, moving all extremities Psych: cooperative, euthymic mood Hospital course: Patient is a 67-year-old female with a PMH of metastatic non-small cell endobronchial tumor (following with Dr. Escobedo, currently on Immunotherapy), chronic hypoxic respiratory failure on 2-3 L nasal cannula oxygen continuously at home, chronic left lower extremity weakness with foot drop, who presented to the emergency room with complaints of shortness of breath. The patient has had multiple recent hospitalizations for similar complaints with most recent admission from 01/15-01/19 showing recurrent large left-sided hydropneumothorax. Patient states her normal SpO2 at home is around 93-94% on 2 L but have worsened to 88% on 5 L earlier today. She reports a mild nonproductive cough which is unchanged. Denied fever, chills, nausea, vomiting, chest pain, abdo nino pain. In the emergency room, a left-sided chest tube was placed with subsequent chest CTA showing extensive interstitial thickening of the right lung with left sided pneumothorax and pleural effusion. EKG revealed sinus tachycardia 110 bpm with an incomplete right bundle-branch block as reviewed by me. Laboratory evaluation revealed leukocytosis of 18.9, lactic acid 2.2, sodium 134, BUN 18, troponin 0.37, troponin 0.067 with proBNP 417. Upon arrival in the emergency room, the patient's SpO2 was 86% on 5 L is a cannula oxygen, respiratory rate 36, and pulse 124 BP 180/100 and temp 98.4F. Assessment/plan: Acute on chronic hypoxic respiratory failure Left sided hydropneumothorax, Trapped Lung Metastatic NSCLC, with endobronchial tumor, currently on immunotherapy - pulmonology consultation appreciated - chest tube removed today - CXR today ordered and reviewed by me as follows: finding of hemicolon above liver and under diaphragm on right is still present, right sided infiltrates present and mildly improved - patient does appear volume overloaded, given one time dose of lasix 20mg IV once again today, and IVF discontinued - continue zosyn: PC, however, is low at 0.04, and can consider de-escalating tomorrow - continue steroids: methylprednisolone 60mg IV q6h in case of pneumonitis, agree with holding immunotherapy - oncology consult is pending - morphine PRN for pain control - continue high flow nasal cannula Elevated troponin, suspect type II - monitor on telemetry Chronic left lower extremity weakness DVT prophylaxis: heparin subcu discontinued and enoxaparin 40mg SQ started The patient is admitted with an anticipated greater than 2 midnight stay for e valuation of hypoxic resp failure CODE STATUS: No Code Discussed with: Patient Anticipated discharge place: Home Objective - Vital Signs Vital signs: Vital Signs Temp 98.2 F 03/13/23 08:00 Pulse 109 H 03/13/23 11:00 Resp 28 H 03/13/23 11:00 BP 140/84 03/13/23 11:00 Pulse Ox 91 L 03/13/23 11:00 FiO2 Intake & Output 03/12/23 03/13/23 03/13/23 18:59 06:59 18:59 Intake Total 2125 535 40 Output Total 1680 710 290 Balance 445 -175 -250 Weight 50.9 kg Intake: IV 825 335 40 0.9 KVO 60 40 Piperacillin-Tazobactam 3 200 .375 gm In Sodium Chloride 0.9% 100 ml @ 25 mls/hr IVPB Q8H [facility] Rx#: [id number] Sodium Chloride 0.9% 1, 825 75 000 ml @ 75 mls/hr IV . [id number] [facility] Rx#:[id number] Intake, IV Titration 1000 Amount Sodium Chloride 0.9% 1, 1000 000 ml @ 999 mls/hr IV . Q1H1M [facility] Rx#:[id number] Oral 300 200 Output: Chest Tube Drainage 80 110 40 Chest Tube Left Lower 80 110 40 Urine 1600 600 250 Other: Voiding Method External Catheter # Voids 1 - Labs CBC & Chem 7: 03/13/23 05:27 03/13/23 05:27 Labs: Abnormal Lab Results - Last 24 Hours (Table) 03/13/23 03/13/23 Range/Units 05:27 05:27 WBC 19.5 H (3.8-10.6) k/uL Hgb 11.1 L (11.4-16.0) gm/dL Plt Count 691 H (150-450) k/uL Neutrophils # 17.8 H (1.3-7.7) k/uL Lymphocytes # 0.6 L (1.0-4.8) k/uL BUN 25 H (7-17) mg/dL Creatinine 0.47 L (0.52-1.04) mg/dL Glucose 109 H (74-99) mg/dL Microbiology - Last 24 Hours (Table) 03/11/23 18:45 Blood Culture - Preliminary Blood 03/11/23 19:00 Blood Culture - Preliminary Blood
[2023-03-13] MEDS: droNABinol 2.5 MG CAP PO SCH (19:55)
[2023-03-13] MEDS: ALPRAZolam 0.25 MG TAB PO PRN (20:09)
[2023-03-14] MEDS: methylPREDNISolone SOD SUCCI 125 MG/2 ML VIAL IV SCH ×4 (05:46→21:48)
[2023-03-14] MEDS: PIPERACILLIN-TAZOBACTAM 3.375 GM in SODIUM CHLORIDE 0.9% 100 ML IVPB SCH ×3 (05:46→21:19)
[2023-03-14] MEDS: MORPHINE SULFATE 4 MG/ML SYRINGE IVP PRN ×2 (05:47→15:55)
[2023-03-14 06:12] LABS: Basophils % (A) 0 %; Eosinophils % (A) 0 %; HCT 35.7 % (34.0-46.0); HGB 11.5 gm/dL (11.4-16.0); Hypochromasia Slight; Lymphocytes # (A) 0.7 k/uL (1.0-4.8); Lymphocytes % (A) 4 %; MCH 28.9 pg (25.0-35.0); MCHC 32.4 g/dL (31.0-37.0); MCV 89.2 fL (80.0-100.0); Mean Platelet Volume 6.8; Monocytes # (A) 0.9 k/uL (0-1.0); Monocytes % (A) 4 %; Neutrophils # (A) 19.1 k/uL (1.3-7.7); Neutrophils % (A) 91 %; Platelet Count 685 k/uL (150-450); Poikilocytosis Slight; WBC 20.9 k/uL (3.8-10.6)
[2023-03-14 06:24] LABS: African American GFR (CKD) >90 (>60 ml/min/1.73 sqM); Anion Gap 9 mmol/L; Blood Urea Nitrogen 20 mg/dL (7-17); Carbon Dioxide 30 mmol/L (22-30); Chloride 98 mmol/L (98-107); Glucose 90 mg/dL (74-99); Magnesium 1.9 mg/dL (1.6-2.3); Non-African American GFR(CKD) >90 (>60 ml/min/1.73 sqM); Potassium 3.6 mmol/L (3.5-5.1); Sodium 137 mmol/L (137-145)
[2023-03-14] MEDS ORDERED: Potassium Replacement Protocol 1 EACH MISC MISCELLANE PRN ×2 (06:55→16:37)
[2023-03-14] MEDS ORDERED: MAGNESIUM SULFATE-D5W PMX 1 GM in DEXTROSE/WATER 1 100ML.BAG IVPB ONE (06:56)
[2023-03-14] MEDS ORDERED: Magnesium Replacement Protocol 1 EACH MISC MISCELLANE PRN (06:56)
[2023-03-14] MEDS: POTASSIUM CHLORIDE ER 20 MEQ TAB.ER PO SCH ×4 (07:37→18:11)
[2023-03-14] MEDS: ALPRAZolam 0.25 MG TAB PO PRN ×2 (08:12→21:05)
--- NOTE | 2023-03-14 08:54 | P.PN ---
Subjective Progress Note Date: 03/14/23 I am seeing this patient in consultation today 03/12/2023 after she was brought into the emergency room yesterday evening with acute shortness of breath. Patient is a 67-year-old female with past medical history significant for a relatively new diagnosis of advanced lung cancer with metastasis to the lung and brain. Patient originally presented back in December, she was short of breath and had a left-sided pleural effusion. Following the thoracentesis, the patient had a significant large left-sided hydropneumothorax. Likely representing trapped lung. She did have ThoraVent placed from 12/23-01/01. The lung never fully expanded. Pleural fluid cytology showed rare atypia, but was essentially nondiagnostic. Patient did undergo a bronchoscopy with transbronchial biopsy of the left lower lobe during this admission, and it did show invasive pulmonary adenocarcinoma. Brain MRI did show multiple ring-enhancing lesions concerning for intracranial metastasis. Patient has become established with an oncologist, David West. Currently on Gilotrif. This was recently started. She has reportedly received 11 doses. Patient returned to the emergency room yesterday evening complaining of progressively worsening shortness of breath starting over the weekend. She normally wears 3 L/m nasal cannula, and this was increased to 5 L because of shortness of breath and low oxygen levels. Patient states that her shortness of breath is even worse on exertion. Denies any change in her chronic cough, hemoptysis, fever, chills, chest pain. She has had reduced appetite and hasn't been eating the last couple days. Admits adequate fluid intake. Chest x-ray on arrival redemonstrated the patient's left-sided hydropneumothorax. There is also worsening airspace disease throughout the right lung. Dr. Guzman did come in to place a left-sided chest tube. A follow up chest CTA done on arrival did not show any pulmonary embolism. It did show a persistent left-sided hydropneumothorax. There is adequate placement of a left-sided chest tube. The right hemithorax showed extensive interstitial thickening throughout the right upper mid and lower lung zones with associated scattered consolidative opacities throughout the right Lung parenchyma. Could represent immunotherapy induced pneumonitis, disease progression with lymphangitic carcinomatosis, infectious process, among other things. CBC on arrival showed some leukocytosis with a WBC count 18.9, hemoglobin 12.5, hematocrit 38.5, platelets 694. BMP shows sodium 134, potassium 4.1, chloride 98, serum bicarb 25, BUN 18, creatinine 0.37, glucose 104. No IV maintenance fluids infusing. Lactic acid level II.2. Troponins mildly elevated at 0.067. NT proBNP 417. Negative for influenza, RSV, COVID-19. Patient was empirically started on Zosyn. Also started on high- dose steroids. Patient is currently sitting up in bed, on 5 L/m nasal cannula, she is mildly dyspneic at rest. Heart rate appears sinus tachycardia on bedside monitor. Blood pressure is stable, and is actually slightly hypertensive. She reports some left sided chest pain at the chest tube insertion site. There is a left-sided chest tube connected to an [facility] and suction -20 cm H2O. There is an intermittent air leak. There is a total of [address] brown CT output. Patient's current prognosis is poor related to above-mentioned comorbidities. She wishes to be a DO NOT RESUSCITATE/DO NOT INTUBATE. Daughter is at bedside and is in agreement. She had also been a DO NOT RESUSCITATE/DO NOT INTUBATE on her prior admission. We will continue to monitor the patient in the intensive care unit On today's evaluation of 03/13/2023, the patient is being seen for a follow-up. As mentioned, the patient had a left-sided chest tube inserted. Nevertheless, the left lung is essentially trapped and there is no reexpansion of the left lung. Total amount of fluid output from the left side was in order of 200 mL. Repeat chest x-ray from today is still showing a trapped lung with a left-sided high flow thorax. Chest tube is in a good location. There is still persistent infiltration of the right lung which is somewhat improved compared to yesterday. There is also prominent air below the right hemidiaphragm. Unable to distinguish if this is a thin supposed colonic air versus fully intraperitoneal air. The x-ray of the abdomen showed the same. However, clinically, the patient has no nausea or emesis or abdominal pain. She is tolerating her diet. Abdominal exam is extremely soft of this point in time. Her labs are all adequate. The white cycles of 19.7 with a hemoglobin of 11 sodiums of 139, potassium is at 4 with a BUN of 25 and a creatinine of 0.4. Lactic acid level is down to 1.7. The patient remains on IV Zosyn. The patient remains on IV Solu-Medrol. The patient was taking Afatinib , this was placed on hold. Ventilation of 03/14/2023, I'm seeing the patient for a follow-up. As mentioned, the left lung is completely trapped. Attempted a left-sided chest tube with no success. There was no reexpansion of the left lung. The chest tube was removed accordingly. She feels slightly more comfortable following the chest tube removal. Currently 78 L of oxygen by nasal cannula. Chest x-ray findings of essentially unchanged. There is a hazy infiltrate occupying the right lung in addition to no other lesions consistent with metastatic disease. The patient may have an underlying drug induced pneumonitis. The patient on IV Solu-Medrol. The patient is also covered with antibiotics with she is currently on Lasix. The viral screen came back negative. Her pro calcitonin level was also low. Her white cell count of 20.9. Hemoglobin is 11, BUN is at 20 with a creatinine of 0.4 and a sodium level is at 137. Her lactic acid level is down to 1.7. The patient is currently on 8 L of oxygen by nasal cannula. His tolerating her diet. No nausea or emesis. No other new complaints otherwise for now. Objective - Vital Signs Vital signs: Vital Signs Temp 97.7 F 03/14/23 00:00 Pulse 101 H 03/14/23 07:00 Resp 22 03/14/23 07:00 BP 156/91 03/14/23 07:00 Pulse Ox 91 L 03/14/23 07:00 FiO2 Intake & Output 03/13/23 03/14/23 03/14/23 18:59 06:59 18:59 Intake Total 180 410 10 Output Total 940 550 200 Balance -760 -140 -190 Weight 51.1 kg Intake: IV 180 160 10 0.9 KVO 80 60 10 Piperacillin-Tazobactam 3 100 100 .375 gm In Sodium Chloride 0.9% 100 ml @ 25 mls/hr IVPB Q8H [facility] Rx#: [id number] Oral 250 Output: Chest Tube Drainage 40 Chest Tube Left Lower 40 Urine 900 550 200 Other: Voiding Method External Catheter External Catheter # Voids 1 - Exam GENERAL EXAM: Alert, 67-year-old white female, cachectic and malnourished appearing, in some mild respiratory distress. The patient is currently on 8 L of O2 nasal cannula HEAD: Normocephalic and atraumatic EYES: Normal reaction of pupils, equal size. NOSE: Clear with pink turbinates. THROAT: No erythema or exudates. NECK: No masses, no JVD. CHEST: No chest wall deformity. Left-sided chest tube was removed LUNGS: Markedly diminished left-sided lung sounds. Scattered rhonchi heard on right side. CVS: S1 and S2 normal with no audible murmur, regular rhythm. No extra heart sounds ABDOMEN: No hepatosplenomegaly, active bowel sounds, no guarding or rigidity. SPINE: No scoliosis or deformity SKIN: No rashes CENTRAL NERVOUS SYSTEM: No focal deficits, tone is normal in all 4 extremities. EXTREMITIES: There is 2+ left lower extremity pitting edema. No clubbing, or cyanosis. Peripheral pulses are intact. - Labs CBC & Chem 7: 03/14/23 05:42 03/14/23 05:42 Labs: Abnormal Lab Results - Last 24 Hours (Table) 03/14/23 03/14/23 Range/Units 05:42 05:42 WBC 20.9 H (3.8-10.6) k/uL Plt Count 685 H (150-450) k/uL Neutrophils # 19.1 H (1.3-7.7) k/uL Lymphocytes # 0.7 L (1.0-4.8) k/uL BUN 20 H (7-17) mg/dL Creatinine 0.43 L (0.52-1.04) mg/dL Microbiology - Last 24 Hours (Table) 03/11/23 18:45 Blood Culture - Preliminary Blood 03/11/23 19:00 Blood Culture - Preliminary Blood Assessment and Plan Assessment: Acute on chronic hypoxemic respiratory failure, secondary to a persistent left- sided hydropneumothorax, likely representing trapped lung. Status/post left- sided chest tube insertion. Chest CTA demonstrated diffuse interstitial thickening throughout the right lung with scattered opacities possibly repres enting immunotherapy induced pneumonitis versus disease progression with lymphangitic carcinomatosis, versus infectious process. Possibility of a of immunotherapy related pneumonitis cannot be completely ruled out. The patient's pro-calcitonin level was low. The patient is currently on accommodation of Zosyn and steroids. Left-sided chest tube was placed and subsequently removed. No reexpansion of the left lung which is essentially completely trapped. Currently on 80s of O2 nasal cannula. Maintain on Zosyn. Maintain on steroids. We'll also give her low-dose diuretics. Metastatic pulmonary adenocarcinoma, recently started on Gilotrif. Recent left lower lobe transbronchial biopsy on 12/30/22 was positive for pulmonary adenocarcinoma. Follow up MRI of the brain reveals multiple ring-enhancing lesions compatible with metastatic disease. She is on Decadron at home. Trapped left lung, no reexpansion post chest tube insertion and a chest x-ray findings of essentially unchanged. This is probably related to endobronchial tumor causing complete trapping of the left lung. History of large left pleural effusion status post thoracentesis 12/23/2022 with 1.2 L of dark black fluid returned with trapped lung and hydropneumothorax, status post Thora-Vent placement on 12/23/2022 and removed on 12/31/2022. The lung never fully re-expanded. Gram stain and cultures reveal no growth. Cytology revealed rare atypia but no definitive malignancy. Multiple spiculated pulmonary nodules, seen in the right lung, with the largest measuring 1.4 cm Chronic hypoxemic respiratory failure, secondary to above Leukocytosis, stable Thrombocytosis, likely related to malignancy Elevated troponin, likely related to slight/demand mismatch Cachexia and severe protein-calorie malnutrition Unintentional weight loss, approximately 80 lbs over the last one year Recent former smoker, quitting in December, Difficulties ambulating, related to left lower extremity weakness Air under the right hemidiaphragm. His could be related to bowel shadow and the possibility of a free intraperitoneal air is felt to be less likely. The patient is having a benign abdominal exam. Lactic acid levels are low. Tolerating diet. Plan: Continue Zosyn Continue steroids Agree on low-dose diuretics Titrate oxygen flow to maintain saturation above 90% Pro calcitonin level is low Dilaudid for pain control Abdominal exam is benign and there is no concern for an acute abdomen Patient is tolerating her diet Lactic acid levels are low Prognosis extremely poor. Case was discussed with medical oncology. We'll continue to follow make further recommendations based on her progress. The patient will be kept in ICU for now. Continue using incentive spirometer
[2023-03-14] MEDS: IPRATROPIUM-ALBUTEROL 3 ML NEB INHALATION SCH ×4 (08:58→20:26)
[2023-03-14] MEDS ORDERED: FUROSEMIDE 10 MG/ML 2 ML VIAL IV ONE (09:38)
[2023-03-14] MEDS ORDERED: FUROSEMIDE 10 MG/ML 4 ML VIAL IV SCH (09:45)
[2023-03-14] MEDS: ENOXAPARIN 40 MG/0.4 ML SYRINGE SQ SCH (09:49)
[2023-03-14] MEDS: PANTOPRAZOLE 40 MG/10 ML VIAL IVP SCH (09:49)
--- NOTE | 2023-03-14 09:53 | P.PN ---
Subjective Progress Note Date: 03/14/23 Pt reports ongoing dyspnea. O2 requirement is up to 8L oxygen. Pt stilll c/o dyspnea. No re-expansion of lung Gen: awake, alert HEENT: normocephalic, atraumatic, good hearing acuity, moist mucous membranes Resp: Tachypneic with accessory muscle use, right-sided crackles CVS: good distal perfusion x 4, GI: soft, NTTP, ND : no SPT, no CVAT, bernard catheter not present MSK: bilateral pitting edema, no clubbing Neuro: non-focal, moving all extremities Psych: cooperative, euthymic mood Hospital course: Patient is a 67-year-old female with a PMH of metastatic non-small cell endobronchial tumor (following with Dr. Escobedo, currently on Immunotherapy), chronic hypoxic respiratory failure on 2-3 L nasal cannula oxygen continuously at home, chronic left lower extremity weakness with foot drop, who presented to the emergency room with complaints of shortness of breath. In the emergency room, a left-sided chest tube was placed with subsequent chest CTA showing extensive interstitial thickening of the right lung with left sided pneumothorax and pleural effusion. EKG revealed sinus tachycardia 110 bpm with an incomplete right bundle-branch block as reviewed by me. Laboratory evaluation revealed leukocytosis of 18.9, lactic acid 2.2, sodium 134, BUN 18, troponin 0.37, troponin 0.067 with proBNP 417. Upon arrival in the emergency room, the patient's SpO2 was 86% on 5 L is a cannula oxygen, respiratory rate 36, and pulse 124 BP 180/100 and temp 98.4F. She had pulmonology consultation and had chest tube placed on left side for trial of lung re-expansion. Other considerations were pneumonia and immunotherapy induced pneumonitis, for which patient was started on zosyn and solumedrol. Procalcitonin was low at 0.04, and patient's immunotherapy was held. BNP was not elevated but consideration of volume overload was given due to patients pitting edema. Pt was started on trial of lasix, having rec'd 20mg IV once on 03/12, 03/13. Chest tube was removed on 03/13. Assessment/plan: Acute on chronic hypoxic respiratory failure Left sided hydropneumothorax, Trapped Lung Metastatic NSCLC, with endobronchial tumor, currently on immunotherapy - pulmonology consultation appreciated, discussed with them today about trial of lasix. - CXR today ordered and reviewed by me as follows: right sided infiltrates present and worsening - patient does appear volume overloaded, will start trial of lasix 40mg IV q8h for total of 4 doses to see if there is clinical improvement - continue zosyn: PC, however, is low at 0.04, and can consider de-escalating tomorrow - continue steroids: methylprednisolone 60mg IV q6h in case of pneumonitis, agree with holding immunotherapy - oncology consult is appreciated - morphine PRN for pain control - continue high flow nasal cannula Elevated troponin, suspect type II - monitor on telemetry Chronic left lower extremity weakness DVT prophylaxis: enoxaparin 40mg SQ The patient is admitted with an anticipated greater than 2 midnight stay for e valuation of hypoxic resp failure CODE STATUS: No Code, patient is okay with elective intubation Discussed with: Patient Anticipated discharge place: Home Objective - Vital Signs Vital signs: Vital Signs Temp 97.7 F 03/14/23 00:00 Pulse 101 H 03/14/23 07:00 Resp 22 03/14/23 07:00 BP 156/91 03/14/23 07:00 Pulse Ox 91 L 03/14/23 07:00 FiO2 Intake & Output 03/13/23 03/14/23 03/14/23 18:59 06:59 18:59 Intake Total 180 410 10 Output Total 940 550 200 Balance -760 -140 -190 Weight 51.1 kg Intake: IV 180 160 10 0.9 KVO 80 60 10 Piperacillin-Tazobactam 3 100 100 .375 gm In Sodium Chloride 0.9% 100 ml @ 25 mls/hr IVPB Q8H [facility] Rx#: [id number] Oral 250 Output: Chest Tube Drainage 40 Chest Tube Left Lower 40 Urine 900 550 200 Other: Voiding Method External Catheter External Catheter # Voids 1 - Labs CBC & Chem 7: 03/14/23 05:42 03/14/23 05:42 Labs: Abnormal Lab Results - Last 24 Hours (Table) 03/14/23 03/14/23 Range/Units 05:42 05:42 WBC 20.9 H (3.8-10.6) k/uL Plt Count 685 H (150-450) k/uL Neutrophils # 19.1 H (1.3-7.7) k/uL Lymphocytes # 0.7 L (1.0-4.8) k/uL BUN 20 H (7-17) mg/dL Creatinine 0.43 L (0.52-1.04) mg/dL Microbiology - Last 24 Hours (Table) 03/11/23 18:45 Blood Culture - Preliminary Blood 03/11/23 19:00 Blood Culture - Preliminary Blood
--- NOTE | 2023-03-14 11:15 | XR ---
EXAMINATION TYPE: XR chest 1V portable DATE OF EXAM: 03/14/2023 Comparison: 03/13/2023 Clinical History: 67-year-old female lung carcinoma Findings: There appears to have been interval removal of the patient's left-sided chest tube. Large left-sided pneumothorax remains. The previous pleural effusion is less pronounced and a trace effusion may remai n. Worsening interstitial and patchy opacities throughout the right lung. Redemonstrated air below th e right hemidiaphragm. Heart borderline in size. Impression: 1. Removal of the left-sided chest tube. Ongoing large left pneumothorax. The pleural effusion appear s smaller. A trace effusion remains. 2. Worsening extensive opacities throughout the right lung. 3. Ongoing air below the right hemidiaphragm. Clinically correlate as to any potential clinical signi ficance.
[2023-03-14 16:31] LABS: Magnesium 2.2 mg/dL (1.6-2.3); Potassium 3.3 mmol/L (3.5-5.1)
[2023-03-14] MEDS: HYDROcodone/APAP 5-325MG 1 EACH TAB PO PRN (17:09)
[2023-03-14] MEDS: FUROSEMIDE 10 MG/ML 2 ML VIAL IV SCH (21:06)
[2023-03-14] MEDS: droNABinol 2.5 MG CAP PO SCH (21:48)
[2023-03-15] MEDS: MORPHINE SULFATE 4 MG/ML SYRINGE IVP PRN ×6 (04:36→23:48)
[2023-03-15 04:49] LABS: Basophils % (A) 0 %; Eosinophils % (A) 0 %; HGB 11.7 gm/dL (11.4-16.0); Hypochromasia Slight; Lymphocytes # (A) 0.5 k/uL (1.0-4.8); Lymphocytes % (A) 3 %; MCH 29.1 pg (25.0-35.0); MCHC 33.4 g/dL (31.0-37.0); Mean Platelet Volume 6.6; Monocytes % (A) 6 %; Neutrophils # (A) 16.4 k/uL (1.3-7.7); Neutrophils % (A) 90 %; Platelet Count 701 k/uL (150-450); Poikilocytosis Slight; RBC 4.03 m/uL (3.80-5.40); RDW 14.9 % (11.5-15.5); WBC 18.1 k/uL (3.8-10.6)
[2023-03-15 05:00] LABS: African American GFR (CKD) >90 (>60 ml/min/1.73 sqM); Anion Gap 6 mmol/L; Blood Urea Nitrogen 16 mg/dL (7-17); Calcium 8.6 mg/dL (8.4-10.2); Carbon Dioxide 35 mmol/L (22-30); Chloride 95 mmol/L (98-107); Glucose 78 mg/dL (74-99); Magnesium 2.1 mg/dL (1.6-2.3); Non-African American GFR(CKD) >90 (>60 ml/min/1.73 sqM); Potassium 3.7 mmol/L (3.5-5.1); Sodium 136 mmol/L (137-145)
[2023-03-15] MEDS ORDERED: ZINC OXIDE PASTE (Z-GUARD) 1 APPLIC APPLIC TOPICAL PRN (05:52)
[2023-03-15] MEDS ORDERED: POTASSIUM CHLORIDE ER 20 MEQ TAB.ER PO SCH ×3 (06:00→07:00)
[2023-03-15] MEDS: methylPREDNISolone SOD SUCCI 125 MG/2 ML VIAL IV SCH ×4 (06:38→22:03)
[2023-03-15] MEDS: PIPERACILLIN-TAZOBACTAM 3.375 GM in SODIUM CHLORIDE 0.9% 100 ML IVPB SCH ×3 (06:39→22:03)
[2023-03-15] MEDS: HYDROcodone/APAP 5-325MG 1 EACH TAB PO PRN (06:41)
[2023-03-15] MEDS: ENOXAPARIN 40 MG/0.4 ML SYRINGE SQ SCH (08:22)
[2023-03-15] MEDS: FUROSEMIDE 10 MG/ML 2 ML VIAL IV SCH ×2 (08:22→20:20)
[2023-03-15] MEDS: PANTOPRAZOLE 40 MG/10 ML VIAL IVP SCH (08:22)
[2023-03-15] MEDS: IPRATROPIUM-ALBUTEROL 3 ML NEB INHALATION SCH ×4 (08:24→20:29)
--- NOTE | 2023-03-15 08:29 | XR ---
EXAMINATION TYPE: XR chest 1V portable DATE OF EXAM: 03/15/2023 Comparison: 03/14/2023 Clinical History: 67-year-old female SOB, O2 demands Findings: Heart normal size. Uncoiled large left pneumothorax. Residual trace left pleural effusion. Extensive interstitial opacities throughout the right lung show considerable improvement. Some residual densiti es remain. Air below the right hemidiaphragm shows some improvement suggesting air located within bow el. Impression: 1. Ongoing very large left pneumothorax. Trace left pleural effusion also remains. 2. Considerable interval improvement in extensive opacities throughout the right lung. Mild interstit ial opacities remain. 3. Air below the right hemidiaphragm shows slight improvement. It now resembles air located within annette wel.
--- NOTE | 2023-03-15 12:12 | P.PN ---
Subjective Progress Note Date: 03/15/23 Patient is a 67-year-old female with a PMH of metastatic non-small cell endobronchial tumor (following with Dr. Escobedo, currently on Immunotherapy), chronic hypoxic respiratory failure on 2-3 L nasal cannula oxygen continuously at home, chronic left lower extremity weakness with foot drop, who presents to the emergency room with complaints of shortness of breath. The patient has had multiple recent hospitalizations for similar complaints with most recent admission from 01/15-01/19 showing recurrent large left-sided hydropneumothorax. Patient states her normal SpO2 at home is around 93-94% on 2 L but have worsened to 88% on 5 L earlier today. She reports a mild nonproductive cough which is unchanged. In the emergency room, a left-sided chest tube was placed with subsequent chest CTA showing extensive interstitial thickening of the right lung with left sided pneumothorax and pleural effusion. EKG revealed sinus tachycardia 110 bpm with an incomplete right bundle-branch block. Laboratory evaluation revealed leukocytosis of 18.9, lactic acid 2.2, sodium 134, BUN 18, troponin 0.37, tro ponin 0.067 with proBNP 417. Upon arrival in the emergency room, the patient's SpO2 was 86% on 5 L is a cannula oxygen, respiratory rate 36, and pulse 124 BP 180/100 and temp 98.4F. She was started on Zosyn for empiric treatment of pneumonia and SoluMedrol for possible pneumonitis and admitted to ICU for further management. Troponins were flat at 0.067, 0.065, ACS was ruled out, thought to be demand ischemia. Pulmonology and Oncology was consulted. Immunotherapy held. Pro-kirk was 0.04, RSV/COVID/Flu negative. She was started on Lasix 20 mg IV BID for fluid overload. No re-expansion was seen on serial CXRs, thought to be trapped lung, chest tube was removed on 03/14. 03/15 Patient was seen and examined in the ICU. Currently on 5L HFNC. CBC WBC 18.1, Plt 801. BMP Na 136, Cl 95, bicarb 35, Cr 0.39. CXR done today shows continued L PTX, improved opacities throghout the right lung. General: non toxic, no distress, appears at stated age Derm: warm, dry Head: atraumatic, normocephalic, symmetric Eyes: EOMI, no lid lag, anicteric sclera Cardiovascular: S1S2 tachy, no murmur Lungs: Decreased BS L lung, no rhonchi, no rales , no accessory muscle use Ext: no gross muscle atrophy, + BL LE pitting edema, no contractures Neuro: no focal neuro deficits Psych: Alert, oriented, appropriate affect Based on my assessment of this patient, this patient meets a high complexity level of care. Patient has an acute diagnosis of acute on chronic hypoxic respiratory failure secondary to L sided PTX that poses a threat to life or bodily function. Acute on chronic hypoxic respiratory failure: Possible immunotherapy induced pneumonitis versus disease progression with lymphangitic carcinomatosis, versus infectious process. Pro-kirk negative. RSV/Flu/COVID negative. Continue Zosyn 3.375 g IV Q8H (D4). Continue Solumedrol 60 mg IV Q6H. DuoNeb scheduled and PRN for SOB/wheezing. Left sided hydropneumothorax, Trapped Lung: Status post chest tube 03/12-03/14. Pulmonology on board. SIRS related to above. Metastatic NSCLC, with endobronchial tumor: Immunotherapy on hold. Oncology on board. Elevated troponin: Flat. ACS ruled out. Suspect type II. Obtain Echo. Chronic left lower extremity weakness CODE STATUS: NO CODE but OK with intubation DVT Prophylaxis: Lovenox SQ GI Prophylaxis: Protonix IV Designated medical POA if patient is not able to make medical decisions for themselves: I have reviewed the following oracle manufacturing consultant notes: Pulmonology, Oncology note. I have reviewed the results of the following tests: CBC, BMP. I have ordered the following tests: Echo. I have discussed the care of this patient with the following independent historian: I have independently interpreted the following test below: CXR as above. I have discussed the management of this patient with the following physician: This patient has a high risk of morbidity due to the following reasons: This patient meets a high level of care for the following reasons: Patient requires IV lasix which requires intensive monitoring for renal toxicity. (Lasix 20 mg IV BID. Patient requires IV narcotics which requires intensive monitoring for respiratory depression. (Morphine last received 4:36 AM) Objective - Vital Signs Vital signs: Vital Signs Temp 97.7 F 03/14/23 20:00 Pulse 77 03/15/23 07:00 Resp 17 03/15/23 07:00 BP 146/81 03/15/23 07:00 Pulse Ox 96 03/15/23 07:00 FiO2 8 03/14/23 12:30 Intake & Output 03/14/23 03/15/23 03/15/23 18:59 06:59 18:59 Intake Total 2360 840 420 Output Total 1600 2151 0 Balance 760 -1311 420 Weight 50.1 kg Intake: IV 160 240 20 0.9 KVO 160 240 20 Intake, IV Titration 300 Amount Magnesium Sulfate-D5w Pmx 100 1 gm In Dextrose/Water 1 100ml.bag @ 100 mls/hr IVPB ONCE ONE Rx#: [id number] Piperacillin-Tazobactam 3 200 .375 gm In Sodium Chloride 0.9% 100 ml @ 25 mls/hr IVPB Q8H [facility] Rx#: [id number] Oral 1900 600 400 Output: Urine 1600 2150 0 Stool 1 Other: Voiding Method External Catheter External Catheter # Voids 1 # Bowel Movements 1 - Labs CBC & Chem 7: 03/15/23 03:37 03/15/23 09:35 Labs: Abnormal Lab Results - Last 24 Hours (Table) 03/14/23 03/15/23 03/15/23 Range/Units 16:01 03:37 03:37 WBC 18.1 H (3.8-10.6) k/uL Plt Count 701 H (150-450) k/uL Neutrophils # 16.4 H (1.3-7.7) k/uL Lymphocytes # 0.5 L (1.0-4.8) k/uL Sodium 136 L (137-145) mmol/L Potassium 3.3 L (3.5-5.1) mmol/L Chloride 95 L (98-107) mmol/L Carbon Dioxide 35 H (22-30) mmol/L Creatinine 0.39 L (0.52-1.04) mg/dL Microbiology - Last 24 Hours (Table) 03/11/23 18:45 Blood Culture - Preliminary Blood 03/11/23 19:00 Blood Culture - Preliminary Blood
--- NOTE | 2023-03-15 13:15 | P.PN ---
Subjective Progress Note Date: 03/15/23 Principal diagnosis: Acute on chronic hypoxic respiratory failure, multifactorial I am seeing this patient in consultation today 03/12/2023 after she was brought into the emergency room yesterday evening with acute shortness of breath. Patient is a 67-year-old female with past medical history significant for a relatively new diagnosis of advanced lung cancer with metastasis to the lung and brain. Patient originally presented back in December, she was short of breath and had a left-sided pleural effusion. Following the thoracentesis, the patient had a significant large left-sided hydropneumothorax. Likely representing trapped lung. She did have ThoraVent placed from 12/23-01/01. The lung never fully expanded. Pleural fluid cytology showed rare atypia, but was essentially nondiagnostic. Patient did undergo a bronchoscopy with transbronchial biopsy of the left lower lobe during this admission, and it did show invasive pulmonary adenocarcinoma. Brain MRI did show multiple ring-enhancing lesions concerning for intracranial metastasis. Patient has become established with an oncologist, David West. Currently on Gilotrif. This was recently started. She has reportedly received 11 doses. Patient returned to the emergency room yesterday evening complaining of progressively worsening shortness of breath starting over the weekend. She normally wears 3 L/m nasal cannula, and this was increased to 5 L because of shortness of breath and low oxygen levels. Patient states that her shortness of breath is even worse on exertion. Denies any change in her chronic cough, hemoptysis, fever, chills, chest pain. She has had reduced appetite and hasn't been eating the last couple days. Admits adequate fluid intake. Chest x-ray on arrival redemonstrated the patient's left-sided hydropneumothorax. There is also worsening airspace disease throughout the right lung. Dr. Guzman did come in to place a left-sided chest tube. A follow up chest CTA done on arrival did not show any pulmonary embolism. It did show a persistent left-sided hydropneumothorax. There is adequate placement of a left-sided chest tube. The right hemithorax showed extensive interstitial thickening throughout the right upper mid and lower lung zones with associated scattered consolidative opacities throughout the right Lung parenchyma. Could represent immunotherapy induced pneumonitis, disease progression with lymphangitic carcinomatosis, infectious process, among other things. CBC on arrival showed some leukocytosis with a WBC count 18.9, hemoglobin 12.5, hematocrit 38.5, platelets 694. BMP shows sodium 134, potassium 4.1, chloride 98, serum bicarb 25, BUN 18, creatinine 0.37, glucose 104. No IV maintenance fluids infusing. Lactic acid level II.2. Troponins mildly elevated at 0.067. NT proBNP 417. Negative for influenza, RSV, COVID-19. Patient was empirically started on Zosyn. Also started on high- dose steroids. Patient is currently sitting up in bed, on 5 L/m nasal cannula, she is mildly dyspneic at rest. Heart rate appears sinus tachycardia on bedside monitor. Blood pressure is stable, and is actually slightly hypertensive. She reports some left sided chest pain at the chest tube insertion site. There is a left-sided chest tube connected to an At[facility] and suction -20 cm H2O. There is an intermittent air leak. There is a total of [address] dark brown CT output. Patient's current prognosis is poor related to above-mentioned comorbidities. She wishes to be a DO NOT RESUSCITATE/DO NOT INTUBATE. Daughter is at bedside and is in agreement. She had also been a DO NOT RESUSCITATE/DO NOT INTUBATE on her prior admission. We will continue to monitor the patient in the intensive care unit On today's evaluation of 03/13/2023, the patient is being seen for a follow-up. As mentioned, the patient had a left-sided chest tube inserted. Nevertheless, the left lung is essentially trapped and there is no reexpansion of the left lung. Total amount of fluid output from the left side was in order of 200 mL. Repeat chest x-ray from today is still showing a trapped lung with a left-sided high flow thorax. Chest tube is in a good location. There is still persistent infiltration of the right lung which is somewhat improved compared to yesterday. There is also prominent air below the right hemidiaphragm. Unable to distinguish if this is a thin supposed colonic air versus fully intraperitoneal air. The x-ray of the abdomen showed the same. However, clinically, the patient has no nausea or emesis or abdominal pain. She is tolerating her diet. Abdominal exam is extremely soft of this point in time. Her labs are all adequate. The white cycles of 19.7 with a hemoglobin of 11 sodiums of 139, potassium is at 4 with a BUN of 25 and a creatinine of 0.4. Lactic acid level is down to 1.7. The patient remains on IV Zosyn. The patient remains on IV Solu-Medrol. The patient was taking Afatinib , this was placed on hold. Ventilation of 03/14/2023, I'm seeing the patient for a follow-up. As mentioned, the left lung is completely trapped. Attempted a left-sided chest tube with no success. There was no reexpansion of the left lung. The chest tube was removed accordingly. She feels slightly more comfortable following the chest tube removal. Currently 78 L of oxygen by nasal cannula. Chest x-ray findings of essentially unchanged. There is a hazy infiltrate occupying the right lung in addition to no other lesions consistent with metastatic disease. The patient may have an underlying drug induced pneumonitis. The patient on IV Solu-Medrol. The patient is also covered with antibiotics with she is currently on Lasix. The viral screen came back negative. Her pro calcitonin level was also low. Her white cell count of 20.9. Hemoglobin is 11, BUN is at 20 with a creatinine of 0.4 and a sodium level is at 137. Her lactic acid level is down to 1.7. The patient is currently on 8 L of oxygen by nasal cannula. His tolerating her diet. No nausea or emesis. No other new complaints otherwise for now. Patient was reevaluated today on 03/15/2023, patient is still in ICU, continues to have completely trapped left lung, chest tube has been removed mostly because it was not beneficial and did not lead to expansion of the left lung. Patient has significant infiltrates involving the right lung, could be related to pneumonitis or metastatic lung cancer/lymphangitic carcinomatosis. Patient is now on antibiotics is also on steroids, if no improvement noted, I would seriously consider bronchoscopy and bronchoalveolar lavage of the right lung, and try to diagnose or rule out lymphangitic carcinomatosis. Patient does have leukocytosis with WBC of 18.1 hemoglobin 11.7. Basic metabolic profile is norm al bicarb is 35 renal profile is normal. Blood cultures have been negative, no sputum cultures have been sent Objective - Vital Signs Vital signs: Vital Signs Temp 97.8 F 03/15/23 08:00 Pulse 113 H 03/15/23 09:00 Resp 44 H 03/15/23 09:00 BP 138/79 03/15/23 09:00 Pulse Ox 93 L 03/15/23 09:00 FiO2 8 03/14/23 12:30 Intake & Output 03/14/23 03/15/23 03/15/23 18:59 06:59 18:59 Intake Total 2360 840 520 Output Total 1600 2151 0 Balance 760 -1311 520 Weight 50.1 kg Intake: IV 160 240 20 0.9 KVO 160 240 20 Intake, IV Titration 300 100 Amount Magnesium Sulfate-D5w Pmx 100 1 gm In Dextrose/Water 1 100ml.bag @ 100 mls/hr IVPB ONCE ONE Rx#: [id number] Piperacillin-Tazobactam 3 200 100 .375 gm In Sodium Chloride 0.9% 100 ml @ 25 mls/hr IVPB Q8H [facility] Rx#: [id number] Oral 1900 600 400 Output: Urine 1600 2150 0 Stool 1 Other: Voiding Method External Catheter External Catheter External Catheter # Voids 1 # Bowel Movements 1 - Exam Physical Exam: Revealed a 67-year-old female in no distress, on 4 L nasal cannula with O2 saturation of 93% Head: Atraumatic, normocephalic. HEENT:[Neck is supple.] [No neck masses.] [No thyromegaly.] [No JVD.] Chest: [Diminished breath sounds on the left side, crackles and rhonchi noted on the right side. Cardiac Exam: [Normal S1 and S2, no S3 gallop, no murmur.] Abdomen: [Soft, nontender, no megaly, no rebound, no guarding, normal bowel sounds.] Extremities: [No clubbing, no edema, no cyanosis.] Neurological Exam: [No focal neurologic deficit.] Alert and oriented 3. Psychiatric: Normal mood, affect and normal mental status examination. Skin: No rashes. - Labs CBC & Chem 7: 03/15/23 03:37 03/15/23 09:35 Labs: Abnormal Lab Results - Last 24 Hours (Table) 03/14/23 03/15/23 03/15/23 Range/Units 16:01 03:37 03:37 WBC 18.1 H (3.8-10.6) k/uL Plt Count 701 H (150-450) k/uL Neutrophils # 16.4 H (1.3-7.7) k/uL Lymphocytes # 0.5 L (1.0-4.8) k/uL Sodium 136 L (137-145) mmol/L Potassium 3.3 L (3.5-5.1) mmol/L Chloride 95 L (98-107) mmol/L Carbon Dioxide 35 H (22-30) mmol/L Creatinine 0.39 L (0.52-1.04) mg/dL Microbiology - Last 24 Hours (Table) 03/11/23 18:45 Blood Culture - Preliminary Blood 03/11/23 19:00 Blood Culture - Preliminary Blood Assessment and Plan Assessment: Impression: Acute on chronic hypoxic respiratory failure, multifactorial Left sided hydropneumothorax and wrapped left lung Multiple pulmonary nodules in the right lung, possible lymphangitic carcinomatosis or metastatic lung CVA involving the right lung Possible immunotherapy induced pneumonitis, immunotherapy is presently on hold/gilotrif Metastatic pulmonary adenocarcinoma Chronic hypoxic respiratory failure 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 Protein calorie malnutrition, moderately severe 80 pounds weight loss in 1 year secondary to malignancy Ex-smoker quit smoking in December 2022 Recommendation: Continue present supportive care measures Continue Zosyn Continue steroids Continue pain control management/Dilaudid Consider bronchoscopy and BAL of the right lung if the patient does not demonstrate improvement in the next 24-48 hours Transfer patient out of the ICU to a regular medical floor CODE STATUS/DO NOT RESUSCITATE We'll continue to follow Overall long-term prognosis remains extremely poor and guarded Time with Patient: Less than 30
[2023-03-15 14:24] VITALS: BMI 22.3
--- NOTE | 2023-03-15 14:48 | CA ---
Transthoracic Echo Report Name: Yoko Vazquez Age: 67 Gender: F : 1955 Exam Date: 03/15/2023 12:36 Exam Location: [place] [facility] Ht (in): 59 Wt (lb): 110 Ordering Physician: Juan Rizo MD Attending/Referring Phys: [employer] Etch Operator Anthony Del Rosario Procedure CPT: Indications: Fluid overload, elevated trop Cardiac Hx: Technical Quality: Technically difficult study Contrast 1: Total Dose (mL): Contrast 2: Total Dose (mL): MEASUREMENTS (Male / Female) Normal Values 2D ECHO LV Diastolic Diameter PLAX 4.1 cm 4.2 - 5.9 / 3.9 - 5.3 cm LV Systolic Diameter PLAX 2.1 cm IVS Diastolic Thickness 0.9 cm 0.6 - 1.0 / 0.6 - 0.9 cm LVPW Diastolic Thickness 0.8 cm 0.6 - 1.0 / 0.6 - 0.9 cm LV Relative Wall Thickness 0.4 RV Internal Dim ED PLAX 2.6 cm LVOT Diameter 1.5 cm Aortic Root Diameter 2.8 cm LA Systolic Diameter LX 2.0 cm 3.0 - 4.0 / 2.7 - 3.8 cm LV Diastolic Volume MOD 4C 56.1 cm??? LV Systolic Volume MOD 4C 35.8 cm??? LV Ejection Fraction MOD 4C 36.1 % LV Cardiac Index MOD 4C 1204.0 cm???/min???m??? LV Diastolic Length 4C 6.8 cm LV Systolic Length 4C 6.6 cm DOPPLER AV Peak Velocity 142.4 cm/s AV Peak Gradient 8.1 mmHg LVOT Peak Velocity 99.0 cm/s LVOT Peak Gradient 3.9 mmHg LVOT Velocity Time Integral 20.7 cm LVOT Stroke Volume 36.9 cm??? LVOT Stroke Volume Index 25.8 ml/m??? LVOT Cardiac Index 2192.0 cm???/min???m??? AV Area Cont Eq pk 1.2 cm??? MV Peak Velocity 104.7 cm/s MV Peak Gradient 4.4 mmHg MV Mean Velocity 59.5 cm/s MV Mean Gradient 1.7 mmHg MV Velocity Time Integral 15.5 cm MR Peak Velocity 282.3 cm/s MR Peak Gradient 31.9 mmHg Mitral E Point Velocity 87.1 cm/s Mitral A Point Velocity 49.2 cm/s Mitral E to A Ratio 1.8 MV Deceleration Time 194.5 ms MV E' Velocity 4.0 cm/s Mitral E to MV E' Ratio 22.0 TR Peak Velocity 258.4 cm/s TR Peak Gradient 26.7 mmHg Right Ventricular Systolic Press 31.7 mmHg PV Peak Velocity 86.5 cm/s PV Peak Gradient 3.0 mmHg FINDINGS Left Ventricle Normal LV size and wall thickness. Left ventricular ejection fraction is estimated at 50-55 %. Right Ventricle Normal right ventricular size. RVSP=32mmHg. Right Atrium Normal right atrial size. Left Atrium Normal left atrial size. Mitral Valve Structurally normal mitral valve. Mild MR. Aortic Valve Trileaflet aortic valve. Tricuspid Valve Structurally normal tricuspid valve. Mild MR. Pulmonic Valve Pulmonic valve not well visualized. Pericardium Normal pericardium. Aorta Normal size aortic root. CONCLUSIONS Off axis apical views. Technically difficult study Normal LV size and systolic function. LVEF estimated at 55% No obvious resting regional wall motion abnormality RVSP estimated at 32 mmHg Mild mitral regurgitation Normal size IVC which is collapsible Previewed by: Dr Crow Hawley (Electronically Signed) Final Date: 15 March 2023 14:47
[2023-03-15] MEDS: LOPERAMIDE 2 MG CAP PO PRN (16:23)
--- NOTE | 2023-03-15 20:02 | P.PN ---
Subjective Progress Note Date: 03/15/23 Principal diagnosis: SOB, dyspnea, EGFR mutated NSCLC In f/u today pt reporting O2 needs decreasing, she is SOB if she gets talking too fast but, she is wanting to get up and move around. No new symptoms to report. Objective - Vital Signs Vital signs: Vital Signs Temp 97.8 F 03/15/23 08:00 Pulse 113 H 03/15/23 09:00 Resp 44 H 03/15/23 09:00 BP 138/79 03/15/23 09:00 Pulse Ox 93 L 03/15/23 09:00 FiO2 8 03/14/23 12:30 Intake & Output 03/14/23 03/15/23 03/15/23 18:59 06:59 18:59 Intake Total 2360 840 520 Output Total 1600 2151 0 Balance 760 -1311 520 Weight 50.1 kg Intake: IV 160 240 20 0.9 KVO 160 240 20 Intake, IV Titration 300 100 Amount Magnesium Sulfate-D5w Pmx 100 1 gm In Dextrose/Water 1 100ml.bag @ 100 mls/hr IVPB ONCE ONE Rx#: [id number] Piperacillin-Tazobactam 3 200 100 .375 gm In Sodium Chloride 0.9% 100 ml @ 25 mls/hr IVPB Q8H [facility] Rx#: [id number] Oral 1900 600 400 Output: Urine 1600 2150 0 Stool 1 Other: Voiding Method External Catheter External Catheter External Catheter # Voids 1 # Bowel Movements 1 - Constitutional General appearance: Present: average body habitus, cooperative, no acute distress - EENT EENT Comment(s): dry mucus membranes Eyes: Present: anicteric sclerae, EOMI ENT: Present: hearing grossly normal - Respiratory Respiratory: right: rales, bilateral: CTA - Cardiovascular Rhythm: regular Heart sounds: normal: S1, S2 Abnormal Heart Sounds: Absent: systolic murmur, diastolic murmur, rub, S3 Gallop, S4 Gallop, click, other - Peripheral edema leg Peripheral Edema: bilateral: None - Gastrointestinal General gastrointestinal: Present: normal bowel sounds, soft - Neurologic Neurologic: Present: CNII-XII intact - Musculoskeletal Musculoskeletal: Present: generalized weakness, strength equal bilaterally - Psychiatric Psychiatric: Present: A&O x's 3, appropriate affect, intact judgment & insight - Labs CBC & Chem 7: 03/15/23 03:37 03/15/23 09:35 Labs: Abnormal Lab Results - Last 24 Hours (Table) 03/14/23 03/15/23 03/15/23 Range/Units 16:01 03:37 03:37 WBC 18.1 H (3.8-10.6) k/uL Plt Count 701 H (150-450) k/uL Neutrophils # 16.4 H (1.3-7.7) k/uL Lymphocytes # 0.5 L (1.0-4.8) k/uL Sodium 136 L (137-145) mmol/L Potassium 3.3 L (3.5-5.1) mmol/L Chloride 95 L (98-107) mmol/L Carbon Dioxide 35 H (22-30) mmol/L Creatinine 0.39 L (0.52-1.04) mg/dL Microbiology - Last 24 Hours (Table) 03/11/23 18:45 Blood Culture - Preliminary Blood 03/11/23 19:00 Blood Culture - Preliminary Blood - Imaging and Cardiology Chest x-ray: report reviewed Assessment and Plan (1) Non-small cell lung cancer Current Visit: Yes Status: Acute Priority: High Code(s): C34.90 - MALIGNANT NEOPLASM OF UNSP PART OF UNSP BRONCHUS OR LUNG SNOMED Code(s): 420697763 (2) Hydropneumothorax Current Visit: Yes Status: Acute Priority: High Code(s): J94.8 - OTHER SPECIFIED PLEURAL CONDITIONS SNOMED Code(s): 87171561 (3) Pleural effusion, left Current Visit: Yes Status: Acute Priority: High Code(s): J90 - PLEURAL EFFUSION, NOT ELSEWHERE CLASSIFIED SNOMED Code(s): 62503977 Plan: Metastatic non-small cell lung cancer -S/P 2 whole brain radiation treatments, stopped due to intolerance. -Started on afatinib for [id number] mutation 03/01. Tolerating well. Concern that pt presenting symptoms are pneumonitis, side effect of drug. Monitoring pt reps status to see how she improves. She cont on steroids and abx at this time. -Holding afatinib right now. She will be assessed in the clinic prior to resuming. May be able to rechallenge or decrease dose and see if tolerated if pt recovers well. Hydropneumothorax -S/P chest tube placement and removal. Pt is on 4L NC when seen today -CXR today reports large ongoing lt pneumothorax, considerable interval improvement in extensive opacities throughout right lung, mild interstitial opacities remain. Attests: I have seen and examined pt, performed H&P, developed impression and plan of care. Discussed with dictator. Agree with documentation, dictated as a scribe.
[2023-03-15] MEDS: droNABinol 2.5 MG CAP PO SCH (22:03)
[2023-03-15] MEDS ORDERED: Potassium Replacement Protocol 1 EACH MISC MISCELLANE PRN (22:59)
[2023-03-15] MEDS: POTASSIUM CHLORIDE ER 20 MEQ TAB.ER PO SCH (23:42)
[2023-03-16] MEDS: POTASSIUM CHLORIDE ER 20 MEQ TAB.ER PO SCH (00:58)
[2023-03-16] MEDS: methylPREDNISolone SOD SUCCI 125 MG/2 ML VIAL IV SCH ×4 (05:21→23:04)
[2023-03-16] MEDS: MORPHINE SULFATE 4 MG/ML SYRINGE IVP PRN ×5 (05:21→20:49)
[2023-03-16] MEDS: PIPERACILLIN-TAZOBACTAM 3.375 GM in SODIUM CHLORIDE 0.9% 100 ML IVPB SCH ×3 (05:35→20:48)
[2023-03-16 07:15] LABS: Basophils % (A) 0 %; Eosinophils % (A) 0 %; HCT 36.1 % (34.0-46.0); Hypochromasia Slight; Lymphocytes # (A) 0.7 k/uL (1.0-4.8); Lymphocytes % (A) 3 %; MCH 29.2 pg (25.0-35.0); MCHC 33.1 g/dL (31.0-37.0); MCV 88.1 fL (80.0-100.0); Mean Platelet Volume 7.1; Monocytes % (A) 5 %; Neutrophils # (A) 18.1 k/uL (1.3-7.7); Neutrophils % (A) 90 %; Platelet Count 739 k/uL (150-450); Poikilocytosis Slight; RDW 14.8 % (11.5-15.5); WBC 20.1 k/uL (3.8-10.6)
[2023-03-16 07:24] LABS: African American GFR (CKD) >90 (>60 ml/min/1.73 sqM); Anion Gap 8 mmol/L; Blood Urea Nitrogen 17 mg/dL (7-17); Calcium 8.8 mg/dL (8.4-10.2); Carbon Dioxide 32 mmol/L (22-30); Chloride 95 mmol/L (98-107); Glucose 89 mg/dL (74-99); Non-African American GFR(CKD) >90 (>60 ml/min/1.73 sqM); Potassium 4.3 mmol/L (3.5-5.1); Sodium 135 mmol/L (137-145)
[2023-03-16] MEDS: IPRATROPIUM-ALBUTEROL 3 ML NEB INHALATION SCH ×4 (07:31→19:45)
[2023-03-16] MEDS: FUROSEMIDE 10 MG/ML 2 ML VIAL IV SCH ×2 (07:56→20:48)
[2023-03-16] MEDS: HYDROcodone/APAP 5-325MG 1 EACH TAB PO PRN ×3 (07:56→23:20)
[2023-03-16] MEDS: ENOXAPARIN 40 MG/0.4 ML SYRINGE SQ SCH (07:57)
[2023-03-16] MEDS: PANTOPRAZOLE 40 MG/10 ML VIAL IVP SCH (07:57)
--- NOTE | 2023-03-16 08:50 | XR ---
EXAMINATION TYPE: XR chest 1V portable DATE OF EXAM: 03/16/2023 COMPARISON: 03/15/2023, 03/13/2023 INDICATION: Left-sided pneumothorax short of breath TECHNIQUE: Single frontal view of the chest is obtained. FINDINGS: The heart size is normal. The pulmonary vasculature is normal. There is large collapse of the left lung with large pneumothorax. This is stable in appearance from m tiple prior examinations. There is diffuse increased lung markings in the right lung. This is worsening. Consider pulmonary wyatt ma. Pneumonia and atypical pneumonia should be considered. IMPRESSION: 1. Stable large left pneumothorax. 2. Worsening diffuse infiltrate throughout the right lung. Correlate for pulmonary edema and pneumoni a
[2023-03-16] MEDS: ALPRAZolam 0.25 MG TAB PO PRN (12:56)
--- NOTE | 2023-03-16 13:18 | P.PN ---
Subjective Progress Note Date: 03/16/23 Patient is a 67-year-old female with a PMH of metastatic non-small cell endobronchial tumor (following with Dr. Escobedo, currently on Immunotherapy), chronic hypoxic respiratory failure on 2-3 L nasal cannula oxygen continuously at home, chronic left lower extremity weakness with foot drop, who presents to the emergency room with complaints of shortness of breath. The patient has had multiple recent hospitalizations for similar complaints with most recent admission from 01/15-01/19 showing recurrent large left-sided hydropneumothorax. Patient states her normal SpO2 at home is around 93-94% on 2 L but have worsened to 88% on 5 L earlier today. She reports a mild nonproductive cough which is unchanged. In the emergency room, a left-sided chest tube was placed with subsequent chest CTA showing extensive interstitial thickening of the right lung with left sided pneumothorax and pleural effusion. EKG revealed sinus tachycardia 110 bpm with an incomplete right bundle-branch block. Laboratory evaluation revealed leukocytosis of 18.9, lactic acid 2.2, sodium 134, BUN 18, troponin 0.37, tro ponin 0.067 with proBNP 417. Upon arrival in the emergency room, the patient's SpO2 was 86% on 5 L is a cannula oxygen, respiratory rate 36, and pulse 124 BP 180/100 and temp 98.4F. She was started on Zosyn for empiric treatment of pneumonia and SoluMedrol for possible pneumonitis and admitted to ICU for further management. Troponins were flat at 0.067, 0.065, ACS was ruled out, thought to be demand ischemia. Pulmonology and Oncology was consulted. Immunotherapy held. Pro-kirk was 0.04, RSV/COVID/Flu negative. She was started on Lasix 20 mg IV BID for fluid overload. No re-expansion was seen on serial CXRs, thought to be trapped lung, chest tube was removed on 03/14. 03/15 Patient was seen and examined in the ICU. Currently on 5L HFNC. CBC WBC 18.1, Plt 801. BMP Na 136, Cl 95, bicarb 35, Cr 0.39. CXR done today shows continued L PTX, improved opacities throghout the right lung. 03/16 Patient was seen and examined. She reports improved breathing. Currently on 4L HFNC. CXR done today shows worsening consolidation/edema in the R lung with persistent L PTX. CBC WBC 20.1 Plt 739. BMP Na 135, Cl 95, bicarb 32, Cr 0.34. Echo shows EF 55% with no wall motion abnormalities. Negative 500 cc fluid balance over the past 24H. General: non toxic, no distress, appears at stated age Derm: warm, dry Head: atraumatic, normocephalic, symmetric Eyes: EOMI, no lid lag, anicteric sclera Cardiovascular: S1S2 tachy, no murmur Lungs: Decreased BS L lung, no rhonchi, no rales , no accessory muscle use Ext: no gross muscle atrophy, + BL LE pitting edema, no contractures Neuro: no focal neuro deficits Psych: Alert, oriented, appropriate affect Based on my assessment of this patient, this patient meets a high complexity level of care. Patient has an acute diagnosis of acute on chronic hypoxic respiratory failure secondary to L sided PTX that poses a threat to life or bodily function. Acute on chronic hypoxic respiratory failure: Possible immunotherapy induced pneumonitis versus disease progression with lymphangitic carcinomatosis, versus infectious process. Pro-kirk negative. RSV/Flu/COVID negative. Continue Zosyn 3.375 g IV Q8H (D4). Continue Solumedrol 60 mg IV Q6H. DuoNeb scheduled and PRN for SOB/wheezing. Left sided hydropneumothorax, Trapped Lung: Status post chest tube 03/12-03/14. Pulmonology on board. SIRS related to above. Metastatic NSCLC, with endobronchial tumor: Immunotherapy on hold. Oncology on board. Elevated troponin: Flat. ACS ruled out. Suspect type II. Obtain Echo. Chronic left lower extremity weakness CODE STATUS: NO CODE but OK with intubation DVT Prophylaxis: Lovenox SQ GI Prophylaxis: Protonix IV Designated medical POA if patient is not able to make medical decisions for themselves: I have reviewed the following wardrobe consultant notes: Pulmonology, Oncology note. I have reviewed the results of the following tests: CBC, BMP, Echo. I have ordered the following tests: CBC, BMP. I have discussed the care of this patient with the following independent historian: I have independently interpreted the following test below: CXR as above. I have discussed the management of this patient with the following physician: This patient has a high risk of morbidity due to the following reasons: This patient meets a high level of care for the following reasons: Patient requires IV lasix which requires intensive monitoring for renal toxicity. (Lasix 20 mg IV BID) Patient requires IV narcotics which requires intensive monitoring for respiratory depression. (Morphine last received 12:47 PM) Objective - Vital Signs Vital signs: Vital Signs Temp 97.3 F L 03/16/23 07:38 Pulse 96 03/16/23 11:50 Resp 18 03/16/23 07:38 BP 177/92 03/16/23 07:38 Pulse Ox 95 03/16/23 07:38 FiO2 8 03/14/23 12:30 Intake & Output 03/15/23 03/16/23 03/16/23 18:59 06:59 18:59 Intake Total 620 Output Total 450 300 Balance 170 -300 Weight 50.1 kg Intake: IV 120 0.9 KVO 20 Piperacillin-Tazobactam 3 100 .375 gm In Sodium Chloride 0.9% 100 ml @ 25 mls/hr IVPB Q8H [facility] Rx#: [id number] Intake, IV Titration 100 Amount Piperacillin-Tazobactam 3 100 .375 gm In Sodium Chloride 0.9% 100 ml @ 25 mls/hr IVPB Q8H [facility] Rx#: [id number] Oral 400 Output: Urine 450 300 Other: Voiding Method External Catheter External Catheter External Catheter # Bowel Movements 1 - Labs CBC & Chem 7: 03/16/23 05:56 03/16/23 05:56 Labs: Abnormal Lab Results - Last 24 Hours (Table) 03/15/23 03/16/23 03/16/23 Range/Units 22:20 05:56 05:56 WBC 20.1 H (3.8-10.6) k/uL Plt Count 739 H (150-450) k/uL Neutrophils # 18.1 H (1.3-7.7) k/uL Lymphocytes # 0.7 L (1.0-4.8) k/uL Sodium 135 L (137-145) mmol/L Potassium 3.4 L (3.5-5.1) mmol/L Chloride 95 L (98-107) mmol/L Carbon Dioxide 32 H (22-30) mmol/L Creatinine 0.34 L (0.52-1.04) mg/dL
--- NOTE | 2023-03-16 13:26 | P.PN ---
Subjective Progress Note Date: 03/16/23 I am seeing this patient in consultation today 03/12/2023 after she was brought into the emergency room yesterday evening with acute shortness of breath. Patient is a 67-year-old female with past medical history significant for a relatively new diagnosis of advanced lung cancer with metastasis to the lung and brain. Patient originally presented back in December, she was short of breath and had a left-sided pleural effusion. Following the thoracentesis, the patient had a significant large left-sided hydropneumothorax. Likely representing trapped lung. She did have ThoraVent placed from 12/23-01/01. The lung never fully expanded. Pleural fluid cytology showed rare atypia, but was essentially nondiagnostic. Patient did undergo a bronchoscopy with transbronchial biopsy of the left lower lobe during this admission, and it did show invasive pulmonary adenocarcinoma. Brain MRI did show multiple ring-enhancing lesions concerning for intracranial metastasis. Patient has become established with an oncologist, David West. Currently on Gilotrif. This was recently started. She has reportedly received 11 doses. Patient returned to the emergency room yesterday evening complaining of progressively worsening shortness of breath starting over the weekend. She normally wears 3 L/m nasal cannula, and this was increased to 5 L because of shortness of breath and low oxygen levels. Patient states that her shortness of breath is even worse on exertion. Denies any change in her chronic cough, hemoptysis, fever, chills, chest pain. She has had reduced appetite and hasn't been eating the last couple days. Admits adequate fluid intake. Chest x-ray on arrival redemonstrated the patient's left-sided hydropneumothorax. There is also worsening airspace disease throughout the right lung. Dr. Guzman did come in to place a left-sided chest tube. A follow up chest CTA done on arrival did not show any pulmonary embolism. It did show a persistent left-sided hydropneumothorax. There is adequate placement of a left-sided chest tube. The right hemithorax showed extensive interstitial thickening throughout the right upper mid and lower lung zones with associated scattered consolidative opacities throughout the right Lung parenchyma. Could represent immunotherapy induced pneumonitis, disease progression with lymphangitic carcinomatosis, infectious process, among other things. CBC on arrival showed some leukocytosis with a WBC count 18.9, hemoglobin 12.5, hematocrit 38.5, platelets 694. BMP shows sodium 134, potassium 4.1, chloride 98, serum bicarb 25, BUN 18, creatinine 0.37, glucose 104. No IV maintenance fluids infusing. Lactic acid level II.2. Troponins mildly elevated at 0.067. NT proBNP 417. Negative for influenza, RSV, COVID-19. Patient was empirically started on Zosyn. Also started on high- dose steroids. Patient is currently sitting up in bed, on 5 L/m nasal cannula, she is mildly dyspneic at rest. Heart rate appears sinus tachycardia on bedside monitor. Blood pressure is stable, and is actually slightly hypertensive. She reports some left sided chest pain at the chest tube insertion site. There is a left-sided chest tube connected to an [facility] and suction -20 cm H2O. There is an intermittent air leak. There is a total of [address] brown CT output. Patient's current prognosis is poor related to above-mentioned comorbidities. She wishes to be a DO NOT RESUSCITATE/DO NOT INTUBATE. Daughter is at bedside and is in agreement. She had also been a DO NOT RESUSCITATE/DO NOT INTUBATE on her prior admission. We will continue to monitor the patient in the intensive care unit On today's evaluation of 03/13/2023, the patient is being seen for a follow-up. As mentioned, the patient had a left-sided chest tube inserted. Nevertheless, the left lung is essentially trapped and there is no reexpansion of the left lung. Total amount of fluid output from the left side was in order of 200 mL. Repeat chest x-ray from today is still showing a trapped lung with a left-sided high flow thorax. Chest tube is in a good location. There is still persistent infiltration of the right lung which is somewhat improved compared to yesterday. There is also prominent air below the right hemidiaphragm. Unable to distinguish if this is a thin supposed colonic air versus fully intraperitoneal air. The x-ray of the abdomen showed the same. However, clinically, the patient has no nausea or emesis or abdominal pain. She is tolerating her diet. Abdominal exam is extremely soft of this point in time. Her labs are all adequate. The white cycles of 19.7 with a hemoglobin of 11 sodiums of 139, potassium is at 4 with a BUN of 25 and a creatinine of 0.4. Lactic acid level is down to 1.7. The patient remains on IV Zosyn. The patient remains on IV Solu-Medrol. The patient was taking Afatinib , this was placed on hold. Ventilation of 03/14/2023, I'm seeing the patient for a follow-up. As mentioned, the left lung is completely trapped. Attempted a left-sided chest tube with no success. There was no reexpansion of the left lung. The chest tube was removed accordingly. She feels slightly more comfortable following the chest tube removal. Currently 78 L of oxygen by nasal cannula. Chest x-ray findings of essentially unchanged. There is a hazy infiltrate occupying the right lung in addition to no other lesions consistent with metastatic disease. The patient may have an underlying drug induced pneumonitis. The patient on IV Solu-Medrol. The patient is also covered with antibiotics with she is currently on Lasix. The viral screen came back negative. Her pro calcitonin level was also low. Her white cell count of 20.9. Hemoglobin is 11, BUN is at 20 with a creatinine of 0.4 and a sodium level is at 137. Her lactic acid level is down to 1.7. The patient is currently on 8 L of oxygen by nasal cannula. His t olerating her diet. No nausea or emesis. No other new complaints otherwise for now. Patient was reevaluated today on 03/15/2023, patient is still in ICU, continues to have completely trapped left lung, chest tube has been removed mostly because it was not beneficial and did not lead to expansion of the left lung. Patient has significant infiltrates involving the right lung, could be related to pneumonitis or metastatic lung cancer/lymphangitic carcinomatosis. Patient is now on antibiotics is also on steroids, if no improvement noted, I would seriously consider bronchoscopy and bronchoalveolar lavage of the right lung, and try to diagnose or rule out lymphangitic carcinomatosis. Patient does have leukocytosis with WBC of 18.1 hemoglobin 11.7. Basic metabolic profile is normal bicarb is 35 renal profile is normal. Blood cultures have been negative, no sputum cultures have been sent The patient is seen today 03/16/2023 in follow-up on the regular medical floor. She is awake and alert in no acute distress. She is feeling better today compared to yesterday. She is maintaining O2 saturations in the mid 90s on 4 L/m per nasal cannula. She's afebrile. Chest x-ray continues to show a large left pneumothorax which is stable compared to previous. There is some worsening diffuse infiltrate throughout the right lung. Suspicious for pulmonary edema and pneumonia. Blood cultures revealed no growth. White count 20.1. Hemoglobin 12.0. Platelets 739. Sodium 135. Potassium 4.3. Bicarb 32. UN 17. Creatinine 0.34. Glucose 89. Echocardiogram revealed preserved left ve ntricular systolic function with ejection fraction of 55%. She remains on DuoNeb inhalations, Solu-Medrol. Antibiotics in form of Zosyn. She is continued on IV diuretics. Lovenox for DVT prophylaxis. Currently in a negative balance. Objective - Vital Signs Vital signs: Vital Signs Temp 97.3 F L 03/16/23 07:38 Pulse 96 03/16/23 11:50 Resp 18 03/16/23 07:38 BP 177/92 03/16/23 07:38 Pulse Ox 95 03/16/23 07:38 FiO2 8 03/14/23 12:30 Intake & Output 03/15/23 03/16/23 03/16/23 18:59 06:59 18:59 Intake Total 620 Output Total 450 300 Balance 170 -300 Weight 50.1 kg Intake: IV 120 0.9 KVO 20 Piperacillin-Tazobactam 3 100 .375 gm In Sodium Chloride 0.9% 100 ml @ 25 mls/hr IVPB Q8H [facility] Rx#: [id number] Intake, IV Titration 100 Amount Piperacillin-Tazobactam 3 100 .375 gm In Sodium Chloride 0.9% 100 ml @ 25 mls/hr IVPB Q8H [facility] Rx#: [id number] Oral 400 Output: Urine 450 300 Other: Voiding Method External Catheter External Catheter External Catheter # Bowel Movements 1 - Exam GENERAL EXAM: Alert, healthy, 67-year-old female, appears older than stated age, on 4 L nasal cannula, fairly comfortable in no apparent distress. HEAD: Normocephalic. EYES: Normal reaction of pupils, equal size. NOSE: Clear with pink turbinates. THROAT: No erythema or exudates. NECK: No masses, no JVD. CHEST: No chest wall deformity. LUNGS: Diminished breath sounds on the left, few scattered rhonchi on the right. CVS: S1 and S2 normal with no audible murmur, regular rhythm. ABDOMEN: No hepatosplenomegaly, normal bowel sounds, no guarding or rigidity. SPINE: No scoliosis or deformity SKIN: No rashes CENTRAL NERVOUS SYSTEM: No focal deficits, tone is normal in all 4 extremities. EXTREMITIES: There is no peripheral edema. No clubbing, no cyanosis. Peripheral pulses are intact. - Labs CBC & Chem 7: 03/16/23 05:56 03/16/23 05:56 Labs: Abnormal Lab Results - Last 24 Hours (Table) 03/15/23 03/16/23 03/16/23 Range/Units 22:20 05:56 05:56 WBC 20.1 H (3.8-10.6) k/uL Plt Count 739 H (150-450) k/uL Neutrophils # 18.1 H (1.3-7.7) k/uL Lymphocytes # 0.7 L (1.0-4.8) k/uL Sodium 135 L (137-145) mmol/L Potassium 3.4 L (3.5-5.1) mmol/L Chloride 95 L (98-107) mmol/L Carbon Dioxide 32 H (22-30) mmol/L Creatinine 0.34 L (0.52-1.04) mg/dL Assessment and Plan Assessment: Acute on chronic hypoxic respiratory failure, multifactorial and secondary to: Left sided hydropneumothorax and trapped left lung Multiple pulmonary nodules in the right lung, possible lymphangitic carcinomatosis or metastatic lung CVA involving the right lung Possible immunotherapy induced pneumonitis, 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 Protein calorie malnutrition, moderately severe 80 pounds weight loss in 1 year secondary to malignancy Ex-smoker quit smoking in December 2022 Plan: The patient was seen and evaluated Chest x-ray, echocardiogram, labs and medications reviewed The patient is showing improvement in the past 24 hours No plans for bronchoscopy of the right lung at this point Continue bronchodilators, steroids Continue Zosyn Continue diuretics Titrate down the FiO2 as tolerated DO NOT RESUSCITATE/DO NOT INTUBATE CODE STATUS Overall prognosis remains poor We will continue to follow This patient was seen independently by the nurse practitioner who performed the medical decision making I have personally seen and examined the patient, performed the documentation and the assessment and plan as written. Number of minutes spent on the visit: 24.
[2023-03-16] MEDS: droNABinol 2.5 MG CAP PO SCH (20:48)
[2023-03-17] MEDS: MORPHINE SULFATE 4 MG/ML SYRINGE IVP PRN ×5 (01:23→23:47)
[2023-03-17] MEDS: methylPREDNISolone SOD SUCCI 125 MG/2 ML VIAL IV SCH ×4 (05:08→23:47)
[2023-03-17] MEDS: HYDROcodone/APAP 5-325MG 1 EACH TAB PO PRN ×2 (05:09→12:12)
[2023-03-17] MEDS: PIPERACILLIN-TAZOBACTAM 3.375 GM in SODIUM CHLORIDE 0.9% 100 ML IVPB SCH ×3 (05:09→21:09)
--- NOTE | 2023-03-17 06:59 | XR ---
EXAMINATION TYPE: XR chest 1V portable DATE OF EXAM: 03/17/2023 COMPARISON: 03/16/2023 INDICATION: Pneumothorax, pneumonia TECHNIQUE: Single frontal view of the chest is obtained. FINDINGS: The heart size is normal. The pulmonary vasculature is normal. There is collapse of the left lung. The large pneumothorax is stable over multiple exams. Diffuse mild increased uptake is seen in the right lung. This is slightly improved over the interval. IMPRESSION: 1. Slight improvement of the diffuse infiltrate to the right lung. Improving pulmonary edema or pneum onia could be considered. 2. Stable large left lung thorax
[2023-03-17 07:21] LABS: HCT 39.6 % (34.0-46.0); HGB 12.8 gm/dL (11.4-16.0); Hypochromasia Slight; MCH 28.6 pg (25.0-35.0); MCHC 32.3 g/dL (31.0-37.0); MCV 88.8 fL (80.0-100.0); Mean Platelet Volume 7.5; Platelet Count 801 k/uL (150-450); Poikilocytosis Slight; RBC 4.46 m/uL (3.80-5.40); RDW 15.2 % (11.5-15.5)
[2023-03-17 07:25] LABS: African American GFR (CKD) >90 (>60 ml/min/1.73 sqM); Anion Gap 9 mmol/L; Blood Urea Nitrogen 24 mg/dL (7-17); Calcium 9.5 mg/dL (8.4-10.2); Carbon Dioxide 33 mmol/L (22-30); Chloride 96 mmol/L (98-107); Glucose 102 mg/dL (74-99); Non-African American GFR(CKD) >90 (>60 ml/min/1.73 sqM); Potassium 4.1 mmol/L (3.5-5.1); Sodium 138 mmol/L (137-145)
[2023-03-17] MEDS: IPRATROPIUM-ALBUTEROL 3 ML NEB INHALATION SCH ×4 (07:41→19:56)
[2023-03-17] MEDS: PANTOPRAZOLE 40 MG/10 ML VIAL IVP SCH (09:45)
[2023-03-17] MEDS: FUROSEMIDE 10 MG/ML 2 ML VIAL IV SCH ×2 (09:45→21:08)
[2023-03-17] MEDS: ENOXAPARIN 40 MG/0.4 ML SYRINGE SQ SCH (09:45)
--- NOTE | 2023-03-17 11:06 | P.PN ---
Subjective Progress Note Date: 03/17/23 Patient is a 67-year-old female with a PMH of metastatic non-small cell endobronchial tumor (following with Dr. Escobedo, currently on Immunotherapy), chronic hypoxic respiratory failure on 2-3 L nasal cannula oxygen continuously at home, chronic left lower extremity weakness with foot drop, who presents to the emergency room with complaints of shortness of breath. The patient has had multiple recent hospitalizations for similar complaints with most recent admission from 01/15-01/19 showing recurrent large left-sided hydropneumothorax. Patient states her normal SpO2 at home is around 93-94% on 2 L but have worsened to 88% on 5 L earlier today. She reports a mild nonproductive cough which is unchanged. In the emergency room, a left-sided chest tube was placed with subsequent chest CTA showing extensive interstitial thickening of the right lung with left sided pneumothorax and pleural effusion. EKG revealed sinus tachycardia 110 bpm with an incomplete right bundle-branch block. Laboratory evaluation revealed leukocytosis of 18.9, lactic acid 2.2, sodium 134, BUN 18, troponin 0.37, tro ponin 0.067 with proBNP 417. Upon arrival in the emergency room, the patient's SpO2 was 86% on 5 L is a cannula oxygen, respiratory rate 36, and pulse 124 BP 180/100 and temp 98.4F. She was started on Zosyn for empiric treatment of pneumonia and SoluMedrol for possible pneumonitis and admitted to ICU for further management. Troponins were flat at 0.067, 0.065, ACS was ruled out, thought to be demand ischemia. Pulmonology and Oncology was consulted. Immunotherapy held. Pro-kirk was 0.04, RSV/COVID/Flu negative. She was started on Lasix 20 mg IV BID for fluid overload. No re-expansion was seen on serial CXRs, thought to be trapped lung, chest tube was removed on 03/14. 03/15 Patient was seen and examined in the ICU. Currently on 5L HFNC. CBC WBC 18.1, Plt 801. BMP Na 136, Cl 95, bicarb 35, Cr 0.39. CXR done today shows continued L PTX, improved opacities throghout the right lung. 03/16 Patient was seen and examined. She reports improved breathing. Currently on 4L HFNC. CXR done today shows worsening consolidation/edema in the R lung with persistent L PTX. CBC WBC 20.1 Plt 739. BMP Na 135, Cl 95, bicarb 32, Cr 0.34. Echo shows EF 55% with no wall motion abnormalities. Negative 500 cc fluid balance over the past 24H. 03/17 Patient was seen and examined. Breathing is stable. Maintained on 4L HFNC. CXR shows slight improvement of the consolidation/edema in the R lung. CBC WBC 29 Plt 801. BMP Cl 96, bicarb 33, BUN 24, Cr 0.39, glu 102. Negative 800 cc fluid balance over the past 24H. Plans for bronchoscopy tomorrow. General: non toxic, no distress, appears at stated age Derm: warm, dry Head: atraumatic, normocephalic, symmetric Eyes: EOMI, no lid lag, anicteric sclera Cardiovascular: S1S2 tachy, no murmur Lungs: Decreased BS L lung, no rhonchi, no rales , no accessory muscle use Ext: no gross muscle atrophy, + BL LE pitting edema, no contractures Neuro: no focal neuro deficits Psych: Alert, oriented, appropriate affect Based on my assessment of this patient, this patient meets a high complexity level of care. Patient has an acute diagnosis of acute on chronic hypoxic respiratory failure secondary to L sided PTX that poses a threat to life or bodily function. Acute on chronic hypoxic respiratory failure: Possible immunotherapy induced pneumonitis versus disease progression with lymphangitic carcinomatosis, versus infectious process. Pro-kirk negative. RSV/Flu/COVID negative. Continue Zosyn 3.375 g IV Q8H (D5). Continue Solumedrol 60 mg IV Q6H. DuoNeb scheduled and PRN for SOB/wheezing. Left sided hydropneumothorax, Trapped Lung: Status post chest tube 03/12-03/14. Pulmonology on board. SIRS: Related to above. Worsening leukocytosis but clinically improving and CXR improving with IV Lasix. Hypochloremic metabolic alkalosis: Likely due to forced diuresis. Metastatic NSCLC, with endobronchial tumor: Immunotherapy on hold. Oncology on board. Elevated troponin: Flat. ACS ruled out. Suspect type II. Echo as above. Chronic left lower extremity weakness CODE STATUS: NO CODE DVT Prophylaxis: Lovenox SQ GI Prophylaxis: Protonix IV Designated medical POA if patient is not able to make medical decisions for themselves: I have reviewed the following data center consultant notes: Pulmonology, Oncology note. I have reviewed the results of the following tests: CBC, BMP. I have ordered the following tests: CBC, BMP. I have discussed the care of this patient with the following independent historian: I have independently interpreted the following test below: CXR as above. I have discussed the management of this patient with the following physician: This patient has a high risk of morbidity due to the following reasons: This patient meets a high level of care for the following reasons: Patient requires IV lasix which requires intensive monitoring for renal toxicity. (Lasix 20 mg IV BID) Patient requires IV narcotics which requires intensive monitoring for respiratory depression. (Morphine last received 1:23 AM) Objective - Vital Signs Vital signs: Vital Signs Temp 97.9 F 03/17/23 07:55 Pulse 88 03/17/23 07:55 Resp 18 03/17/23 07:55 BP 146/99 03/17/23 07:55 Pulse Ox 98 03/17/23 07:55 FiO2 8 03/14/23 12:30 Intake & Output 03/16/23 03/17/23 03/17/23 18:59 06:59 18:59 Intake Total 200 590 Output Total 1000 400 Balance -800 190 Intake: IV 200 Piperacillin-Tazobactam 3 200 .375 gm In Sodium Chloride 0.9% 100 ml @ 25 mls/hr IVPB Q8H [facility] Rx#: [id number] Oral 590 Output: Urine 1000 400 Other: Voiding Method External Catheter # Voids 1 # Bowel Movements 1 1 - Labs CBC & Chem 7: 03/17/23 06:16 03/17/23 06:16 Labs: Abnormal Lab Results - Last 24 Hours (Table) 03/17/23 03/17/23 Range/Units 06:16 06:16 WBC 29.0 H (3.8-10.6) k/uL Plt Count 801 H (150-450) k/uL Chloride 96 L (98-107) mmol/L Carbon Dioxide 33 H (22-30) mmol/L BUN 24 H (7-17) mg/dL Creatinine 0.39 L (0.52-1.04) mg/dL Glucose 102 H (74-99) mg/dL Microbiology - Last 24 Hours (Table) 03/11/23 18:45 Blood Culture - Final Blood 03/11/23 19:00 Blood Culture - Final Blood
--- NOTE | 2023-03-17 12:09 | P.PN ---
Subjective Progress Note Date: 03/17/23 I am seeing this patient in consultation today 03/12/2023 after she was brought into the emergency room yesterday evening with acute shortness of breath. Patient is a 67-year-old female with past medical history significant for a relatively new diagnosis of advanced lung cancer with metastasis to the lung and brain. Patient originally presented back in December, she was short of breath and had a left-sided pleural effusion. Following the thoracentesis, the patient had a significant large left-sided hydropneumothorax. Likely representing trapped lung. She did have ThoraVent placed from 12/23-01/01. The lung never fully expanded. Pleural fluid cytology showed rare atypia, but was essentially nondiagnostic. Patient did undergo a bronchoscopy with transbronchial biopsy of the left lower lobe during this admission, and it did show invasive pulmonary adenocarcinoma. Brain MRI did show multiple ring-enhancing lesions concerning for intracranial metastasis. Patient has become established with an oncologist, David West. Currently on Gilotrif. This was recently started. She has reportedly received 11 doses. Patient returned to the emergency room yesterday evening complaining of progressively worsening shortness of breath starting over the weekend. She normally wears 3 L/m nasal cannula, and this was increased to 5 L because of shortness of breath and low oxygen levels. Patient states that her shortness of breath is even worse on exertion. Denies any change in her chronic cough, hemoptysis, fever, chills, chest pain. She has had reduced appetite and hasn't been eating the last couple days. Admits adequate fluid intake. Chest x-ray on arrival redemonstrated the patient's left-sided hydropneumothorax. There is also worsening airspace disease throughout the right lung. Dr. Guzman did come in to place a left-sided chest tube. A follow up chest CTA done on arrival did not show any pulmonary embolism. It did show a persistent left-sided hydropneumothorax. There is adequate placement of a left-sided chest tube. The right hemithorax showed extensive interstitial thickening throughout the right upper mid and lower lung zones with associated scattered consolidative opacities throughout the right Lung parenchyma. Could represent immunotherapy induced pneumonitis, disease progression with lymphangitic carcinomatosis, infectious process, among other things. CBC on arrival showed some leukocytosis with a WBC count 18.9, hemoglobin 12.5, hematocrit 38.5, platelets 694. BMP shows sodium 134, potassium 4.1, chloride 98, serum bicarb 25, BUN 18, creatinine 0.37, glucose 104. No IV maintenance fluids infusing. Lactic acid level II.2. Troponins mildly elevated at 0.067. NT proBNP 417. Negative for influenza, RSV, COVID-19. Patient was empirically started on Zosyn. Also started on high- dose steroids. Patient is currently sitting up in bed, on 5 L/m nasal cannula, she is mildly dyspneic at rest. Heart rate appears sinus tachycardia on bedside monitor. Blood pressure is stable, and is actually slightly hypertensive. She reports some left sided chest pain at the chest tube insertion site. There is a left-sided chest tube connected to an [facility] and suction -20 cm H2O. There is an intermittent air leak. There is a total of [address] dark brown CT output. Patient's current prognosis is poor related to above-mentioned comorbidities. She wishes to be a DO NOT RESUSCITATE/DO NOT INTUBATE. Daughter is at bedside and is in agreement. She had also been a DO NOT RESUSCITATE/DO NOT INTUBATE on her prior admission. We will continue to monitor the patient in the intensive care unit On today's evaluation of 03/13/2023, the patient is being seen for a follow-up. As mentioned, the patient had a left-sided chest tube inserted. Nevertheless, the left lung is essentially trapped and there is no reexpansion of the left lung. Total amount of fluid output from the left side was in order of 200 mL. Repeat chest x-ray from today is still showing a trapped lung with a left-sided high flow thorax. Chest tube is in a good location. There is still persistent infiltration of the right lung which is somewhat improved compared to yesterday. There is also prominent air below the right hemidiaphragm. Unable to distinguish if this is a thin supposed colonic air versus fully intraperitoneal air. The x-ray of the abdomen showed the same. However, clinically, the patient has no nausea or emesis or abdominal pain. She is tolerating her diet. Abdominal exam is extremely soft of this point in time. Her labs are all adequate. The white cycles of 19.7 with a hemoglobin of 11 sodiums of 139, potassium is at 4 with a BUN of 25 and a creatinine of 0.4. Lactic acid level is down to 1.7. The patient remains on IV Zosyn. The patient remains on IV Solu-Medrol. The patient was taking Afatinib , this was placed on hold. Ventilation of 03/14/2023, I'm seeing the patient for a follow-up. As mentioned, the left lung is completely trapped. Attempted a left-sided chest tube with no success. There was no reexpansion of the left lung. The chest tube was removed accordingly. She feels slightly more comfortable following the chest tube removal. Currently 78 L of oxygen by nasal cannula. Chest x-ray findings of essentially unchanged. There is a hazy infiltrate occupying the right lung in addition to no other lesions consistent with metastatic disease. The patient may have an underlying drug induced pneumonitis. The patient on IV Solu-Medrol. The patient is also covered with antibiotics with she is currently on Lasix. The viral screen came back negative. Her pro calcitonin level was also low. Her white cell count of 20.9. Hemoglobin is 11, BUN is at 20 with a creatinine of 0.4 and a sodium level is at 137. Her lactic acid level is down to 1.7. The patient is currently on 8 L of oxygen by nasal cannula. His t olerating her diet. No nausea or emesis. No other new complaints otherwise for now. Patient was reevaluated today on 03/15/2023, patient is still in ICU, continues to have completely trapped left lung, chest tube has been removed mostly because it was not beneficial and did not lead to expansion of the left lung. Patient has significant infiltrates involving the right lung, could be related to pneumonitis or metastatic lung cancer/lymphangitic carcinomatosis. Patient is now on antibiotics is also on steroids, if no improvement noted, I would seriously consider bronchoscopy and bronchoalveolar lavage of the right lung, and try to diagnose or rule out lymphangitic carcinomatosis. Patient does have leukocytosis with WBC of 18.1 hemoglobin 11.7. Basic metabolic profile is normal bicarb is 35 renal profile is normal. Blood cultures have been negative, no sputum cultures have been sent The patient is seen today 03/16/2023 in follow-up on the regular medical floor. She is awake and alert in no acute distress. She is feeling better today compared to yesterday. She is maintaining O2 saturations in the mid 90s on 4 L/m per nasal cannula. She's afebrile. Chest x-ray continues to show a large left pneumothorax which is stable compared to previous. There is some worsening diffuse infiltrate throughout the right lung. Suspicious for pulmonary edema and pneumonia. Blood cultures revealed no growth. White count 20.1. Hemoglobin 12.0. Platelets 739. Sodium 135. Potassium 4.3. Bicarb 32. UN 17. Creatinine 0.34. Glucose 89. Echocardiogram revealed preserved left ve ntricular systolic function with ejection fraction of 55%. She remains on DuoNeb inhalations, Solu-Medrol. Antibiotics in form of Zosyn. She is continued on IV diuretics. Lovenox for DVT prophylaxis. Currently in a negative balance. The patient is seen today 03/17/2023 in follow-up on the regular medical floor. She is sitting up in bed. Awake and alert in no acute distress. She is maintai ellen O2 saturations in the upper 90s on 4 L high flow nasal cannula. She remains afebrile. Hemodynamically stable. Chest x-ray continues to show diffuse infiltrate to the right lung. Stable large left lung pneumothorax. Blood cultures revealed no growth. White count 29.0. Hemoglobin 12.8. Sodium 138. Potassium 4.1. Bicarb 33. BUN 24. Creatinine 0.39. Glucose 102. She remains on DuoNeb inhalations, Solu-Medrol, Zosyn. Continued on IV diuretics. Remains in a negative balance. Lovenox for DVT prophylaxis. Objective - Vital Signs Vital signs: Vital Signs Temp 97.9 F 03/17/23 07:55 Pulse 100 03/17/23 11:55 Resp 18 03/17/23 07:55 BP 146/99 03/17/23 07:55 Pulse Ox 98 03/17/23 07:55 FiO2 8 03/14/23 12:30 Intake & Output 03/16/23 03/17/23 03/17/23 18:59 06:59 18:59 Intake Total 200 590 Output Total 1000 400 Balance -800 190 Intake: IV 200 Piperacillin-Tazobactam 3 200 .375 gm In Sodium Chloride 0.9% 100 ml @ 25 mls/hr IVPB Q8H [facility] Rx#: [id number] Oral 590 Output: Urine 1000 400 Other: Voiding Method External Catheter # Voids 1 # Bowel Movements 1 1 - Exam GENERAL EXAM: Alert, 67-year-old female, appears older than stated age, sitting up in bed, on 4 L nasal cannula, comfortable in no apparent distress. HEAD: Normocephalic. EYES: Normal reaction of pupils, equal size. NOSE: Clear with pink turbinates. THROAT: No erythema or exudates. NECK: No masses, no JVD. CHEST: No chest wall deformity. LUNGS: Diminished breath sounds on the left, few scattered rhonchi on the right. CVS: S1 and S2 normal with no audible murmur, regular rhythm. ABDOMEN: No hepatosplenomegaly, normal bowel sounds, no guarding or rigidity. SPINE: No scoliosis or deformity SKIN: No rashes CENTRAL NERVOUS SYSTEM: No focal deficits, tone is normal in all 4 extremities. EXTREMITIES: There is no peripheral edema. No clubbing, no cyanosis. Peripheral pulses are intact. - Labs CBC & Chem 7: 03/17/23 06:16 03/17/23 06:16 Labs: Abnormal Lab Results - Last 24 Hours (Table) 03/17/23 03/17/23 Range/Units 06:16 06:16 WBC 29.0 H (3.8-10.6) k/uL Plt Count 801 H (150-450) k/uL Chloride 96 L (98-107) mmol/L Carbon Dioxide 33 H (22-30) mmol/L BUN 24 H (7-17) mg/dL Creatinine 0.39 L (0.52-1.04) mg/dL Glucose 102 H (74-99) mg/dL Microbiology - Last 24 Hours (Table) 03/11/23 18:45 Blood Culture - Final Blood 03/11/23 19:00 Blood Culture - Final Blood Assessment and Plan Assessment: Acute on chronic hypoxic respiratory failure, multifactorial and secondary to: Left sided hydropneumothorax and trapped left lung Multiple pulmonary nodules in the right lung, possible lymphangitic carcinomatosis or metastatic lung cancer involving the right lung Possible immunotherapy induced pneumonitis, [facility] Metastatic pulmonary adenocarcinoma Chronic hypoxic respiratory failure 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 Protein calorie malnutrition, moderately severe, remains on Marinol 80 pounds weight loss in 1 year secondary to malignancy Ex-smoker quit smoking in December 2022 Plan: The patient was seen and evaluated Chest x-ray, labs and medications reviewed No significant improvement on the chest x-ray We will now plan for bronchoscopy of the right lung Patient is agreeable to the plan Continue bronchodilators, steroids, Zosyn Continue IV diuretics Lovenox for DVT prophylaxis Continued on Marinol for improved appetite We will continue to follow This patient was seen independently by the nurse practitioner who performed the medical decision making I have personally seen and examined the patient, performed the documentation and the assessment and plan as written. Number of minutes spent on the visit: 22.
--- NOTE | 2023-03-17 15:14 | US ---
EXAMINATION TYPE: US venous doppler duplex LE LT DATE OF EXAM: 03/17/2023 10:36 AM COMPARISON: NONE CLINICAL INDICATION: Female, 67 years old with history of rule out DVT; no h/o dvt, left possible martha p foot SIDE PERFORMED: Left TECHNIQUE: The lower extremity deep venous system is examined utilizing real time linear array sonog neelam with graded compression, doppler sonography and color-flow sonography. VESSELS IMAGED: Common Femoral Vein Deep Femoral Vein Greater Saphenous Vein * Femoral Vein Popliteal Vein Small Saphenous Vein * Proximal Calf Veins (* superficial vessels) Left Leg: Negative for DVT Preliminary results were provided at the time of imaging. Final report is generated following the héctor hnical resolution of transmission problems the images. IMPRESSION: 1. Left lower extremity ultrasound negative for deep venous thrombosis.
[2023-03-17 16:15] LABS: % Iron Saturation 40.46 (12.00-45.00)
--- NOTE | 2023-03-17 18:53 | P.PN ---
Subjective Progress Note Date: 03/17/23 Principal diagnosis: SOB, dyspnea, EGFR mutated NSCLC In f/u today pt stable breathing, cont to be SOB when talking. She is getting up in the room, not ambulating very far yet. No new symptoms to report. Objective - Vital Signs Vital signs: Vital Signs Temp 97.9 F 03/17/23 15:45 Pulse 96 03/17/23 16:06 Resp 18 03/17/23 15:45 BP 159/97 03/17/23 15:45 Pulse Ox 97 03/17/23 15:45 FiO2 8 03/14/23 12:30 Intake & Output 03/16/23 03/17/23 03/17/23 18:59 06:59 18:59 Intake Total 200 590 Output Total 1000 400 Balance -800 190 Intake: IV 200 Piperacillin-Tazobactam 3 200 .375 gm In Sodium Chloride 0.9% 100 ml @ 25 mls/hr IVPB Q8H [facility] Rx#: [id number] Oral 590 Output: Urine 1000 400 Other: Voiding Method External Catheter # Voids 1 # Bowel Movements 1 1 - Constitutional General appearance: Present: cooperative, mild distress, thin - EENT Eyes: Present: anicteric sclerae, EOMI ENT: Present: hearing grossly normal - Respiratory Respiratory: right: rales (decreased from prev exam), bilateral: diminished - Cardiovascular Rhythm: regular - Peripheral edema leg Peripheral Edema: bilateral: None - Neurologic Neurologic: Present: CNII-XII intact - Musculoskeletal Musculoskeletal: Present: generalized weakness, strength equal bilaterally - Psychiatric Psychiatric: Present: A&O x's 3, appropriate affect, intact judgment & insight - Labs CBC & Chem 7: 03/17/23 06:16 03/17/23 06:16 Labs: Abnormal Lab Results - Last 24 Hours (Table) 03/17/23 03/17/23 Range/Units 06:16 06:16 WBC 29.0 H (3.8-10.6) k/uL Plt Count 801 H (150-450) k/uL Chloride 96 L (98-107) mmol/L Carbon Dioxide 33 H (22-30) mmol/L BUN 24 H (7-17) mg/dL Creatinine 0.39 L (0.52-1.04) mg/dL Glucose 102 H (74-99) mg/dL Microbiology - Last 24 Hours (Table) 03/11/23 18:45 Blood Culture - Final Blood 03/11/23 19:00 Blood Culture - Final Blood - Imaging and Cardiology Chest x-ray: report reviewed Assessment and Plan (1) Non-small cell lung cancer Current Visit: Yes Status: Acute Priority: High Code(s): C34.90 - MALIGNANT NEOPLASM OF UNSP PART OF UNSP BRONCHUS OR LUNG SNOMED Code(s): 124576622 (2) Hydropneumothorax Current Visit: Yes Status: Acute Priority: High Code(s): J94.8 - OTHER SPECIFIED PLEURAL CONDITIONS SNOMED Code(s): 69809958 (3) Pleural effusion, left Current Visit: Yes Status: Acute Priority: High Code(s): J90 - PLEURAL EFFUSION, NOT ELSEWHERE CLASSIFIED SNOMED Code(s): 68638012 Plan: Metastatic non-small cell lung cancer -S/P 2 whole brain radiation treatments, stopped due to intolerance. -Started on afatinib for [id number] mutation 03/01. Concern that pt presenting symptoms are pneumonitis, side effect of drug, as she is not improving as would be anticipated if this was just COPD exacerbation or resp infection. This was discussed with pt today. Pt concerned about treatment options. Reviewed that there is another EGFR targeted treatment that can be tried. She would like to try. Will plan for this outpt -DC afatinib. -She will be assessed in the clinic prior to starting new therapy. Hydropneumothorax -S/P chest tube placement and removal. Pt is on 5-6L NC when seen today -CXR today reports slight improvement in infiltrates on the right. -Pulmonary following. Plans for bronch tomorrow per pt. Agree with plan -Resp treatments per Pulmonary DrRiddhi Attests: I have seen and examined pt, performed H&P, developed impression and plan of care. Discussed with dictator. Agree with documentation, dictated as a scribe.
[2023-03-17] MEDS: droNABinol 2.5 MG CAP PO SCH (21:08)
[2023-03-18] MEDS: HYDROcodone/APAP 5-325MG 1 EACH TAB PO PRN ×2 (02:35→19:40)
[2023-03-18] MEDS: methylPREDNISolone SOD SUCCI 125 MG/2 ML VIAL IV SCH (06:23)
[2023-03-18] MEDS: PIPERACILLIN-TAZOBACTAM 3.375 GM in SODIUM CHLORIDE 0.9% 100 ML IVPB SCH (06:24)
[2023-03-18 06:32] LABS: HCT 34.3 % (34.0-46.0); HGB 11.2 gm/dL (11.4-16.0); Hypochromasia Slight; MCH 28.8 pg (25.0-35.0); MCHC 32.6 g/dL (31.0-37.0); MCV 88.4 fL (80.0-100.0); Mean Platelet Volume 6.8; Platelet Count 612 k/uL (150-450); Poikilocytosis Slight; RBC 3.88 m/uL (3.80-5.40); WBC 24.1 k/uL (3.8-10.6)
[2023-03-18 06:39] LABS: African American GFR (CKD) >90 (>60 ml/min/1.73 sqM); Anion Gap 6 mmol/L; Blood Urea Nitrogen 30 mg/dL (7-17); Calcium 8.9 mg/dL (8.4-10.2); Carbon Dioxide 38 mmol/L (22-30); Chloride 95 mmol/L (98-107); Glucose 107 mg/dL (74-99); Non-African American GFR(CKD) >90 (>60 ml/min/1.73 sqM); Potassium 3.2 mmol/L (3.5-5.1); Sodium 139 mmol/L (137-145)
[2023-03-18] MEDS: IPRATROPIUM-ALBUTEROL 3 ML NEB INHALATION SCH ×4 (08:01→18:30)
[2023-03-18] MEDS: ENOXAPARIN 40 MG/0.4 ML SYRINGE SQ SCH (08:10)
[2023-03-18] MEDS: PANTOPRAZOLE 40 MG/10 ML VIAL IVP SCH (08:11)
[2023-03-18] MEDS: MORPHINE SULFATE 4 MG/ML SYRINGE IVP PRN ×4 (08:11→23:28)
[2023-03-18] MEDS: FUROSEMIDE 10 MG/ML 2 ML VIAL IV SCH (08:11)
[2023-03-18] MEDS: ALPRAZolam 0.25 MG TAB PO PRN (08:23)
[2023-03-18] MEDS: FUROSEMIDE 20 MG TAB PO SCH ×2 (08:32→16:38)
[2023-03-18] MEDS: LEVOFLOXACIN 500 MG TAB PO SCH (08:39)
[2023-03-18] MEDS: predniSONE 20 MG TAB PO SCH (08:39)
--- NOTE | 2023-03-18 11:58 | P.PN ---
Subjective Progress Note Date: 03/18/23 I am seeing this patient in consultation today 03/12/2023 after she was brought into the emergency room yesterday evening with acute shortness of breath. Patient is a 67-year-old female with past medical history significant for a relatively new diagnosis of advanced lung cancer with metastasis to the lung and brain. Patient originally presented back in December, she was short of breath and had a left-sided pleural effusion. Following the thoracentesis, the patient had a significant large left-sided hydropneumothorax. Likely representing trapped lung. She did have ThoraVent placed from 12/23-01/01. The lung never fully expanded. Pleural fluid cytology showed rare atypia, but was essentially nondiagnostic. Patient did undergo a bronchoscopy with transbronchial biopsy of the left lower lobe during this admission, and it did show invasive pulmonary adenocarcinoma. Brain MRI did show multiple ring-enhancing lesions concerning for intracranial metastasis. Patient has become established with an oncologist, David West. Currently on Gilotrif. This was recently started. She has reportedly received 11 doses. Patient returned to the emergency room yesterday evening complaining of progressively worsening shortness of breath starting over the weekend. She normally wears 3 L/m nasal cannula, and this was increased to 5 L because of shortness of breath and low oxygen levels. Patient states that her shortness of breath is even worse on exertion. Denies any change in her chronic cough, hemoptysis, fever, chills, chest pain. She has had reduced appetite and hasn't been eating the last couple days. Admits adequate fluid intake. Chest x-ray on arrival redemonstrated the patient's left-sided hydropneumothorax. There is also worsening airspace disease throughout the right lung. Dr. Guzman did come in to place a left-sided chest tube. A follow up chest CTA done on arrival did not show any pulmonary embolism. It did show a persistent left-sided hydropneumothorax. There is adequate placement of a left-sided chest tube. The right hemithorax showed extensive interstitial thickening throughout the right upper mid and lower lung zones with associated scattered consolidative opacities throughout the right Lung parenchyma. Could represent immunotherapy induced pneumonitis, disease progression with lymphangitic carcinomatosis, infectious process, among other things. CBC on arrival showed some leukocytosis with a WBC count 18.9, hemoglobin 12.5, hematocrit 38.5, platelets 694. BMP shows sodium 134, potassium 4.1, chloride 98, serum bicarb 25, BUN 18, creatinine 0.37, glucose 104. No IV maintenance fluids infusing. Lactic acid level II.2. Troponins mildly elevated at 0.067. NT proBNP 417. Negative for influenza, RSV, COVID-19. Patient was empirically started on Zosyn. Also started on high- dose steroids. Patient is currently sitting up in bed, on 5 L/m nasal cannula, she is mildly dyspneic at rest. Heart rate appears sinus tachycardia on bedside monitor. Blood pressure is stable, and is actually slightly hypertensive. She reports some left sided chest pain at the chest tube insertion site. There is a left-sided chest tube connected to an [facility] and suction -20 cm H2O. There is an intermittent air leak. There is a total of [address] brown [address] output. Patient's current prognosis is poor related to above-mentioned comorbidities. She wishes to be a DO NOT RESUSCITATE/DO NOT INTUBATE. Daughter is at bedside and is in agreement. She had also been a DO NOT RESUSCITATE/DO NOT INTUBATE on her prior admission. We will continue to monitor the patient in the intensive care unit On today's evaluation of 03/13/2023, the patient is being seen for a follow-up. As mentioned, the patient had a left-sided chest tube inserted. Nevertheless, the left lung is essentially trapped and there is no reexpansion of the left lung. Total amount of fluid output from the left side was in order of 200 mL. Repeat chest x-ray from today is still showing a trapped lung with a left-sided high flow thorax. Chest tube is in a good location. There is still persistent infiltration of the right lung which is somewhat improved compared to yesterday. There is also prominent air below the right hemidiaphragm. Unable to distinguish if this is a thin supposed colonic air versus fully intraperitoneal air. The x-ray of the abdomen showed the same. However, clinically, the patient has no nausea or emesis or abdominal pain. She is tolerating her diet. Abdominal exam is extremely soft of this point in time. Her labs are all adequate. The white cycles of 19.7 with a hemoglobin of 11 sodiums of 139, potassium is at 4 with a BUN of 25 and a creatinine of 0.4. Lactic acid level is down to 1.7. The patient remains on IV Zosyn. The patient remains on IV Solu-Medrol. The patient was taking Afatinib , this was placed on hold. Ventilation of 03/14/2023, I'm seeing the patient for a follow-up. As mentioned, the left lung is completely trapped. Attempted a left-sided chest tube with no success. There was no reexpansion of the left lung. The chest tube was removed accordingly. She feels slightly more comfortable following the chest tube removal. Currently 78 L of oxygen by nasal cannula. Chest x-ray findings of essentially unchanged. There is a hazy infiltrate occupying the right lung in addition to no other lesions consistent with metastatic disease. The patient may have an underlying drug induced pneumonitis. The patient on IV Solu-Medrol. The patient is also covered with antibiotics with she is currently on Lasix. The viral screen came back negative. Her pro calcitonin level was also low. Her white cell count of 20.9. Hemoglobin is 11, BUN is at 20 with a creatinine of 0.4 and a sodium level is at 137. Her lactic acid level is down to 1.7. The patient is currently on 8 L of oxygen by nasal cannula. His t olerating her diet. No nausea or emesis. No other new complaints otherwise for now. Patient was reevaluated today on 03/15/2023, patient is still in ICU, continues to have completely trapped left lung, chest tube has been removed mostly because it was not beneficial and did not lead to expansion of the left lung. Patient has significant infiltrates involving the right lung, could be related to pneumonitis or metastatic lung cancer/lymphangitic carcinomatosis. Patient is now on antibiotics is also on steroids, if no improvement noted, I would seriously consider bronchoscopy and bronchoalveolar lavage of the right lung, and try to diagnose or rule out lymphangitic carcinomatosis. Patient does have leukocytosis with WBC of 18.1 hemoglobin 11.7. Basic metabolic profile is normal bicarb is 35 renal profile is normal. Blood cultures have been negative, no sputum cultures have been sent The patient is seen today 03/16/2023 in follow-up on the regular medical floor. She is awake and alert in no acute distress. She is feeling better today compared to yesterday. She is maintaining O2 saturations in the mid 90s on 4 L/m per nasal cannula. She's afebrile. Chest x-ray continues to show a large left pneumothorax which is stable compared to previous. There is some worsening diffuse infiltrate throughout the right lung. Suspicious for pulmonary edema and pneumonia. Blood cultures revealed no growth. White count 20.1. Hemoglobin 12.0. Platelets 739. Sodium 135. Potassium 4.3. Bicarb 32. UN 17. Creatinine 0.34. Glucose 89. Echocardiogram revealed preserved left ve ntricular systolic function with ejection fraction of 55%. She remains on DuoNeb inhalations, Solu-Medrol. Antibiotics in form of Zosyn. She is continued on IV diuretics. Lovenox for DVT prophylaxis. Currently in a negative balance. The patient is seen today 03/17/2023 in follow-up on the regular medical floor. She is sitting up in bed. Awake and alert in no acute distress. She is maintai ellen O2 saturations in the upper 90s on 4 L high flow nasal cannula. She remains afebrile. Hemodynamically stable. Chest x-ray continues to show diffuse infiltrate to the right lung. Stable large left lung pneumothorax. Blood cultures revealed no growth. White count 29.0. Hemoglobin 12.8. Sodium 138. Potassium 4.1. Bicarb 33. BUN 24. Creatinine 0.39. Glucose 102. She remains on DuoNeb inhalations, Solu-Medrol, Zosyn. Continued on IV diuretics. Remains in a negative balance. Lovenox for DVT prophylaxis. The patient is seen today 03/18/2023 in follow-up on the regular medical floor. She is currently sitting up in a chair at the bedside. Awake and alert in no acute distress. She is maintaining O2 saturations in the 90s 5 L/m per nasal cannula. She's afebrile. Hemodynamically stable. The plan was for bronchoscopy with BAL and possible biopsies of the right lung which is revealing diffuse infiltrates and possible lymphogenic carcinomatosis however the patient is declining to have any further procedures done at this point whish is quite reasonable. Blood cultures revealed no growth. Count 24.1. Hemoglobin 11.2. Platelets 612. Sodium 139. Potassium 3.2. Bicarb 30. BUN 30. Creatinine 0.41. Glucose 107. She remains on DuoNeb inhalations, Solu-Medrol, Zosyn. Continued on IV diuretics. Today's to make good urine output. Lovenox for DVT prophylaxis. Doppler of the left lower extremity was negative for DVT. Objective - Vital Signs Vital signs: Vital Signs Temp 97.8 F 03/18/23 07:49 Pulse 92 03/18/23 11:36 Resp 18 03/18/23 07:49 BP 169/92 03/18/23 07:49 Pulse Ox 97 03/18/23 08:05 FiO2 8 03/14/23 12:30 Intake & Output 03/17/23 03/18/23 03/18/23 18:59 06:59 18:59 Intake Total 580 237 Output Total 500 900 Balance 80 -663 Intake: Oral 580 237 Output: Urine 500 900 Other: Voiding Method External Catheter # Voids 1 1 # Bowel Movements 1 1 - Exam GENERAL EXAM: Alert, pleasant 67-year-old female, appears older than stated age, up in a chair, on 5 L nasal cannula, comfortable in no apparent distress. HEAD: Normocephalic. EYES: Normal reaction of pupils, equal size. NOSE: Clear with pink turbinates. THROAT: No erythema or exudates. NECK: No masses, no JVD. CHEST: No chest wall deformity. LUNGS: Diminished breath sounds on the left, few scattered rhonchi on the right. CVS: S1 and S2 normal with no audible murmur, regular rhythm. ABDOMEN: No hepatosplenomegaly, normal bowel sounds, no guarding or rigidity. SPINE: No scoliosis or deformity SKIN: No rashes CENTRAL NERVOUS SYSTEM: No focal deficits, tone is normal in all 4 extremities. EXTREMITIES: There is no peripheral edema. No clubbing, no cyanosis. Peripheral pulses are intact. - Labs CBC & Chem 7: 03/18/23 05:30 03/18/23 05:30 Labs: Abnormal Lab Results - Last 24 Hours (Table) 03/18/23 03/18/23 Range/Units 05:30 05:30 WBC 24.1 H (3.8-10.6) k/uL Hgb 11.2 L (11.4-16.0) gm/dL Plt Count 612 H (150-450) k/uL Potassium 3.2 L (3.5-5.1) mmol/L Chloride 95 L (98-107) mmol/L Carbon Dioxide 38 H (22-30) mmol/L BUN 30 H (7-17) mg/dL Creatinine 0.41 L (0.52-1.04) mg/dL Glucose 107 H (74-99) mg/dL Assessment and Plan Assessment: Acute on chronic hypoxic respiratory failure, multifactorial and secondary to: Left sided hydropneumothorax and trapped left lung Multiple pulmonary nodules in the right lung, possible lymphangitic carcinomatosis or metastatic lung cancer involving the right lung 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 Protein calorie malnutrition, moderately severe, remains on Marinol 80 pounds weight loss in 1 year secondary to malignancy Ex-smoker quit smoking in December 2022 Plan: The patient was seen and evaluated Venous Doppler, labs and medications reviewed The patient did decline a bronchoscopy today Discontinue Solu-Medrol, initiated prednisone taper Discontinue IV diuretics, initiated oral diuretics Discontinue Zosyn, initiated Levaquin Continue bronchodilators, has nebulizer available Lovenox for DVT prophylaxis Continued on Marinol for improved appetite DO NOT RESUSCITATE CODE STATUS Plan is for home with daughter at discharge We will continue to follow This patient was seen independently by the nurse practitioner who performed the medical decision making I have personally seen and examined the patient, performed the documentation and the assessment and plan as written. Number of minutes spent on the visit: 24.
--- NOTE | 2023-03-18 13:30 | P.PN ---
Subjective Progress Note Date: 03/18/23 Patient is a 67-year-old female with a PMH of metastatic non-small cell endobronchial tumor (following with Dr. Escobedo, currently on Immunotherapy), chronic hypoxic respiratory failure on 2-3 L nasal cannula oxygen continuously at home, chronic left lower extremity weakness with foot drop, who presents to the emergency room with complaints of shortness of breath. The patient has had multiple recent hospitalizations for similar complaints with most recent admission from 01/15-01/19 showing recurrent large left-sided hydropneumothorax. Patient states her normal SpO2 at home is around 93-94% on 2 L but have worsened to 88% on 5 L earlier today. She reports a mild nonproductive cough which is unchanged. In the emergency room, a left-sided chest tube was placed with subsequent chest CTA showing extensive interstitial thickening of the right lung with left sided pneumothorax and pleural effusion. EKG revealed sinus tachycardia 110 bpm with an incomplete right bundle-branch block. Laboratory evaluation revealed leukocytosis of 18.9, lactic acid 2.2, sodium 134, BUN 18, troponin 0.37, tro ponin 0.067 with proBNP 417. Upon arrival in the emergency room, the patient's SpO2 was 86% on 5 L is a cannula oxygen, respiratory rate 36, and pulse 124 BP 180/100 and temp 98.4F. She was started on Zosyn for empiric treatment of pneumonia and SoluMedrol for possible pneumonitis and admitted to ICU for further management. Troponins were flat at 0.067, 0.065, ACS was ruled out, thought to be demand ischemia. Pulmonology and Oncology was consulted. Immunotherapy held. Pro-kirk was 0.04, RSV/COVID/Flu negative. She was started on Lasix 20 mg IV BID for fluid overload. No re-expansion was seen on serial CXRs, thought to be trapped lung, chest tube was removed on 03/14. 03/15 Patient was seen and examined in the ICU. Currently on 5L HFNC. CBC WBC 18.1, Plt 801. BMP Na 136, Cl 95, bicarb 35, Cr 0.39. CXR done today shows continued L PTX, improved opacities throughout the right lung. 03/16 Patient was seen and examined. She reports improved breathing. Currently on 4L HFNC. CXR done today shows worsening consolidation/edema in the R lung with persistent L PTX. CBC WBC 20.1 Plt 739. BMP Na 135, Cl 95, bicarb 32, Cr 0.34. Echo shows EF 55% with no wall motion abnormalities. Negative 500 cc fluid balance over the past 24H. 03/17 Patient was seen and examined. Breathing is stable. Maintained on 4L HFNC. CXR shows slight improvement of the consolidation/edema in the R lung. CBC WBC 29 Plt 801. BMP Cl 96, bicarb 33, BUN 24, Cr 0.39, glu 102. Negative 800 cc fluid balance over the past 24H. Plans for bronchoscopy tomorrow. 03/18 Patient was seen and examined. Patient refusing bronchoscopy today. She is at her baseline of 4-5L NC. CBC WBC 24.1 Hg 11.2 Plt 612. BMP K 3.2, Cl 95, bica rb 38, BUN 30, Cr 0.41, glu 107. Lasix has been switched from IV to 20 mg PO BID. Zosyn switched after day 5 to Levaquin 500 mg PO QD. Solumedrol switched to Prednisone 40 mg PO QD. We will consult PT and OT to evaluate the patient. Hopeful discharge home with daughter tomorrow. General: non toxic, no distress, appears at stated age Derm: warm, dry Head: atraumatic, normocephalic, symmetric Eyes: EOMI, no lid lag, anicteric sclera Cardiovascular: S1S2 tachy, no murmur Lungs: Decreased BS L lung, no rhonchi, no rales , no accessory muscle use Ext: no gross muscle atrophy, + BL LE pitting edema, no contractures Neuro: no focal neuro deficits Psych: Alert, oriented, appropriate affect Based on my assessment of this patient, this patient meets a moderate complexity level of care. Patient has an acute diagnosis of acute on chronic hypoxic respiratory failure secondary to L sided PTX that poses a threat to life or bodily function. Acute on chronic hypoxic respiratory failure: Possible immunotherapy induced pneumonitis versus disease progression with lymphangitic carcinomatosis, versus infectious process. Pro-kirk negative. RSV/Flu/COVID negative. Zosyn 3.375 g IV Q8H discontinued and started on Levaquin 500 mg PO QD. Solumedrol 60 mg IV Q6H discontinued and started on Prednisone 40 mg PO QD. DuoNeb scheduled and PRN for SOB/wheezing. Left sided hydropneumothorax, Trapped Lung: Status post chest tube 03/12-03/14. Pulmonology on board. SIRS: Related to above. Worsening leukocytosis but clinically improving and CXR improving with IV Lasix. Hypochloremic metabolic alkalosis: Likely due to forced diuresis. Metastatic NSCLC, with endobronchial tumor: Immunotherapy on hold. Oncology on board. Elevated troponin: Flat. ACS ruled out. Suspect type II. Echo as above. Chronic left lower extremity weakness CODE STATUS: NO CODE DVT Prophylaxis: Lovenox SQ GI Prophylaxis: Protonix IV Designated medical POA if patient is not able to make medical decisions for themselves: I have reviewed the following strategic sourcing consultant notes: Pulmonology, Oncology note. I have reviewed the results of the following tests: CBC, BMP. I have ordered the following tests: CBC, BMP. I have discussed the care of this patient with the following independent historian: I have independently interpreted the following test below: I have discussed the management of this patient with the following physician: Objective - Vital Signs Vital signs: Vital Signs Temp 97.8 F 03/18/23 07:49 Pulse 92 03/18/23 11:36 Resp 18 03/18/23 08:45 BP 169/92 03/18/23 07:49 Pulse Ox 97 03/18/23 08:05 FiO2 8 03/14/23 12:30 Intake & Output 03/17/23 03/18/23 03/18/23 18:59 06:59 18:59 Intake Total 580 237 Output Total 500 900 1 Balance 80 -663 -1 Weight 50.1 kg Intake: Oral 580 237 Output: Urine 500 900 Stool 1 Other: Voiding Method External Catheter External Catheter # Voids 1 1 # Bowel Movements 1 1 - Labs CBC & Chem 7: 03/18/23 05:30 03/18/23 05:30 Labs: Abnormal Lab Results - Last 24 Hours (Table) 03/18/23 03/18/23 Range/Units 05:30 05:30 WBC 24.1 H (3.8-10.6) k/uL Hgb 11.2 L (11.4-16.0) gm/dL Plt Count 612 H (150-450) k/uL Potassium 3.2 L (3.5-5.1) mmol/L Chloride 95 L (98-107) mmol/L Carbon Dioxide 38 H (22-30) mmol/L BUN 30 H (7-17) mg/dL Creatinine 0.41 L (0.52-1.04) mg/dL Glucose 107 H (74-99) mg/dL
[2023-03-18] MEDS: droNABinol 2.5 MG CAP PO SCH (20:08)
--- NOTE | 2023-03-18 20:55 | P.PN ---
Subjective Progress Note Date: 03/18/23 Principal diagnosis: SOB, dyspnea, EGFR mutated NSCLC In f/u today pt is reporting that she feels like her breathing is better, she can talk easier. She is getting up in the room to chair and commode. No new symptoms to report. Objective - Vital Signs Vital signs: Vital Signs Temp 98.0 F 03/18/23 19:58 Pulse 113 H 03/18/23 19:58 Resp 16 03/18/23 19:58 BP 137/77 03/18/23 19:58 Pulse Ox 95 03/18/23 19:58 FiO2 8 03/14/23 12:30 Intake & Output 03/18/23 03/18/23 03/19/23 06:59 18:59 06:59 Intake Total 237 1908 Output Total 900 901 Balance -663 1007 Weight 50.1 kg Intake: Oral 237 1908 Output: Urine 900 900 Stool 1 Other: Voiding Method External Catheter External Catheter # Voids 1 2 # Bowel Movements 1 - Constitutional General appearance: Present: average body habitus, cooperative, no acute distress - EENT Eyes: Present: anicteric sclerae, EOMI ENT: Present: hearing grossly normal - Respiratory Respiratory: bilateral: diminished - Cardiovascular Rhythm: regular - Peripheral edema leg Peripheral Edema: bilateral: None - Neurologic Neurologic: Present: CNII-XII intact - Musculoskeletal Musculoskeletal: Present: generalized weakness - Psychiatric Psychiatric: Present: A&O x's 3, appropriate affect, intact judgment & insight - Labs CBC & Chem 7: 03/18/23 05:30 03/18/23 05:30 Labs: Abnormal Lab Results - Last 24 Hours (Table) 03/18/23 03/18/23 Range/Units 05:30 05:30 WBC 24.1 H (3.8-10.6) k/uL Hgb 11.2 L (11.4-16.0) gm/dL Plt Count 612 H (150-450) k/uL Potassium 3.2 L (3.5-5.1) mmol/L Chloride 95 L (98-107) mmol/L Carbon Dioxide 38 H (22-30) mmol/L BUN 30 H (7-17) mg/dL Creatinine 0.41 L (0.52-1.04) mg/dL Glucose 107 H (74-99) mg/dL Assessment and Plan (1) Non-small cell lung cancer Current Visit: Yes Status: Acute Priority: High Code(s): C34.90 - MALIGNANT NEOPLASM OF UNSP PART OF UNSP BRONCHUS OR LUNG SNOMED Code(s): 164386745 (2) Hydropneumothorax Current Visit: Yes Status: Acute Priority: High Code(s): J94.8 - OTHER SPECIFIED PLEURAL CONDITIONS SNOMED Code(s): 29224837 (3) Pleural effusion, left Current Visit: Yes Status: Acute Priority: High Code(s): J90 - PLEURAL EFFUSION, NOT ELSEWHERE CLASSIFIED SNOMED Code(s): 93963818 Plan: Metastatic non-small cell lung cancer -S/P 2 whole brain radiation treatments, stopped due to intolerance. 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 Concern that pt presenting symptoms are pneumonitis, side effect of drug, as she is not improving as would be anticipated if this was just COPD exacerbation or resp infection. Discontinuing afatinib. Pt agrees -She was concerned about starting another treatment-fear of side effects causing her to become so ill as this has. Explained that we will assess her prior to starting, to endure that she is feeling as close to her baseline as she can get. Then, we will plan for for f/u once a week in the office to check on any changes she may be experiencing. Finally, if she is having any symptoms that are not getting better despite treating them or they are just progressively getting worse then she is to stop taking targeted medication. Hopefully stopping the drug will stop symptoms from getting worse and she may recover quicker. All her other questions were answered to her satisfaction and to the best of my ability. -She will be assessed in the clinic prior to starting new therapy. Appt in DC plan. If she is doing better sooner, we can adjust that appt. Hydropneumothorax -S/P chest tube placement and removal, she had a ronch this AM. Pt is on 5L NC -Pulmonary following. -Resp treatments per Pulmonary
[2023-03-19] MEDS: MORPHINE SULFATE 4 MG/ML SYRINGE IVP PRN (04:26)
[2023-03-19 07:36] LABS: Methylmalonic Acid <0.10 umol/L (<0.40)
[2023-03-19] MEDS: IPRATROPIUM-ALBUTEROL 3 ML NEB INHALATION SCH ×4 (07:46→19:38)
[2023-03-19] MEDS: predniSONE 20 MG TAB PO SCH (08:06)
[2023-03-19] MEDS: FUROSEMIDE 20 MG TAB PO SCH ×2 (08:06→16:57)
[2023-03-19] MEDS: ENOXAPARIN 40 MG/0.4 ML SYRINGE SQ SCH (08:06)
[2023-03-19] MEDS: PANTOPRAZOLE 40 MG/10 ML VIAL IVP SCH (08:06)
[2023-03-19] MEDS: LEVOFLOXACIN 500 MG TAB PO SCH (08:06)
[2023-03-19] MEDS: HYDROcodone/APAP 5-325MG 1 EACH TAB PO PRN ×4 (08:11→23:14)
[2023-03-19] MEDS: ALPRAZolam 0.25 MG TAB PO PRN (10:59)
--- NOTE | 2023-03-19 11:17 | P.PN ---
Subjective Progress Note Date: 03/19/23 I am seeing this patient in consultation today 03/12/2023 after she was brought into the emergency room yesterday evening with acute shortness of breath. Patient is a 67-year-old female with past medical history significant for a relatively new diagnosis of advanced lung cancer with metastasis to the lung and brain. Patient originally presented back in December, she was short of breath and had a left-sided pleural effusion. Following the thoracentesis, the patient had a significant large left-sided hydropneumothorax. Likely representing trapped lung. She did have ThoraVent placed from 12/23-01/01. The lung never fully expanded. Pleural fluid cytology showed rare atypia, but was essentially nondiagnostic. Patient did undergo a bronchoscopy with transbronchial biopsy of the left lower lobe during this admission, and it did show invasive pulmonary adenocarcinoma. Brain MRI did show multiple ring-enhancing lesions concerning for intracranial metastasis. Patient has become established with an oncologist, David West. Currently on Gilotrif. This was recently started. She has reportedly received 11 doses. Patient returned to the emergency room yesterday evening complaining of progressively worsening shortness of breath starting over the weekend. She normally wears 3 L/m nasal cannula, and this was increased to 5 L because of shortness of breath and low oxygen levels. Patient states that her shortness of breath is even worse on exertion. Denies any change in her chronic cough, hemoptysis, fever, chills, chest pain. She has had reduced appetite and hasn't been eating the last couple days. Admits adequate fluid intake. Chest x-ray on arrival redemonstrated the patient's left-sided hydropneumothorax. There is also worsening airspace disease throughout the right lung. Dr. Guzman did come in to place a left-sided chest tube. A follow up chest CTA done on arrival did not show any pulmonary embolism. It did show a persistent left-sided hydropneumothorax. There is adequate placement of a left-sided chest tube. The right hemithorax showed extensive interstitial thickening throughout the right upper mid and lower lung zones with associated scattered consolidative opacities throughout the right Lung parenchyma. Could represent immunotherapy induced pneumonitis, disease progression with lymphangitic carcinomatosis, infectious process, among other things. CBC on arrival showed some leukocytosis with a WBC count 18.9, hemoglobin 12.5, hematocrit 38.5, platelets 694. BMP shows sodium 134, potassium 4.1, chloride 98, serum bicarb 25, BUN 18, creatinine 0.37, glucose 104. No IV maintenance fluids infusing. Lactic acid level II.2. Troponins mildly elevated at 0.067. NT proBNP 417. Negative for influenza, RSV, COVID-19. Patient was empirically started on Zosyn. Also started on high- dose steroids. Patient is currently sitting up in bed, on 5 L/m nasal cannula, she is mildly dyspneic at rest. Heart rate appears sinus tachycardia on bedside monitor. Blood pressure is stable, and is actually slightly hypertensive. She reports some left sided chest pain at the chest tube insertion site. There is a left-sided chest tube connected to an [facility] and suction -20 cm H2O. There is an intermittent air leak. There is a total of [address] brown [address] output. Patient's current prognosis is poor related to above-mentioned comorbidities. She wishes to be a DO NOT RESUSCITATE/DO NOT INTUBATE. Daughter is at bedside and is in agreement. She had also been a DO NOT RESUSCITATE/DO NOT INTUBATE on her prior admission. We will continue to monitor the patient in the intensive care unit On today's evaluation of 03/13/2023, the patient is being seen for a follow-up. As mentioned, the patient had a left-sided chest tube inserted. Nevertheless, the left lung is essentially trapped and there is no reexpansion of the left lung. Total amount of fluid output from the left side was in order of 200 mL. Repeat chest x-ray from today is still showing a trapped lung with a left-sided high flow thorax. Chest tube is in a good location. There is still persistent infiltration of the right lung which is somewhat improved compared to yesterday. There is also prominent air below the right hemidiaphragm. Unable to distinguish if this is a thin supposed colonic air versus fully intraperitoneal air. The x-ray of the abdomen showed the same. However, clinically, the patient has no nausea or emesis or abdominal pain. She is tolerating her diet. Abdominal exam is extremely soft of this point in time. Her labs are all adequate. The white cycles of 19.7 with a hemoglobin of 11 sodiums of 139, potassium is at 4 with a BUN of 25 and a creatinine of 0.4. Lactic acid level is down to 1.7. The patient remains on IV Zosyn. The patient remains on IV Solu-Medrol. The patient was taking Afatinib , this was placed on hold. Ventilation of 03/14/2023, I'm seeing the patient for a follow-up. As mentioned, the left lung is completely trapped. Attempted a left-sided chest tube with no success. There was no reexpansion of the left lung. The chest tube was removed accordingly. She feels slightly more comfortable following the chest tube removal. Currently 78 L of oxygen by nasal cannula. Chest x-ray findings of essentially unchanged. There is a hazy infiltrate occupying the right lung in addition to no other lesions consistent with metastatic disease. The patient may have an underlying drug induced pneumonitis. The patient on IV Solu-Medrol. The patient is also covered with antibiotics with she is currently on Lasix. The viral screen came back negative. Her pro calcitonin level was also low. Her white cell count of 20.9. Hemoglobin is 11, BUN is at 20 with a creatinine of 0.4 and a sodium level is at 137. Her lactic acid level is down to 1.7. The patient is currently on 8 L of oxygen by nasal cannula. His t olerating her diet. No nausea or emesis. No other new complaints otherwise for now. Patient was reevaluated today on 03/15/2023, patient is still in ICU, continues to have completely trapped left lung, chest tube has been removed mostly because it was not beneficial and did not lead to expansion of the left lung. Patient has significant infiltrates involving the right lung, could be related to pneumonitis or metastatic lung cancer/lymphangitic carcinomatosis. Patient is now on antibiotics is also on steroids, if no improvement noted, I would seriously consider bronchoscopy and bronchoalveolar lavage of the right lung, and try to diagnose or rule out lymphangitic carcinomatosis. Patient does have leukocytosis with WBC of 18.1 hemoglobin 11.7. Basic metabolic profile is normal bicarb is 35 renal profile is normal. Blood cultures have been negative, no sputum cultures have been sent The patient is seen today 03/16/2023 in follow-up on the regular medical floor. She is awake and alert in no acute distress. She is feeling better today compared to yesterday. She is maintaining O2 saturations in the mid 90s on 4 L/m per nasal cannula. She's afebrile. Chest x-ray continues to show a large left pneumothorax which is stable compared to previous. There is some worsening diffuse infiltrate throughout the right lung. Suspicious for pulmonary edema and pneumonia. Blood cultures revealed no growth. White count 20.1. Hemoglobin 12.0. Platelets 739. Sodium 135. Potassium 4.3. Bicarb 32. UN 17. Creatinine 0.34. Glucose 89. Echocardiogram revealed preserved left ve ntricular systolic function with ejection fraction of 55%. She remains on DuoNeb inhalations, Solu-Medrol. Antibiotics in form of Zosyn. She is continued on IV diuretics. Lovenox for DVT prophylaxis. Currently in a negative balance. The patient is seen today 03/17/2023 in follow-up on the regular medical floor. She is sitting up in bed. Awake and alert in no acute distress. She is maintai ellen O2 saturations in the upper 90s on 4 L high flow nasal cannula. She remains afebrile. Hemodynamically stable. Chest x-ray continues to show diffuse infiltrate to the right lung. Stable large left lung pneumothorax. Blood cultures revealed no growth. White count 29.0. Hemoglobin 12.8. Sodium 138. Potassium 4.1. Bicarb 33. BUN 24. Creatinine 0.39. Glucose 102. She remains on DuoNeb inhalations, Solu-Medrol, Zosyn. Continued on IV diuretics. Remains in a negative balance. Lovenox for DVT prophylaxis. The patient is seen today 03/18/2023 in follow-up on the regular medical floor. She is currently sitting up in a chair at the bedside. Awake and alert in no acute distress. She is maintaining O2 saturations in the 90s 5 L/m per nasal cannula. She's afebrile. Hemodynamically stable. The plan was for bronchoscopy with BAL and possible biopsies of the right lung which is revealing diffuse infiltrates and possible lymphogenic carcinomatosis however the patient is declining to have any further procedures done at this point whish is quite reasonable. Blood cultures revealed no growth. Count 24.1. Hemoglobin 11.2. Platelets 612. Sodium 139. Potassium 3.2. Bicarb 30. BUN 30. Creatinine 0.41. Glucose 107. She remains on DuoNeb inhalations, Solu-Medrol, Zosyn. Continued on IV diuretics. Today's to make good urine output. Lovenox for DVT prophylaxis. Doppler of the left lower extremity was negative for DVT. The patient is seen today 03/19/2023 in follow-up on the regular medical floor. She is currently resting comfortably in bed. Family is at the bedside. Denies any worsening shortness of breath, cough or congestion. Maintaining O2 saturations up to 99% on 5 L high flow nasal cannula. She's afebrile. Hemodynamically stable. Blood cultures revealed no growth. She is continued on DuoNeb inhalations. Oral diuretics. Lovenox for DVT prophylaxis. Antibiotics in the form of Levaquin. Remains on up prednisone taper. Remains on Marinol for appetite improvement. Objective - Vital Signs Vital signs: Vital Signs Temp 97.8 F 03/19/23 07:30 Pulse 100 03/19/23 07:59 Resp 17 03/19/23 07:30 BP 146/82 03/19/23 07:30 Pulse Ox 97 03/19/23 07:46 FiO2 8 03/14/23 12:30 Intake & Output 03/18/23 03/19/23 03/19/23 18:59 06:59 18:59 Intake Total 1908 590 380 Output Total 901 201 Balance 1007 389 380 Weight 50.1 kg Intake: Oral 1908 590 380 Output: Urine 900 200 Stool 1 1 Other: Voiding Method External Catheter External Catheter External Catheter # Voids 2 1 # Bowel Movements 1 1 - Exam GENERAL EXAM: Alert, pleasant 67-year-old female, resting comfortably in bed, on 5 L nasal cannula, in no apparent distress. HEAD: Normocephalic. EYES: Normal reaction of pupils, equal size. NOSE: Clear with pink turbinates. THROAT: No erythema or exudates. NECK: No masses, no JVD. CHEST: No chest wall deformity. LUNGS: Diminished breath sounds on the left, few scattered rhonchi on the right. CVS: S1 and S2 normal with no audible murmur, regular rhythm. ABDOMEN: No hepatosplenomegaly, normal bowel sounds, no guarding or rigidity. SPINE: No scoliosis or deformity SKIN: No rashes CENTRAL NERVOUS SYSTEM: No focal deficits, tone is normal in all 4 extremities. EXTREMITIES: There is no peripheral edema. No clubbing, no cyanosis. Peripheral pulses are intact. - Labs CBC & Chem 7: 03/18/23 05:30 03/18/23 05:30 Assessment and Plan Assessment: Acute on chronic hypoxic respiratory failure, multifactorial and secondary to: Left sided hydropneumothorax and trapped left lung Multiple pulmonary nodules in the right lung, possible lymphangitic carcinomatosis or metastatic lung cancer involving the right lung 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 Protein calorie malnutrition, moderately severe, remains on Marinol 80 pounds weight loss in 1 year secondary to malignancy Ex-smoker quit smoking in December 2022 Plan: The patient was seen and evaluated Medications reviewed The patient declined bronchoscopy yesterday Continue bronchodilators, steroids, diuretics, Levaquin HH down the FiO2 as tolerated Continued on Marinol for improved appetite DO NOT RESUSCITATE CODE STATUS Plan is for home with daughter who is at the bedside To follow closely with medical oncology This patient was seen independently by the pulmonary nurse practitioner who performed the medical decision making I have personally seen and examined the patient, performed the documentation and the assessment and plan as written. Number of minutes spent on the visit: 22.
[2023-03-19] MEDS: LOPERAMIDE 2 MG CAP PO PRN (14:19)
--- NOTE | 2023-03-19 15:12 | P.PN ---
Subjective Progress Note Date: 03/19/23 Patient is a 67-year-old female with a PMH of metastatic non-small cell endobronchial tumor (following with Dr. Escobedo, currently on Immunotherapy), chronic hypoxic respiratory failure on 2-3 L nasal cannula oxygen continuously at home, chronic left lower extremity weakness with foot drop, who presents to the emergency room with complaints of shortness of breath. The patient has had multiple recent hospitalizations for similar complaints with most recent admission from 01/15-01/19 showing recurrent large left-sided hydropneumothorax. Patient states her normal SpO2 at home is around 93-94% on 2 L but have worsened to 88% on 5 L earlier today. She reports a mild nonproductive cough which is unchanged. In the emergency room, a left-sided chest tube was placed with subsequent chest CTA showing extensive interstitial thickening of the right lung with left sided pneumothorax and pleural effusion. EKG revealed sinus tachycardia 110 bpm with an incomplete right bundle-branch block. Laboratory evaluation revealed leukocytosis of 18.9, lactic acid 2.2, sodium 134, BUN 18, troponin 0.37, tro ponin 0.067 with proBNP 417. Upon arrival in the emergency room, the patient's SpO2 was 86% on 5 L is a cannula oxygen, respiratory rate 36, and pulse 124 BP 180/100 and temp 98.4F. She was started on Zosyn for empiric treatment of pneumonia and SoluMedrol for possible pneumonitis and admitted to ICU for further management. Troponins were flat at 0.067, 0.065, ACS was ruled out, thought to be demand ischemia. Pulmonology and Oncology was consulted. Immunotherapy held. Pro-kirk was 0.04, RSV/COVID/Flu negative. She was started on Lasix 20 mg IV BID for fluid overload. No re-expansion was seen on serial CXRs, thought to be trapped lung, chest tube was removed on 03/14. 03/15 Patient was seen and examined in the ICU. Currently on 5L HFNC. Continued on Lasix 20 mg IV BID. 03/16 Currently on 4L HFNC. Echo shows EF 55% with no wall motion abnormalities. Continued on Lasix 20 mg IV BID. 03/17 Maintained on 4L HFNC. Plans for bronchoscopy tomorrow. 03/18 Patient refusing bronchoscopy today. She is at her baseline of 4-5L NC. Lasix has been switched from IV to 20 mg PO BID. Zosyn switched after day 5 to Levaquin 500 mg PO QD. Solumedrol switched to Prednisone 40 mg PO QD. PT and OT consulted. 03/19 Patient was seen and examined. Discussed with daughter over the phone. They would like the patient to go to [facility]. This was discussed with case management. Patient is medically stable. General: non toxic, no distress, appears at stated age Derm: warm, dry Head: atraumatic, normocephalic, symmetric Eyes: EOMI, no lid lag, anicteric sclera Cardiovascular: Good distal perfusion in all 4 extremities Lungs: Breathing comfortably, no accessory muscle use Ext: no gross muscle atrophy, no edema, no contractures Neuro: no focal neuro deficits Psych: Alert, oriented, appropriate affect Based on my assessment of this patient, this patient meets a moderate complexity level of care. Patient has an acute diagnosis of acute on chronic hypoxic respiratory failure secondary to L sided PTX that poses a threat to life or bodily function. Acute on chronic hypoxic respiratory failure: Possible immunotherapy induced pneumonitis versus disease progression with lymphangitic carcinomatosis, versus infectious process. Pro-kirk negative. RSV/Flu/COVID negative. Zosyn 3.375 g IV Q8H discontinued and started on Levaquin 500 mg PO QD. Solumedrol 60 mg IV Q6H discontinued and started on Prednisone 40 mg PO QD. DuoNeb scheduled and PRN for SOB/wheezing. Left sided hydropneumothorax, Trapped Lung: Status post chest tube 03/12-03/14. Pulmonology on board. SIRS: Related to above. Worsening leukocytosis but clinically improving and CXR improving with IV Lasix. Hypochloremic metabolic alkalosis: Likely due to forced diuresis. Metastatic NSCLC, with endobronchial tumor: Immunotherapy on hold. Oncology on board. Elevated troponin: Flat. ACS ruled out. Suspect type II. Echo as above. Chronic left lower extremity weakness CODE STATUS: NO CODE DVT Prophylaxis: Lovenox SQ GI Prophylaxis: Protonix IV Designated medical POA if patient is not able to make medical decisions for themselves: I have reviewed the following senior sustainability consultant notes: Pulmonology, Oncology note. I have reviewed the results of the following tests: I have ordered the following tests: CBC, BMP. I have discussed the care of this patient with the following independent historian: Discussed with daughter over the phone. Discussed with RN and case management. I have independently interpreted the following test below: I have discussed the management of this patient with the following physician: Objective - Vital Signs Vital signs: Vital Signs Temp 97.8 F 03/19/23 07:30 Pulse 96 03/19/23 11:52 Resp 17 03/19/23 07:30 BP 146/82 03/19/23 07:30 Pulse Ox 97 03/19/23 07:46 FiO2 8 03/14/23 12:30 Intake & Output 03/18/23 03/19/23 03/19/23 18:59 06:59 18:59 Intake Total 1908 590 380 Output Total 901 201 Balance 1007 389 380 Weight 50.1 kg Intake: Oral 1908 590 380 Output: Urine 900 200 Stool 1 1 Other: Voiding Method External Catheter External Catheter External Catheter # Voids 2 1 # Bowel Movements 1 1 - Labs CBC & Chem 7: 03/18/23 05:30 03/18/23 05:30
[2023-03-19] MEDS: droNABinol 2.5 MG CAP PO SCH (20:01)
[2023-03-20] MEDS: MORPHINE SULFATE 4 MG/ML SYRINGE IVP PRN ×3 (03:35→23:52)
[2023-03-20] MEDS: ALPRAZolam 0.25 MG TAB PO PRN (06:40)
[2023-03-20 07:02] LABS: HCT 32.3 % (34.0-46.0); HGB 10.3 gm/dL (11.4-16.0); Hypochromasia Moderate; MCH 28.7 pg (25.0-35.0); MCV 89.7 fL (80.0-100.0); Mean Platelet Volume 7.2; Platelet Count 521 k/uL (150-450); Poikilocytosis Slight; RDW 15.2 % (11.5-15.5); WBC 21.8 k/uL (3.8-10.6)
[2023-03-20] MEDS: IPRATROPIUM-ALBUTEROL 3 ML NEB INHALATION SCH ×4 (07:16→18:35)
[2023-03-20 07:28] LABS: African American GFR (CKD) >90 (>60 ml/min/1.73 sqM); Anion Gap 4 mmol/L; Blood Urea Nitrogen 29 mg/dL (7-17); Calcium 8.7 mg/dL (8.4-10.2); Carbon Dioxide 38 mmol/L (22-30); Chloride 97 mmol/L (98-107); Glucose 78 mg/dL (74-99); Non-African American GFR(CKD) >90 (>60 ml/min/1.73 sqM); Potassium 3.2 mmol/L (3.5-5.1); Sodium 139 mmol/L (137-145)
[2023-03-20] MEDS: PANTOPRAZOLE 40 MG/10 ML VIAL IVP SCH (08:46)
[2023-03-20] MEDS: ENOXAPARIN 40 MG/0.4 ML SYRINGE SQ SCH (09:08)
[2023-03-20] MEDS: HYDROcodone/APAP 5-325MG 1 EACH TAB PO PRN ×2 (09:08→18:54)
[2023-03-20] MEDS: FUROSEMIDE 20 MG TAB PO SCH ×2 (09:09→16:30)
[2023-03-20] MEDS: LEVOFLOXACIN 500 MG TAB PO SCH (09:09)
[2023-03-20] MEDS: predniSONE 20 MG TAB PO SCH (09:09)
--- NOTE | 2023-03-20 11:05 | P.PN ---
Subjective Progress Note Date: 03/20/23 I am seeing this patient in consultation today 03/12/2023 after she was brought into the emergency room yesterday evening with acute shortness of breath. Patient is a 67-year-old female with past medical history significant for a relatively new diagnosis of advanced lung cancer with metastasis to the lung and brain. Patient originally presented back in December, she was short of breath and had a left-sided pleural effusion. Following the thoracentesis, the patient had a significant large left-sided hydropneumothorax. Likely representing trapped lung. She did have ThoraVent placed from 12/23-01/01. The lung never fully expanded. Pleural fluid cytology showed rare atypia, but was essentially nondiagnostic. Patient did undergo a bronchoscopy with transbronchial biopsy of the left lower lobe during this admission, and it did show invasive pulmonary adenocarcinoma. Brain MRI did show multiple ring-enhancing lesions concerning for intracranial metastasis. Patient has become established with an oncologist, David West. Currently on Gilotrif. This was recently started. She has reportedly received 11 doses. Patient returned to the emergency room yesterday evening complaining of progressively worsening shortness of breath starting over the weekend. She normally wears 3 L/m nasal cannula, and this was increased to 5 L because of shortness of breath and low oxygen levels. Patient states that her shortness of breath is even worse on exertion. Denies any change in her chronic cough, hemoptysis, fever, chills, chest pain. She has had reduced appetite and hasn't been eating the last couple days. Admits adequate fluid intake. Chest x-ray on arrival redemonstrated the patient's left-sided hydropneumothorax. There is also worsening airspace disease throughout the right lung. Dr. Guzman did come in to place a left-sided chest tube. A follow up chest CTA done on arrival did not show any pulmonary embolism. It did show a persistent left-sided hydropneumothorax. There is adequate placement of a left-sided chest tube. The right hemithorax showed extensive interstitial thickening throughout the right upper mid and lower lung zones with associated scattered consolidative opacities throughout the right Lung parenchyma. Could represent immunotherapy induced pneumonitis, disease progression with lymphangitic carcinomatosis, infectious process, among other things. CBC on arrival showed some leukocytosis with a WBC count 18.9, hemoglobin 12.5, hematocrit 38.5, platelets 694. BMP shows sodium 134, potassium 4.1, chloride 98, serum bicarb 25, BUN 18, creatinine 0.37, glucose 104. No IV maintenance fluids infusing. Lactic acid level II.2. Troponins mildly elevated at 0.067. NT proBNP 417. Negative for influenza, RSV, COVID-19. Patient was empirically started on Zosyn. Also started on high- dose steroids. Patient is currently sitting up in bed, on 5 L/m nasal cannula, she is mildly dyspneic at rest. Heart rate appears sinus tachycardia on bedside monitor. Blood pressure is stable, and is actually slightly hypertensive. She reports some left sided chest pain at the chest tube insertion site. There is a left-sided chest tube connected to an [facility] and suction -20 cm H2O. There is an intermittent air leak. There is a total of [address] brown [address] output. Patient's current prognosis is poor related to above-mentioned comorbidities. She wishes to be a DO NOT RESUSCITATE/DO NOT INTUBATE. Daughter is at bedside and is in agreement. She had also been a DO NOT RESUSCITATE/DO NOT INTUBATE on her prior admission. We will continue to monitor the patient in the intensive care unit On today's evaluation of 03/13/2023, the patient is being seen for a follow-up. As mentioned, the patient had a left-sided chest tube inserted. Nevertheless, the left lung is essentially trapped and there is no reexpansion of the left lung. Total amount of fluid output from the left side was in order of 200 mL. Repeat chest x-ray from today is still showing a trapped lung with a left-sided high flow thorax. Chest tube is in a good location. There is still persistent infiltration of the right lung which is somewhat improved compared to yesterday. There is also prominent air below the right hemidiaphragm. Unable to distinguish if this is a thin supposed colonic air versus fully intraperitoneal air. The x-ray of the abdomen showed the same. However, clinically, the patient has no nausea or emesis or abdominal pain. She is tolerating her diet. Abdominal exam is extremely soft of this point in time. Her labs are all adequate. The white cycles of 19.7 with a hemoglobin of 11 sodiums of 139, potassium is at 4 with a BUN of 25 and a creatinine of 0.4. Lactic acid level is down to 1.7. The patient remains on IV Zosyn. The patient remains on IV Solu-Medrol. The patient was taking Afatinib , this was placed on hold. Ventilation of 03/14/2023, I'm seeing the patient for a follow-up. As mentioned, the left lung is completely trapped. Attempted a left-sided chest tube with no success. There was no reexpansion of the left lung. The chest tube was removed accordingly. She feels slightly more comfortable following the chest tube removal. Currently 78 L of oxygen by nasal cannula. Chest x-ray findings of essentially unchanged. There is a hazy infiltrate occupying the right lung in addition to no other lesions consistent with metastatic disease. The patient may have an underlying drug induced pneumonitis. The patient on IV Solu-Medrol. The patient is also covered with antibiotics with she is currently on Lasix. The viral screen came back negative. Her pro calcitonin level was also low. Her white cell count of 20.9. Hemoglobin is 11, BUN is at 20 with a creatinine of 0.4 and a sodium level is at 137. Her lactic acid level is down to 1.7. The patient is currently on 8 L of oxygen by nasal cannula. His t olerating her diet. No nausea or emesis. No other new complaints otherwise for now. Patient was reevaluated today on 03/15/2023, patient is still in ICU, continues to have completely trapped left lung, chest tube has been removed mostly because it was not beneficial and did not lead to expansion of the left lung. Patient has significant infiltrates involving the right lung, could be related to pneumonitis or metastatic lung cancer/lymphangitic carcinomatosis. Patient is now on antibiotics is also on steroids, if no improvement noted, I would seriously consider bronchoscopy and bronchoalveolar lavage of the right lung, and try to diagnose or rule out lymphangitic carcinomatosis. Patient does have leukocytosis with WBC of 18.1 hemoglobin 11.7. Basic metabolic profile is normal bicarb is 35 renal profile is normal. Blood cultures have been negative, no sputum cultures have been sent The patient is seen today 03/16/2023 in follow-up on the regular medical floor. She is awake and alert in no acute distress. She is feeling better today compared to yesterday. She is maintaining O2 saturations in the mid 90s on 4 L/m per nasal cannula. She's afebrile. Chest x-ray continues to show a large left pneumothorax which is stable compared to previous. There is some worsening diffuse infiltrate throughout the right lung. Suspicious for pulmonary edema and pneumonia. Blood cultures revealed no growth. White count 20.1. Hemoglobin 12.0. Platelets 739. Sodium 135. Potassium 4.3. Bicarb 32. UN 17. Creatinine 0.34. Glucose 89. Echocardiogram revealed preserved left ve ntricular systolic function with ejection fraction of 55%. She remains on DuoNeb inhalations, Solu-Medrol. Antibiotics in form of Zosyn. She is continued on IV diuretics. Lovenox for DVT prophylaxis. Currently in a negative balance. The patient is seen today 03/17/2023 in follow-up on the regular medical floor. She is sitting up in bed. Awake and alert in no acute distress. She is maintai ellen O2 saturations in the upper 90s on 4 L high flow nasal cannula. She remains afebrile. Hemodynamically stable. Chest x-ray continues to show diffuse infiltrate to the right lung. Stable large left lung pneumothorax. Blood cultures revealed no growth. White count 29.0. Hemoglobin 12.8. Sodium 138. Potassium 4.1. Bicarb 33. BUN 24. Creatinine 0.39. Glucose 102. She remains on DuoNeb inhalations, Solu-Medrol, Zosyn. Continued on IV diuretics. Remains in a negative balance. Lovenox for DVT prophylaxis. The patient is seen today 03/18/2023 in follow-up on the regular medical floor. She is currently sitting up in a chair at the bedside. Awake and alert in no acute distress. She is maintaining O2 saturations in the 90s 5 L/m per nasal cannula. She's afebrile. Hemodynamically stable. The plan was for bronchoscopy with BAL and possible biopsies of the right lung which is revealing diffuse infiltrates and possible lymphogenic carcinomatosis however the patient is declining to have any further procedures done at this point whish is quite reasonable. Blood cultures revealed no growth. Count 24.1. Hemoglobin 11.2. Platelets 612. Sodium 139. Potassium 3.2. Bicarb 30. BUN 30. Creatinine 0.41. Glucose 107. She remains on DuoNeb inhalations, Solu-Medrol, Zosyn. Continued on IV diuretics. Today's to make good urine output. Lovenox for DVT prophylaxis. Doppler of the left lower extremity was negative for DVT. The patient is seen today 03/19/2023 in follow-up on the regular medical floor. She is currently resting comfortably in bed. Family is at the bedside. Denies any worsening shortness of breath, cough or congestion. Maintaining O2 saturations up to 99% on 5 L high flow nasal cannula. She's afebrile. Hemodynamically stable. Blood cultures revealed no growth. She is continued on DuoNeb inhalations. Oral diuretics. Lovenox for DVT prophylaxis. Antibiotics in the form of Levaquin. Remains on up prednisone taper. Remains on Marinol for appetite improvement. The patient is seen today 03/20/2023 in follow-up on the regular medical floor. She is sitting up at the bedside. Awake and alert in no acute distress. Remains on 5 L high flow nasal cannula to maintain O2 saturations in the 90s. She's been afebrile. Hemodynamically stable. Blood cultures revealed no growth. White count 22. Hemoglobin 10.3. Platelets 521. Sodium 139. Potassium 3.2. Bicarb 38. BUN 29. Creatinine 0.36. Glucose 78. Jose on DuoNeb inhalations, prednisone taper. Lovenox for DVT prophylaxis. She remains on antibiotics in the form of Levaquin. She remains on oral diuretics. Objective - Vital Signs Vital signs: Vital Signs Temp 97.7 F 03/20/23 07:38 Pulse 89 03/20/23 07:38 Resp 17 03/20/23 07:38 BP 126/72 03/20/23 07:38 Pulse Ox 95 03/20/23 07:38 FiO2 8 03/14/23 12:30 Intake & Output 03/19/23 03/20/23 03/20/23 18:59 06:59 18:59 Intake Total 960 Output Total 800 150 Balance 160 -150 Intake: Oral 960 Output: Urine 800 150 Other: Voiding Method External Catheter External Catheter External Catheter # Voids 1 1 # Bowel Movements 1 1 - Exam GENERAL EXAM: Alert, 67-year-old female, on 5 L nasal cannula, in no apparent distress. HEAD: Normocephalic. EYES: Normal reaction of pupils, equal size. NOSE: Clear with pink turbinates. THROAT: No erythema or exudates. NECK: No masses, no JVD. CHEST: No chest wall deformity. LUNGS: Diminished breath sounds on the left, few scattered rhonchi on the right. CVS: S1 and S2 normal with no audible murmur, regular rhythm. ABDOMEN: No hepatosplenomegaly, normal bowel sounds, no guarding or rigidity. SPINE: No scoliosis or deformity SKIN: No rashes CENTRAL NERVOUS SYSTEM: No focal deficits, tone is normal in all 4 extremities. EXTREMITIES: There is no peripheral edema. No clubbing, no cyanosis. Perip heral pulses are intact. - Labs CBC & Chem 7: 03/20/23 05:48 03/20/23 05:48 Labs: Abnormal Lab Results - Last 24 Hours (Table) 03/20/23 03/20/23 Range/Units 05:48 05:48 WBC 21.8 H (3.8-10.6) k/uL RBC 3.60 L (3.80-5.40) m/uL Hgb 10.3 L (11.4-16.0) gm/dL Hct 32.3 L (34.0-46.0) % Plt Count 521 H (150-450) k/uL Potassium 3.2 L (3.5-5.1) mmol/L Chloride 97 L (98-107) mmol/L Carbon Dioxide 38 H (22-30) mmol/L BUN 29 H (7-17) mg/dL Creatinine 0.36 L (0.52-1.04) mg/dL Assessment and Plan Assessment: Acute on chronic hypoxic respiratory failure, multifactorial and secondary to: Left sided hydropneumothorax and trapped left lung Multiple pulmonary nodules in the right lung, possible lymphangitic carcinomatosis or metastatic lung cancer involving the right lung 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 Number of minutes spent on the visit: 24.
[2023-03-20] MEDS: POTASSIUM CHLORIDE ER 20 MEQ TAB.ER PO SCH ×2 (16:30→17:06)
--- NOTE | 2023-03-20 19:25 | P.PN ---
Subjective Progress Note Date: 03/20/23 Hospital course: Patient is a pleasant 67-year-old female with a past medical history of metastatic non-small cell endobronchial tumor currently on immunotherapy, chronic hypoxic respiratory failure on continuous oxygen with 3 L O2 via nasal cannula, and chronic left lower extremity weakness with foot drop. She presented to the emergency department on 03/11/23 with a chief complaint of worsening shortness of breath. Physical exam: Vital signs reviewed and stable. General: Nontoxic, no distress and appears stated age. Derm: Skin warm and dry, normal coloration for ethnicity. Head: Atraumatic, normocephalic and symmetric. Eyes: EOMs intact, no lid lag, and anicteric sclera Mouth: no lip lesions, mucus membranes moist Cardiovascular: regular rate and rhythm with normal S1S2, no murmur, positive posterior tibial pulses bilaterally, and cap refill < 2 seconds. Lungs: Left lung diminished throughout, no movement. Right lung good air movement, no wheezes, rhonchi, rales, or crackles. Abdominal: soft, nontender to palpation, no guarding, no appreciable organomegaly Ext: ROM intact. No gross muscle atrophy, no edema, no contractures Neuro: Speech clear, face symmetrical and CN II-XII grossly intact with no noted focal neuro deficits Psych: Alert and oriented to person, place, time, and situation. Appropriate and pleasant affect. Assessment and Plan of Care: Acute on chronic hypoxic respiratory failure Left-sided hydropneumothorax and trapped left lung Metastatic pulmonary adenocarcinoma Multiple pulmonary nodules throughout right lung -Acute on chronic hypoxic respiratory failure: Possible immunotherapy induced pneumonitis versus disease progression with lymphangitic carcinomatosis, versus infectious process. Pro-kirk negative. RSV/Flu/COVID negative. Zosyn 3.375 g IV Q8H discontinued and started on Levaquin 500 mg PO QD. Solumedrol 60 mg IV Q6H discontinued and started on Prednisone 40 mg PO QD. DuoNeb scheduled and PRN for SOB/wheezing. -Left sided hydropneumothorax, Trapped Lung: Status post chest tube 03/12-03/14. Pulmonology on board. -SIRS: Related to above. Worsening leukocytosis but clinically improving and CXR improving with IV Lasix. -Hypochloremic metabolic alkalosis: Likely due to forced diuresis. -Metastatic NSCLC, with endobronchial tumor: Immunotherapy on hold. Oncology on board. -Elevated troponin: Flat. ACS ruled out. Suspect type II. Echo as above. -Chronic left lower extremity weakness Protein calorie malnutrition Secondary to malignancy. Continue Marinol and protein supplements 3 times daily between meals. CODE STATUS: DO NOT RESUSCITATE/DO NOT INTUBATE DVT prophylaxis: Lovenox Anticipated discharge date: Clinical course to determine Anticipated discharge place: Clinical course to determine Patient was seen independently by Nurse Pracitioner. This document was prepared using [employer] dictation software. Please allow for errors in lumber driver, while rare they do occur. Norris Damon NP rendered care for this patient independently, reviewed the findings and plan as documented in the note above. I did not physically speak with or examine the patient on this date. Objective - Vital Signs Vital signs: Vital Signs Temp 97.7 F 03/20/23 07:38 Pulse 89 03/20/23 07:38 Resp 17 03/20/23 07:38 BP 126/72 03/20/23 07:38 Pulse Ox 95 03/20/23 07:38 FiO2 8 03/14/23 12:30 Intake & Output 03/19/23 03/20/23 03/20/23 18:59 06:59 18:59 Intake Total 960 Output Total 800 150 Balance 160 -150 Intake: Oral 960 Output: Urine 800 150 Other: Voiding Method External Catheter External Catheter External Catheter # Voids 1 1 # Bowel Movements 1 1 - Labs CBC & Chem 7: 03/22/23 05:32 03/22/23 05:32 Labs: Abnormal Lab Results - Last 24 Hours (Table) 03/20/23 03/20/23 Range/Units 05:48 05:48 WBC 21.8 H (3.8-10.6) k/uL RBC 3.60 L (3.80-5.40) m/uL Hgb 10.3 L (11.4-16.0) gm/dL Hct 32.3 L (34.0-46.0) % Plt Count 521 H (150-450) k/uL Potassium 3.2 L (3.5-5.1) mmol/L Chloride 97 L (98-107) mmol/L Carbon Dioxide 38 H (22-30) mmol/L BUN 29 H (7-17) mg/dL Creatinine 0.36 L (0.52-1.04) mg/dL
[2023-03-20] MEDS: droNABinol 2.5 MG CAP PO SCH (20:00)
[2023-03-21] MEDS: MORPHINE SULFATE 4 MG/ML SYRINGE IVP PRN ×2 (03:42→19:28)
[2023-03-21] MEDS: ALPRAZolam 0.25 MG TAB PO PRN ×2 (06:12→22:05)
[2023-03-21] MEDS: IPRATROPIUM-ALBUTEROL 3 ML NEB INHALATION SCH ×4 (07:31→22:27)
[2023-03-21] MEDS: HYDROcodone/APAP 5-325MG 1 EACH TAB PO PRN ×3 (07:45→22:05)
[2023-03-21] MEDS: ENOXAPARIN 40 MG/0.4 ML SYRINGE SQ SCH (07:45)
[2023-03-21] MEDS: LEVOFLOXACIN 500 MG TAB PO SCH (07:45)
[2023-03-21] MEDS: predniSONE 20 MG TAB PO SCH (07:45)
[2023-03-21] MEDS: FUROSEMIDE 20 MG TAB PO SCH ×2 (07:45→16:23)
[2023-03-21] MEDS: PANTOPRAZOLE 40 MG/10 ML VIAL IVP SCH (08:10)
--- NOTE | 2023-03-21 10:28 | P.PN ---
Subjective Progress Note Date: 03/21/23 I am seeing this patient in consultation today 03/12/2023 after she was brought into the emergency room yesterday evening with acute shortness of breath. Patient is a 67-year-old female with past medical history significant for a relatively new diagnosis of advanced lung cancer with metastasis to the lung and brain. Patient originally presented back in December, she was short of breath and had a left-sided pleural effusion. Following the thoracentesis, the patient had a significant large left-sided hydropneumothorax. Likely representing trapped lung. She did have ThoraVent placed from 12/23-01/01. The lung never fully expanded. Pleural fluid cytology showed rare atypia, but was essentially nondiagnostic. Patient did undergo a bronchoscopy with transbronchial biopsy of the left lower lobe during this admission, and it did show invasive pulmonary adenocarcinoma. Brain MRI did show multiple ring-enhancing lesions concerning for intracranial metastasis. Patient has become established with an oncologist, David West. Currently on Gilotrif. This was recently started. She has reportedly received 11 doses. Patient returned to the emergency room yesterday evening complaining of progressively worsening shortness of breath starting over the weekend. She normally wears 3 L/m nasal cannula, and this was increased to 5 L because of shortness of breath and low oxygen levels. Patient states that her shortness of breath is even worse on exertion. Denies any change in her chronic cough, hemoptysis, fever, chills, chest pain. She has had reduced appetite and hasn't been eating the last couple days. Admits adequate fluid intake. Chest x-ray on arrival redemonstrated the patient's left-sided hydropneumothorax. There is also worsening airspace disease throughout the right lung. Dr. Guzman did come in to place a left-sided chest tube. A follow up chest CTA done on arrival did not show any pulmonary embolism. It did show a persistent left-sided hydropneumothorax. There is adequate placement of a left-sided chest tube. The right hemithorax showed extensive interstitial thickening throughout the right upper mid and lower lung zones with associated scattered consolidative opacities throughout the right Lung parenchyma. Could represent immunotherapy induced pneumonitis, disease progression with lymphangitic carcinomatosis, infectious process, among other things. CBC on arrival showed some leukocytosis with a WBC count 18.9, hemoglobin 12.5, hematocrit 38.5, platelets 694. BMP shows sodium 134, potassium 4.1, chloride 98, serum bicarb 25, BUN 18, creatinine 0.37, glucose 104. No IV maintenance fluids infusing. Lactic acid level II.2. Troponins mildly elevated at 0.067. NT proBNP 417. Negative for influenza, RSV, COVID-19. Patient was empirically started on Zosyn. Also started on high- dose steroids. Patient is currently sitting up in bed, on 5 L/m nasal cannula, she is mildly dyspneic at rest. Heart rate appears sinus tachycardia on bedside monitor. Blood pressure is stable, and is actually slightly hypertensive. She reports some left sided chest pain at the chest tube insertion site. There is a left-sided chest tube connected to an [facility] and suction -20 cm H2O. There is an intermittent air leak. There is a total of [address] brown [address] output. Patient's current prognosis is poor related to above-mentioned comorbidities. She wishes to be a DO NOT RESUSCITATE/DO NOT INTUBATE. Daughter is at bedside and is in agreement. She had also been a DO NOT RESUSCITATE/DO NOT INTUBATE on her prior admission. We will continue to monitor the patient in the intensive care unit On today's evaluation of 03/13/2023, the patient is being seen for a follow-up. As mentioned, the patient had a left-sided chest tube inserted. Nevertheless, the left lung is essentially trapped and there is no reexpansion of the left lung. Total amount of fluid output from the left side was in order of 200 mL. Repeat chest x-ray from today is still showing a trapped lung with a left-sided high flow thorax. Chest tube is in a good location. There is still persistent infiltration of the right lung which is somewhat improved compared to yesterday. There is also prominent air below the right hemidiaphragm. Unable to distinguish if this is a thin supposed colonic air versus fully intraperitoneal air. The x-ray of the abdomen showed the same. However, clinically, the patient has no nausea or emesis or abdominal pain. She is tolerating her diet. Abdominal exam is extremely soft of this point in time. Her labs are all adequate. The white cycles of 19.7 with a hemoglobin of 11 sodiums of 139, potassium is at 4 with a BUN of 25 and a creatinine of 0.4. Lactic acid level is down to 1.7. The patient remains on IV Zosyn. The patient remains on IV Solu-Medrol. The patient was taking Afatinib , this was placed on hold. Ventilation of 03/14/2023, I'm seeing the patient for a follow-up. As mentioned, the left lung is completely trapped. Attempted a left-sided chest tube with no success. There was no reexpansion of the left lung. The chest tube was removed accordingly. She feels slightly more comfortable following the chest tube removal. Currently 78 L of oxygen by nasal cannula. Chest x-ray findings of essentially unchanged. There is a hazy infiltrate occupying the right lung in addition to no other lesions consistent with metastatic disease. The patient may have an underlying drug induced pneumonitis. The patient on IV Solu-Medrol. The patient is also covered with antibiotics with she is currently on Lasix. The viral screen came back negative. Her pro calcitonin level was also low. Her white cell count of 20.9. Hemoglobin is 11, BUN is at 20 with a creatinine of 0.4 and a sodium level is at 137. Her lactic acid level is down to 1.7. The patient is currently on 8 L of oxygen by nasal cannula. His t olerating her diet. No nausea or emesis. No other new complaints otherwise for now. Patient was reevaluated today on 03/15/2023, patient is still in ICU, continues to have completely trapped left lung, chest tube has been removed mostly because it was not beneficial and did not lead to expansion of the left lung. Patient has significant infiltrates involving the right lung, could be related to pneumonitis or metastatic lung cancer/lymphangitic carcinomatosis. Patient is now on antibiotics is also on steroids, if no improvement noted, I would seriously consider bronchoscopy and bronchoalveolar lavage of the right lung, and try to diagnose or rule out lymphangitic carcinomatosis. Patient does have leukocytosis with WBC of 18.1 hemoglobin 11.7. Basic metabolic profile is normal bicarb is 35 renal profile is normal. Blood cultures have been negative, no sputum cultures have been sent The patient is seen today 03/16/2023 in follow-up on the regular medical floor. She is awake and alert in no acute distress. She is feeling better today compared to yesterday. She is maintaining O2 saturations in the mid 90s on 4 L/m per nasal cannula. She's afebrile. Chest x-ray continues to show a large left pneumothorax which is stable compared to previous. There is some worsening diffuse infiltrate throughout the right lung. Suspicious for pulmonary edema and pneumonia. Blood cultures revealed no growth. White count 20.1. Hemoglobin 12.0. Platelets 739. Sodium 135. Potassium 4.3. Bicarb 32. UN 17. Creatinine 0.34. Glucose 89. Echocardiogram revealed preserved left ve ntricular systolic function with ejection fraction of 55%. She remains on DuoNeb inhalations, Solu-Medrol. Antibiotics in form of Zosyn. She is continued on IV diuretics. Lovenox for DVT prophylaxis. Currently in a negative balance. The patient is seen today 03/17/2023 in follow-up on the regular medical floor. She is sitting up in bed. Awake and alert in no acute distress. She is maintai ellen O2 saturations in the upper 90s on 4 L high flow nasal cannula. She remains afebrile. Hemodynamically stable. Chest x-ray continues to show diffuse infiltrate to the right lung. Stable large left lung pneumothorax. Blood cultures revealed no growth. White count 29.0. Hemoglobin 12.8. Sodium 138. Potassium 4.1. Bicarb 33. BUN 24. Creatinine 0.39. Glucose 102. She remains on DuoNeb inhalations, Solu-Medrol, Zosyn. Continued on IV diuretics. Remains in a negative balance. Lovenox for DVT prophylaxis. The patient is seen today 03/18/2023 in follow-up on the regular medical floor. She is currently sitting up in a chair at the bedside. Awake and alert in no acute distress. She is maintaining O2 saturations in the 90s 5 L/m per nasal cannula. She's afebrile. Hemodynamically stable. The plan was for bronchoscopy with BAL and possible biopsies of the right lung which is revealing diffuse infiltrates and possible lymphogenic carcinomatosis however the patient is declining to have any further procedures done at this point whish is quite reasonable. Blood cultures revealed no growth. Count 24.1. Hemoglobin 11.2. Platelets 612. Sodium 139. Potassium 3.2. Bicarb 30. BUN 30. Creatinine 0.41. Glucose 107. She remains on DuoNeb inhalations, Solu-Medrol, Zosyn. Continued on IV diuretics. Today's to make good urine output. Lovenox for DVT prophylaxis. Doppler of the left lower extremity was negative for DVT. The patient is seen today 03/19/2023 in follow-up on the regular medical floor. She is currently resting comfortably in bed. Family is at the bedside. Denies any worsening shortness of breath, cough or congestion. Maintaining O2 saturations up to 99% on 5 L high flow nasal cannula. She's afebrile. Hemodynamically stable. Blood cultures revealed no growth. She is continued on DuoNeb inhalations. Oral diuretics. Lovenox for DVT prophylaxis. Antibiotics in the form of Levaquin. Remains on up prednisone taper. Remains on Marinol for appetite improvement. The patient is seen today 03/20/2023 in follow-up on the regular medical floor. She is sitting up at the bedside. Awake and alert in no acute distress. Remains on 5 L high flow nasal cannula to maintain O2 saturations in the 90s. She's been afebrile. Hemodynamically stable. Blood cultures revealed no growth. White count 22. Hemoglobin 10.3. Platelets 521. Sodium 139. Potassium 3.2. Bicarb 38. BUN 29. Creatinine 0.36. Glucose 78. Jose on DuoNeb inhalations, prednisone taper. Lovenox for DVT prophylaxis. She remains on antibiotics in the form of Levaquin. She remains on oral diuretics. The patient is seen today 03/21/2023 in follow-up on the regular medical floor. She is sitting up in bed. Awake and alert in no acute distress. Maintaining O2 saturations in the mid 90s on 4 L/m per nasal cannula. She's afebrile. Hemodynamically stable. No new labs today. She remains on Lovenox for DVT prophylaxis. Remains on DuoNeb inhalations. Continued on a prednisone taper. Antibiotics in the form of Levaquin. Oral diuretics. Continued on Marinol for appetite support Objective - Vital Signs Vital signs: Vital Signs Temp 98.3 F 03/21/23 07:08 Pulse 84 03/21/23 07:43 Resp 18 03/21/23 07:08 BP 153/90 03/21/23 07:08 Pulse Ox 95 03/21/23 09:41 FiO2 8 03/14/23 12:30 Intake & Output 03/20/23 03/21/23 03/21/23 18:59 06:59 18:59 Output Total 750 400 Balance -750 -400 Output: Urine 750 400 Other: Voiding Method External Catheter External Catheter # Voids 1 1 # Bowel Movements 1 1 - Exam GENERAL EXAM: Alert, very pleasant 67-year-old female, resting in bed, on 4 L na norris cannula, in no apparent distress. HEAD: Normocephalic. EYES: Normal reaction of pupils, equal size. NOSE: Clear with pink turbinates. THROAT: No erythema or exudates. NECK: No masses, no JVD. CHEST: No chest wall deformity. LUNGS: Diminished breath sounds on the left, few scattered rhonchi on the right. CVS: S1 and S2 normal with no audible murmur, regular rhythm. ABDOMEN: No hepatosplenomegaly, normal bowel sounds, no guarding or rigidity. SPINE: No scoliosis or deformity SKIN: No rashes CENTRAL NERVOUS SYSTEM: No focal deficits, tone is normal in all 4 extremities. EXTREMITIES: There is no peripheral edema. No clubbing, no cyanosis. Peripheral pulses are intact. - Labs CBC & Chem 7: 03/20/23 05:48 03/20/23 05:48 Assessment and Plan Assessment: Acute on chronic hypoxic respiratory failure, multifactorial and secondary to: Left sided hydropneumothorax and trapped left lung Multiple pulmonary nodules in the right lung, possible lymphangitic carcinomatosis or metastatic lung cancer involving the right lung 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 Remains on steroids. 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 Continued on steroids for now Continue bronchodilators, antibiotics and diuretics Lovenox for DVT prophylaxis We will continue to follow This patient was seen independently by the pulmonary nurse practitioner who performed the medical decision making I have personally seen and examined the patient, performed the documentation and the assessment and plan as written. Number of minutes spent on the visit: 22.
--- NOTE | 2023-03-21 16:28 | P.PN ---
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 She presented to the emergency department on 03/11/23 with a chief complaint of worsening shortness of breath and was found to be in acute respiratory distress and failure with hypoxia. Vital signs upon arrival showing heart rate 124, respiratory rate 36, blood pressure 180/100, and SpO2 of 86% on 5 L O2 via nasal cannula with temp of 98.4F.. Patient requiring increased oxygenation needs up to 10 L O2 via high flow nasal cannula to maintain SpO2 greater than 90%. Labs were completed and reviewed. CBC showing leukocytosis with WBC count of 18.9 and thrombocytosis with platelet count of 694. Coagulation profile is normal findings. BMP revealing sodium 134, BUN 18, creatinine of 0.37. Initial lactic acid was 2.2. Magnesium was normal findings at 1.8 with normal liver function. ProBNP 417. Troponin was elevated at 0.067. EKG was completed showing sinus ta chycardia at 110 bpm with incomplete right bundle branch block with QRS of 102 ms. Chest x-ray revealed hydropneumothorax with complete airlessness throughout the left lung parenchyma and interval worsening on the right with air space filling process throughout the right lung parenchyma. Patient was admitted under our services with consultation to pulmonology and hematology/oncology. Troponins trended and were flat at 0.067 and 0.065. Echocardiogram was completed showing normal EF of 50-55%. Physical exam: Vital signs reviewed and stable. General: Nontoxic, no distress and appears stated age. Derm: Skin warm and dry, normal coloration for ethnicity. Head: Atraumatic, normocephalic and symmetric. Eyes: EOMs intact, no lid lag, and anicteric sclera Mouth: no lip lesions, mucus membranes moist Cardiovascular: regular rate and rhythm with normal S1S2, no murmur, positive posterior tibial pulses bilaterally, and cap refill < 2 seconds. Lungs: Left lung diminished throughout, no movement. Right lung good air movement, no wheezes, rhonchi, rales, or crackles. Abdominal: soft, nontender to palpation, no guarding, no appreciable organomegaly Ext: ROM intact. No gross muscle atrophy, no edema, no contractures Neuro: Speech clear, face symmetrical and CN II-XII grossly intact with no noted focal neuro deficits Psych: Alert and oriented to person, place, time, and situation. Appropriate and pleasant affect. Assessment and Plan of Care: Acute on chronic hypoxic respiratory failure Left-sided hydropneumothorax and trapped left lung Metastatic pulmonary adenocarcinoma Multiple pulmonary nodules throughout right lung -Pulmonology following, reviewed documentation in chart. -Acute on chronic hypoxic respiratory failure: Possible immunotherapy induced pneumonitis versus disease progression with lymphangitic carcinomatosis, versus infectious process. -Pro-kirk negative. RSV/Flu/COVID negative. -Antibiotics: Continue Levaquin 500 mg PO QD. -Steroids: Continue Prednisone 40 mg daily. -Continue DuoNebs scheduled for times daily and as needed for SOB/wheezing. -Left sided hydropneumothorax, Trapped Lung: Status post chest tube 03/12-03/14 -Metastatic NSCLC, with endobronchial tumor: Immunotherapy on hold. Oncology on board, appreciate recommendations. Protein calorie malnutrition -Secondary to malignancy. -Continue Marinol and protein supplements 3 times daily between meals. Elevated troponins, flat. Likely type II NSTEMI secondary to respiratory failure with hypoxia. -Elevated troponins believed to be resulting from acute respiratory failure with hypoxia. Patient remained free from cardiac complaints at this time. -Echocardiogram was completed showing normal EF of 50-55%. Chronic left lower extremity weakness with foot drop -Provide assistance and support as needed. Data reviewed: Vital signs reviewed. Blood pressure 153/90, heart rate 88, respiratory rate 18, temp 98.3F, SpO2 100% on 5 L. CODE STATUS: DO NOT RESUSCITATE/DO NOT INTUBATE DVT prophylaxis: Lovenox Anticipated discharge date: Clinical course to determine Anticipated discharge place: Clinical course to determine Patient was seen independently by Nurse Pracitioner. This document was prepared using [email or web address] dictation software. Please allow for errors in hydraulic governor assembler, while rare they do occur. Norris Damon NP rendered care for this patient independently, reviewed the findings and plan as documented in the note above. I did not physically speak with or examine the patient on this date. Objective - Vital Signs Vital signs: Vital Signs Temp 98.3 F 03/21/23 07:08 Pulse 84 03/21/23 07:43 Resp 18 03/21/23 07:08 BP 153/90 03/21/23 07:08 Pulse Ox 100 03/21/23 07:08 FiO2 8 03/14/23 12:30 Intake & Output 03/20/23 03/21/23 03/21/23 18:59 06:59 18:59 Output Total 750 400 Balance -750 -400 Output: Urine 750 400 Other: Voiding Method External Catheter External Catheter # Voids 1 1 # Bowel Movements 1 1 - Labs CBC & Chem 7: 03/22/23 05:32 03/22/23 05:32
[2023-03-21] MEDS: droNABinol 2.5 MG CAP PO SCH (20:27)
[2023-03-22 03:10] VITALS: RESP 18
[2023-03-22] MEDS: HYDROcodone/APAP 5-325MG 1 EACH TAB PO PRN ×3 (03:39→20:01)
[2023-03-22] MEDS: MORPHINE SULFATE 4 MG/ML SYRINGE IVP PRN ×3 (05:56→16:13)
[2023-03-22] MEDS: ENOXAPARIN 40 MG/0.4 ML SYRINGE SQ SCH (07:09)
[2023-03-22] MEDS: FUROSEMIDE 20 MG TAB PO SCH ×2 (07:10→16:05)
[2023-03-22] MEDS: predniSONE 20 MG TAB PO SCH (07:10)
[2023-03-22] MEDS: ALPRAZolam 0.25 MG TAB PO PRN ×2 (07:10→21:25)
[2023-03-22] MEDS: LEVOFLOXACIN 500 MG TAB PO SCH (07:10)
--- NOTE | 2023-03-22 07:45 | XR ---
EXAMINATION TYPE: XR chest 1V portable DATE OF EXAM: 03/22/2023 COMPARISON: 03/17/2023 INDICATION: Lung cancer, pneumonia TECHNIQUE: Single frontal view of the chest is obtained. FINDINGS: The heart size is normal. The pulmonary vasculature is normal. There is worsening infiltrate throughout the right lung. There is collapse of the left lung with larg e pneumothorax remaining stable. IMPRESSION: 1. Worsening right lung infiltrate. Correlate for pneumonia. 2. Stable large left pneumothorax
[2023-03-22] MEDS: IPRATROPIUM-ALBUTEROL 3 ML NEB INHALATION SCH ×5 (08:07→20:09)
[2023-03-22] MEDS: PANTOPRAZOLE 40 MG/10 ML VIAL IVP SCH (08:40)
[2023-03-22 09:02] LABS: HCT 30.3 % (37.2-46.3); HGB 9.5 g/dL (12.0-15.0); MCH 28.9 pg (27.0-32.0); MCHC 31.4 g/dL (32.0-37.0); MCV 92.1 FL (80.0-97.0); Mean Platelet Volume 8.9 FL (9.5-12.2); NRBC Per 100 WBC 0.02 X 10*3/uL (0.00-0.01); Platelet Count 469 X 10*3/uL (140-440); RBC 3.29 X 10*6/uL (4.10-5.20); WBC 24.03 X 10*3/uL (4.50-10.00)
[2023-03-22 09:29] LABS: ALT 18 U/L (8-44); AST 7 U/L (13-35); Albumin/Globulin Ratio 1.76 Ratio (1.60-3.17); Alkaline Phosphatase 69 U/L (41-126); Blood Urea Nitrogen 15.3 mg/dL (9.0-27.0); Calcium 8.9 mg/dL (8.7-10.3); Carbon Dioxide 31.1 mmol/L (21.6-31.8); Chloride 102 mmol/L (96-109); Globulin 1.7 g/dL (1.6-3.3); Glucose 80 mg/dL (70-110); Potassium 4.2 mmol/L (3.5-5.5); Sodium 142 mmol/L (135-145); Total Bilirubin <0.2 mg/dL (0.3-1.2); Total Protein 4.7 g/dL (6.2-8.2)
--- NOTE | 2023-03-22 13:38 | P.PN ---
Subjective Progress Note Date: 03/22/23 I am seeing this patient in consultation today 03/12/2023 after she was brought into the emergency room yesterday evening with acute shortness of breath. Patient is a 67-year-old female with past medical history significant for a relatively new diagnosis of advanced lung cancer with metastasis to the lung and brain. Patient originally presented back in December, she was short of breath and had a left-sided pleural effusion. Following the thoracentesis, the patient had a significant large left-sided hydropneumothorax. Likely representing trapped lung. She did have ThoraVent placed from 12/23-01/01. The lung never fully expanded. Pleural fluid cytology showed rare atypia, but was essentially nondiagnostic. Patient did undergo a bronchoscopy with transbronchial biopsy of the left lower lobe during this admission, and it did show invasive pulmonary adenocarcinoma. Brain MRI did show multiple ring-enhancing lesions concerning for intracranial metastasis. Patient has become established with an oncologist, David West. Currently on Gilotrif. This was recently started. She has reportedly received 11 doses. Patient returned to the emergency room yesterday evening complaining of progressively worsening shortness of breath starting over the weekend. She normally wears 3 L/m nasal cannula, and this was increased to 5 L because of shortness of breath and low oxygen levels. Patient states that her shortness of breath is even worse on exertion. Denies any change in her chronic cough, hemoptysis, fever, chills, chest pain. She has had reduced appetite and hasn't been eating the last couple days. Admits adequate fluid intake. Chest x-ray on arrival redemonstrated the patient's left-sided hydropneumothorax. There is also worsening airspace disease throughout the right lung. Dr. Guzman did come in to place a left-sided chest tube. A follow up chest CTA done on arrival did not show any pulmonary embolism. It did show a persistent left-sided hydropneumothorax. There is adequate placement of a left-sided chest tube. The right hemithorax showed extensive interstitial thickening throughout the right upper mid and lower lung zones with associated scattered consolidative opacities throughout the right Lung parenchyma. Could represent immunotherapy induced pneumonitis, disease progression with lymphangitic carcinomatosis, infectious process, among other things. CBC on arrival showed some leukocytosis with a WBC count 18.9, hemoglobin 12.5, hematocrit 38.5, platelets 694. BMP shows sodium 134, potassium 4.1, chloride 98, serum bicarb 25, BUN 18, creatinine 0.37, glucose 104. No IV maintenance fluids infusing. Lactic acid level II.2. Troponins mildly elevated at 0.067. NT proBNP 417. Negative for influenza, RSV, COVID-19. Patient was empirically started on Zosyn. Also started on high- dose steroids. Patient is currently sitting up in bed, on 5 L/m nasal cannula, she is mildly dyspneic at rest. Heart rate appears sinus tachycardia on bedside monitor. Blood pressure is stable, and is actually slightly hypertensive. She reports some left sided chest pain at the chest tube insertion site. There is a left-sided chest tube connected to an [facility] and suction -20 cm H2O. There is an intermittent air leak. There is a total of [address] brown [address] output. Patient's current prognosis is poor related to above-mentioned comorbidities. She wishes to be a DO NOT RESUSCITATE/DO NOT INTUBATE. Daughter is at bedside and is in agreement. She had also been a DO NOT RESUSCITATE/DO NOT INTUBATE on her prior admission. We will continue to monitor the patient in the intensive care unit On today's evaluation of 03/13/2023, the patient is being seen for a follow-up. As mentioned, the patient had a left-sided chest tube inserted. Nevertheless, the left lung is essentially trapped and there is no reexpansion of the left lung. Total amount of fluid output from the left side was in order of 200 mL. Repeat chest x-ray from today is still showing a trapped lung with a left-sided high flow thorax. Chest tube is in a good location. There is still persistent infiltration of the right lung which is somewhat improved compared to yesterday. There is also prominent air below the right hemidiaphragm. Unable to distinguish if this is a thin supposed colonic air versus fully intraperitoneal air. The x-ray of the abdomen showed the same. However, clinically, the patient has no nausea or emesis or abdominal pain. She is tolerating her diet. Abdominal exam is extremely soft of this point in time. Her labs are all adequate. The white cycles of 19.7 with a hemoglobin of 11 sodiums of 139, potassium is at 4 with a BUN of 25 and a creatinine of 0.4. Lactic acid level is down to 1.7. The patient remains on IV Zosyn. The patient remains on IV Solu-Medrol. The patient was taking Afatinib , this was placed on hold. Ventilation of 03/14/2023, I'm seeing the patient for a follow-up. As mentioned, the left lung is completely trapped. Attempted a left-sided chest tube with no success. There was no reexpansion of the left lung. The chest tube was removed accordingly. She feels slightly more comfortable following the chest tube removal. Currently 78 L of oxygen by nasal cannula. Chest x-ray findings of essentially unchanged. There is a hazy infiltrate occupying the right lung in addition to no other lesions consistent with metastatic disease. The patient may have an underlying drug induced pneumonitis. The patient on IV Solu-Medrol. The patient is also covered with antibiotics with she is currently on Lasix. The viral screen came back negative. Her pro calcitonin level was also low. Her white cell count of 20.9. Hemoglobin is 11, BUN is at 20 with a creatinine of 0.4 and a sodium level is at 137. Her lactic acid level is down to 1.7. The patient is currently on 8 L of oxygen by nasal cannula. His t olerating her diet. No nausea or emesis. No other new complaints otherwise for now. Patient was reevaluated today on 03/15/2023, patient is still in ICU, continues to have completely trapped left lung, chest tube has been removed mostly because it was not beneficial and did not lead to expansion of the left lung. Patient has significant infiltrates involving the right lung, could be related to pneumonitis or metastatic lung cancer/lymphangitic carcinomatosis. Patient is now on antibiotics is also on steroids, if no improvement noted, I would seriously consider bronchoscopy and bronchoalveolar lavage of the right lung, and try to diagnose or rule out lymphangitic carcinomatosis. Patient does have leukocytosis with WBC of 18.1 hemoglobin 11.7. Basic metabolic profile is normal bicarb is 35 renal profile is normal. Blood cultures have been negative, no sputum cultures have been sent The patient is seen today 03/16/2023 in follow-up on the regular medical floor. She is awake and alert in no acute distress. She is feeling better today compared to yesterday. She is maintaining O2 saturations in the mid 90s on 4 L/m per nasal cannula. She's afebrile. Chest x-ray continues to show a large left pneumothorax which is stable compared to previous. There is some worsening diffuse infiltrate throughout the right lung. Suspicious for pulmonary edema and pneumonia. Blood cultures revealed no growth. White count 20.1. Hemoglobin 12.0. Platelets 739. Sodium 135. Potassium 4.3. Bicarb 32. UN 17. Creatinine 0.34. Glucose 89. Echocardiogram revealed preserved left ve ntricular systolic function with ejection fraction of 55%. She remains on DuoNeb inhalations, Solu-Medrol. Antibiotics in form of Zosyn. She is continued on IV diuretics. Lovenox for DVT prophylaxis. Currently in a negative balance. The patient is seen today 03/17/2023 in follow-up on the regular medical floor. She is sitting up in bed. Awake and alert in no acute distress. She is maintai ellen O2 saturations in the upper 90s on 4 L high flow nasal cannula. She remains afebrile. Hemodynamically stable. Chest x-ray continues to show diffuse infiltrate to the right lung. Stable large left lung pneumothorax. Blood cultures revealed no growth. White count 29.0. Hemoglobin 12.8. Sodium 138. Potassium 4.1. Bicarb 33. BUN 24. Creatinine 0.39. Glucose 102. She remains on DuoNeb inhalations, Solu-Medrol, Zosyn. Continued on IV diuretics. Remains in a negative balance. Lovenox for DVT prophylaxis. The patient is seen today 03/18/2023 in follow-up on the regular medical floor. She is currently sitting up in a chair at the bedside. Awake and alert in no acute distress. She is maintaining O2 saturations in the 90s 5 L/m per nasal cannula. She's afebrile. Hemodynamically stable. The plan was for bronchoscopy with BAL and possible biopsies of the right lung which is revealing diffuse infiltrates and possible lymphogenic carcinomatosis however the patient is declining to have any further procedures done at this point whish is quite reasonable. Blood cultures revealed no growth. Count 24.1. Hemoglobin 11.2. Platelets 612. Sodium 139. Potassium 3.2. Bicarb 30. BUN 30. Creatinine 0.41. Glucose 107. She remains on DuoNeb inhalations, Solu-Medrol, Zosyn. Continued on IV diuretics. Today's to make good urine output. Lovenox for DVT prophylaxis. Doppler of the left lower extremity was negative for DVT. The patient is seen today 03/19/2023 in follow-up on the regular medical floor. She is currently resting comfortably in bed. Family is at the bedside. Denies any worsening shortness of breath, cough or congestion. Maintaining O2 saturations up to 99% on 5 L high flow nasal cannula. She's afebrile. Hemodynamically stable. Blood cultures revealed no growth. She is continued on DuoNeb inhalations. Oral diuretics. Lovenox for DVT prophylaxis. Antibiotics in the form of Levaquin. Remains on up prednisone taper. Remains on Marinol for appetite improvement. The patient is seen today 03/20/2023 in follow-up on the regular medical floor. She is sitting up at the bedside. Awake and alert in no acute distress. Remains on 5 L high flow nasal cannula to maintain O2 saturations in the 90s. She's been afebrile. Hemodynamically stable. Blood cultures revealed no growth. White count 22. Hemoglobin 10.3. Platelets 521. Sodium 139. Potassium 3.2. Bicarb 38. BUN 29. Creatinine 0.36. Glucose 78. Jose on DuoNeb inhalations, prednisone taper. Lovenox for DVT prophylaxis. She remains on antibiotics in the form of Levaquin. She remains on oral diuretics. The patient is seen today 03/21/2023 in follow-up on the regular medical floor. She is sitting up in bed. Awake and alert in no acute distress. Maintaining O2 saturations in the mid 90s on 4 L/m per nasal cannula. She's afebrile. Hemodynamically stable. No new labs today. She remains on Lovenox for DVT prophylaxis. Remains on DuoNeb inhalations. Continued on a prednisone taper. Antibiotics in the form of Levaquin. Oral diuretics. Continued on Marinol for appetite support The patient is seen today 03/22/2023 follow-up on the regular medical floor. She is awake and alert in no acute distress. Sitting up in bed. Denies any worsening shortness of breath, cough or congestion. He is maintaining O2 saturations in the 90s on 4 L/m per nasal cannula. Chest x-ray reveals slightly worsening right lung infiltrate. Stable large left pneumothorax. The culture revealed no growth. White count 24. Hemoglobin 9.5. Platelets 469. Sodium 142. Potassium 4.2. BUN 15. Creatinine 0.3. AST 7. ALT 18. Remains on bronchodilators, Levaquin, Lovenox for DVT prophylaxis. Remains on oral diuretics. Remains on oral steroids. Objective - Vital Signs Vital signs: Vital Signs Temp 98.1 F 03/22/23 11:52 Pulse 119 H 03/22/23 11:52 Resp 18 03/22/23 11:52 BP 125/75 03/22/23 11:52 Pulse Ox 94 L 03/22/23 11:52 FiO2 8 03/14/23 12:30 Intake & Output 03/21/23 03/22/23 03/22/23 18:59 06:59 18:59 Intake Total 590 Output Total 650 Balance -650 590 Intake: Oral 590 Output: Urine 650 Other: # Voids 1 3 1 # Bowel Movements 1 1 - Exam GENERAL EXAM: Alert, frail 67-year-old female, on 4 L nasal cannula, in no apparent distress. HEAD: Normocephalic. EYES: Normal reaction of pupils, equal size. NOSE: Clear with pink turbinates. THROAT: No erythema or exudates. NECK: No masses, no JVD. CHEST: No chest wall deformity. LUNGS: Diminished breath sounds on the left, few scattered rhonchi on the right. CVS: S1 and S2 normal with no audible murmur, regular rhythm. ABDOMEN: No hepatosplenomegaly, normal bowel sounds, no guarding or rigidity. SPINE: No scoliosis or deformity SKIN: No rashes CENTRAL NERVOUS SYSTEM: No focal deficits, tone is normal in all 4 extremities. EXTREMITIES: There is no peripheral edema. No clubbing, no cyanosis. Peripheral pulses are intact. - Labs CBC & Chem 7: 03/22/23 05:32 03/22/23 05:32 Labs: Abnormal Lab Results - Last 24 Hours (Table) 03/22/23 03/22/23 Range/Units 05:32 05:32 WBC 24.03 H (4.50-10.00) X 10*3/uL RBC 3.29 L (4.10-5.20) X 10*6/uL Hgb 9.5 L (12.0-15.0) g/dL Hct 30.3 L (37.2-46.3) % MCHC 31.4 L (32.0-37.0) g/dL RDW 16.0 H (11.5-14.5) % Plt Count 469 H (140-440) X 10*3/uL MPV 8.9 L (9.5-12.2) FL NRBC/100 WBC Diff 0.02 H (0.00-0.01) X 10*3/uL Creatinine 0.3 L (0.6-1.5) mg/dL BUN/Creatinine Ratio 51.00 H (12.00-20.00) Ratio Total Bilirubin <0.2 L (0.3-1.2) mg/dL AST 7 L (13-35) U/L Total Protein 4.7 L (6.2-8.2) g/dL Albumin 3.0 L (3.8-4.9) g/dL Assessment and Plan Assessment: Acute on chronic hypoxic respiratory failure, multifactorial and secondary to: Left sided hydropneumothorax and trapped left lung Multiple pulmonary nodules in the right lung, possible lymphangitic carcinomatosis or metastatic lung cancer involving the right lung 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 Remains on steroids. 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 Number of minutes spent on the visit: 24.
--- NOTE | 2023-03-22 15:44 | P.PN ---
Subjective Progress Note Date: 03/22/23 Principal diagnosis: SOB, dyspnea, EGFR mutated NSCLC In f/u today pt reports feeling well, he O2 is at 3L (she was on 4-5L at home). Reports that she has ambulated to the restroom. Denies fevers, she is tolerating oral intake, no pain to report at this time. She thinks that she will be able to get around her home independently Objective - Vital Signs Vital signs: Vital Signs Temp 98 F 03/22/23 06:58 Pulse 100 03/22/23 08:18 Resp 18 03/22/23 06:58 BP 142/83 03/22/23 06:58 Pulse Ox 94 L 03/22/23 06:58 FiO2 8 03/14/23 12:30 Intake & Output 03/21/23 03/22/23 03/22/23 18:59 06:59 18:59 Intake Total 590 Output Total 650 Balance -650 590 Intake: Oral 590 Output: Urine 650 Other: # Voids 1 3 1 # Bowel Movements 1 - Constitutional General appearance: Present: average body habitus, cooperative, no acute distress - EENT Eyes: Present: anicteric sclerae, EOMI ENT: Present: hearing grossly normal - Respiratory Respiratory: bilateral: diminished (R>L) - Cardiovascular Rhythm: regular - Integumentary Integumentary: Present: normal - Neurologic Neurologic: Present: CNII-XII intact - Musculoskeletal Musculoskeletal: Present: generalized weakness, strength equal bilaterally - Psychiatric Psychiatric: Present: A&O x's 3, appropriate affect, intact judgment & insight - Labs CBC & Chem 7: 03/22/23 05:32 03/22/23 05:32 Labs: Abnormal Lab Results - Last 24 Hours (Table) 03/22/23 03/22/23 Range/Units 05:32 05:32 WBC 24.03 H (4.50-10.00) X 10*3/uL RBC 3.29 L (4.10-5.20) X 10*6/uL Hgb 9.5 L (12.0-15.0) g/dL Hct 30.3 L (37.2-46.3) % MCHC 31.4 L (32.0-37.0) g/dL RDW 16.0 H (11.5-14.5) % Plt Count 469 H (140-440) X 10*3/uL MPV 8.9 L (9.5-12.2) FL NRBC/100 WBC Diff 0.02 H (0.00-0.01) X 10*3/uL Creatinine 0.3 L (0.6-1.5) mg/dL BUN/Creatinine Ratio 51.00 H (12.00-20.00) Ratio Total Bilirubin <0.2 L (0.3-1.2) mg/dL AST 7 L (13-35) U/L Total Protein 4.7 L (6.2-8.2) g/dL Albumin 3.0 L (3.8-4.9) g/dL - Imaging and Cardiology Chest x-ray: report reviewed Assessment and Plan (1) Non-small cell lung cancer Current Visit: Yes Status: Acute Priority: High Code(s): C34.90 - MALIGNANT NEOPLASM OF UNSP PART OF UNSP BRONCHUS OR LUNG SNOMED Code(s): 297528343 (2) Hydropneumothorax Current Visit: Yes Status: Acute Priority: High Code(s): J94.8 - OTHER SPECIFIED PLEURAL CONDITIONS SNOMED Code(s): 62718771 (3) Pleural effusion, left Current Visit: Yes Status: Acute Priority: High Code(s): J90 - PLEURAL EFFUSION, NOT ELSEWHERE CLASSIFIED SNOMED Code(s): 36439765 Plan: Metastatic non-small cell lung cancer -S/P 2 whole brain radiation treatments, stopped due to intolerance. -Started on afatinib for [id number] mutation 03/01. Concern that pt presenting symptoms are pneumonitis, side effect of drug, as she is not improving as would be anticipated if this was just COPD exacerbation or resp infection. Discontinuing afatinib. Pt agrees. -Reviewed washout prior to starting new treatment. This was also discussed with her daughter over the phone. -She will be assessed in the clinic prior to starting new therapy. Appt in DC plan. If she is doing better sooner, we can adjust that appt. Hydropneumothorax -S/P chest tube placement and removal -Pt refused bronch -Pulmonary continues to follow. -Resp treatments per Pulmonary Spoke with daughter on the phone about treatment changes, pending order and delivery of new drug. Will have a f/u prior to starting or soon after starting- depending ion when drug can be delivered. Both agree with plan
--- NOTE | 2023-03-22 17:39 | P.PN ---
Subjective Progress Note Date: 03/22/23 Hospital course: Patient is a pleasant 67-year-old female with a past medical history of metastatic non-small cell endobronchial tumor currently on immunotherapy, chronic hypoxic respiratory failure on continuous oxygen with 3 L O2 via nasal cannula, and chronic left lower extremity weakness with foot drop. She presented to the emergency department on 03/11/23 with a chief complaint of worsening shortness of breath and was found to be in acute respiratory distress and failure with hypoxia. Vital signs upon arrival showing heart rate 124, respiratory rate 36, blood pressure 180/100, and SpO2 of 86% on 5 L O2 via nasal cannula with temp of 98.4F.. Patient requiring increased oxygenation needs up to 10 L O2 via high flow nasal cannula to maintain SpO2 greater than 90%. Labs were completed and reviewed. CBC showing leukocytosis with WBC count of 18.9 and thrombocytosis with platelet count of 694. Coagulation profile is normal findings. BMP revealing sodium 134, BUN 18, creatinine of 0.37. Initial lactic acid was 2.2. Magnesium was normal findings at 1.8 with normal liver function. ProBNP 417. Troponin was elevated at 0.067. EKG was completed showing sinus ta chycardia at 110 bpm with incomplete right bundle branch block with QRS of 102 ms. Chest x-ray revealed hydropneumothorax with complete airlessness throughout the left lung parenchyma and interval worsening on the right with air space filling process throughout the right lung parenchyma. Patient was admitted under our services with consultation to pulmonology and hematology/oncology. Troponins trended and were flat at 0.067 and 0.065. Echocardiogram was completed showing normal EF of 50-55%. Physical exam: Patient seen and fully evaluated at bedside this morning. Vital signs reviewed and stable. General: Nontoxic, no distress and appears stated age. Derm: Skin warm and dry, normal coloration for ethnicity. Head: Atraumatic, normocephalic and symmetric. Eyes: EOMs intact, no lid lag, and anicteric sclera Mouth: no lip lesions, mucus membranes moist Cardiovascular: regular rate and rhythm with normal S1S2, no murmur, positive posterior tibial pulses bilaterally, and cap refill < 2 seconds. Lungs: Left lung diminished throughout, no movement. Right lung good air movement, no wheezes, rhonchi, rales, or crackles. Abdominal: soft, nontender to palpation, no guarding, no appreciable organomegaly Ext: ROM intact. No gross muscle atrophy, no edema, no contractures Neuro: Speech clear, face symmetrical and CN II-XII grossly intact with no noted focal neuro deficits Psych: Alert and oriented to person, place, time, and situation. Appropriate and pleasant affect. Assessment and Plan of Care: Acute on chronic hypoxic respiratory failure Left-sided hydropneumothorax and trapped left lung Metastatic pulmonary adenocarcinoma Multiple pulmonary nodules throughout right lung -Pulmonology following, reviewed documentation in chart. -Acute on chronic hypoxic respiratory failure: Possible immunotherapy induced pneumonitis versus disease progression with lymphangitic carcinomatosis, versus infectious process. -Pro-kirk negative. RSV/Flu/COVID negative. -Repeat chest x-ray completed this morning showing worsening right lung infiltrate with stable large left pneumothorax. -Antibiotics: Continue Levaquin 500 mg PO QD. -Steroids: Continue Prednisone 40 mg daily. -Continue DuoNebs scheduled for times daily and as needed for SOB/wheezing. -Left sided hydropneumothorax, Trapped Lung: Status post chest tube 03/12-03/14 -Metastatic NSCLC, with endobronchial tumor: Immunotherapy on hold. Oncology on board, appreciate recommendations. Protein calorie malnutrition -Secondary to malignancy. -Continue Marinol and protein supplements 3 times daily between meals. Elevated troponins, flat. Likely type II NSTEMI secondary to respiratory failure with hypoxia. -Elevated troponins believed to be resulting from acute respiratory failure with hypoxia. Patient remained free from cardiac complaints at this time. -Echocardiogram was completed showing normal EF of 50-55%. Chronic left lower extremity weakness with foot drop -Provide assistance and support as needed. Data reviewed: Vital signs reviewed. Blood pressure 142/83, heart rate 101, respiratory rate 18, temp 98.0F, and SpO2 of 94% on 3 L. CODE STATUS: DO NOT RESUSCITATE/DO NOT INTUBATE DVT prophylaxis: Lovenox Anticipated discharge date: Clinical course to determine Anticipated discharge place: Clinical course to determine Patient was seen independently by Nurse Pracitioner. This document was prepared using [employer] dictation software. Please allow for errors in plumber apprentice, while rare they do occur. Norris Damon NP rendered care for this patient independently, reviewed the findings and plan as documented in the note above. I did not physically speak with or examine the patient on this date. Objective - Vital Signs Vital signs: Vital Signs Temp 98 F 03/22/23 06:58 Pulse 100 03/22/23 08:18 Resp 18 03/22/23 06:58 BP 142/83 03/22/23 06:58 Pulse Ox 94 L 03/22/23 06:58 FiO2 8 03/14/23 12:30 Intake & Output 03/21/23 03/22/23 03/22/23 18:59 06:59 18:59 Intake Total 590 Output Total 650 Balance -650 590 Intake: Oral 590 Output: Urine 650 Other: # Voids 1 3 # Bowel Movements 1 - Labs CBC & Chem 7: 03/22/23 05:32 03/22/23 05:32
[2023-03-22] MEDS: droNABinol 2.5 MG CAP PO SCH (20:01)
[2023-03-23] MEDS: MORPHINE SULFATE 4 MG/ML SYRINGE IVP PRN ×2 (03:25→07:55)
[2023-03-23] MEDS: HYDROcodone/APAP 5-325MG 1 EACH TAB PO PRN (05:36)
[2023-03-23] MEDS: IPRATROPIUM-ALBUTEROL 3 ML NEB INHALATION SCH ×3 (07:54→15:19)
[2023-03-23] MEDS: ENOXAPARIN 40 MG/0.4 ML SYRINGE SQ SCH (07:55)
[2023-03-23] MEDS: PANTOPRAZOLE 40 MG/10 ML VIAL IVP SCH (07:55)
[2023-03-23] MEDS: LEVOFLOXACIN 500 MG TAB PO SCH (07:56)
[2023-03-23] MEDS: predniSONE 20 MG TAB PO SCH (07:56)
[2023-03-23] MEDS: FUROSEMIDE 20 MG TAB PO SCH (07:56)
[2023-03-23 08:19] VITALS: BP 130/85; TEMP 98
[2023-03-23] MEDS: ALPRAZolam 0.25 MG TAB PO PRN (10:47)
--- NOTE | 2023-03-23 11:21 | P.PN ---
Subjective Progress Note Date: 03/23/23 I am seeing this patient in consultation today 03/12/2023 after she was brought into the emergency room yesterday evening with acute shortness of breath. Patient is a 67-year-old female with past medical history significant for a relatively new diagnosis of advanced lung cancer with metastasis to the lung and brain. Patient originally presented back in December, she was short of breath and had a left-sided pleural effusion. Following the thoracentesis, the patient had a significant large left-sided hydropneumothorax. Likely representing trapped lung. She did have ThoraVent placed from 12/23-01/01. The lung never fully expanded. Pleural fluid cytology showed rare atypia, but was essentially nondiagnostic. Patient did undergo a bronchoscopy with transbronchial biopsy of the left lower lobe during this admission, and it did show invasive pulmonary adenocarcinoma. Brain MRI did show multiple ring-enhancing lesions concerning for intracranial metastasis. Patient has become established with an oncologist, David West. Currently on Gilotrif. This was recently started. She has reportedly received 11 doses. Patient returned to the emergency room yesterday evening complaining of progressively worsening shortness of breath starting over the weekend. She normally wears 3 L/m nasal cannula, and this was increased to 5 L because of shortness of breath and low oxygen levels. Patient states that her shortness of breath is even worse on exertion. Denies any change in her chronic cough, hemoptysis, fever, chills, chest pain. She has had reduced appetite and hasn't been eating the last couple days. Admits adequate fluid intake. Chest x-ray on arrival redemonstrated the patient's left-sided hydropneumothorax. There is also worsening airspace disease throughout the right lung. Dr. Guzman did come in to place a left-sided chest tube. A follow up chest CTA done on arrival did not show any pulmonary embolism. It did show a persistent left-sided hydropneumothorax. There is adequate placement of a left-sided chest tube. The right hemithorax showed extensive interstitial thickening throughout the right upper mid and lower lung zones with associated scattered consolidative opacities throughout the right Lung parenchyma. Could represent immunotherapy induced pneumonitis, disease progression with lymphangitic carcinomatosis, infectious process, among other things. CBC on arrival showed some leukocytosis with a WBC count 18.9, hemoglobin 12.5, hematocrit 38.5, platelets 694. BMP shows sodium 134, potassium 4.1, chloride 98, serum bicarb 25, BUN 18, creatinine 0.37, glucose 104. No IV maintenance fluids infusing. Lactic acid level II.2. Troponins mildly elevated at 0.067. NT proBNP 417. Negative for influenza, RSV, COVID-19. Patient was empirically started on Zosyn. Also started on high- dose steroids. Patient is currently sitting up in bed, on 5 L/m nasal cannula, she is mildly dyspneic at rest. Heart rate appears sinus tachycardia on bedside monitor. Blood pressure is stable, and is actually slightly hypertensive. She reports some left sided chest pain at the chest tube insertion site. There is a left-sided chest tube connected to an [facility] and suction -20 cm H2O. There is an intermittent air leak. There is a total of [address] brown CT output. Patient's current prognosis is poor related to above-mentioned comorbidities. She wishes to be a DO NOT RESUSCITATE/DO NOT INTUBATE. Daughter is at bedside and is in agreement. She had also been a DO NOT RESUSCITATE/DO NOT INTUBATE on her prior admission. We will continue to monitor the patient in the intensive care unit On today's evaluation of 03/13/2023, the patient is being seen for a follow-up. As mentioned, the patient had a left-sided chest tube inserted. Nevertheless, the left lung is essentially trapped and there is no reexpansion of the left lung. Total amount of fluid output from the left side was in order of 200 mL. Repeat chest x-ray from today is still showing a trapped lung with a left-sided high flow thorax. Chest tube is in a good location. There is still persistent infiltration of the right lung which is somewhat improved compared to yesterday. There is also prominent air below the right hemidiaphragm. Unable to distinguish if this is a thin supposed colonic air versus fully intraperitoneal air. The x-ray of the abdomen showed the same. However, clinically, the patient has no nausea or emesis or abdominal pain. She is tolerating her diet. Abdominal exam is extremely soft of this point in time. Her labs are all adequate. The white cycles of 19.7 with a hemoglobin of 11 sodiums of 139, potassium is at 4 with a BUN of 25 and a creatinine of 0.4. Lactic acid level is down to 1.7. The patient remains on IV Zosyn. The patient remains on IV Solu-Medrol. The patient was taking Afatinib , this was placed on hold. Ventilation of 03/14/2023, I'm seeing the patient for a follow-up. As mentioned, the left lung is completely trapped. Attempted a left-sided chest tube with no success. There was no reexpansion of the left lung. The chest tube was removed accordingly. She feels slightly more comfortable following the chest tube removal. Currently 78 L of oxygen by nasal cannula. Chest x-ray findings of essentially unchanged. There is a hazy infiltrate occupying the right lung in addition to no other lesions consistent with metastatic disease. The patient may have an underlying drug induced pneumonitis. The patient on IV Solu-Medrol. The patient is also covered with antibiotics with she is currently on Lasix. The viral screen came back negative. Her pro calcitonin level was also low. Her white cell count of 20.9. Hemoglobin is 11, BUN is at 20 with a creatinine of 0.4 and a sodium level is at 137. Her lactic acid level is down to 1.7. The patient is currently on 8 L of oxygen by nasal cannula. His t olerating her diet. No nausea or emesis. No other new complaints otherwise for now. Patient was reevaluated today on 03/15/2023, patient is still in ICU, continues to have completely trapped left lung, chest tube has been removed mostly because it was not beneficial and did not lead to expansion of the left lung. Patient has significant infiltrates involving the right lung, could be related to pneumonitis or metastatic lung cancer/lymphangitic carcinomatosis. Patient is now on antibiotics is also on steroids, if no improvement noted, I would seriously consider bronchoscopy and bronchoalveolar lavage of the right lung, and try to diagnose or rule out lymphangitic carcinomatosis. Patient does have leukocytosis with WBC of 18.1 hemoglobin 11.7. Basic metabolic profile is normal bicarb is 35 renal profile is normal. Blood cultures have been negative, no sputum cultures have been sent The patient is seen today 03/16/2023 in follow-up on the regular medical floor. She is awake and alert in no acute distress. She is feeling better today compared to yesterday. She is maintaining O2 saturations in the mid 90s on 4 L/m per nasal cannula. She's afebrile. Chest x-ray continues to show a large left pneumothorax which is stable compared to previous. There is some worsening diffuse infiltrate throughout the right lung. Suspicious for pulmonary edema and pneumonia. Blood cultures revealed no growth. White count 20.1. Hemoglobin 12.0. Platelets 739. Sodium 135. Potassium 4.3. Bicarb 32. UN 17. Creatinine 0.34. Glucose 89. Echocardiogram revealed preserved left ve ntricular systolic function with ejection fraction of 55%. She remains on DuoNeb inhalations, Solu-Medrol. Antibiotics in form of Zosyn. She is continued on IV diuretics. Lovenox for DVT prophylaxis. Currently in a negative balance. The patient is seen today 03/17/2023 in follow-up on the regular medical floor. She is sitting up in bed. Awake and alert in no acute distress. She is maintai ellen O2 saturations in the upper 90s on 4 L high flow nasal cannula. She remains afebrile. Hemodynamically stable. Chest x-ray continues to show diffuse infiltrate to the right lung. Stable large left lung pneumothorax. Blood cultures revealed no growth. White count 29.0. Hemoglobin 12.8. Sodium 138. Potassium 4.1. Bicarb 33. BUN 24. Creatinine 0.39. Glucose 102. She remains on DuoNeb inhalations, Solu-Medrol, Zosyn. Continued on IV diuretics. Remains in a negative balance. Lovenox for DVT prophylaxis. The patient is seen today 03/18/2023 in follow-up on the regular medical floor. She is currently sitting up in a chair at the bedside. Awake and alert in no acute distress. She is maintaining O2 saturations in the 90s 5 L/m per nasal cannula. She's afebrile. Hemodynamically stable. The plan was for bronchoscopy with BAL and possible biopsies of the right lung which is revealing diffuse infiltrates and possible lymphogenic carcinomatosis however the patient is declining to have any further procedures done at this point whish is quite reasonable. Blood cultures revealed no growth. Count 24.1. Hemoglobin 11.2. Platelets 612. Sodium 139. Potassium 3.2. Bicarb 30. BUN 30. Creatinine 0.41. Glucose 107. She remains on DuoNeb inhalations, Solu-Medrol, Zosyn. Continued on IV diuretics. Today's to make good urine output. Lovenox for DVT prophylaxis. Doppler of the left lower extremity was negative for DVT. The patient is seen today 03/19/2023 in follow-up on the regular medical floor. She is currently resting comfortably in bed. Family is at the bedside. Denies any worsening shortness of breath, cough or congestion. Maintaining O2 saturations up to 99% on 5 L high flow nasal cannula. She's afebrile. Hemodynamically stable. Blood cultures revealed no growth. She is continued on DuoNeb inhalations. Oral diuretics. Lovenox for DVT prophylaxis. Antibiotics in the form of Levaquin. Remains on up prednisone taper. Remains on Marinol for appetite improvement. The patient is seen today 03/20/2023 in follow-up on the regular medical floor. She is sitting up at the bedside. Awake and alert in no acute distress. Remains on 5 L high flow nasal cannula to maintain O2 saturations in the 90s. She's been afebrile. Hemodynamically stable. Blood cultures revealed no growth. White count 22. Hemoglobin 10.3. Platelets 521. Sodium 139. Potassium 3.2. Bicarb 38. BUN 29. Creatinine 0.36. Glucose 78. Jose on DuoNeb inhalations, prednisone taper. Lovenox for DVT prophylaxis. She remains on antibiotics in the form of Levaquin. She remains on oral diuretics. The patient is seen today 03/21/2023 in follow-up on the regular medical floor. She is sitting up in bed. Awake and alert in no acute distress. Maintaining O2 saturations in the mid 90s on 4 L/m per nasal cannula. She's afebrile. Hemodynamically stable. No new labs today. She remains on Lovenox for DVT prophylaxis. Remains on DuoNeb inhalations. Continued on a prednisone taper. Antibiotics in the form of Levaquin. Oral diuretics. Continued on Marinol for appetite support The patient is seen today 03/22/2023 follow-up on the regular medical floor. She is awake and alert in no acute distress. Sitting up in bed. Denies any worsening shortness of breath, cough or congestion. He is maintaining O2 saturations in the 90s on 4 L/m per nasal cannula. Chest x-ray reveals slightly worsening right lung infiltrate. Stable large left pneumothorax. The culture revealed no growth. White count 24. Hemoglobin 9.5. Platelets 469. Sodium 142. Potassium 4.2. BUN 15. Creatinine 0.3. AST 7. ALT 18. Remains on bronchodilators, Levaquin, Lovenox for DVT prophylaxis. Remains on oral diuretics. Remains on oral steroids. The patient is seen today 03/23/2023 in follow-up on the regular medical floor. She is currently sitting up in bed having breakfast. Awake and alert in no acute distress. She still has some dyspnea with exertion. Feeling nearly back to her baseline. No worsening shortness of breath, cough or congestion. Harvinder nues to maintain good O2 saturation the mid 90s on 3 L/m per nasal cannula. She's afebrile. Hemodynamically stable. She remains on DuoNeb inhalations, Levaquin, prednisone taper. Remains on oral diuretics. Lovenox for DVT prophylaxis. Continued on Marinol for appetite support. Objective - Vital Signs Vital signs: Vital Signs Temp 98 F 03/23/23 07:12 Pulse 100 03/23/23 08:04 Resp 18 03/23/23 07:12 BP 130/85 03/23/23 07:12 Pulse Ox 95 03/23/23 07:12 FiO2 8 03/14/23 12:30 Intake & Output 03/22/23 03/23/23 03/23/23 18:59 06:59 18:59 Intake Total 590 Balance 590 Intake: Oral 590 Other: Voiding Method External Catheter External Catheter # Voids 1 1 1 # Bowel Movements 1 - Exam GENERAL EXAM: Alert, frail, very pleasant 67-year-old female, on 3 L nasal cannula, in no apparent distress. HEAD: Normocephalic. EYES: Normal reaction of pupils, equal size. NOSE: Clear with pink turbinates. THROAT: No erythema or exudates. NECK: No masses, no JVD. CHEST: No chest wall deformity. LUNGS: Diminished breath sounds on the left, few scattered rhonchi on the right. CVS: S1 and S2 normal with no audible murmur, regular rhythm. ABDOMEN: No hepatosplenomegaly, normal bowel sounds, no guarding or rigidity. SPINE: No scoliosis or deformity SKIN: No rashes CENTRAL NERVOUS SYSTEM: No focal deficits, tone is normal in all 4 extremities. EXTREMITIES: There is no peripheral edema. No clubbing, no cyanosis. Peripheral pulses are intact. 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 Remains on steroids. 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 Protein calorie malnutrition, moderately severe, remains on Marinol 80 pounds weight loss in 1 year secondary to malignancy Ex-smoker quit smoking in December 2022 Plan: The patient was seen and evaluated Medications reviewed Continued on steroids, bronchodilators, diuretics Completed a course of Levaquin Lovenox for DVT prophylaxis Stable on 3 L nasal cannula Cleared for discharge from the pulmonary standpoint This patient was seen independently by the pulmonary nurse practitioner I have personally seen and examined the patient, performed the documentation and the assessment and plan as written. Number of minutes spent on the visit: 24.
[2023-03-23 11:37] VITALS: PULSE 96
--- NOTE | 2023-03-23 12:43 | P.DS ---
Providers Date of admission: 03/11/23 21:22 Expected date of discharge: 03/23/23 Attending physician: Shanna Ortega MD Consults: 03/11/23 21:16 Consult Physician Stat Consulting Provider: Lila Guzman Consult Reason/Comments: Critical care management Do you want consulting provider notified?: Yes 03/12/23 00:42 Consult Physician Routine Consulting Provider: David Escobedo Consult Reason/Comments: lung cancer Do you want consulting provider notified?: Yes, Notify in am Primary care physician: Farzaneh Landeros MD Hospital Course: Discharge Diagnosis: Acute on chronic hypoxic respiratory failure Left-sided hydropneumothorax and trapped left lung Metastatic pulmonary adenocarcinoma Multiple pulmonary nodules throughout right lung Severe leukocytosis and thrombocytosis, believed to be reactive with no signs or symptoms of active infection. Protein calorie malnutrition. Secondary to malignancy. Continue Marinol and p rotein supplements 3 times daily between meals. Elevated troponins, flat. Likely type II NSTEMI secondary to respiratory failure with hypoxia. Elevated troponins believed to be resulting from acute respiratory failure with hypoxia. Patient remained free from cardiac complaints throughout hospitalization.. Echocardiogram was completed showing normal EF of 50-55%. 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 She presented to the emergency department on 03/11/23 with a chief complaint of worsening shortness of breath and was found to be in acute respiratory distress and failure with hypoxia. Vital signs upon arrival showing heart rate 124, respiratory rate 36, blood pressure 180/100, and SpO2 of 86% on 5 L O2 via nasal cannula with temp of 98.4F.. Patient requiring increased oxygenation needs up to 10 L O2 via high flow nasal cannula to maintain SpO2 greater than 90%. Labs were completed and reviewed. CBC showing leukocytosis with WBC count of 18.9 and thrombocytosis with platelet count of 694. Coagulation profile is normal findings. BMP revealing sodium 134, BUN 18, creatinine of 0.37. Initial lactic acid was 2.2. Magnesium was normal findings at 1.8 with normal liver function. ProBNP 417. Troponin was elevated at 0.067. EKG was completed showing sinus tachycardia at 110 bpm with incomplete right bundle branch block with QRS of 102 ms. Chest x-ray revealed hydropneumothorax with complete airlessness throughout the left lung parenchyma and interval worsening on the right with air space filling process throughout the right lung parenchyma. Patient was admitted under our services with consultation to pulmonology and hematology/oncology. Troponins trended and were flat at 0.067 and 0.065. Echocardiogram was completed showing normal EF of 50-55%. Recent underwent an extended hospitalization, 12 days. She completed course of antibiotics and has been weaned back down to baseline oxygen needs. Pulmonology and oncology following along throughout hospitalization. Oncology clearing patient from their perspective to follow-up outpatient with patient in 1 week to discuss treatment changes pending order and delivery of new drug. Pulmonology clearing patient from pulmonary perspective stating patient may resume home Decadron 2 mg daily and outpatient follow-up. Patient denied need for prescription refills at this time. Physical exam: Patient seen and fully evaluated at bedside this morning. Vital signs reviewed and stable. General: Nontoxic, no distress and appears stated age. Derm: Skin warm and dry, normal coloration for ethnicity. Head: Atraumatic, normocephalic and symmetric. Eyes: EOMs intact, no lid lag, and anicteric sclera Mouth: no lip lesions, mucus membranes moist Cardiovascular: regular rate and rhythm with normal S1S2, no murmur, positive posterior tibial pulses bilaterally, and cap refill < 2 seconds. Lungs: Left lung diminished throughout, no movement. Right lung good air movement, no wheezes, rhonchi, rales, or crackles. Abdominal: soft, nontender to palpation, no guarding, no appreciable organomegaly Ext: ROM intact. No gross muscle atrophy, no edema, no contractures Neuro: Speech clear, face symmetrical and CN II-XII grossly intact with no noted focal neuro deficits Psych: Alert and oriented to person, place, time, and situation. Appropriate and pleasant affect. A total of 35 minutes of time were spent preparing this complex discharge summary. Pt was discharged on 03/23/23 at 11:49 AM. Patient was seen independently by Nurse Practitioner. This document was prepared using [employer] dictation software. Please allow for errors in steam fitter while rare they do occur. Norris Damon NP rendered care for this patient independently, reviewed the findings and plan as documented in the note above. I did not physically speak with or examine the patient on this date. Patient Condition at Discharge: Stable Plan - Discharge Summary New Discharge Prescriptions: New Furosemide [Lasix] 20 mg PO BID@0900,1600 30 Days #60 tab ALPRAZolam [Xanax] 0.25 mg PO BID PRN 7 Days #14 tab PRN Reason: other Albuterol Nebulized [Ventolin Nebulized (Accuneb)] 3 ml INHALATION Q6H 30 Days #75 ml Continue ePHEDrine HCL [Primatene] 12.5 mg PO QID PRN PRN Reason: Shortness Of Breath Cetirizine HCl [Zyrtec] 10 mg PO DAILY PRN PRN Reason: Allergy Symptoms Acetaminophen Tab [Tylenol] 650 mg PO Q6HR PRN #60 tab PRN Reason: Mild Pain Or Fever > 100.5 dexAMETHasone [Decadron] 2 mg PO DAILY Famotidine 40 mg PO HS PRN PRN Reason: acid reflux Afatinib Dimaleate [Gilotrif] 40 mg PO HS@2300 Guaifenesin/Dextromethorphan [Guaifenesin-Dm 400-20 mg Tab] 1 tab PO QID PRN PRN Reason: Congestion droNABinol 5 mg PO HS oxyCODONE-APAP 7.5-325MG [Percocet 7.5-325 mg] 1 tab PO Q4H PRN PRN Reason: Pain Ondansetron [Zofran] 4 mg PO Q6H PRN PRN Reason: Nausea Loperamide HCl [Imodium A-D] 2 mg PO QID PRN PRN Reason: Diarrhea Sennosides/Docusate Sodium [Senna Plus 8.6-50 mg Softgel] 1 cap PO BID PRN PRN Reason: Constipation Discontinued ALPRAZolam [Xanax] 0.25 mg PO DAILY PRN PRN Reason: PRIOR TO PROCEDURES Discharge Medication List Cetirizine HCl [Zyrtec] 10 mg PO DAILY PRN 12/22/22 [History] Guaifenesin/Dextromethorphan [Guaifenesin-Dm 400-20 mg Tab] 1 tab PO QID PRN 12/22/22 [History] ePHEDrine HCL [Primatene] 12.5 mg PO QID PRN 12/22/22 [History] Acetaminophen Tab [Tylenol] 650 mg PO Q6HR PRN #60 tab 12/31/22 [Rx] Afatinib Dimaleate [Gilotrif] 40 mg PO HS@2300 03/11/23 [History] Famotidine 40 mg PO HS PRN 03/11/23 [History] Loperamide HCl [Imodium A-D] 2 mg PO QID PRN 03/11/23 [History] Ondansetron [Zofran] 4 mg PO Q6H PRN 03/11/23 [History] Sennosides/Docusate Sodium [Senna Plus 8.6-50 mg Softgel] 1 cap PO BID PRN 03/11/23 [History] dexAMETHasone [Decadron] 2 mg PO DAILY 03/11/23 [History] droNABinol 5 mg PO HS 03/11/23 [History] oxyCODONE-APAP 7.5-325MG [Percocet 7.5-325 mg] 1 tab PO Q4H PRN 03/11/23 [ History] ALPRAZolam [Xanax] 0.25 mg PO BID PRN 7 Days #14 tab 03/23/23 [Rx] Albuterol Nebulized [Ventolin Nebulized (Accuneb)] 3 ml INHALATION Q6H 30 Days #75 ml 03/23/23 [Rx] Furosemide [Lasix] 20 mg PO BID@0900,1600 30 Days #60 tab 03/23/23 [Rx] Follow up Appointment(s)/Referral(s): Cassy Sheth NPC [Nurse Practitioner] - 04/07/23 11:00 am (This appt may be changed to an earlier date. We will contact pt with any changes to appt date and time. ) Farzaneh Landeros MD [Primary Care Provider] - 03/30/23 3:30 pm (appointment with Dr. Bobby) Rg Polanco DO [Doctor of Osteopathic Medicine] - 04/07/23 1:00 pm (the office will put you on a cancellation list or if you would like an appointment on 03/30/23 @ 0830 please call them. ) Patient Instructions/Handouts: Furosemide (By mouth), Alprazolam (By mouth) Activity/Diet/Wound Care/Special Instructions: Activity: As tolerated. Take breaks as needed. Diet: Heart healthy and carb consistent diet. Avoid salts, or foods with hidden salts such as canned or boxed foods and frozen dinners. Extra salt makes your heart work harder and traps the fluid in your body for longer. Special Instructions: Take all of your medications as directed and remember to keep all of your doctor's appointments and follow-up as needed. Wishing you and your family a truly blessed and wonderful holiday. Thank you for allowing us to participate in your care, it was truly a pleasure having you for our patient!!! Discharge Disposition: HOME SELF-CARE
--- NOTE | 2023-03-23 16:40 | P.PN ---
Subjective Progress Note Date: 03/23/23 Principal diagnosis: SOB, dyspnea, EGFR mutated NSCLC In f/u today pt reports feeling well, Breathing is stable today, tolerating oral intake, no pain. She feels she is ready for DC home with her daughter Objective - Vital Signs Vital signs: Vital Signs Temp 98 F 03/23/23 07:12 Pulse 100 03/23/23 08:04 Resp 18 03/23/23 07:12 BP 130/85 03/23/23 07:12 Pulse Ox 95 03/23/23 07:12 FiO2 8 03/14/23 12:30 Intake & Output 03/22/23 03/23/23 03/23/23 18:59 06:59 18:59 Intake Total 590 Balance 590 Intake: Oral 590 Other: Voiding Method External Catheter External Catheter # Voids 1 1 1 # Bowel Movements 1 - Constitutional General appearance: Present: cooperative, no acute distress, thin - EENT Eyes: Present: anicteric sclerae, EOMI ENT: Present: hearing grossly normal - Respiratory Respiratory: bilateral: rhonchi (expiratory, R>L) - Peripheral edema leg Peripheral Edema: bilateral: None - Integumentary Integumentary: Present: normal - Neurologic Neurologic: Present: CNII-XII intact - Musculoskeletal Musculoskeletal: Present: generalized weakness, strength equal bilaterally - Psychiatric Psychiatric: Present: A&O x's 3, appropriate affect, intact judgment & insight - Labs CBC & Chem 7: 03/22/23 05:32 03/22/23 05:32 Assessment and Plan (1) Non-small cell lung cancer Status: Acute Priority: High Code(s): C34.90 - MALIGNANT NEOPLASM OF UNSP PART OF UNSP BRONCHUS OR LUNG SNOMED Code(s): 259037922 (2) Hydropneumothorax Status: Acute Priority: High Code(s): J94.8 - OTHER SPECIFIED PLEURAL CONDIT IONS SNOMED Code(s): 05336055 (3) Pleural effusion, left Status: Acute Priority: High Code(s): J90 - PLEURAL EFFUSION, NOT ELSEWHERE CLASSIFIED SNOMED Code(s): 90785398 Plan: Metastatic non-small cell lung cancer -S/P 2 whole brain radiation treatments, stopped due to intolerance. -Started on afatinib for [id number] mutation 03/01. Discontinuing afatinib 05/07 to SE. Pt agrees. -Reviewed washout prior to starting new treatment. She will also have to complete any antibiotic therapy. This was also discussed with her daughter over the phone today. they both verbalize understanding. -She will be assessed in the clinic prior to starting new therapy. Appt in DC plan. If she is doing better sooner, we can adjust that appt. Hydropneumothorax -S/P chest tube placement and removal -Pt refused bronch -Pulmonary continues to follow. -Resp treatments per Pulmonary
== END 2023-03-23 15:15 | disposition home or self-care (01) | DRG 186 ==
LOC: EC 18:08 → 2SICU 21:22 → 5NMEDONC 03-15 21:05
PROVIDERS: ADMIT Internal Medicine; ATTEND Internal Medicine
PROC: 0W9B30Z Drainage of Left Pleural Cavity with Drainage Device, Percutaneous Approach (ICD-10-PCS; principal; 2023-03-11)
DX: J94.2 Hemothorax (principal); E43 Unspecified severe protein-calorie malnutrition; I21.A1 Myocardial infarction type 2; J96.21 Acute and chronic respiratory failure with hypoxia; J94.8 Other specified pleural conditions; C78.00 Secondary malignant neoplasm of unspecified lung; C34.90 Malignant neoplasm of unspecified part of unspecified bronchus or lung; C79.31 Secondary malignant neoplasm of brain; E87.3 Alkalosis; J44.0 Chronic obstructive pulmonary disease with (acute) lower respiratory infection; J93.82 Other air leak; J98.11 Atelectasis; R64 Cachexia; R65.10 Systemic inflammatory response syndrome (SIRS) of non-infectious origin without acute organ dysfunction; J90 Pleural effusion, not elsewhere classified; H35.30 Unspecified macular degeneration; Z99.81 Dependence on supplemental oxygen; J98.4 Other disorders of lung; I45.10 Unspecified right bundle-branch block; J70.4 Drug-induced interstitial lung disorders, unspecified; E87.70 Fluid overload, unspecified; M21.379 Foot drop, unspecified foot; E87.8 Other disorders of electrolyte and fluid balance, not elsewhere classified; T50.2X5A Adverse effect of carbonic-anhydrase inhibitors, benzothiadiazides and other diuretics, initial encounter; D75.838 Other thrombocytosis; Z87.891 Personal history of nicotine dependence; M04.1 Periodic fever syndromes; Z68.22 Body mass index [BMI] 22.0-22.9, adult; Z66 Do not resuscitate; Z11.52 Encounter for screening for COVID-19; Z79.52 Long term (current) use of systemic steroids; Z82.49 Family history of ischemic heart disease and other diseases of the circulatory system; Z79.899 Other long term (current) drug therapy
CPT/HCPCS: 36415; 71045; 71046; 71275; 74022; 80048; 80053; 82525; 82607; 82728; 82746; 83540; 83550; 83605; 83735; 83880; 83921; 84132; 84145; 84484; 85025; 85027; 85610; 85730; 87040; 87636; 93005; 93306; 94640; 94760; 96365; 96375; 99285

== ENCOUNTER 2024-07-28 12:30 | Inpatient (IN) | payer MEDICARE, OTHER ==
--- NOTE | 2024-07-28 13:15 | ED ---
General Adult HPI - General Chief complaint: Shortness of Breath Stated complaint: chest pain, SOB Time Seen by Provider: 07/28/24 12:33 Source: patient, RN notes reviewed, old records reviewed Mode of arrival: EMS - History of Present Illness Initial comments: 68-year-old female with known lung cancer presenting with increased dyspnea, intermittent chest pain. Patient denies current chest pain. She states she has had worsening dyspnea over the past several weeks. She reports a persistent left leg swelling which has been present for over 1 year. She denies fever. She states she has not been eating or drinking well. - Related Data Home Medications Medication Instructions Recorded Confirmed Cetirizine HCl [Zyrtec] 10 mg PO DAILY PRN 12/22/22 07/28/24 Guaifenesin/Dextromethorphan 1 tab PO Q4H PRN 12/22/22 07/28/24 [Guaifenesin-Dm 400-20 mg Tab] ePHEDrine HCL [Primatene] 12.5 mg PO Q4H 12/22/22 07/28/24 oxyCODONE-APAP 7.5-325MG [Percocet 1 tab PO Q4H 03/11/23 07/28/24 7.5-325 mg] Diphenoxylate HCl/Atropine 1 tab PO QID PRN 07/28/24 07/28/24 [Lomotil 2.5-0.025 mg Tablet] Lactase [Lactaid] 9,000 unit PO TID-W/MEALS PRN 07/28/24 07/28/24 Osimertinib Mesylate [Tagrisso] 80 mg PO HS@2300 07/28/24 07/28/24 Potassium Gluconate 650mg 650 mg PO DAILY 07/28/24 07/28/24 Simethicone [Mylanta Gas Minis] 125 mg PO QID PRN 07/28/24 07/28/24 diphenhydrAMINE HCL [Benadryl] 25 mg PO DAILY PRN 07/28/24 07/28/24 predniSONE 10 mg PO BID 07/28/24 07/28/24 Previous Rx's Medication Instructions Recorded Furosemide [Lasix] 20 mg PO BID@0900,1600 30 Days #60 03/23/23 tab Allergies Allergy/AdvReac Type Severity Reaction Status Date / Time hydromorphone [From Dilaudid] AdvReac Nausea & Verified 07/28/24 15:17 Vomiting Review of Systems ROS Statement: Those systems with pertinent positive or pertinent negative responses have been documented in the HPI. ROS Other: All systems not noted in ROS Statement are negative. Past Medical History Past Medical History: Cancer Additional Past Medical History / Comment(s): plueral effusion History of Any Multi-Drug Resistant Organisms: None Reported Past Surgical History: Section, Tonsillectomy Additional Past Surgical History / Comment(s): breast biopsy Past Anesthesia/Blood Transfusion Reactions: No Reported Reaction Past Psychological History: No Psychological Hx Reported Smoking Status: Former smoker Past Alcohol Use History: None Reported Past Drug Use History: None Reported - Past Family History Father Family Medical History: Diabetes Mellitus Additional Family Medical History / Comment(s): Migraines, depression, unsure but had heart issues Mother Family Medical History: Cancer, COPD, Diabetes Mellitus, Hypertension, Thyroid Disorder Additional Family Medical History / Comment(s): Breast CA, enlarged Heart, Macular degeneration, "Mini strokes" Brother(s) Family Medical History: Cancer, Diabetes Mellitus, Hyperlipidemia Additional Family Medical History / Comment(s): Prostate Cancer, Macular degeneration General Exam General appearance: alert, cachectic Eye exam: Present: normal appearance, PERRL ENT exam: Present: mucous membranes dry Respiratory exam: Present: rhonchi, decreased breath sounds Cardiovascular Exam: Present: normal rhythm, tachycardia GI/Abdominal exam: Present: soft. Absent: distended, tenderness, guarding Rectal exam: Present: other (Stage II sacral decubitus ulcer) Extremities exam: Present: pedal edema (Swelling to the left lower extremity, skin breakdown, pitting edema) Neurological exam: Present: alert, oriented X3. Absent: motor sensory deficit Skin exam: Present: warm Course Vital Signs 07/28/24 07/28/24 07/28/24 12:46 13:00 13:15 Temperature 97 F L Pulse Rate 120 H 116 H 118 H Respiratory 26 H 36 H 36 H Rate Blood Pressure 129/94 129/94 128/89 O2 Sat by Pulse 97 100 Oximetry 07/28/24 07/28/24 07/28/24 13:30 13:38 13:45 Temperature Pulse Rate 116 H 118 H 118 H Respiratory 23 39 H Rate Blood Pressure 132/87 125/83 O2 Sat by Pulse 100 100 Oximetry 07/28/24 07/28/24 07/28/24 13:46 13:47 13:56 Temperature Pulse Rate 118 H 118 H 118 H Respiratory Rate Blood Pressure O2 Sat by Pulse Oximetry 07/28/24 07/28/24 07/28/24 14:00 14:15 14:30 Temperature Pulse Rate 121 H 122 H 115 H Respiratory 26 H 38 H 19 Rate Blood Pressure 105/89 105/89 O2 Sat by Pulse 94 L 100 Oximetry 07/28/24 14:45 Temperature Pulse Rate 115 H Respiratory 22 Rate Blood Pressure 127/89 O2 Sat by Pulse 100 Oximetry Medical Decision Making - Medical Decision Making Was pt. sent in by a medical professional or institution (, PA, COMMUNICATION MANAGER, urgent care, hospital, or custodial...) When possible be specific @ -No Did you speak to anyone other than the patient for history (EMS, parent, family, police, friend...)? What history was obtained from this source @ -No Did you review nursing and triage notes (agree or disagree)? Why? @ -I reviewed and agree with nursing and triage notes Were old charts reviewed (outside hosp., previous admission, EMS record, old EKG, old radiological studies, urgent care reports/EKG's, custodial records)? Report findings @ -No old charts were reviewed Differential Dyspnea: Coronary syndrome, arrhythmia, tamponade, asthma, COPD, pulmonary embolism, pne umonia, pneumothorax, pulmonary effusion, anaphylaxis, diabetic ketoacidosis, flailed chest, pulmonary contusion, diaphragmatic rupture, anemia, neuromuscular, this is not meant to be an all-inclusive list. EKG interpreted by me (3pts min.). @ -[Sinus tachycardia rate of 117, CO interval 178, QRS duration 81, QTc 501 T wave inversion in V2 tremor artifact throughout. X-rays interpreted by me (1pt min.). @Chest x-ray: Near complete opacification of the left hemithorax with pleural effusion CT interpreted by me (1pt min.). @ -None done U/S interpreted by me (1pt. min.). @ -Ultrasound of the left lower extremity positive for DVT What testing was considered but not performed or refused? (CT, X-rays, U/S, labs)? Why? @ -None What meds were considered but not given or refused? Why? @ -None Did you discuss the management of the patient with other professionals (professionals i.e. , PA, COMMUNICATION MANAGER, lab, RT, psych nurse, social research assistant, collection correspondent, teacher, customs officer, case management social worker)? Give summary @ -No Was smoking cessation discussed for >3mins.? @ -No Was critical care preformed (if so, how long)? @ -Yes, 35 minutes Were there social determinants of health that impacted care today? How? (Homelessness, low income, unemployed, alcoholism, drug addiction, transportation, low edu. Level, literacy, decrease access to med. care, retirement, rehab)? @ -No Was there de-escalation of care discussed even if they declined (Discuss DNR or withdrawal of care, Hospice)? DNR status @ -No What co-morbidities impacted this encounter? (DM, HTN, Smoking, COPD, CAD, Cancer, CVA, ARF, Chemo, Hep., AIDS, mental health diagnosis, sleep apnea, morbid obesity)? @ -Lung cancer Was patient admitted / discharged? Hospital course, mention meds given and route, prescriptions, significant lab abnormalities, going to OR and other pertinent info. @ -[68 yo female with lung CA presenting with chest pain, dyspnea. Patient is cachectic, kyphotic, hypoxic. She has decreased air entry on the left, significantly swollen left lower extremity. She has a stage II decubitus ulcer. EKG, chest x-ray, ultrasound, laboratory testing is performed she has a significant leukocytosis which is chronic. Elevated lactic acid, elevated troponin, elevated BNP. Hemoglobin is 11.7. Given the DVT and elevated troponi n she has started on heparin. Patient will be admitted to [facility] physician group, case discussed with [facility]. Cardiology, oncology, pulmonology all placed on, consult. Prognosis is guarded in this patient. Family not ready to consider hospice at this point. Undiagnosed new problem with uncertain prognosis? @ -No Drug Therapy requiring intensive monitoring for toxicity (Heparin, Nitro, Insulin, Cardizem)? @ -No Were any procedures done? @ -No Diagnosis/symptom? @Pleural effusion, elevated troponin, DVT, lung CA Acute, or Chronic, or Acute on Chronic? @ -Chronic Uncomplicated (without systemic symptoms) or Complicated (systemic symptoms)? @ -Default Side effects of treatment? @ -No Exacerbation, Progression, or Severe Exacerbation? @ -No Poses a threat to life or bodily function? How? (Chest pain, USA, ND, pneumonia, PE, COPD, DKA, ARF, appy, cholecystitis, CVA, Diverticulitis, Homicidal, Suicidal, threat to staff... and all critical care pts) @ -Yes, disease progression, multiorgan failure - Lab Data Result diagrams: 07/28/24 13:24 07/28/24 13:24 Lab Results 07/28/24 07/28/24 07/28/24 Range/Units 13:24 13:24 13:24 WBC 29.74 H (4.50-10.00) 10*3/uL RBC 4.08 L (4.10-5.20) 10*6/uL Hgb 11.7 L (12.0-15.0) g/dL Hct 35.8 L (37.2-46.3) % MCV 87.7 (80.0-97.0) fL MCH 28.7 (27.0-32.0) pg MCHC 32.7 (32.0-37.0) g/dL Plt Count 476 H (140-440) 10*3/uL MPV 8.7 L (9.5-12.2) fL Immature Gran % (Auto) 0.8 % Neutrophils % 91.7 % Lymphocytes % 1.8 % Monocytes % 5.4 % Eosinophils % 0.0 % Basophils % 0.3 % Immature Gran # 0.25 H (0.00-0.04) 10*3/uL Neutrophils # 27.27 H (1.80-7.70) 10*3/uL Lymphocytes # 0.53 L (0.90-5.00) 10*3/uL Monocytes # 1.61 H (0.20-1.00) 10*3/uL Eosinophils # 0.00 L (0.04-0.35) 10*3/uL Basophils # 0.08 (0.00-0.10) 10*3/uL Manual Slide Review Performed PT 15.5 H (10.0-12.5) sec INR 1.5 H (<1.2) APTT 24.2 (22.0-30.0) sec Sodium 134 L (137-145) mmol/L Potassium 4.0 (3.5-5.1) mmol/L Chloride 95 L (98-107) mmol/L Carbon Dioxide 27 (22-30) mmol/L Anion Gap 12 mmol/L BUN 42 H (7-17) mg/dL Creatinine 2.16 H (0.52-1.04) mg/dL Est GFR (CKD-EPI)AfAm 27 (>60 ml/min/1.73 sqM) Est GFR (CKD-EPI)NonAf 23 (>60 ml/min/1.73 sqM) Glucose 108 H (74-99) mg/dL Plasma Lactic Acid Rayo (0.7-2.0) mmol/L Calcium 9.9 (8.4-10.2) mg/dL Magnesium 2.5 H (1.6-2.3) mg/dL Total Bilirubin 0.6 (0.2-1.3) mg/dL AST 44 H (14-36) U/L ALT 20 (4-34) U/L Alkaline Phosphatase 240 H (38-126) U/L Troponin I (0.000-0.034) ng/mL NT-Pro-B Natriuret Pep 390903 pg/mL Total Protein 6.3 (6.3-8.2) g/dL Albumin 3.5 (3.5-5.0) g/dL 07/28/24 07/28/24 Range/Units 13:24 13:24 WBC (4.50-10.00) 10*3/uL RBC (4.10-5.20) 10*6/uL Hgb (12.0-15.0) g/dL Hct (37.2-46.3) % MCV (80.0-97.0) fL MCH (27.0-32.0) pg MCHC (32.0-37.0) g/dL Plt Count (140-440) 10*3/uL MPV (9.5-12.2) fL Immature Gran % (Auto) % Neutrophils % % Lymphocytes % % Monocytes % % Eosinophils % % Basophils % % Immature Gran # (0.00-0.04) 10*3/uL Neutrophils # (1.80-7.70) 10*3/uL Lymphocytes # (0.90-5.00) 10*3/uL Monocytes # (0.20-1.00) 10*3/uL Eosinophils # (0.04-0.35) 10*3/uL Basophils # (0.00-0.10) 10*3/uL Manual Slide Review PT (10.0-12.5) sec INR (<1.2) APTT (22.0-30.0) sec Sodium (137-145) mmol/L Potassium (3.5-5.1) mmol/L Chloride (98-107) mmol/L Carbon Dioxide (22-30) mmol/L Anion Gap mmol/L BUN (7-17) mg/dL Creatinine (0.52-1.04) mg/dL Est GFR (CKD-EPI)AfAm (>60 ml/min/1.73 sqM) Est GFR (CKD-EPI)NonAf (>60 ml/min/1.73 sqM) Glucose (74-99) mg/dL Plasma Lactic Acid Rayo 3.3 H* (0.7-2.0) mmol/L Calcium (8.4-10.2) mg/dL Magnesium (1.6-2.3) mg/dL Total Bilirubin (0.2-1.3) mg/dL AST (14-36) U/L ALT (4-34) U/L Alkaline Phosphatase (38-126) U/L Troponin I 1.320 H* (0.000-0.034) ng/mL NT-Pro-B Natriuret Pep pg/mL Total Protein (6.3-8.2) g/dL Albumin (3.5-5.0) g/dL Critical Care Time Critical Care Time: Yes Total Critical Care Time: 35 Disposition Clinical Impression: Lung cancer, Pleural effusion, left Disposition: ADMITTED IP TO THIS HOSP Condition: Serious Is patient prescribed a controlled substance at d/c from ED?: No Referrals: Farzaneh Landeros MD [Primary Care Provider] - 1-2 days Time of Disposition: 16:10
[2024-07-28] MEDS: ALBUTEROL NEBULIZED 2.5 MG/3 ML INHALATION STA (13:38)
[2024-07-28] MEDS: IPRATROPIUM 0.5 MG/2.5 ML NEBU INHALATION STA (13:38)
--- NOTE | 2024-07-28 13:55 | XR ---
EXAMINATION TYPE: XR chest 1V portable DATE OF EXAM: 07/28/2024 1:48 PM COMPARISON: Chest radiographs from [facility] (23 TECHNIQUE: XR chest 1V portable Portable AP radiograph of the chest. CLINICAL INDICATION:Female, 68 years old with history of VIJAY; FINDINGS: Lungs/Pleura: Hyperinflation the right lung with some few small nodular opacities. Moderate left pleu ral effusion with small aerated left perihilar lung with patchy reticular opacities. Elevation of the left hemidiaphragm. No distinct pneumothorax. Pulmonary vascularity: Unremarkable. Heart/mediastinum: Cardiomediastinal silhouette is unremarkable. Musculoskeletal: No acute osseous pathology. Marked S-shaped scoliotic curvature of the visualized th oracolumbar spine. IMPRESSION: 1. Moderate left pleural effusion with small aerated left lung which reticular opacities. Consider f urther evaluation with CT. 2. Hyperinflation of the right lung with stranding nodular opacities. Suggests background COPD jaramillo es with pulmonary nodules. [facility], , 07/28/2024 1:52 PM
[2024-07-28 13:56] LABS: ALT 20 U/L (4-34); AST 44 U/L (14-36); African American GFR (CKD) 27 (>60 ml/min/1.73 sqM); Albumin 3.5 g/dL (3.5-5.0); Alkaline Phosphatase 240 U/L (38-126); Anion Gap 12 mmol/L; Blood Urea Nitrogen 42 mg/dL (7-17); Calcium 9.9 mg/dL (8.4-10.2); Carbon Dioxide 27 mmol/L (22-30); Chloride 95 mmol/L (98-107); Glucose 108 mg/dL (74-99); Magnesium 2.5 mg/dL (1.6-2.3); Non-African American GFR(CKD) 23 (>60 ml/min/1.73 sqM); Sodium 134 mmol/L (137-145); Total Bilirubin 0.6 mg/dL (0.2-1.3); Total Protein 6.3 g/dL (6.3-8.2)
[2024-07-28 13:59] LABS: INR 1.5 (<1.2); Partial Thromboplastin Time 24.2 sec (22.0-30.0); Prothrombin Time 15.5 sec (10.0-12.5)
[2024-07-28 14:15] LABS: Basophils # (A) 0.08 10*3/uL (0.00-0.10); Basophils % (A) 0.3 %; HCT 35.8 % (37.2-46.3); HGB 11.7 g/dL (12.0-15.0); Lymphocytes # (A) 0.53 10*3/uL (0.90-5.00); Lymphocytes % (A) 1.8 %; MCH 28.7 pg (27.0-32.0); MCHC 32.7 g/dL (32.0-37.0); MCV 87.7 fL (80.0-97.0); Mean Platelet Volume 8.7 fL (9.5-12.2); Monocytes # (A) 1.61 10*3/uL (0.20-1.00); Monocytes % (A) 5.4 %; Neutrophils # (A) 27.27 10*3/uL (1.80-7.70); Neutrophils % (A) 91.7 %; Platelet Count 476 10*3/uL (140-440); RBC 4.08 10*6/uL (4.10-5.20); RDW 14.1 % (11.5-14.5); WBC 29.74 10*3/uL (4.50-10.00)
--- NOTE | 2024-07-28 14:34 | US ---
EXAMINATION TYPE: US venous doppler duplex LE LT DATE OF EXAM: 07/28/2024 12:52 PM COMPARISON: 03/17/2023 CLINICAL INDICATION: Female, 68 years old with history of swelling; Current Lung cancer with mets to brain, Pain TECHNIQUE: The lower extremity deep venous system is examined utilizing real time linear array sonog neelam with graded compression, color doppler sonography, and spectral doppler. SIDE PERFORMED: Left FINDINGS: VESSELS IMAGED: Common Femoral Vein Deep Femoral Vein Greater Saphenous Vein * Femoral Vein Popliteal Vein Small Saphenous Vein * Proximal Calf Veins (* superficial vessels) Left Leg: Acute DVT within the posterior tibial veins - unable to properly assess popliteal vein due to patients pain tolerance. IMPRESSION: Acute deep venous thrombosis within the left lower extremity posterior tibial veins. Unable to proper ly assess the popliteal vein due to patient's pain tolerance. Findings communicated to Dr. Rg Major MD on 07/28/2024 2:[address] Orlando Guzman . [facility], , 07/28/2024 2:31 PM
[2024-07-28 14:44] LABS: NT-Pro-B-Type Natriuretic Pept 136000 pg/mL
[2024-07-28] MEDS: HYDROmorphone 0.5 MG/0.5 ML SYRINGE IVP STA (15:15)
[2024-07-28] MEDS: MORPHINE SULFATE 4 MG/ML SYRINGE IVP STA (15:20)
[2024-07-28] MEDS ORDERED: IPRATROPIUM-ALBUTEROL 3 ML NEB INHALATION PRN (15:49)
[2024-07-28] MEDS ORDERED: NALOXONE 0.4 MG/ML 1 ML VIAL IV PRN (16:03)
[2024-07-28] MEDS ORDERED: MORPHINE SULFATE 4 MG/ML SYRINGE IV PRN (16:03)
[2024-07-28] MEDS: HEPARIN SODIUM 1,000 UN/ML (10ML VL) IV ONE (16:59)
[2024-07-28] MEDS: HEPARIN SOD,PORK IN 0.45% NACL 25,000 UNIT in 0.45% NACL 1 250ML.BAG IV SCH (17:00)
--- NOTE | 2024-07-28 17:48 | P.HPIM ---
History of Present Illness H&P Date: 07/28/24 Patient is a 68-year-old female with metastatic non-small cell cancer currently on chemotherapy and follows up with Dr. Escobedo, chronic hypoxic respiratory failure on home 5 L nasal cannula presented with dyspnea and intermittent chest pain. Patient was accompanied at bedside by daughter who she lives with. Patient states that 2 days ago she was starting to feel short of breath. She also endorses chest pain. Of note since being diagnosed with her lung cancer she has always had reported history of left-sided chest pain however. She states that this chest pain is different that is more located at the sternum. She describes the pain as a pressure like pain with no radiation or no alleviat ing/exacerbating factors. Patient also reports a persistent left leg swelling over the past year. She reports of a sacral pressure ulcer that developed a couple weeks ago. She also reports chronic wounds on her left lower extremity. She reports she has not been eating or drinking well. Daughter states that she is mostly in bed, but states she able to get up from a seated position and placed herself in her wheelchair to be able to move around the house. Denies any fever, chills, nausea, vomiting, abdominal pain. EKG independently interpreted displaying sinus tachycardia, rate 117 bpm, QTc 501 CXR independently interpreted moderate left-sided pleural effusion Venous Doppler displaying acute DVT within left lower extremity posterior tibial veins, unable to properly assess the popliteal vein due to patient's pain tolerance Troponin 1.320, lactic acid 3.3, proBNP 136,000, Hgb 11.7, MCV 87.7, platelet 476, sodium 134, BUN 42, creatinine 2.16, magnesium 2.5, AST 44, ALT 20, alk phos 240, INR 1.5 T 97 F, CT 120, RR 26, BP 129/94, O2 saturation 97% on 5 L nasal cannula ED documentation reviewed. Review of systems: Pertinent positives and negatives as discussed in HPI, a complete review of systems was performed and all other systems are negative. Social history: Tobacco: Former 50 pack pack-year smoker Alcohol: Denies alcohol use Recreational drugs: Denies illicit drug use Physical examination: Vital signs reviewed General: non toxic, no distress, appears at stated age, normal weight Derm: no unusual rashes/lesions, chronic LLE ulcers, stage 2 sacral pressure ulcer Head: atraumatic, normocephalic, symmetric Eyes: EOMI, anicteric sclera, pupils equal round reactive to light ENT: Nose and ears atraumatic Neck: No cervical lymphadenopathy, trachea midline, supple Mouth: no lip lesion, mucus membranes moist Cardiovascular: S1S2 reg, no murmur, positive dorsalis pedis pulse bilateral, left leg 2+ edema Lungs: Decreased breath sounds bilaterally, rhonchi, no rales, no accessory muscle use Abdominal: soft, nontender to palpation, no guarding Ext: muscle strength 0 out of 5 in left lower extremity, 3/5 strength in rest of extremities Neuro: CN II-XI grossly intact, no gross focal neuro deficits Psych: Alert, oriented to person, place, and time Assessment/Plan: Patient is a 68-year-old female with metastatic non-small cell cancer, chronic hypoxic respiratory failure on 3 L nasal cannula presented with dyspnea and intermittent chest pain. #. Acute chest pain, rule out ACS versus PE #. Acute NSTEMI type I versus type II #. Severe Sepsis likely pulmonary source #. Left sided pleural effusion #. Chronic hypoxic respiratory failure EKG independently interpreted displaying sinus tachycardia, rate 117 bpm, QTc 501 Troponin 1.320, continue to trend Wells criteria for PE 7.0, high risk group V/Q scan ordered Aspirin 81 mg daily Atorvastatin 80 mg daily Currently on IV heparin drip TSH, A1c, lipid panel ordered Acetaminophen 650 mg p.o. every 6 hours as needed and Percocet 7.53 25 for pain control Echocardiogram ordered DuoNeb [id number] and as needed Cardiac monitoring LR 1L Bolus ordered Empiric antibiotics Rocephin IV 2g q24 and Azithromycin Chest U/s ordered consider stress dose steroids if becomes hypotensive Cardiology and pulmonlogy consulted #. DVT provoked in the setting of malignancy Acute deep venous thrombosis within the left lower extremity posterior tibial veins, unable to properly assess the popliteal vein due to patient's pain tolerance #. Acute nonoliguric MARYANN #. Lactic acidosis BUN 42, creatinine 2.16, lactic acid 3.3 on admission Renal ultrasound ordered LR Bolus consider nephrology consult #. Non-small cell lung carcinoma Oncology consulted #. Weakness/debility PT/OT consult DVT prophylaxis: IV heparin drip The patient is admitted with an anticipated greater than than 2 midnight stay for evaluation of acute chest pain and dyspnea. CODE STATUS: No code Discussed with: Patient Anticipated discharge place: Pending clinical course Otilia Carreon MD PGY-1 IM Dictation was produced using [employer] dictation software. please excuse any grammatical, word or spelling errors. I have seen and evaluated the patient today. Discussed with the resident and agree with the residents finding and plan as documented in the resident's note. Changes highlighted in blue font. Past Medical History Past Medical History: Cancer Additional Past Medical History / Comment(s): plueral effusion History of Any Multi-Drug Resistant Organisms: None Reported Past Surgical History: Section, Tonsillectomy Additional Past Surgical History / Comment(s): breast biopsy Past Anesthesia/Blood Transfusion Reactions: No Reported Reaction Past Psychological History: No Psychological Hx Reported Smoking Status: Former smoker Past Alcohol Use History: None Reported Past Drug Use History: None Reported - Past Family History Father Family Medical History: Diabetes Mellitus Additional Family Medical History / Comment(s): Migraines, depression, unsure but had heart issues Mother Family Medical History: Cancer, COPD, Diabetes Mellitus, Hypertension, Thyroid Disorder Additional Family Medical History / Comment(s): Breast CA, enlarged Heart, Macular degeneration, "Mini strokes" Brother(s) Family Medical History: Cancer, Diabetes Mellitus, Hyperlipidemia Additional Family Medical History / Comment(s): Prostate Cancer, Macular degeneration Medications and Allergies Home Medications Medication Instructions Recorded Confirmed Type Cetirizine HCl [Zyrtec] 10 mg PO DAILY PRN 12/22/22 07/28/24 History Guaifenesin/Dextromethorphan 1 tab PO Q4H PRN 12/22/22 07/28/24 History [Guaifenesin-Dm 400-20 mg Tab] ePHEDrine HCL [Primatene] 12.5 mg PO Q4H 12/22/22 07/28/24 History oxyCODONE-APAP 7.5-325MG [Percocet 1 tab PO Q4H 03/11/23 07/28/24 History 7.5-325 mg] Furosemide [Lasix] 20 mg PO BID@0900,1600 30 Days #60 03/23/23 07/28/24 Rx tab Diphenoxylate HCl/Atropine 1 tab PO QID PRN 07/28/24 07/28/24 History [Lomotil 2.5-0.025 mg Tablet] Lactase [Lactaid] 9,000 unit PO TID-W/MEALS PRN 07/28/24 07/28/24 History Osimertinib Mesylate [Tagrisso] 80 mg PO HS@2300 07/28/24 07/28/24 History Potassium Gluconate 650mg 650 mg PO DAILY 07/28/24 07/28/24 History Simethicone [Mylanta Gas Minis] 125 mg PO QID PRN 07/28/24 07/28/24 History diphenhydrAMINE HCL [Benadryl] 25 mg PO DAILY PRN 07/28/24 07/28/24 History predniSONE 10 mg PO BID 07/28/24 07/28/24 History Allergies Allergy/AdvReac Type Severity Reaction Status Date / Time hydromorphone [From Dilaudid] AdvReac Nausea & Verified 07/28/24 15:17 Vomiting Physical Exam Vitals: Vital Signs Temp Pulse Resp BP Pulse Ox 07/28/24 14:45 115 H 22 127/89 100 07/28/24 14:30 115 H 19 100 07/28/24 14:15 122 H 38 H 105/89 94 L 07/28/24 14:00 121 H 26 H 105/89 07/28/24 13:56 118 H 07/28/24 13:47 118 H 07/28/24 13:46 118 H 07/28/24 13:45 118 H 39 H 125/83 100 07/28/24 13:38 118 H 07/28/24 13:30 116 H 23 132/87 100 07/28/24 13:15 118 H 36 H 128/89 100 07/28/24 13:00 116 H 36 H 129/94 07/28/24 12:46 97 F L 120 H 26 H 129/94 97 Intake and Output 07/28/24 07/28/24 07/28/24 06:59 14:59 22:59 Other: Weight 36.741 kg Results CBC & Chem 7: 07/28/24 13:24 07/28/24 13:24 Labs: Abnormal Lab Results - Last 24 Hours (Table) 07/28/24 07/28/24 07/28/24 Range/Units 13:24 13:24 13:24 WBC 29.74 H (4.50-10.00) 10*3/uL RBC 4.08 L (4.10-5.20) 10*6/uL Hgb 11.7 L (12.0-15.0) g/dL Hct 35.8 L (37.2-46.3) % Plt Count 476 H (140-440) 10*3/uL MPV 8.7 L (9.5-12.2) fL Immature Gran # 0.25 H (0.00-0.04) 10*3/uL Neutrophils # 27.27 H (1.80-7.70) 10*3/uL Lymphocytes # 0.53 L (0.90-5.00) 10*3/uL Monocytes # 1.61 H (0.20-1.00) 10*3/uL Eosinophils # 0.00 L (0.04-0.35) 10*3/uL PT 15.5 H (10.0-12.5) sec INR 1.5 H (<1.2) Sodium 134 L (137-145) mmol/L Chloride 95 L (98-107) mmol/L BUN 42 H (7-17) mg/dL Creatinine 2.16 H (0.52-1.04) mg/dL Glucose 108 H (74-99) mg/dL Plasma Lactic Acid Rayo (0.7-2.0) mmol/L Magnesium 2.5 H (1.6-2.3) mg/dL AST 44 H (14-36) U/L Alkaline Phosphatase 240 H (38-126) U/L Troponin I (0.000-0.034) ng/mL 07/28/24 07/28/24 Range/Units 13:24 13:24 WBC (4.50-10.00) 10*3/uL RBC (4.10-5.20) 10*6/uL Hgb (12.0-15.0) g/dL Hct (37.2-46.3) % Plt Count (140-440) 10*3/uL MPV (9.5-12.2) fL Immature Gran # (0.00-0.04) 10*3/uL Neutrophils # (1.80-7.70) 10*3/uL Lymphocytes # (0.90-5.00) 10*3/uL Monocytes # (0.20-1.00) 10*3/uL Eosinophils # (0.04-0.35) 10*3/uL PT (10.0-12.5) sec INR (<1.2) Sodium (137-145) mmol/L Chloride (98-107) mmol/L BUN (7-17) mg/dL Creatinine (0.52-1.04) mg/dL Glucose (74-99) mg/dL Plasma Lactic Acid Rayo 3.3 H* (0.7-2.0) mmol/L Magnesium (1.6-2.3) mg/dL AST (14-36) U/L Alkaline Phosphatase (38-126) U/L Troponin I 1.320 H* (0.000-0.034) ng/mL
[2024-07-28] MEDS ORDERED: cefTRIAXone 2 GM in DEXTROSE 5% IN WATER 50 ML IVPB SCH (18:00)
[2024-07-28] MEDS: oxyCODONE-APAP 7.5-325MG 1 EACH TAB PO SCH (18:07)
[2024-07-28] MEDS: ASPIRIN 81 MG PO SCH (18:10)
[2024-07-28] MEDS: ATORVASTATIN 80 MG TAB PO SCH (18:10)
--- NOTE | 2024-07-28 18:10 | P.CNPUL ---
History of Present Illness Consult date: 07/28/24 Reason for consult: dyspnea History of present illness: this is a 68-year-old female patient who presented to the emergency department with worsening shortness of breath and intermittent chest pain. The patient apparently had worsening shortness of breath over the past several weeks. She has also chronic swelling in lower extremities left more than right ongoing for the more than a year. This patient has history of advanced metastatic lung cancer, adenocarcinoma of the left lower lobe, dating back to 2022. The patient had metastasis to her brain. She also had a left-sided pleural effusion and the fluid was drained back in 2022 and the procedure was complicated by development of a left-sided hydropneumothorax. At that time, the patient was given a Thora vent and the patient did not fully expand and it was assumed that her lung was quite trapped. The patient subsequently had a chest tube inserted into the left lung and unfortunately, there was no reexpansion noted. Ultimately, the chest tube was removed and the patient was discharged. The patient was subsequently seen by medical oncology and the patient was treated by afatinib. Subsequently, the patient was switched to osimertinib/Tagrisso. Noted the patient is chron ically hypoxic and the patient has remained on oxygen on outpatient basis at 5 L/min. She has had follow-up PET CTs through [facility] and the results are not available to me at this point. The patient has lost to follow-up with the pulmonary group since then. For now, the patient has an acute DVT of the left lower extremity confirmed by Doppler. Her chest x-ray showed significant volume loss in the left lung and there is also a moderate-sized left-sided pleural effusion and there is only a small aerated left lung with reticular opacities. There is also hyperinflation of the right lung and background pulmonary nodules. There is obvious elevation of the left hemidiaphragm due to volume loss. No evidence of any pneumothorax. Patient has a S shaped scoliosis of the thoracolumbar spine. Her white cell count is 29, hemoglobin 11.7 and a platelet count of 476. INR is 1.5 with a PT of 15.5. Sodium is at 134 and potassium is at 4, BUN is 42 with a creatinine of 2.16 consistent with acute kidney injury. proBNP level is 136,000. Lactic acid level is at 3.3. Calcium level is at 9.9. LFTs are showing a normal AST and ALT with an alkaline phosphatase of 240. She is currently on 5 L of oxygen by nasal cannula with pulse ox of 96%. She is also on IV heparin. She has been m aintained on prednisone 10 mg p.o. daily on outpatient basis. Review of Systems Constitutional: Reports poor appetite, Reports weakness, Reports weight loss Eyes: denies as per HPI, denies blurred vision, denies bulging eye, denies dec reased vision, denies diplopia, denies discharge, denies dry eye, denies irritation, denies itching, denies pain, denies photophobia, denies loss of peripheral vision, denies loss of vision, denies tunnel vision/blind spots Ears: deny: decreased hearing, ear discharge, earache, tinnitus Ears, nose, mouth and throat: Reports as per HPI Breasts: absent: as per HPI, change in shape, gynecomastia, masses, nipple discharge, pain, skin changes, swelling Cardiovascular: Reports decreased exercise tolerance, Reports dyspnea on exertion, Reports leg edema, Reports shortness of breath Respiratory: Reports cough, Reports dyspnea Gastrointestinal: Reports as per HPI Genitourinary: Reports as per HPI Menstruation: Reports as per HPI Musculoskeletal: Reports as per HPI Musculoskeletal: bilateral: ankle swelling, absent: ankle stiffness Integumentary: Reports as per HPI Neurological: Reports as per HPI Psychiatric: Reports as per HPI Endocrine: Reports as per HPI, Reports fatigue Hematologic/Lymphatic: Reports as per HPI Allergic/Immunologic: Reports as per HPI Past Medical History Past Medical History: Cancer (Metastatic pulmonary carcinoma), COPD Additional Past Medical History / Comment(s): plueral effusion History of Any Multi-Drug Resistant Organisms: None Reported Past Surgical History: Section, Tonsillectomy Additional Past Surgical History / Comment(s): breast biopsy Past Anesthesia/Blood Transfusion Reactions: No Reported Reaction Past Psychological History: No Psychological Hx Reported Smoking Status: Former smoker Past Alcohol Use History: None Reported Past Drug Use History: None Reported - Past Family History Father Family Medical History: Diabetes Mellitus Additional Family Medical History / Comment(s): Migraines, depression, unsure but had heart issues Mother Family Medical History: Cancer, COPD, Diabetes Mellitus, Hypertension, Thyroid Disorder Additional Family Medical History / Comment(s): Breast CA, enlarged Heart, Macular degeneration, "Mini strokes" Brother(s) Family Medical History: Cancer, Diabetes Mellitus, Hyperlipidemia Additional Family Medical History / Comment(s): Prostate Cancer, Macular degeneration Medications and Allergies Home Medications Medication Instructions Recorded Confirmed Type Cetirizine HCl [Zyrtec] 10 mg PO DAILY PRN 12/22/22 07/28/24 History Guaifenesin/Dextromethorphan 1 tab PO Q4H PRN 12/22/22 07/28/24 History [Guaifenesin-Dm 400-20 mg Tab] ePHEDrine HCL [Primatene] 12.5 mg PO Q4H 12/22/22 07/28/24 History oxyCODONE-APAP 7.5-325MG [Percocet 1 tab PO Q4H 03/11/23 07/28/24 History 7.5-325 mg] Furosemide [Lasix] 20 mg PO BID@0900,1600 30 Days #60 03/23/23 07/28/24 Rx tab Diphenoxylate HCl/Atropine 1 tab PO QID PRN 07/28/24 07/28/24 History [Lomotil 2.5-0.025 mg Tablet] Lactase [Lactaid] 9,000 unit PO TID-W/MEALS PRN 07/28/24 07/28/24 History Osimertinib Mesylate [Tagrisso] 80 mg PO HS@2300 07/28/24 07/28/24 History Potassium Gluconate 650mg 650 mg PO DAILY 07/28/24 07/28/24 History Simethicone [Mylanta Gas Minis] 125 mg PO QID PRN 07/28/24 07/28/24 History diphenhydrAMINE HCL [Benadryl] 25 mg PO DAILY PRN 07/28/24 07/28/24 History predniSONE 10 mg PO BID 07/28/24 07/28/24 History Allergies Allergy/AdvReac Type Severity Reaction Status Date / Time hydromorphone [From Dilaudid] AdvReac Nausea & Verified 07/28/24 15:17 Vomiting Physical Exam Vitals: Vital Signs Temp Pulse Resp BP Pulse Ox 07/28/24 17:02 97.6 F 07/28/24 16:30 117 H 26 H 120/86 96 07/28/24 16:00 117 H 17 125/84 07/28/24 15:30 121 H 17 136/87 98 07/28/24 15:00 123 H 33 H 127/89 97 07/28/24 14:45 115 H 22 127/89 100 07/28/24 14:30 115 H 19 100 07/28/24 14:15 122 H 38 H 105/89 94 L 07/28/24 14:00 121 H 26 H 105/89 07/28/24 13:56 118 H 07/28/24 13:47 118 H 07/28/24 13:46 118 H 07/28/24 13:45 118 H 39 H 125/83 100 07/28/24 13:38 118 H 07/28/24 13:30 116 H 23 132/87 100 07/28/24 13:15 118 H 36 H 128/89 100 07/28/24 13:00 116 H 36 H 129/94 07/28/24 12:46 97 F L 120 H 26 H 129/94 97 Intake and Output 07/28/24 07/28/24 07/28/24 06:59 14:59 22:59 Other: Weight 36.741 kg GENERAL EXAM: Alert, frail, very pleasant 68-year-old female, on 5 L nasal cannula, in no apparent distress. The patient is cachectic with a BMI of 16.9 HEAD: Normocephalic. EYES: Normal reaction of pupils, equal size. NOSE: Clear with pink turbinates. THROAT: No erythema or exudates. NECK: No masses, no JVD. CHEST: No chest wall deformity. LUNGS: Diminished breath sounds on the left, few scattered rhonchi on the right. CVS: S1 and S2 normal with no audible murmur, regular rhythm. ABDOMEN: No hepatosplenomegaly, normal bowel sounds, no guarding or rigidity. SPINE: No scoliosis or deformity SKIN: No rashes CENTRAL NERVOUS SYSTEM: No focal deficits, tone is normal in all 4 extremities. EXTREMITIES: There is extensive swelling of the left lower extremity with areas of skin breakdown superficial ulceration. The ankle on the foot is quite swollen. Results - Laboratory Findings CBC and BMP: 07/28/24 13:24 07/28/24 13:24 PT/INR, D-dimer PT 15.5 sec (10.0-12.5) H 07/28/24 13:24 INR 1.5 (<1.2) H 07/28/24 13:24 Abnormal lab findings: Abnormal Labs 07/28/24 07/28/24 07/28/24 13:24 13:24 13:24 WBC 29.74 H RBC 4.08 L Hgb 11.7 L Hct 35.8 L Plt Count 476 H MPV 8.7 L Immature Gran # 0.25 H Neutrophils # 27.27 H Lymphocytes # 0.53 L Monocytes # 1.61 H Eosinophils # 0.00 L PT 15.5 H INR 1.5 H Sodium 134 L Chloride 95 L BUN 42 H Creatinine 2.16 H Glucose 108 H Plasma Lactic Acid Rayo Magnesium 2.5 H AST 44 H Alkaline Phosphatase 240 H Troponin I 07/28/24 07/28/24 13:24 13:24 WBC RBC Hgb Hct Plt Count MPV Immature Gran # Neutrophils # Lymphocytes # Monocytes # Eosinophils # PT INR Sodium Chloride BUN Creatinine Glucose Plasma Lactic Acid Rayo 3.3 H* Magnesium AST Alkaline Phosphatase Troponin I 1.320 H* - Diagnostic Findings Chest x-ray: image reviewed Assessment and Plan Plan: Stage IV pulmonary adenocarcinoma, metastatic, maintained on Tagrisso on outpatient basis, the patient has history of mets to the brain and she also has history several pulmonary nodular lesions on the right consistent with metastatic disease. History of malignant left-sided pleural effusion History of left-sided pneumothorax/trapped lung, dating back to 2022 Acute hypoxic respiratory failure, currently on 5 L of oxygen by nasal cannula. Follow-up pulmonary embolism essentially the patient has a left lower extremity DVT. Rule out left lung pneumonia. Immunotherapy related pneumonitis felt to be less likely. COPD Acute kidney injury Acute leukocytosis Sinus tachycardia Cachexia with a body mass index is 16.4 Plan Titrate oxygen flow to maintain saturation above 90%, currently on 5 L normal saline at rate of 75 cc an hour IV heparin IV Zosyn Blood cultures Echocardiogram UA and culture if needed CAT scan of the chest with contrast once renal function improves Prognosis long-term remains poor We will consult oncology.
[2024-07-28] MEDS: LACTATED RINGERS 1,000 ML IV ONE (18:16)
[2024-07-28 18:31] LABS: T4, Free (Free Thyroxine) 2.22 ng/dL (0.78-2.19)
[2024-07-28] MEDS: LACTATED RINGERS 1,000 ML IV SCH (20:46)
[2024-07-28] MEDS: AZITHROMYCIN 500 MG in SODIUM CHLORIDE 0.9% 250 ML IVPB SCH (20:46)
--- NOTE | 2024-07-28 20:46 | US ---
EXAMINATION TYPE: US chest DATE OF EXAM: 07/28/2024 COMPARISON: NONE CLINICAL INDICATION: Female, 68 years old with history of pleural effusion; TECHNIQUE: Grayscale imaging of the chest. Targeted ultrasound of the posterior lower bilateral jean thoraces Limited scan due to pt unable to fully sit up FINDINGS: EXAM MEASUREMENTS: Right Pleural Effusion pocket size: no fluid to be drained Left Pleural Effusion pocket size: 7.8cm Left skin surface to fluid distance: 2.2cm Fluid to lung tissue: 3.9cm Left side marked for possible thoracentesis outside the dept. Pulmonologists are able to review the images in the patient?s EMR. IMPRESSIONS: As above [facility], , 07/28/2024 8:44 PM
--- NOTE | 2024-07-28 20:47 | US ---
EXAMINATION TYPE: US kidneys/renal and bladder DATE OF EXAM: 07/28/2024 COMPARISON: NONE CLINICAL INDICATION: Female, 68 years old with history of [place]; TECHNIQUE: Grayscale imaging of the bilateral kidneys and urinary bladder: FINDINGS: EXAM MEASUREMENTS: Right Kidney: 8.3x4.3x4.9cm Left Kidney: 8.6x4.0x3.1cm very limited scan due to pt unable to fully roll, rib shadow & overlying bowel Right Kidney: No hydronephrosis or masses seen wnl as best visualized Left Kidney: No hydronephrosis or masses seen, wnl as best visualized Bladder: wnl Bilateral Jets seen: Yes IMPRESSION: Somewhat limited study no distinct abnormality appreciated. [facility], , 07/28/2024 8:45 PM
[2024-07-28] MEDS: predniSONE 10 MG TAB PO SCH (20:51)
[2024-07-28] MEDS: IPRATROPIUM-ALBUTEROL 3 ML NEB INHALATION SCH (20:55)
[2024-07-28] MEDS ORDERED: TAGRISSO 80 MG PO SCH (21:00)
[2024-07-28] MEDS: PIPERACILLIN-TAZOBACTAM 3.375 GM in SODIUM CHLORIDE 0.9% 100 ML IVPB SCH (22:16)
[2024-07-28] MEDS: SODIUM CHLORIDE 0.9% 1,000 ML IV SCH (22:34)
[2024-07-28] MEDS: Osimertinib Mesylate [Tagrisso] 80 MG Tablet PO SCH (23:24)
[2024-07-29] MEDS: HEPARIN SODIUM 1,000 UN/ML (10ML VL) IV PRN
[2024-07-29] MEDS: SODIUM CHLORIDE 0.9% 1,000 ML IV ONE (01:28)
[2024-07-29] MEDS: SODIUM CHLORIDE 0.9% 1,000 ML IV SCH (02:51)
[2024-07-29 06:30] LABS: Basophils # (A) 0.04 10*3/uL (0.00-0.10); Basophils % (A) 0.2 %; Eosinophils # (A) 0.01 10*3/uL (0.04-0.35); HCT 28.9 % (37.2-46.3); Lymphocytes % (A) 1.7 %; MCH 29.1 pg (27.0-32.0); MCHC 30.8 g/dL (32.0-37.0); Mean Platelet Volume 9.8 fL (9.5-12.2); Monocytes # (A) 1.36 10*3/uL (0.20-1.00); Monocytes % (A) 5.8 %; Neutrophils # (A) 21.35 10*3/uL (1.80-7.70); Neutrophils % (A) 91.4 %; Platelet Count 313 10*3/uL (140-440); RBC 3.06 10*6/uL (4.10-5.20); RDW 14.6 % (11.5-14.5); WBC 23.38 10*3/uL (4.50-10.00)
[2024-07-29 06:49] LABS: HGB 8.9 g/dL (12.0-15.0); INR 1.8 (<1.2); MCV 94.4 fL (80.0-97.0); Partial Thromboplastin Time 42.9 sec (22.0-30.0); Prothrombin Time 18.3 sec (10.0-12.5)
[2024-07-29 06:56] LABS: ALT 25 U/L (4-34); AST 55 U/L (14-36); African American GFR (CKD) 37 (>60 ml/min/1.73 sqM); Albumin 2.7 g/dL (3.5-5.0); Alkaline Phosphatase 188 U/L (38-126); Anion Gap 7 mmol/L; Blood Urea Nitrogen 39 mg/dL (7-17); Calcium 8.6 mg/dL (8.4-10.2); Carbon Dioxide 23 mmol/L (22-30); Chloride 103 mmol/L (98-107); Glucose 67 mg/dL (74-99); Magnesium 2.1 mg/dL (1.6-2.3); Non-African American GFR(CKD) 32 (>60 ml/min/1.73 sqM); Potassium 3.7 mmol/L (3.5-5.1); Sodium 133 mmol/L (137-145); Total Bilirubin 0.6 mg/dL (0.2-1.3); Total Protein 5.2 g/dL (6.3-8.2)
[2024-07-29 07:24] LABS: Amorphous Sediment,Urine Rare /hpf; Appearance,Urine Cloudy (Clear); Bilirubin,Urine Negative (Negative); Blood,Urine Small (Negative); Color,Urine Yellow; Glucose,Urine (UA) Negative (Negative); Ketones,Urine Negative (Negative); Leukocyte Esterase,Urine Moderate (Negative); Mucus,Urine Rare /hpf; Nitrite,Urine Negative (Negative); PH, Urine 5.5 (5.0-8.0); Protein,Urine 1+ (Negative); RBC,Urine <1 /hpf (0-5); Specific Gravity,Urine 1.022 (1.001-1.035); Urobilinogen,Urine <2.0 mg/dL (<2.0); WBC,Urine 15 /hpf (0-5)
[2024-07-29 07:34] LABS: Glucose,Whole Blood 72 mg/dL (70-110)
[2024-07-29] MEDS: METOPROLOL TARTRATE 25 MG TAB PO SCH (08:39)
[2024-07-29] MEDS: guaiFENesin 600 MG TABLET.ER PO PRN (08:39)
[2024-07-29] MEDS: ACETAMINOPHEN TAB 325 MG TAB PO PRN (08:40)
--- NOTE | 2024-07-29 10:10 | P.CRDCN ---
History of Present Illness Consult date: 07/29/24 History of present illness: - . HPI: I was asked to see the patient for elevated troponin levels. This is a 68-year-old lady with a worsening shortness of breath which is going on for the past few weeks came in with increasing shortness of breath edema of lower extremities more so of the left than the right. She is known to have advanced metastatic lung cancer at least dated since 2022. She has metastasis to the brain and also a chronic left-sided pleural effusion. Since her admission her breathing is somewhat better. She denies any chest discomfort. There is a modest elevation of troponin which could be multifactorial. She has an acute kidney injury with creatinine of 2.16. She is not having chest pain but does have shortness of breath with mild activity she is on home oxygen at 5 L. The clinical presentation does not suggest a primary myocardial injury. Her elevated troponin could be multifactorial but does not appear to be related to any ongoing myocardial injury at this time. I will therefore defer any aggressive intervention. Patient had ultrasound and venous Doppler there is evidence of left lower extremity DVT. RELEVANT PAST MEDICAL HISTORY: Past history of smoking, metastatic lung CA with chronic left pleural effusion on home oxygen. Patient denies any documented cardiac history in terms of myocardial infarction or CVA.. MEDICATIONS: She takes Zyrtec, pain medications in the form of Percocet Lasix and also some prednisone and Benadryl. ALLERGIES:. REVIEW OF SYSTEMS: Patient complains of generalized weakness lack of energy decreased appetite shortness of breath swelling of both lower extremities more so of the left. No hematemesis or melena. PHYSICIAL EXAM: Vitals are stable JVD 1 cm no carotid bruit S1-S2 heard normally there is evidence of a short systolic murmur at the base second heart sound is preserved lungs reveal diminished air entry on the left side abdomen is soft lower extremities reveal trace edema on the right moderate edema on the left. Central nervous system able to move all 4 extremities but did not do a detailed examination. IMPRESSION: 1. Elevated troponin not suggestive of primary myocardial injury could be multifactorial including acute kidney injury and hypoxemia which is chronic with her pulmonary issues. 2. History of metastatic lung cancer with chronic left pleural effusion. 3. Acute kidney injury. 4. DVT left lower extremity. 5. Cachexia. RECOMMENDATIONS: Agree with heparin and DVT management is by the admitting doctor. From a cardiac standpoint I am recommending that we add a small dose of beta-brennan since patient has sinus tachycardia. I will obtain echocardiogram to assess LV function, add a small dose of beta-brennan and based on clinical course will make further recommendations prognosis remains poor. Past Medical History Past Medical History: Cancer Additional Past Medical History / Comment(s): plueral effusion History of Any Multi-Drug Resistant Organisms: None Reported Past Surgical History: Section, Tonsillectomy Additional Past Surgical History / Comment(s): breast biopsy Past Anesthesia/Blood Transfusion Reactions: No Reported Reaction Past Psychological History: No Psychological Hx Reported Smoking Status: Former smoker Past Alcohol Use History: None Reported Past Drug Use History: None Reported - Past Family History Father Family Medical History: Diabetes Mellitus Additional Family Medical History / Comment(s): Migraines, depression, unsure but had heart issues Mother Family Medical History: Cancer, COPD, Diabetes Mellitus, Hypertension, Thyroid Disorder Additional Family Medical History / Comment(s): Breast CA, enlarged Heart, Macular degeneration, "Mini strokes" Brother(s) Family Medical History: Cancer, Diabetes Mellitus, Hyperlipidemia Additional Family Medical History / Comment(s): Prostate Cancer, Macular degeneration Medications and Allergies Home Medications Medication Instructions Recorded Confirmed Type Cetirizine HCl [Zyrtec] 10 mg PO DAILY PRN 12/22/22 07/28/24 History Guaifenesin/Dextromethorphan 1 tab PO Q4H PRN 12/22/22 07/28/24 History [Guaifenesin-Dm 400-20 mg Tab] ePHEDrine HCL [Primatene] 12.5 mg PO Q4H 12/22/22 07/28/24 History oxyCODONE-APAP 7.5-325MG [Percocet 1 tab PO Q4H 03/11/23 07/28/24 History 7.5-325 mg] Furosemide [Lasix] 20 mg PO BID@0900,1600 30 Days #60 03/23/23 07/28/24 Rx tab Diphenoxylate HCl/Atropine 1 tab PO QID PRN 07/28/24 07/28/24 History [Lomotil 2.5-0.025 mg Tablet] Lactase [Lactaid] 9,000 unit PO TID-W/MEALS PRN 07/28/24 07/28/24 History Osimertinib Mesylate [Tagrisso] 80 mg PO HS@2300 07/28/24 07/28/24 History Potassium Gluconate 650mg 650 mg PO DAILY 07/28/24 07/28/24 History Simethicone [Mylanta Gas Minis] 125 mg PO QID PRN 07/28/24 07/28/24 History diphenhydrAMINE HCL [Benadryl] 25 mg PO DAILY PRN 07/28/24 07/28/24 History predniSONE 10 mg PO BID 07/28/24 07/28/24 History Allergies Allergy/AdvReac Type Severity Reaction Status Date / Time hydromorphone [From Dilaudid] AdvReac Nausea & Verified 07/28/24 15:17 Vomiting Physical Exam Vitals: Vital Signs Temp Pulse Pulse Resp BP BP Pulse Ox 07/29/24 09:15 98.0 F 126 H 24 140/74 96 07/29/24 03:59 118 H 20 07/29/24 03:55 118 H 22 132/71 100 07/29/24 03:53 115 H 20 07/29/24 00:39 117 H 18 07/29/24 00:32 119 H 18 07/28/24 23:25 121 H 24 122/79 100 07/28/24 21:04 111 H 20 07/28/24 20:58 112 H 20 07/28/24 19:50 97.8 F 116 H 25 H 124/80 100 07/28/24 18:22 97.5 F L 120 H 24 135/87 98 07/28/24 17:02 97.6 F 07/28/24 16:30 117 H 26 H 120/86 96 07/28/24 16:00 117 H 17 125/84 07/28/24 15:30 121 H 17 136/87 98 07/28/24 15:00 123 H 33 H 127/89 97 07/28/24 14:45 115 H 22 127/89 100 07/28/24 14:30 115 H 19 100 07/28/24 14:15 122 H 38 H 105/89 94 L 07/28/24 14:00 121 H 26 H 105/89 07/28/24 13:56 118 H 07/28/24 13:47 118 H 07/28/24 13:46 118 H 07/28/24 13:45 118 H 39 H 125/83 100 07/28/24 13:38 118 H 07/28/24 13:30 116 H 23 132/87 100 07/28/24 13:15 118 H 36 H 128/89 100 07/28/24 13:00 116 H 36 H 129/94 07/28/24 12:46 97 F L 120 H 26 H 129/94 97 Intake and Output 07/28/24 07/29/24 07/29/24 22:59 06:59 14:59 Intake Total 10 340.936 40.506 Output Total 100 Balance 10 240.936 40.506 Intake: IV 10 10 Invasive Line 1 10 Invasive Line 2 10 Intake, IV Titration 330.936 40.506 Amount Heparin Sod,Pork in 0.45% 30.936 40.506 NaCl 25,000 unit In 0.45 % NaCl 1 250ml.bag @ 12 UNITS/KG/HR 4.409 mls/hr IV .Q24H [facility] Rx#: [id number] Lactated Ringers 1,000 ml 300 @ 75 mls/hr IV .[id number] [facility] Rx#:[id number] Output: Urine 100 Other: Voiding Method External Catheter External Catheter External Catheter Weight 42.5 kg Results 07/29/24 05:48 07/29/24 05:48 Cardiac Enzymes 07/28/24 07/28/24 07/28/24 Range/Units 13:24 13:24 16:44 AST 44 H (14-36) U/L Troponin I 1.320 H* 1.070 H* (0.000-0.034) ng/mL 07/28/24 07/28/24 07/29/24 Range/Units 19:32 22:55 05:48 AST 55 H (14-36) U/L Troponin I 1.030 H* 0.793 H* (0.000-0.034) ng/mL Coagulation 07/28/24 07/28/24 07/29/24 Range/Units 13:24 22:55 05:48 PT 15.5 H 18.3 H (10.0-12.5) sec APTT 24.2 29.4 42.9 H (22.0-30.0) sec CBC 07/28/24 07/29/24 Range/Units 13:24 05:48 WBC 29.74 H 23.38 H (4.50-10.00) 10*3/uL RBC 4.08 L 3.06 L (4.10-5.20) 10*6/uL Hgb 11.7 L 8.9 L D (12.0-15.0) g/dL Hct 35.8 L 28.9 L (37.2-46.3) % Plt Count 476 H 313 (140-440) 10*3/uL Comprehensive Metabolic Panel 07/28/24 07/29/24 Range/Units 13:24 05:48 Sodium 134 L 133 L (137-145) mmol/L Potassium 4.0 3.7 (3.5-5.1) mmol/L Chloride 95 L 103 (98-107) mmol/L Carbon Dioxide 27 23 (22-30) mmol/L BUN 42 H 39 H (7-17) mg/dL Creatinine 2.16 H 1.64 H (0.52-1.04) mg/dL Glucose 108 H 67 L (74-99) mg/dL Calcium 9.9 8.6 (8.4-10.2) mg/dL AST 44 H 55 H (14-36) U/L ALT 20 25 (4-34) U/L Alkaline Phosphatase 240 H 188 H (38-126) U/L Total Protein 6.3 5.2 L (6.3-8.2) g/dL Albumin 3.5 2.7 L (3.5-5.0) g/dL Current Medications Generic Name Dose Route Start Last Admin Trade Name Freq PRN Reason Stop Dose Admin Acetaminophen 650 mg 07/28/24 16:03 Acetaminophen Tab 325 Mg Tab PO Q6HR PRN Mild Pain or Fever > 100.5 Albuterol/Ipratropium 3 ml 07/28/24 15:49 Ipratropium-Albuterol 3 Ml Neb INHALATION RT-QID PRN Shortness Of Breath Or Wheezing Albuterol/Ipratropium 3 ml 07/28/24 20:00 07/29/24 03:53 Ipratropium-Albuterol 3 Ml Neb INHALATION 3 ml RT-Q4H [facility] Administration Aspirin 81 mg 07/28/24 17:45 07/29/24 08:40 Aspirin 81 Mg PO 81 mg DAILY [facility] Administration Atorvastatin Calcium 80 mg 07/28/24 17:45 07/29/24 08:40 Atorvastatin 80 Mg Tab PO 80 mg DAILY [facility] Administration Guaifenesin 600 mg 07/28/24 18:12 07/29/24 08:39 Guaifenesin 600 Mg Tablet.Er PO 600 mg Q12HR PRN Administration Congestion Heparin Sodium (Porcine) 0 unit 07/28/24 16:02 07/29/24 00:00 Heparin Sodium 1,000 Un/Ml (10ml Vl) IV 1,800 unit PER PROTOCOL PRN Administration Low PTT Protocol Heparin Sodium/Sodium Chloride 250 mls @ 4.409 mls/hr 07/28/24 16:15 07/29/24 07:22 25,000 unit/ Sodium Chloride IV 15 units/kg/hr .Q24H [facility] 5.511 mls/hr Titration Protocol 12 UNITS/KG/HR Azithromycin 500 mg/ Sodium 250 mls @ 250 mls/hr 07/28/24 17:45 07/28/24 20:46 Chloride IVPB 07/30/24 09:59 250 mls/hr DAILY [facility] Administration Protocol Piperacillin Sod/Tazobactam 100 mls @ 25 mls/hr 07/28/24 21:00 07/29/24 08:40 Sod 3.375 gm/ Sodium Chloride IVPB 25 mls/hr Q12HR [facility] Administration Protocol Sodium Chloride 1,000 mls @ 75 mls/hr 07/29/24 01:00 07/29/24 02:51 Saline 0.9% IV 75 mls/hr .[id number] [facility] Administration Metoprolol Tartrate 25 mg 07/29/24 09:00 07/29/24 08:39 Metoprolol Tartrate 25 Mg Tab PO 25 mg BID [facility] Administration Naloxone HCl 0.2 mg 07/28/24 16:03 Naloxone 0.4 Mg/Ml 1 Ml Vial IV Q2M PRN Opioid Reversal Osimertinib Mesylate 1 each 07/28/24 23:00 07/28/24 23:24 [Tagrisso] 80 Mg PO 1 each Tablet HS@2300 [facility] Administration Oxycodone/Acetaminophen 1 each 07/28/24 17:00 07/29/24 08:40 Oxycodone-Apap 7.5-325mg 1 Each Tab PO 1 each Q4H [facility] Administration Prednisone 10 mg 07/28/24 21:00 07/29/24 08:40 Prednisone 10 Mg Tab PO 10 mg BID [facility] Administration Intake and Output 07/28/24 07/29/24 07/29/24 22:59 06:59 14:59 Intake Total 10 340.936 40.506 Output Total 100 Balance 10 240.936 40.506 Intake: IV 10 10 Invasive Line 1 10 Invasive Line 2 10 Intake, IV Titration 330.936 40.506 Amount Heparin Sod,Pork in 0.45% 30.936 40.506 NaCl 25,000 unit In 0.45 % NaCl 1 250ml.bag @ 12 UNITS/KG/HR 4.409 mls/hr IV .Q24H [facility] Rx#: [id number] Lactated Ringers 1,000 ml 300 @ 75 mls/hr IV .[id number] [facility] Rx#:[id number] Output: Urine 100 Other: Voiding Method External Catheter External Catheter External Catheter Weight 42.5 kg 07/29/24 05:48 07/29/24 05:48
[2024-07-29 12:35] LABS: Glucose,Whole Blood 78 mg/dL (70-110)
[2024-07-29 12:36] VITALS: TEMP 98.1
[2024-07-29] MEDS: FAMOTIDINE 20 MG TAB PO SCH (12:55)
--- NOTE | 2024-07-29 13:40 | CA ---
Transthoracic Echo Report Name: Yoko Vazquez Age: 68 Gender: F : 1955 Exam Date: 07/29/2024 07:24 Exam Location: [facility] Ht (in): 58 Wt (lb): 81 Ordering Physician: Otilia Carreon MD Attending/Referring Phys: Systems Support Officer Lynn Ospina RDCS Procedure CPT: Indications: Heart failure Cardiac Hx: smoker Technical Quality: Fair Contrast 1: Total Dose (mL): Contrast 2: Total Dose (mL): MEASUREMENTS (Male / Female) Normal Values 2D ECHO LV Diastolic Diameter PLAX 4.4 cm 4.2 - 5.9 / 3.9 - 5.3 cm LV Systolic Diameter PLAX 3.2 cm IVS Diastolic Thickness 0.9 cm 0.6 - 1.0 / 0.6 - 0.9 cm LVPW Diastolic Thickness 0.8 cm 0.6 - 1.0 / 0.6 - 0.9 cm LV Relative Wall Thickness 0.4 RV Internal Dim ED PLAX 2.8 cm LA Systolic Diameter LX 2.4 cm 3.0 - 4.0 / 2.7 - 3.8 cm LV Diastolic Volume MOD BP 69.5 cm??? 67 - 155 / 56 - 104 cm??? LV Systolic Volume MOD BP 43.4 cm??? 22 - 58 / 19 - 49 cm??? LV Ejection Fraction MOD BP 37.5 % >= 55 % LV Cardiac Index MOD BP 2753.8 cm???/min???m??? LV Diastolic Volume MOD 4C 64.5 cm??? LV Systolic Volume MOD 4C 40.3 cm??? LV Ejection Fraction MOD 4C 37.6 % LV Cardiac Index MOD 4C 2567.5 cm???/min???m??? LV Diastolic Length 4C 6.6 cm LV Systolic Length 4C 6.2 cm LV Diastolic Volume MOD 2C 71.3 cm??? LV Systolic Volume MOD 2C 47.4 cm??? LV Ejection Fraction MOD 2C 33.6 % LV Cardiac Index MOD 2C 2531.2 cm???/min???m??? LV Diastolic Length 2C 7.1 cm LV Systolic Length 2C 6.2 cm LA Volume 32.5 cm??? 18 - 58 / 22 - 52 cm??? LA Volume Index 26.6 cm???/m??? 16 - 28 cm???/m??? M-MODE Aortic Root Diameter MM 3.2 cm AV Cusp Separation MM 1.9 cm DOPPLER AV Peak Velocity 182.4 cm/s AV Peak Gradient 13.3 mmHg MV Area PHT 9.5 cm??? MV Deceleration Time 65.3 ms TR Peak Velocity 291.7 cm/s TR Peak Gradient 34.0 mmHg Right Ventricular Systolic Press 38.8 mmHg FINDINGS Left Ventricle Left ventricular ejection fraction is estimated at 30-35 %. Left ventricular cavity size normal. Left ventricular wall thickness normal. Apical and mid anterir inferior lateral and septal nguyen hypokinesis. Moderately decreased left ventricular ejection fraction. Right Ventricle Normal right ventricular size. Mild pulmonary hypertension. Right Atrium Normal right atrial size. No right atrial thrombus or mass seen. Left Atrium Normal left atrial size. No left atrial thrombus or mass present. Mitral Valve Mitral valve thickened. Mild mitral annular calcification. Trace mitral regurgitation. Aortic Valve Trileaflet aortic valve. Thickened aortic valve without stenosis. No aortic stenosis. No aortic regurgitation. Tricuspid Valve Structurally normal tricuspid valve. Mild tricuspid regurgitation. Pulmonic Valve Pulmonic valve not well visualized. No pulmonic regurgitation. Pericardium No pericardial effusion. Aorta Normal size aortic root and proximal ascending aorta. CONCLUSIONS LVEF 30 to 35% Mid to distal anteroseptal and apical wall hypokinesia No significant valvular dysfunction Normal RV size systolic function RVSP 38 mmHg When compared to prior echo from 03/2023, LV dysfunction and wall motion abnormality are Previewed by: Dr Crow Hawley (Electronically Signed) Final Date: 29 July 2024 13:39
--- NOTE | 2024-07-29 13:43 | P.PN ---
Subjective Progress Note Date: 07/29/24 this is a 68-year-old female patient who presented to the emergency department with worsening shortness of breath and intermittent chest pain. The patient apparently had worsening shortness of breath over the past several weeks. She has also chronic swelling in lower extremities left more than right ongoing for the more than a year. This patient has history of advanced metastatic lung cancer, adenocarcinoma of the left lower lobe, dating back to 2022. The patient had metastasis to her brain. She also had a left-sided pleural effusion and the fluid was drained back in 2022 and the procedure was complicated by development of a left-sided hydropneumothorax. At that time, the patient was given a Thora vent and the patient did not fully expand and it was assumed that her lung was quite trapped. The patient subsequently had a chest tube inserted into the left lung and unfortunately, there was no reexpansion noted. Ultimately, the chest tube was removed and the patient was discharged. The patient was subsequently seen by medical oncology and the patient was treated by afatinib. Subsequently, the patient was switched to osimertinib/Tagrisso. Noted the patient is chronically hypoxic and the patient has remained on oxygen on outpatient basis at 5 L/min. She has had follow-up PET CTs through [facility] and the results are not available to me at this point. The patient has lost to follow-up with the pulmonary group since then. For now, the patient has an acute DVT of the left lower extremity confirmed by Doppler. Her chest x-ray showed significant volume loss in the left lung and there is also a moderate-sized left-sided pleural effusion and there is only a small aerated left lung with reticular opacities. There is also hyperinflation of the right lung and background pulmonary nodules. There is obvious elevation of the left hemidiaphragm due to volume loss. No evidence of any pneumothorax. Patient has a S shaped scoliosis of the thoracolumbar spine. Her white cell count is 29, hemoglobin 11.7 and a platelet count of 476. INR is 1.5 with a PT of 15.5. Sodium is at 134 and potassium is at 4, BUN is 42 with a creatinine of 2.16 consistent with acute kidney injury. proBNP level is 136,000. Lactic acid level is at 3.3. Calcium level is at 9.9. LFTs are showing a normal AST and ALT with an alkaline phosphatase of 240. She is currently on 5 L of oxygen by nasal cannula with pulse ox of 96%. She is also on IV heparin. She has been maintained on prednisone 10 mg p.o. daily on outpatient basis. 07/29/2024, the patient is essentially same compared to yesterday. She is on 5 L of oxygen by nasal cannula. Significantly debilitated and weak and she continues to also have shortness of breath even at rest. She remains on Rocephin Zosyn and Zithromax. She remains on IV fluids. IV fluids have been reduced to 10 cc an hour. She remains on IV heparin. The white cell count remains elevated at 23 although improved compared to yesterday. Hemoglobin is 8.9. INR is at 1.8. Creatinine is down to 1.6 with a BUN of 39 and a sodium levels at 133. Troponin peaked at 1.3 and dropped down to 0.7. Echocardiogram was also performed this morning and the patient was found to have impaired LV function with an ejection fraction of 30 to 35%. There is moderate decrease in the LV systolic function. Right ventricular systolic pressure is estimated to be 38. Left lower extremity remains quite swollen. Objective - Vital Signs Vital signs: Vital Signs Temp 98.0 F 07/29/24 09:15 Pulse 126 H 07/29/24 09:15 Resp 24 07/29/24 09:15 BP 140/74 07/29/24 09:15 Pulse Ox 96 07/29/24 09:15 FiO2 Intake & Output 07/28/24 07/29/24 07/29/24 18:59 06:59 18:59 Intake Total 350.936 40.506 Output Total 100 Balance 250.936 40.506 Weight 36.741 kg 42.5 kg Intake: IV 20 Invasive Line 1 10 Invasive Line 2 10 Intake, IV Titration 330.936 40.506 Amount Heparin Sod,Pork in 0.45% 30.936 40.506 NaCl 25,000 unit In 0.45 % NaCl 1 250ml.bag @ 12 UNITS/KG/HR 4.409 mls/hr IV .Q24H RALPH Rx#: [id number] Lactated Ringers 1,000 ml 300 @ 75 mls/hr IV .[id number] RALPH Rx#:[id number] Output: Urine 100 Other: Voiding Method External Catheter External Catheter External Catheter - Exam GENERAL EXAM: Alert, frail, very pleasant 68-year-old female, on 5 L nasal cannula, in no apparent distress. The patient is cachectic with a BMI of 16.9 HEAD: Normocephalic. EYES: Normal reaction of pupils, equal size. NOSE: Clear with pink turbinates. THROAT: No erythema or exudates. NECK: No masses, no JVD. CHEST: No chest wall deformity. LUNGS: Diminished breath sounds on the left, few scattered rhonchi on the right. CVS: S1 and S2 normal with no audible murmur, regular rhythm. ABDOMEN: No hepatosplenomegaly, normal bowel sounds, no guarding or rigidity. SPINE: No scoliosis or deformity SKIN: No rashes CENTRAL NERVOUS SYSTEM: No focal deficits, tone is normal in all 4 extremities. EXTREMITIES: There is extensive swelling of the left lower extremity with areas of skin breakdown superficial ulceration. The ankle on the foot is quite swollen. - Labs CBC & Chem 7: 07/29/24 05:48 07/29/24 05:48 Labs: Abnormal Lab Results - Last 24 Hours (Table) 07/28/24 07/28/24 07/28/24 Range/Units 13:24 13:24 13:24 WBC 29.74 H (4.50-10.00) 10*3/uL RBC 4.08 L (4.10-5.20) 10*6/uL Hgb 11.7 L (12.0-15.0) g/dL Hct 35.8 L (37.2-46.3) % MCHC (32.0-37.0) g/dL Plt Count 476 H (140-440) 10*3/uL MPV 8.7 L (9.5-12.2) fL Immature Gran # 0.25 H (0.00-0.04) 10*3/uL Neutrophils # 27.27 H (1.80-7.70) 10*3/uL Lymphocytes # 0.53 L (0.90-5.00) 10*3/uL Monocytes # 1.61 H (0.20-1.00) 10*3/uL Eosinophils # 0.00 L (0.04-0.35) 10*3/uL PT 15.5 H (10.0-12.5) sec INR 1.5 H (<1.2) APTT (22.0-30.0) sec Sodium 134 L (137-145) mmol/L Chloride 95 L (98-107) mmol/L BUN 42 H (7-17) mg/dL Creatinine 2.16 H (0.52-1.04) mg/dL Glucose 108 H (74-99) mg/dL Plasma Lactic Acid Rayo (0.7-2.0) mmol/L Magnesium 2.5 H (1.6-2.3) mg/dL AST 44 H (14-36) U/L Alkaline Phosphatase 240 H (38-126) U/L Troponin I (0.000-0.034) ng/mL Total Protein (6.3-8.2) g/dL Albumin (3.5-5.0) g/dL TSH (0.465-4.680) mIU/L Free T4 (0.78-2.19) ng/dL Urine Appearance (Clear) Urine Protein (Negative) Urine Blood (Negative) Ur Leukocyte Esterase (Negative) Urine WBC (0-5) /hpf Amorphous Sediment (None) /hpf Urine Mucus (None) /hpf 07/28/24 07/28/24 07/28/24 Range/Units 13:24 13:24 16:44 WBC (4.50-10.00) 10*3/uL RBC (4.10-5.20) 10*6/uL Hgb (12.0-15.0) g/dL Hct (37.2-46.3) % MCHC (32.0-37.0) g/dL Plt Count (140-440) 10*3/uL MPV (9.5-12.2) fL Immature Gran # (0.00-0.04) 10*3/uL Neutrophils # (1.80-7.70) 10*3/uL Lymphocytes # (0.90-5.00) 10*3/uL Monocytes # (0.20-1.00) 10*3/uL Eosinophils # (0.04-0.35) 10*3/uL PT (10.0-12.5) sec INR (<1.2) APTT (22.0-30.0) sec Sodium (137-145) mmol/L Chloride (98-107) mmol/L BUN (7-17) mg/dL Creatinine (0.52-1.04) mg/dL Glucose (74-99) mg/dL Plasma Lactic Acid Rayo 3.3 H* (0.7-2.0) mmol/L Magnesium (1.6-2.3) mg/dL AST (14-36) U/L Alkaline Phosphatase (38-126) U/L Troponin I 1.320 H* 1.070 H* (0.000-0.034) ng/mL Total Protein (6.3-8.2) g/dL Albumin (3.5-5.0) g/dL TSH (0.465-4.680) mIU/L Free T4 (0.78-2.19) ng/dL Urine Appearance (Clear) Urine Protein (Negative) Urine Blood (Negative) Ur Leukocyte Esterase (Negative) Urine WBC (0-5) /hpf Amorphous Sediment (None) /hpf Urine Mucus (None) /hpf 07/28/24 07/28/24 07/28/24 Range/Units 16:44 19:32 22:55 WBC (4.50-10.00) 10*3/uL RBC (4.10-5.20) 10*6/uL Hgb (12.0-15.0) g/dL Hct (37.2-46.3) % MCHC (32.0-37.0) g/dL Plt Count (140-440) 10*3/uL MPV (9.5-12.2) fL Immature Gran # (0.00-0.04) 10*3/uL Neutrophils # (1.80-7.70) 10*3/uL Lymphocytes # (0.90-5.00) 10*3/uL Monocytes # (0.20-1.00) 10*3/uL Eosinophils # (0.04-0.35) 10*3/uL PT (10.0-12.5) sec INR (<1.2) APTT (22.0-30.0) sec Sodium (137-145) mmol/L Chloride (98-107) mmol/L BUN (7-17) mg/dL Creatinine (0.52-1.04) mg/dL Glucose (74-99) mg/dL Plasma Lactic Acid Rayo (0.7-2.0) mmol/L Magnesium (1.6-2.3) mg/dL AST (14-36) U/L Alkaline Phosphatase (38-126) U/L Troponin I 1.030 H* 0.793 H* (0.000-0.034) ng/mL Total Protein (6.3-8.2) g/dL Albumin (3.5-5.0) g/dL TSH 0.169 L (0.465-4.680) mIU/L Free T4 2.22 H (0.78-2.19) ng/dL Urine Appearance (Clear) Urine Protein (Negative) Urine Blood (Negative) Ur Leukocyte Esterase (Negative) Urine WBC (0-5) /hpf Amorphous Sediment (None) /hpf Urine Mucus (None) /hpf 07/29/24 07/29/24 07/29/24 Range/Units 05:03 05:48 05:48 WBC 23.38 H (4.50-10.00) 10*3/uL RBC 3.06 L (4.10-5.20) 10*6/uL Hgb 8.9 L D (12.0-15.0) g/dL Hct 28.9 L (37.2-46.3) % MCHC 30.8 L (32.0-37.0) g/dL Plt Count (140-440) 10*3/uL MPV (9.5-12.2) fL Immature Gran # 0.22 H (0.00-0.04) 10*3/uL Neutrophils # 21.35 H (1.80-7.70) 10*3/uL Lymphocytes # 0.40 L (0.90-5.00) 10*3/uL Monocytes # 1.36 H (0.20-1.00) 10*3/uL Eosinophils # 0.01 L (0.04-0.35) 10*3/uL PT 18.3 H (10.0-12.5) sec INR 1.8 H (<1.2) APTT 42.9 H (22.0-30.0) sec Sodium (137-145) mmol/L Chloride (98-107) mmol/L BUN (7-17) mg/dL Creatinine (0.52-1.04) mg/dL Glucose (74-99) mg/dL Plasma Lactic Acid Rayo (0.7-2.0) mmol/L Magnesium (1.6-2.3) mg/dL AST (14-36) U/L Alkaline Phosphatase (38-126) U/L Troponin I (0.000-0.034) ng/mL Total Protein (6.3-8.2) g/dL Albumin (3.5-5.0) g/dL TSH (0.465-4.680) mIU/L Free T4 (0.78-2.19) ng/dL Urine Appearance Cloudy H (Clear) Urine Protein 1+ H (Negative) Urine Blood Small H (Negative) Ur Leukocyte Esterase Moderate H (Negative) Urine WBC 15 H (0-5) /hpf Amorphous Sediment Rare H (None) /hpf Urine Mucus Rare H (None) /hpf 07/29/24 Range/Units 05:48 WBC (4.50-10.00) 10*3/uL RBC (4.10-5.20) 10*6/uL Hgb (12.0-15.0) g/dL Hct (37.2-46.3) % MCHC (32.0-37.0) g/dL Plt Count (140-440) 10*3/uL MPV (9.5-12.2) fL Immature Gran # (0.00-0.04) 10*3/uL Neutrophils # (1.80-7.70) 10*3/uL Lymphocytes # (0.90-5.00) 10*3/uL Monocytes # (0.20-1.00) 10*3/uL Eosinophils # (0.04-0.35) 10*3/uL PT (10.0-12.5) sec INR (<1.2) APTT (22.0-30.0) sec Sodium 133 L (137-145) mmol/L Chloride (98-107) mmol/L BUN 39 H (7-17) mg/dL Creatinine 1.64 H (0.52-1.04) mg/dL Glucose 67 L (74-99) mg/dL Plasma Lactic Acid Rayo (0.7-2.0) mmol/L Magnesium (1.6-2.3) mg/dL AST 55 H (14-36) U/L Alkaline Phosphatase 188 H (38-126) U/L Troponin I (0.000-0.034) ng/mL Total Protein 5.2 L (6.3-8.2) g/dL Albumin 2.7 L (3.5-5.0) g/dL TSH (0.465-4.680) mIU/L Free T4 (0.78-2.19) ng/dL Urine Appearance (Clear) Urine Protein (Negative) Urine Blood (Negative) Ur Leukocyte Esterase (Negative) Urine WBC (0-5) /hpf Amorphous Sediment (None) /hpf Urine Mucus (None) /hpf Assessment and Plan Plan: Stage IV pulmonary adenocarcinoma, metastatic, maintained on Tagrisso on outpatient basis, the patient has history of mets to the brain and she also has history several pulmonary nodular lesions on the right consistent with metastatic disease. History of malignant left-sided pleural effusion, follow-up chest x-ray shows significant volume loss and residual left-sided pleural effusion. History of left-sided pneumothorax/trapped lung, dating back to 2022 Acute hypoxic respiratory failure, currently on 5 L of oxygen by nasal cannula. Follow-up pulmonary embolism essentially the patient has a left lower extremity DVT. Rule out left lung pneumonia. Immunotherapy related pneumonitis felt to be less likely. COPD Acute kidney injury, improving with fluids Acute leukocytosis, improving and the patient remains on Zosyn and Zithromax Systolic heart failure with ejection fraction of 30 to 35%, mild pulmonary hypertension. Sinus tachycardia Cachexia with a body mass index is 16.4 Plan Titrate oxygen flow to maintain saturation above 90%, currently on 5 L normal saline at rate of 20 cc an hour Encourage oral intake IV heparin IV Zosyn and Zithromax Blood cultures pending Echocardiogram noted and the patient has significant impairment of LV function with an EF of around 30% CAT scan of the chest with contrast once renal function improves Prognosis long-term remains poor We will consult oncology. Time with Patient: Greater than 30
[2024-07-29 14:35] VITALS: BMI 19.5
--- NOTE | 2024-07-29 15:03 | P.PN ---
Subjective Progress Note Date: 07/29/24 Hospital Course: Patient is a 68-year-old female with metastatic non-small cell cancer currently on chemotherapy and follows up with Dr. Escobedo, chronic hypoxic respiratory failure on home 5 L nasal cannula presented with dyspnea and intermittent chest pain. Patient was accompanied at bedside by daughter who she lives with. Patient states that 2 days ago she was starting to feel short of breath. She also endorses chest pain. Of note since being diagnosed with her lung cancer she has always had reported history of left-sided chest pain however. She states that this chest pain is different that is more located at the sternum. She describes the pain as a pressure like pain with no radiation or no alleviating/exacerbating factors. Patient also reports a persistent left leg swelling over the past year. She reports of a sacral pressure ulcer that developed a couple weeks ago. She also reports chronic wounds on her left lower extremity. She reports she has not been eating or drinking well. Daughter states that she is mostly in bed, but states she able to get up from a seated position and placed herself in her wheelchair to be able to move around the house. Denies any fever, chills, nausea, vomiting, abdominal pain. EKG independently interpreted displaying sinus tachycardia, rate 117 bpm, QTc 501 CXR independently interpreted moderate left-sided pleural effusion Venous Doppler displaying acute DVT within left lower extremity posterior tibial veins, unable to properly assess the popliteal vein due to patient's pain tolerance Troponin 1.320, lactic acid 3.3, proBNP 136,000, Hgb 11.7, MCV 87.7, platelet 476, sodium 134, BUN 42, creatinine 2.16, magnesium 2.5, AST 44, ALT 20, alk phos 240, INR 1.5 T 97 F, KS 120, RR 26, BP 129/94, O2 saturation 97% on 5 L nasal cannula Subjective: Patient seen and examined at bedside. No acute events overnight. Patient states she still has chest pain and shortness of breath. Patient states she also has difficulty swallowing food. Pertinent positives and negatives as discussed above, a complete review of systems was performed and all other systems are negative. Vitals: Signs Reviewed Physical examination: General: non toxic, no distress, appears at stated age, normal weight Derm: no unusual rashes/lesions, chronic LLE ulcers, stage 2 sacral pressure ulcer Head: atraumatic, normocephalic, symmetric Eyes: EOMI, anicteric sclera, pupils equal round reactive to light ENT: Nose and ears atraumatic Neck: No cervical lymphadenopathy, trachea midline, supple Mouth: no lip lesion, mucus membranes moist Cardiovascular: S1S2 reg, no murmur, positive dorsalis pedis pulse bilateral, left leg 2+ edema Lungs: Decreased breath sounds bilaterally, rhonchi, no rales, no accessory muscle use Abdominal: soft, nontender to palpation, no guarding Ext: muscle strength 0 out of 5 in left lower extremity, 3/5 strength in rest of extremities Neuro: CN II-XI grossly intact, no gross focal neuro deficits Psych: Alert, oriented to person, place, and time Data Received Today: Pertinent Labs: TSH 0.169, free T4 2.22, WBC 23.38, Hgb 8.9, INR 1.8, APTT 42.9, sodium 133, BUN 39, creatinine 1.64 Imaging: Renal ultrasound: No abnormality appreciated Chest ultrasound:left pleural effusion pocket size of 7.8 cm, left side marked for possible thoracentesis Echocardiogram: LVEF 30 to 35%, mid to distal anteroseptal and apical wall hypokinesia, no significant valvular dysfunction, normal RV size systolic function, RSVP 38 mmHg Assessment and Plan: Patient is a 68-year-old female with metastatic non-small cell cancer, chronic hypoxic respiratory failure on 3 L nasal cannula presented with dyspnea and intermittent chest pain. #. Acute chest pain, rule out ACS versus PE #. NSTEMI, type II #. Severe Sepsis likely pulmonary source #. Left sided pleural effusion #. Chronic hypoxic respiratory failure EKG independently interpreted displaying sinus tachycardia, rate 117 bpm, QTc 501 Troponin 1.320, 1.070, 1.030, 0.793 Wells criteria for PE 7.0, high risk group V/Q scan canceled due to patient not be able to lay flat and current lung pathology CTA once renal function improves Aspirin 81 mg daily Atorvastatin 40 mg daily Continue with IV heparin drip with plans of transition to oral anticoagulation Acetaminophen 650 mg p.o. every 6 hours as needed and Percocet 7.53 25 for pain control Echocardiogram and chest U/s reviewed reviewed as above DuoNeb [id number] and as needed Currently on normal saline at 20 cc an hour Continue with Zosyn 3.375 g IVPB every 12 hours and azithromycin 500 mg IVPB daily Consider stress dose steroids if becomes hypotensive Cardiac telemetry Cardiology note reviewed, placed on Lopressor 25 mg p.o. twice daily for tachycardia Pulmonology note reviewed, continue IV Zosyn and Zithromax, IV heparin, encourage oral intake #. DVT provoked in the setting of malignancy Acute deep venous thrombosis within the left lower extremity posterior tibial veins, unable to properly assess the popliteal vein due to patient's pain tolerance #. Acute nonoliguric MARYANN, improving #. Lactic acidosis, resolved Likely in setting of dehydration BUN 42, creatinine 2.16, lactic acid 3.3 on admission Renal ultrasound reviewed as above S/p 1L LR Bolus Continue with normal saline at 20 cc an hour Consider nephrology consult if renal function declines #. Protein malnutrition #. Hypoglycemia #. Dysphagia Change diet to dysphagia level 3 chopped diet Ensure oral supplement twice daily with meals No history of diabetes, Accu-Cheks ACHS, will consider putting on D5 half-normal saline if sugars keep running consistently low Hypoglycemic precautions Dietitian consulted #. Non-small cell lung carcinoma Oncology consulted #. Weakness/debility PT/OT consult DVT prophylaxis: IV heparin drip Code status: No code Anticipated discharge place: Pending clinical course Anticipated discharge time: Pending clinical course Long-term prognosis remains poor. Otilia Carreon MD PGY-1 IM Dictation was produced using [employer] dictation software. please excuse any gramm atical, word or spelling errors. In the afternoon called by nursing that patient's respirations were worsening. Had to go up from 5 up to 15 L. ABG obtained which confirmed hypoxia with PaO2 in the 40s on 15 L. No signs of hypercapnia. Goals of care conversation had with patient and daughter. Will try Airvo which did help with respiratory distress. Also administered morphine which seemed to help. Meeting with hospice today. I have seen and evaluated the patient today. Discussed with the resident and agree with the residents finding and plan as documented in the resident's note. Changes highlighted in blue font. Objective - Vital Signs Vital signs: Vital Signs Temp 97.8 F 07/28/24 19:50 Pulse 118 H 07/29/24 03:59 Resp 20 07/29/24 03:59 BP 132/71 07/29/24 03:55 Pulse Ox 100 07/29/24 03:55 FiO2 Intake & Output 07/28/24 07/29/24 07/29/24 18:59 06:59 18:59 Intake Total 350.936 40.506 Output Total 100 Balance 250.936 40.506 Weight 36.741 kg 42.5 kg Intake: IV 20 Invasive Line 1 10 Invasive Line 2 10 Intake, IV Titration 330.936 40.506 Amount Heparin Sod,Pork in 0.45% 30.936 40.506 NaCl 25,000 unit In 0.45 % NaCl 1 250ml.bag @ 12 UNITS/KG/HR 4.409 mls/hr IV .Q24H [facility] Rx#: [id number] Lactated Ringers 1,000 ml 300 @ 75 mls/hr IV .[id number] [facility] Rx#:[id number] Output: Urine 100 Other: Voiding Method External Catheter External Catheter - Labs CBC & Chem 7: 07/29/24 05:48 07/29/24 05:48 Labs: Abnormal Lab Results - Last 24 Hours (Table) 07/28/24 07/28/24 07/28/24 Range/Units 13:24 13:24 13:24 WBC 29.74 H (4.50-10.00) 10*3/uL RBC 4.08 L (4.10-5.20) 10*6/uL Hgb 11.7 L (12.0-15.0) g/dL Hct 35.8 L (37.2-46.3) % MCHC (32.0-37.0) g/dL Plt Count 476 H (140-440) 10*3/uL MPV 8.7 L (9.5-12.2) fL Immature Gran # 0.25 H (0.00-0.04) 10*3/uL Neutrophils # 27.27 H (1.80-7.70) 10*3/uL Lymphocytes # 0.53 L (0.90-5.00) 10*3/uL Monocytes # 1.61 H (0.20-1.00) 10*3/uL Eosinophils # 0.00 L (0.04-0.35) 10*3/uL PT 15.5 H (10.0-12.5) sec INR 1.5 H (<1.2) APTT (22.0-30.0) sec Sodium 134 L (137-145) mmol/L Chloride 95 L (98-107) mmol/L BUN 42 H (7-17) mg/dL Creatinine 2.16 H (0.52-1.04) mg/dL Glucose 108 H (74-99) mg/dL Plasma Lactic Acid Rayo (0.7-2.0) mmol/L Magnesium 2.5 H (1.6-2.3) mg/dL AST 44 H (14-36) U/L Alkaline Phosphatase 240 H (38-126) U/L Troponin I (0.000-0.034) ng/mL Total Protein (6.3-8.2) g/dL Albumin (3.5-5.0) g/dL TSH (0.465-4.680) mIU/L Free T4 (0.78-2.19) ng/dL Urine Appearance (Clear) Urine Protein (Negative) Urine Blood (Negative) Ur Leukocyte Esterase (Negative) Urine WBC (0-5) /hpf Amorphous Sediment (None) /hpf Urine Mucus (None) /hpf 07/28/24 07/28/24 07/28/24 Range/Units 13:24 13:24 16:44 WBC (4.50-10.00) 10*3/uL RBC (4.10-5.20) 10*6/uL Hgb (12.0-15.0) g/dL Hct (37.2-46.3) % MCHC (32.0-37.0) g/dL Plt Count (140-440) 10*3/uL MPV (9.5-12.2) fL Immature Gran # (0.00-0.04) 10*3/uL Neutrophils # (1.80-7.70) 10*3/uL Lymphocytes # (0.90-5.00) 10*3/uL Monocytes # (0.20-1.00) 10*3/uL Eosinophils # (0.04-0.35) 10*3/uL PT (10.0-12.5) sec INR (<1.2) APTT (22.0-30.0) sec Sodium (137-145) mmol/L Chloride (98-107) mmol/L BUN (7-17) mg/dL Creatinine (0.52-1.04) mg/dL Glucose (74-99) mg/dL Plasma Lactic Acid Rayo 3.3 H* (0.7-2.0) mmol/L Magnesium (1.6-2.3) mg/dL AST (14-36) U/L Alkaline Phosphatase (38-126) U/L Troponin I 1.320 H* 1.070 H* (0.000-0.034) ng/mL Total Protein (6.3-8.2) g/dL Albumin (3.5-5.0) g/dL TSH (0.465-4.680) mIU/L Free T4 (0.78-2.19) ng/dL Urine Appearance (Clear) Urine Protein (Negative) Urine Blood (Negative) Ur Leukocyte Esterase (Negative) Urine WBC (0-5) /hpf Amorphous Sediment (None) /hpf Urine Mucus (None) /hpf 07/28/24 07/28/24 07/28/24 Range/Units 16:44 19:32 22:55 WBC (4.50-10.00) 10*3/uL RBC (4.10-5.20) 10*6/uL Hgb (12.0-15.0) g/dL Hct (37.2-46.3) % MCHC (32.0-37.0) g/dL Plt Count (140-440) 10*3/uL MPV (9.5-12.2) fL Immature Gran # (0.00-0.04) 10*3/uL Neutrophils # (1.80-7.70) 10*3/uL Lymphocytes # (0.90-5.00) 10*3/uL Monocytes # (0.20-1.00) 10*3/uL Eosinophils # (0.04-0.35) 10*3/uL PT (10.0-12.5) sec INR (<1.2) APTT (22.0-30.0) sec Sodium (137-145) mmol/L Chloride (98-107) mmol/L BUN (7-17) mg/dL Creatinine (0.52-1.04) mg/dL Glucose (74-99) mg/dL Plasma Lactic Acid Rayo (0.7-2.0) mmol/L Magnesium (1.6-2.3) mg/dL AST (14-36) U/L Alkaline Phosphatase (38-126) U/L Troponin I 1.030 H* 0.793 H* (0.000-0.034) ng/mL Total Protein (6.3-8.2) g/dL Albumin (3.5-5.0) g/dL TSH 0.169 L (0.465-4.680) mIU/L Free T4 2.22 H (0.78-2.19) ng/dL Urine Appearance (Clear) Urine Protein (Negative) Urine Blood (Negative) Ur Leukocyte Esterase (Negative) Urine WBC (0-5) /hpf Amorphous Sediment (None) /hpf Urine Mucus (None) /hpf 07/29/24 07/29/24 07/29/24 Range/Units 05:03 05:48 05:48 WBC 23.38 H (4.50-10.00) 10*3/uL RBC 3.06 L (4.10-5.20) 10*6/uL Hgb 8.9 L D (12.0-15.0) g/dL Hct 28.9 L (37.2-46.3) % MCHC 30.8 L (32.0-37.0) g/dL Plt Count (140-440) 10*3/uL MPV (9.5-12.2) fL Immature Gran # 0.22 H (0.00-0.04) 10*3/uL Neutrophils # 21.35 H (1.80-7.70) 10*3/uL Lymphocytes # 0.40 L (0.90-5.00) 10*3/uL Monocytes # 1.36 H (0.20-1.00) 10*3/uL Eosinophils # 0.01 L (0.04-0.35) 10*3/uL PT 18.3 H (10.0-12.5) sec INR 1.8 H (<1.2) APTT 42.9 H (22.0-30.0) sec Sodium (137-145) mmol/L Chloride (98-107) mmol/L BUN (7-17) mg/dL Creatinine (0.52-1.04) mg/dL Glucose (74-99) mg/dL Plasma Lactic Acid Rayo (0.7-2.0) mmol/L Magnesium (1.6-2.3) mg/dL AST (14-36) U/L Alkaline Phosphatase (38-126) U/L Troponin I (0.000-0.034) ng/mL Total Protein (6.3-8.2) g/dL Albumin (3.5-5.0) g/dL TSH (0.465-4.680) mIU/L Free T4 (0.78-2.19) ng/dL Urine Appearance Cloudy H (Clear) Urine Protein 1+ H (Negative) Urine Blood Small H (Negative) Ur Leukocyte Esterase Moderate H (Negative) Urine WBC 15 H (0-5) /hpf Amorphous Sediment Rare H (None) /hpf Urine Mucus Rare H (None) /hpf 07/29/24 Range/Units 05:48 WBC (4.50-10.00) 10*3/uL RBC (4.10-5.20) 10*6/uL Hgb (12.0-15.0) g/dL Hct (37.2-46.3) % MCHC (32.0-37.0) g/dL Plt Count (140-440) 10*3/uL MPV (9.5-12.2) fL Immature Gran # (0.00-0.04) 10*3/uL Neutrophils # (1.80-7.70) 10*3/uL Lymphocytes # (0.90-5.00) 10*3/uL Monocytes # (0.20-1.00) 10*3/uL Eosinophils # (0.04-0.35) 10*3/uL PT (10.0-12.5) sec INR (<1.2) APTT (22.0-30.0) sec Sodium 133 L (137-145) mmol/L Chloride (98-107) mmol/L BUN 39 H (7-17) mg/dL Creatinine 1.64 H (0.52-1.04) mg/dL Glucose 67 L (74-99) mg/dL Plasma Lactic Acid Rayo (0.7-2.0) mmol/L Magnesium (1.6-2.3) mg/dL AST 55 H (14-36) U/L Alkaline Phosphatase 188 H (38-126) U/L Troponin I (0.000-0.034) ng/mL Total Protein 5.2 L (6.3-8.2) g/dL Albumin 2.7 L (3.5-5.0) g/dL TSH (0.465-4.680) mIU/L Free T4 (0.78-2.19) ng/dL Urine Appearance (Clear) Urine Protein (Negative) Urine Blood (Negative) Ur Leukocyte Esterase (Negative) Urine WBC (0-5) /hpf Amorphous Sediment (None) /hpf Urine Mucus (None) /hpf
[2024-07-29 15:46] VITALS: PULSE 122
[2024-07-29] MEDS: DEXTROSE 50% SYRINGE 50 ML IVP STA (16:06)
[2024-07-29 16:07] LABS: Glucose,Whole Blood 67 mg/dL (70-110)
[2024-07-29] MEDS: DEXTROSE 5%-0.45% NACL 1,000 ML IV SCH (16:22)
--- NOTE | 2024-07-29 16:23 | P.CONS ---
History of Present Illness - Reason for Consult Consult date: 07/29/24 - History of Present Illness Ms. 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 On her last clinical follow-up on 06/29/2024, review of PET/CT from 06/08/2024 noted to have increased FDG avidity in the left upper lobe compared to PET/CT in December 2023 as well as increased uptake and osteolytic lesion in the left medial clavicle that was concerning for potential residual disease. Clinically, she was feeling well at that time and was unclear if this was early progression or secondary to an inflammatory process and was advised to continue Tagrisso 80 mg daily. She was advised to have MRI of the brain. She is presenting with increased dyspnea that has been progressive over the past few weeks in addition to increased swelling of the left lower extremity. She is currently saturating between 93 to 100% on 5 L nasal cannula and presented with tachypnea with respiratory rate as high as 38 in addition to tachycardia with heart rates ranging between the 110s and 120s. She is afebrile. Labs on admission noted leukocytosis with WBC 29.74 (ANC 27.27), hemoglobin 11.7, platelets 476. CMP noted creatinine 2.16, BUN 42, AST 44, alkaline phosphatase 240. NT proBNP was elevated at 136,000. Urinalysis revealed moderate leukocyte esterase with small blood and 15 WBCs. Chest x-ray noted moderate left pleural effusion with hyperinflation of the right lung. Ultrasound of the chest noted 7.8 cm left pleural effusion pocket. Doppler of the left lower extremity did note DVT in the posterior tibial veins. She was given a 1 L bolus of normal saline followed by 1 L bolus of lactated Ringer's and started on Zosyn and azithromycin and was admitted to internal medicine for additional management. In addition, she was started on IV heparin drip. She was seen in consultation by pulmonology who recommended CT of the chest once her kidney function improves. Review of Systems 14 point review of systems was conducted with pertinent positives and negatives as noted per HPI Past Medical History Past Medical History: Cancer Additional Past Medical History / Comment(s): plueral effusion History of Any Multi-Drug Resistant Organisms: None Reported Past Surgical History: Section, Tonsillectomy Additional Past Surgical History / Comment(s): breast biopsy Past Anesthesia/Blood Transfusion Reactions: No Reported Reaction Past Psychological History: No Psychological Hx Reported Smoking Status: Former smoker Past Alcohol Use History: None Reported Past Drug Use History: None Reported - Past Family History Father Family Medical History: Diabetes Mellitus Additional Family Medical History / Comment(s): Migraines, depression, unsure but had heart issues Mother Family Medical History: Cancer, COPD, Diabetes Mellitus, Hypertension, Thyroid Disorder Additional Family Medical History / Comment(s): Breast CA, enlarged Heart, Macular degeneration, "Mini strokes" Brother(s) Family Medical History: Cancer, Diabetes Mellitus, Hyperlipidemia Additional Family Medical History / Comment(s): Prostate Cancer, Macular degeneration Medications and Allergies Home Medications Medication Instructions Recorded Confirmed Type Cetirizine HCl [Zyrtec] 10 mg PO DAILY PRN 12/22/22 07/28/24 History Guaifenesin/Dextromethorphan 1 tab PO Q4H PRN 12/22/22 07/28/24 History [Guaifenesin-Dm 400-20 mg Tab] ePHEDrine HCL [Primatene] 12.5 mg PO Q4H 12/22/22 07/28/24 History oxyCODONE-APAP 7.5-325MG [Percocet 1 tab PO Q4H 03/11/23 07/28/24 History 7.5-325 mg] Furosemide [Lasix] 20 mg PO BID@0900,1600 30 Days #60 03/23/23 07/28/24 Rx tab Diphenoxylate HCl/Atropine 1 tab PO QID PRN 07/28/24 07/28/24 History [Lomotil 2.5-0.025 mg Tablet] Lactase [Lactaid] 9,000 unit PO TID-W/MEALS PRN 07/28/24 07/28/24 History Osimertinib Mesylate [Tagrisso] 80 mg PO HS@2300 07/28/24 07/28/24 History Potassium Gluconate 650mg 650 mg PO DAILY 07/28/24 07/28/24 History Simethicone [Mylanta Gas Minis] 125 mg PO QID PRN 07/28/24 07/28/24 History diphenhydrAMINE HCL [Benadryl] 25 mg PO DAILY PRN 07/28/24 07/28/24 History predniSONE 10 mg PO BID 07/28/24 07/28/24 History Allergies Allergy/AdvReac Type Severity Reaction Status Date / Time hydromorphone [From Dilaudid] AdvReac Nausea & Verified 07/28/24 15:17 Vomiting Physical Exam Vitals: Vital Signs Temp Pulse Pulse Resp BP BP Pulse Ox 07/29/24 12:10 98.1 F 101 H 22 121/69 93 L 07/29/24 11:56 115 H 07/29/24 11:47 112 H 07/29/24 09:15 98.0 F 126 H 24 140/74 96 07/29/24 03:59 118 H 20 07/29/24 03:55 118 H 22 132/71 100 07/29/24 03:53 115 H 20 07/29/24 00:39 117 H 18 07/29/24 00:32 119 H 18 07/28/24 23:25 121 H 24 122/79 100 07/28/24 21:04 111 H 20 07/28/24 20:58 112 H 20 07/28/24 19:50 97.8 F 116 H 25 H 124/80 100 07/28/24 18:22 97.5 F L 120 H 24 135/87 98 07/28/24 17:02 97.6 F 07/28/24 16:30 117 H 26 H 120/86 96 07/28/24 16:00 117 H 17 125/84 07/28/24 15:30 121 H 17 136/87 98 07/28/24 15:00 123 H 33 H 127/89 97 07/28/24 14:45 115 H 22 127/89 100 07/28/24 14:30 115 H 19 100 07/28/24 14:15 122 H 38 H 105/89 94 L 07/28/24 14:00 121 H 26 H 105/89 07/28/24 13:56 118 H 07/28/24 13:47 118 H 07/28/24 13:46 118 H 07/28/24 13:45 118 H 39 H 125/83 100 07/28/24 13:38 118 H 07/28/24 13:30 116 H 23 132/87 100 07/28/24 13:15 118 H 36 H 128/89 100 07/28/24 13:00 116 H 36 H 129/94 Intake and Output 07/28/24 07/29/24 07/29/24 22:59 06:59 14:59 Intake Total 10 340.936 905.506 Output Total 100 Balance 10 240.936 905.506 Intake: IV 10 10 Invasive Line 1 10 Invasive Line 2 10 Intake, IV Titration 330.936 905.506 Amount Azithromycin 500 mg In 250 Sodium Chloride 0.9% 250 ml @ 250 mls/hr IVPB DAILY [facility] Rx#:[id number] Heparin Sod,Pork in 0.45% 30.936 40.506 NaCl 25,000 unit In 0.45 % NaCl 1 250ml.bag @ 12 UNITS/KG/HR 4.409 mls/hr IV .Q24H [facility] Rx#: [id number] Lactated Ringers 1,000 ml 300 @ 75 mls/hr IV .[id number] [facility] Rx#:[id number] Piperacillin-Tazobactam 3 100 .375 gm In Sodium Chloride 0.9% 100 ml @ 25 mls/hr IVPB Q12HR [facility] Rx #:[id number] Sodium Chloride 0.9% 1, 140 000 ml @ 20 mls/hr IV . Q24H [facility] Rx#:[id number] Sodium Chloride 0.9% 1, 375 000 ml @ 75 mls/hr IV . [id number] [facility] Rx#:[id number] Oral 0 Output: Urine 100 Other: Voiding Method External Catheter External Catheter External Catheter Weight 42.5 kg - Constitutional Appears frail and weak with left leg bent General appearance: cooperative - EENT Eyes: EOMI - Respiratory Dyspnea on conversation with increased work of breathing Respiratory: left: diminished (Left lung base), other (Inspiratory crackles in the left lung base) - Cardiovascular Rhythm: regular leg Peripheral Edema: left: 3+ - Integumentary Venous stasis of the left leg - Neurologic Neurologic: CNII-XII intact Results CBC & Chem 7: 07/29/24 05:48 07/29/24 05:48 Labs: Abnormal Lab Results - Last 24 Hours (Table) 07/28/24 07/28/24 07/28/24 Range/Units 13:24 13:24 13:24 WBC 29.74 H (4.50-10.00) 10*3/uL RBC 4.08 L (4.10-5.20) 10*6/uL Hgb 11.7 L (12.0-15.0) g/dL Hct 35.8 L (37.2-46.3) % MCHC (32.0-37.0) g/dL Plt Count 476 H (140-440) 10*3/uL MPV 8.7 L (9.5-12.2) fL Immature Gran # 0.25 H (0.00-0.04) 10*3/uL Neutrophils # 27.27 H (1.80-7.70) 10*3/uL Lymphocytes # 0.53 L (0.90-5.00) 10*3/uL Monocytes # 1.61 H (0.20-1.00) 10*3/uL Eosinophils # 0.00 L (0.04-0.35) 10*3/uL PT 15.5 H (10.0-12.5) sec INR 1.5 H (<1.2) APTT (22.0-30.0) sec Sodium 134 L (137-145) mmol/L Chloride 95 L (98-107) mmol/L BUN 42 H (7-17) mg/dL Creatinine 2.16 H (0.52-1.04) mg/dL Glucose 108 H (74-99) mg/dL Plasma Lactic Acid Rayo (0.7-2.0) mmol/L Magnesium 2.5 H (1.6-2.3) mg/dL AST 44 H (14-36) U/L Alkaline Phosphatase 240 H (38-126) U/L Troponin I (0.000-0.034) ng/mL Total Protein (6.3-8.2) g/dL Albumin (3.5-5.0) g/dL TSH (0.465-4.680) mIU/L Free T4 (0.78-2.19) ng/dL Urine Appearance (Clear) Urine Protein (Negative) Urine Blood (Negative) Ur Leukocyte Esterase (Negative) Urine WBC (0-5) /hpf Amorphous Sediment (None) /hpf Urine Mucus (None) /hpf 07/28/24 07/28/24 07/28/24 Range/Units 13:24 13:24 16:44 WBC (4.50-10.00) 10*3/uL RBC (4.10-5.20) 10*6/uL Hgb (12.0-15.0) g/dL Hct (37.2-46.3) % MCHC (32.0-37.0) g/dL Plt Count (140-440) 10*3/uL MPV (9.5-12.2) fL Immature Gran # (0.00-0.04) 10*3/uL Neutrophils # (1.80-7.70) 10*3/uL Lymphocytes # (0.90-5.00) 10*3/uL Monocytes # (0.20-1.00) 10*3/uL Eosinophils # (0.04-0.35) 10*3/uL PT (10.0-12.5) sec INR (<1.2) APTT (22.0-30.0) sec Sodium (137-145) mmol/L Chloride (98-107) mmol/L BUN (7-17) mg/dL Creatinine (0.52-1.04) mg/dL Glucose (74-99) mg/dL Plasma Lactic Acid Rayo 3.3 H* (0.7-2.0) mmol/L Magnesium (1.6-2.3) mg/dL AST (14-36) U/L Alkaline Phosphatase (38-126) U/L Troponin I 1.320 H* 1.070 H* (0.000-0.034) ng/mL Total Protein (6.3-8.2) g/dL Albumin (3.5-5.0) g/dL TSH (0.465-4.680) mIU/L Free T4 (0.78-2.19) ng/dL Urine Appearance (Clear) Urine Protein (Negative) Urine Blood (Negative) Ur Leukocyte Esterase (Negative) Urine WBC (0-5) /hpf Amorphous Sediment (None) /hpf Urine Mucus (None) /hpf 07/28/24 07/28/24 07/28/24 Range/Units 16:44 19:32 22:55 WBC (4.50-10.00) 10*3/uL RBC (4.10-5.20) 10*6/uL Hgb (12.0-15.0) g/dL Hct (37.2-46.3) % MCHC (32.0-37.0) g/dL Plt Count (140-440) 10*3/uL MPV (9.5-12.2) fL Immature Gran # (0.00-0.04) 10*3/uL Neutrophils # (1.80-7.70) 10*3/uL Lymphocytes # (0.90-5.00) 10*3/uL Monocytes # (0.20-1.00) 10*3/uL Eosinophils # (0.04-0.35) 10*3/uL PT (10.0-12.5) sec INR (<1.2) APTT (22.0-30.0) sec Sodium (137-145) mmol/L Chloride (98-107) mmol/L BUN (7-17) mg/dL Creatinine (0.52-1.04) mg/dL Glucose (74-99) mg/dL Plasma Lactic Acid Rayo (0.7-2.0) mmol/L Magnesium (1.6-2.3) mg/dL AST (14-36) U/L Alkaline Phosphatase (38-126) U/L Troponin I 1.030 H* 0.793 H* (0.000-0.034) ng/mL Total Protein (6.3-8.2) g/dL Albumin (3.5-5.0) g/dL TSH 0.169 L (0.465-4.680) mIU/L Free T4 2.22 H (0.78-2.19) ng/dL Urine Appearance (Clear) Urine Protein (Negative) Urine Blood (Negative) Ur Leukocyte Esterase (Negative) Urine WBC (0-5) /hpf Amorphous Sediment (None) /hpf Urine Mucus (None) /hpf 07/29/24 07/29/24 07/29/24 Range/Units 05:03 05:48 05:48 WBC 23.38 H (4.50-10.00) 10*3/uL RBC 3.06 L (4.10-5.20) 10*6/uL Hgb 8.9 L D (12.0-15.0) g/dL Hct 28.9 L (37.2-46.3) % MCHC 30.8 L (32.0-37.0) g/dL Plt Count (140-440) 10*3/uL MPV (9.5-12.2) fL Immature Gran # 0.22 H (0.00-0.04) 10*3/uL Neutrophils # 21.35 H (1.80-7.70) 10*3/uL Lymphocytes # 0.40 L (0.90-5.00) 10*3/uL Monocytes # 1.36 H (0.20-1.00) 10*3/uL Eosinophils # 0.01 L (0.04-0.35) 10*3/uL PT 18.3 H (10.0-12.5) sec INR 1.8 H (<1.2) APTT 42.9 H (22.0-30.0) sec Sodium (137-145) mmol/L Chloride (98-107) mmol/L BUN (7-17) mg/dL Creatinine (0.52-1.04) mg/dL Glucose (74-99) mg/dL Plasma Lactic Acid Rayo (0.7-2.0) mmol/L Magnesium (1.6-2.3) mg/dL AST (14-36) U/L Alkaline Phosphatase (38-126) U/L Troponin I (0.000-0.034) ng/mL Total Protein (6.3-8.2) g/dL Albumin (3.5-5.0) g/dL TSH (0.465-4.680) mIU/L Free T4 (0.78-2.19) ng/dL Urine Appearance Cloudy H (Clear) Urine Protein 1+ H (Negative) Urine Blood Small H (Negative) Ur Leukocyte Esterase Moderate H (Negative) Urine WBC 15 H (0-5) /hpf Amorphous Sediment Rare H (None) /hpf Urine Mucus Rare H (None) /hpf 07/29/24 Range/Units 05:48 WBC (4.50-10.00) 10*3/uL RBC (4.10-5.20) 10*6/uL Hgb (12.0-15.0) g/dL Hct (37.2-46.3) % MCHC (32.0-37.0) g/dL Plt Count (140-440) 10*3/uL MPV (9.5-12.2) fL Immature Gran # (0.00-0.04) 10*3/uL Neutrophils # (1.80-7.70) 10*3/uL Lymphocytes # (0.90-5.00) 10*3/uL Monocytes # (0.20-1.00) 10*3/uL Eosinophils # (0.04-0.35) 10*3/uL PT (10.0-12.5) sec INR (<1.2) APTT (22.0-30.0) sec Sodium 133 L (137-145) mmol/L Chloride (98-107) mmol/L BUN 39 H (7-17) mg/dL Creatinine 1.64 H (0.52-1.04) mg/dL Glucose 67 L (74-99) mg/dL Plasma Lactic Acid Rayo (0.7-2.0) mmol/L Magnesium (1.6-2.3) mg/dL AST 55 H (14-36) U/L Alkaline Phosphatase 188 H (38-126) U/L Troponin I (0.000-0.034) ng/mL Total Protein 5.2 L (6.3-8.2) g/dL Albumin 2.7 L (3.5-5.0) g/dL TSH (0.465-4.680) mIU/L Free T4 (0.78-2.19) ng/dL Urine Appearance (Clear) Urine Protein (Negative) Urine Blood (Negative) Ur Leukocyte Esterase (Negative) Urine WBC (0-5) /hpf Amorphous Sediment (None) /hpf Urine Mucus (None) /hpf Assessment and Plan (1) Non-small cell lung cancer metastatic to brain Current Visit: Yes Status: Acute Code(s): C34.90 - MALIGNANT NEOPLASM OF UNSP PART OF UNSP BRONCHUS OR LUNG; C79.31 - SECONDARY MALIGNANT NEOPLASM OF BRAIN SNOMED Code(s): 681507394 (2) Neutrophilic leukocytosis Current Visit: Yes Status: Acute Code(s): D72.828 - OTHER ELEVATED WHITE BLOOD CELL COUNT SNOMED Code(s): 232387177 (3) Pleural effusion, left Current Visit: Yes Status: Acute Priority: High Code(s): J90 - PLEURAL EFFUSION, NOT ELSEWHERE CLASSIFIED SNOMED Code(s): 85055021 (4) Deep vein thrombosis (DVT) of left lower extremity Current Visit: Yes Status: Acute Code(s): I82.402 - ACUTE EMBOLISM AND THOMBOS UNSP DEEP VEINS OF L LOW EXTREM SNOMED Code(s): 392148275 Plan: #Left pleural effusion, neutrophilic leukocytosis - Presented with progressive dyspnea - Noted to have neutrophilic leukocytosis on labs with chest x-ray revealing left pleural effusion - This could be related to infection versus progression of underlying malignancy as well as the possibility of pulmonary embolism - Agree with antibiotics and CT of the chest - If there is evidence of pleural effusion, she would benefit from thoracenteses with cytology to assess for malignancy #DVT left lower extremity - Progressive swelling of the left lower extremity was noted - Doppler of the left lower extremity on admission was positive for DVT within the posterior tibial veins - This is secondary to malignancy - She has been started on a IV heparin drip - Continue IV heparin drip for now pending possibility of thoracentesis - She can be transition to oral DOAC such as Eliquis on discharge #Metastatic adenocarcinoma of the lung - Diagnosed in December 2022 with brain metastases at that time treated with 2 fractions of whole brain radiation therapy - She was found to be EGFR positive ([id number]) and initially started on afatinib that was eventually switched to Tagrisso in April 2023 - Most recent PET/CT noted increased FDG uptake in the left upper lobe of the lung along with the left medial clavicle - For now, continue Tagrisso 80 mg daily - If she undergoes thoracentesis and has evidence of disease progression, she will need restaging imaging that can be performed outpatient in addition to sending pleural fluid cytology for NGS testing and repeating molecular profiling from circulating tumor DNA - She was recommended to undergo MRI of the brain, but she has not been able to lie flat and was to have MRI of the brain done with sedation - This could be considered while she is inpatient Indu Escobedo MD
--- NOTE | 2024-07-29 16:44 | XR ---
EXAMINATION TYPE: XR chest 1V portable DATE OF EXAM: 07/29/2024 4:39 PM COMPARISON: 07/28/2024 CLINICAL INDICATION: Female, 68 years old with history of shortness of breath, TECHNIQUE: XR chest 1V portable views of the chest are obtained. FINDINGS: Demonstrated are scattered senescent parenchymal change. Continued near complete opacification of the left hemithorax with left perihilar aerated lung. Overal l no change. Increasing reticulonodular infiltrate about the right upper lobe and right lower lobe co ncerning for aspiration or additional pneumonia. The heart is stable. Hilar and mediastinal structures are within normal limits. Degenerative changes are seen of the dorsal spine. IMPRESSION: 1. Continued near complete opacification of the left hemithorax with left perihilar aerated lung. Ov erall no change. Increasing reticulonodular infiltrate about the right upper lobe and right lower lob e concerning for aspiration or additional pneumonia. [facility], , 07/29/2024 4:41 PM
[2024-07-29 16:50] LABS: Glucose,Whole Blood 164 mg/dL (70-110)
[2024-07-29 16:54] LABS: ABG Base Excess -2.8 mmol/L; ABG HCO3 23 mmol/L (21-25); ABG Oxygen Saturation 83.2 % (94-97); ABG PCO2 44 mmHg (35-45); ABG PH 7.33 (7.35-7.45); ABG TCO2 24 mmol/L (19-24); Allen Test Performed? Yes
[2024-07-29 17:00] LABS: ABG PO2 48 mmHg (83-108)
[2024-07-29] MEDS: MORPHINE SULFATE 2 MG/ML SYRINGE IVP STA (18:02)
--- NOTE | 2024-07-29 19:33 | P.PN ---
Progress Note - Text Progress Note Date: 07/29/24 Advanced Care Planning: Diagnoses: Small cell lung cancer, pneumonia, acute hypoxic respiratory failure Discussion: Person(s) present and participating in discussion: Daughter and patient Summary: Confirms DNR status. We discussed the options of comfort versus hospice measures. She would like to be started on Airvo. Does want medications to keep her comfortable. Unsure about hospice but would like to meet with them for possible sign-on. A total of 17 minutes of face to face time was spent discussing advanced care planning.
[2024-07-29] MEDS ORDERED: LORazepam 1 MG/0.5 ML VIAL IV PRN (19:35)
[2024-07-29 19:46] VITALS: BP 117/76; RESP 25
[2024-07-29] MEDS: MORPHINE SULFATE 2 MG/ML SYRINGE IVP PRN (19:49)
[2024-07-29 20:14] LABS: Glucose,Whole Blood 114 mg/dL (70-110)
[2024-07-30] MEDS ORDERED: ATORVASTATIN 40 MG TAB PO SCH (09:00)
--- NOTE | 2024-07-30 17:50 | P.DS ---
Providers Date of admission: 07/28/24 16:03 Expected date of discharge: 07/30/24 Attending physician: Dima Bacon Consults: 07/28/24 16:03 Consult Physician Routine Consulting Provider: Lila Guzman Consult Reason/Comments: COPD, effusion Do you want consulting provider notified?: Yes Consult Physician Routine Consulting Provider: Sharla Coreas Consult Reason/Comments: trop elevated Do you want consulting provider notified?: Yes 07/28/24 16:10 Consult Physician Routine Consulting Provider: David Escobedo Consult Reason/Comments: Lung CA Do you want consulting provider notified?: Yes Primary care physician: Farzaneh Landeros MD Hospital Course: Discharge Diagnosis: #. Acute chest pain, rule out ACS versus PE #. NSTEMI, type II #. Severe Sepsis likely pulmonary source #. Left sided pleural effusion #. Chronic hypoxic respiratory failure #. DVT provoked in the setting of malignancy #. Acute nonoliguric MARYANN, improving #. Lactic acidosis, resolved #. Protein malnutrition #. Hypoglycemia #. Dysphagia #. Non-small cell lung carcinoma #. Weakness/debility Hospital Course: 68-year-old with metastatic non-small cell carcinoma of the lung currently on chemotherapy, chronic hypoxic respiratory failure on 5 L nasal cannula, and chronic dysphagia admitted with pneumonia with severe sepsis, non-STEMI, acute on chronic hypoxic respiratory failure, and left-sided pleural effusion. Started on antibiotics and IV fluids. On 07/29 O2 requirements worsened throughout the day up to requiring 15 L. ABG obtained and continued to be hyp oxic. Goals of care conversation had with her and and daughters. They elected to transition to hospice care. Subsequently admitted to hospice. For physical exam see progress note same date A total of 15 minutes of time were spent preparing this complex discharge summary. Patient was discharged on 07/29/2024. This dictation was prepared using [employer] voice recognition software. Though every attempt is made to correct errors during dictation some may still exist. Plan - Discharge Summary Discharge Rx Participant: No New Discharge Prescriptions: No Action ePHEDrine HCL [Primatene] 12.5 mg PO Q4H Cetirizine HCl [Zyrtec] 10 mg PO DAILY PRN PRN Reason: Allergy Symptoms Furosemide [Lasix] 20 mg PO BID@0900,1600 30 Days #60 tab Lactase [Lactaid] 9,000 unit PO TID-W/MEALS PRN PRN Reason: if eating dairy diphenhydrAMINE HCL [Benadryl] 25 mg PO DAILY PRN PRN Reason: Allergy Symptoms predniSONE 10 mg PO BID Osimertinib Mesylate [Tagrisso] 80 mg PO HS@2300 Potassium Gluconate 650mg 650 mg PO DAILY Guaifenesin/Dextromethorphan [Guaifenesin-Dm 400-20 mg Tab] 1 tab PO Q4H PRN PRN Reason: Congestion oxyCODONE-APAP 7.5-325MG [Percocet 7.5-325 mg] 1 tab PO Q4H Simethicone [Mylanta Gas Minis] 125 mg PO QID PRN PRN Reason: Indigestion Diphenoxylate HCl/Atropine [Lomotil 2.5-0.025 mg Tablet] 1 tab PO QID PRN PRN Reason: Diarrhea Discharge Medication List Cetirizine HCl [Zyrtec] 10 mg PO DAILY PRN 12/22/22 [History] Guaifenesin/Dextromethorphan [Guaifenesin-Dm 400-20 mg Tab] 1 tab PO Q4H PRN 12/22/22 [History] ePHEDrine HCL [Primatene] 12.5 mg PO Q4H 12/22/22 [History] oxyCODONE-APAP 7.5-325MG [Percocet 7.5-325 mg] 1 tab PO Q4H 03/11/23 [History] Furosemide [Lasix] 20 mg PO BID@0900,1600 30 Days #60 tab 03/23/23 [Rx] Diphenoxylate HCl/Atropine [Lomotil 2.5-0.025 mg Tablet] 1 tab PO QID PRN 07/28/24 [History] Lactase [Lactaid] 9,000 unit PO TID-W/MEALS PRN 07/28/24 [History] Osimertinib Mesylate [Tagrisso] 80 mg PO HS@2300 07/28/24 [History] Potassium Gluconate 650mg 650 mg PO DAILY 07/28/24 [History] Simethicone [Mylanta Gas Minis] 125 mg PO QID PRN 07/28/24 [History] diphenhydrAMINE HCL [Benadryl] 25 mg PO DAILY PRN 07/28/24 [History] predniSONE 10 mg PO BID 07/28/24 [History] Follow up Appointment(s)/Referral(s): Farzaneh Landeros MD [Primary Care Provider] - 1-2 days Discharge Disposition: DISCH TO HOSPICE MED FACILTY
== END 2024-07-29 21:03 | disposition hospice, inpatient (51) | DRG 871 ==
LOC: EC 12:30 → 3SCARD 16:03
PROVIDERS: ADMIT Student in an Organized Health Care Education/Training Program; ATTEND Student in an Organized Health Care Education/Training Program
DX: A41.9 Sepsis, unspecified organism (principal); I21.A1 Myocardial infarction type 2; J18.9 Pneumonia, unspecified organism; C79.31 Secondary malignant neoplasm of brain; E87.20 Acidosis, unspecified; J90 Pleural effusion, not elsewhere classified; R64 Cachexia; E46 Unspecified protein-calorie malnutrition; Z51.5 Encounter for palliative care; R13.10 Dysphagia, unspecified; C34.90 Malignant neoplasm of unspecified part of unspecified bronchus or lung; J44.0 Chronic obstructive pulmonary disease with (acute) lower respiratory infection; I82.442 Acute embolism and thrombosis of left tibial vein; J96.11 Chronic respiratory failure with hypoxia; N17.9 Acute kidney failure, unspecified; R65.20 Severe sepsis without septic shock; Z66 Do not resuscitate; E16.2 Hypoglycemia, unspecified; Z87.891 Personal history of nicotine dependence; L89.159 Pressure ulcer of sacral region, unspecified stage; R53.81 Other malaise; M79.89 Other specified soft tissue disorders; M41.9 Scoliosis, unspecified; E86.0 Dehydration; Z79.52 Long term (current) use of systemic steroids; Z79.82 Long term (current) use of aspirin; Z79.899 Other long term (current) drug therapy
CPT/HCPCS: 36415; 36600; 71045; 76604; 76770; 80053; 81001; 82805; 83605; 83735; 83880; 84145; 84439; 84443; 84484; 85025; 85610; 85730; 87040; 87086; 93005; 93306; 94640; 94760; 96365; 96375; 99291

== ENCOUNTER 2024-07-29 20:16 | Inpatient (IN) | payer MEDICAID, MEDICARE, OTHER ==
[2024-07-29] MEDS ORDERED: ACETAMINOPHEN SUPPOSITORY 650 MG SUPP RECTAL PRN (20:36)
[2024-07-29] MEDS ORDERED: MORPHINE SULFATE 2 MG/ML SYRINGE IV PRN (20:36)
[2024-07-29] MEDS ORDERED: ARTIFICIAL TEARS-HYPROMELLOSE DROPS 15 ML BTL BOTH EYES PRN (20:36)
[2024-07-29] MEDS ORDERED: ATROPINE OPHTH SOLN 1% 5ML BTL SUBLINGUAL PRN (20:36)
[2024-07-29] MEDS ORDERED: METOCLOPRAMIDE 5 MG/ML 2 ML VIAL IVP PRN (20:36)
[2024-07-29] MEDS ORDERED: ONDANSETRON 4 MG/2 ML VIAL IVP PRN (20:36)
[2024-07-29] MEDS ORDERED: GLYCOPYRROLATE 0.2 MG/ML 2 ML VIAL IVP PRN (20:36)
[2024-07-29] MEDS: LORazepam 1 MG/0.5 ML VIAL IV PRN (22:12)
[2024-07-29] MEDS: MORPHINE SULFATE 100 MG in SODIUM CHLORIDE 0.9% 90 ML IV SCH (22:12)
[2024-07-29] MEDS: SCOPOLAMINE 1 MG/72 HR PATCH TRANSDERM SCH (22:17)
[2024-07-29 23:07] VITALS: PULSE 83; RESP 20
--- NOTE | 2024-07-30 17:54 | P.DS ---
Providers Date of admission: 07/29/24 21:01 Expected date of discharge: 07/29/24 Attending physician: Dima Bacon Primary care physician: Farzaneh Landeros MD Hospital Course: Patient is a 68-year-old female with known metastatic lung cancer initially admitted with pneumonia with severe sepsis and non-STEMI converted to hospice. Assessment/Plan: #. Acute chest pain, rule out ACS versus PE #. NSTEMI, type II #. Severe Sepsis likely pulmonary source #. Left sided pleural effusion #. Chronic hypoxic respiratory failure #. DVT provoked in the setting of malignancy #. Acute nonoliguric MARYANN, improving #. Lactic acidosis, resolved #. Protein malnutrition #. Hypoglycemia #. Dysphagia #. Non-small cell lung carcinoma #. Weakness/debility -Subsequently started on a morphine drip and comfort care measures while admitted to hospice. comfortably. This dictation was prepared using [employer] voice recognition software. Though every attempt is made to correct errors during dictation some may still exist. Plan - Discharge Summary New Discharge Prescriptions: No Action ePHEDrine HCL [Primatene] 12.5 mg PO Q4H Cetirizine HCl [Zyrtec] 10 mg PO DAILY PRN PRN Reason: Allergy Symptoms Furosemide [Lasix] 20 mg PO BID@0900,1600 30 Days #60 tab Lactase [Lactaid] 9,000 unit PO TID-W/MEALS PRN PRN Reason: if eating dairy diphenhydrAMINE HCL [Benadryl] 25 mg PO DAILY PRN PRN Reason: Allergy Symptoms predniSONE 10 mg PO BID Osimertinib Mesylate [Tagrisso] 80 mg PO HS@2300 Potassium Gluconate 650mg 650 mg PO DAILY Guaifenesin/Dextromethorphan [Guaifenesin-Dm 400-20 mg Tab] 1 tab PO Q4H PRN PRN Reason: Congestion oxyCODONE-APAP 7.5-325MG [Percocet 7.5-325 mg] 1 tab PO Q4H Simethicone [Mylanta Gas Minis] 125 mg PO QID PRN PRN Reason: Indigestion Diphenoxylate HCl/Atropine [Lomotil 2.5-0.025 mg Tablet] 1 tab PO QID PRN PRN Reason: Diarrhea Discharge Medication List Cetirizine HCl [Zyrtec] 10 mg PO DAILY PRN 12/22/22 [History] Guaifenesin/Dextromethorphan [Guaifenesin-Dm 400-20 mg Tab] 1 tab PO Q4H PRN 12/22/22 [History] ePHEDrine HCL [Primatene] 12.5 mg PO Q4H 12/22/22 [History] oxyCODONE-APAP 7.5-325MG [Percocet 7.5-325 mg] 1 tab PO Q4H 03/11/23 [History] Furosemide [Lasix] 20 mg PO BID@0900,1600 30 Days #60 tab 03/23/23 [Rx] Diphenoxylate HCl/Atropine [Lomotil 2.5-0.025 mg Tablet] 1 tab PO QID PRN 07/28/24 [History] Lactase [Lactaid] 9,000 unit PO TID-W/MEALS PRN 07/28/24 [History] Osimertinib Mesylate [Tagrisso] 80 mg PO HS@2300 07/28/24 [History] Potassium Gluconate 650mg 650 mg PO DAILY 07/28/24 [History] Simethicone [Mylanta Gas Minis] 125 mg PO QID PRN 07/28/24 [History] diphenhydrAMINE HCL [Benadryl] 25 mg PO DAILY PRN 07/28/24 [History] predniSONE 10 mg PO BID 07/28/24 [History] Discharge Disposition: - Preliminary Cause of Preliminary Cause of : lung cancer
--- NOTE | 2024-07-30 17:54 | P.HPIM ---
History of Present Illness H&P Date: 07/30/24 Patient is a 68-year-old female with known metastatic lung cancer initially admitted with pneumonia with severe sepsis and non-STEMI converted to hospice. Assessment/Plan: #. Acute chest pain, rule out ACS versus PE #. NSTEMI, type II #. Severe Sepsis likely pulmonary source #. Left sided pleural effusion #. Chronic hypoxic respiratory failure #. DVT provoked in the setting of malignancy #. Acute nonoliguric MARYANN, improving #. Lactic acidosis, resolved #. Protein malnutrition #. Hypoglycemia #. Dysphagia #. Non-small cell lung carcinoma #. Weakness/debility -Subsequently started on a morphine drip and comfort care measures while admitted to hospice. And comfortably. This dictation was prepared using [employer] voice recognition software. Though every attempt is made to correct errors during dictation some may still exist. Past Medical History Past Medical History: Cancer Additional Past Medical History / Comment(s): plueral effusion History of Any Multi-Drug Resistant Organisms: None Reported Past Surgical History: Section, Tonsillectomy Additional Past Surgical History / Comment(s): breast biopsy Past Anesthesia/Blood Transfusion Reactions: No Reported Reaction Past Psychological History: No Psychological Hx Reported Smoking Status: Former smoker Past Alcohol Use History: None Reported Past Drug Use History: None Reported - Past Family History Father Family Medical History: Diabetes Mellitus Additional Family Medical History / Comment(s): Migraines, depression, unsure but had heart issues Mother Family Medical History: Cancer, COPD, Diabetes Mellitus, Hypertension, Thyroid Disorder Additional Family Medical History / Comment(s): Breast CA, enlarged Heart, Macular degeneration, "Mini strokes" Brother(s) Family Medical History: Cancer, Diabetes Mellitus, Hyperlipidemia Additional Family Medical History / Comment(s): Prostate Cancer, Macular degeneration Medications and Allergies Home Medications Medication Instructions Recorded Confirmed Type Cetirizine HCl [Zyrtec] 10 mg PO DAILY PRN 12/22/22 07/28/24 History Guaifenesin/Dextromethorphan 1 tab PO Q4H PRN 12/22/22 07/28/24 History [Guaifenesin-Dm 400-20 mg Tab] ePHEDrine HCL [Primatene] 12.5 mg PO Q4H 12/22/22 07/28/24 History oxyCODONE-APAP 7.5-325MG [Percocet 1 tab PO Q4H 03/11/23 07/28/24 History 7.5-325 mg] Furosemide [Lasix] 20 mg PO BID@0900,1600 30 Days #60 03/23/23 07/28/24 Rx tab Diphenoxylate HCl/Atropine 1 tab PO QID PRN 07/28/24 07/28/24 History [Lomotil 2.5-0.025 mg Tablet] Lactase [Lactaid] 9,000 unit PO TID-W/MEALS PRN 07/28/24 07/28/24 History Osimertinib Mesylate [Tagrisso] 80 mg PO HS@2300 07/28/24 07/28/24 History Potassium Gluconate 650mg 650 mg PO DAILY 07/28/24 07/28/24 History Simethicone [Mylanta Gas Minis] 125 mg PO QID PRN 07/28/24 07/28/24 History diphenhydrAMINE HCL [Benadryl] 25 mg PO DAILY PRN 07/28/24 07/28/24 History predniSONE 10 mg PO BID 07/28/24 07/28/24 History Allergies Allergy/AdvReac Type Severity Reaction Status Date / Time hydromorphone [From Dilaudid] AdvReac Nausea & Verified 07/28/24 15:17 Vomiting Physical Exam Osteopathic Statement: *. No significant issues noted on an osteopathic structural exam other than those noted in the History and Physical/Consult. Vitals: Vital Signs Pulse Resp FiO2 07/29/24 23:05 83 20 07/29/24 22:00 116 H 23 90 Intake and Output 07/30/24 07/30/24 07/30/24 06:59 14:59 22:59 Intake Total 2.933 Balance 2.933 Intake: Intake, IV Titration 2.933 Amount Morphine Sulfate 100 mg 2.933 In Sodium Chloride 0.9% 90 ml @ 2 MG/HR 2 mls/hr IV .Q24H [facility] Rx#: [id number]
== END 2024-07-29 23:38 | disposition expired | DRG 951 ==
LOC: 3SCARD 21:01
PROVIDERS: ADMIT Student in an Organized Health Care Education/Training Program; ATTEND Student in an Organized Health Care Education/Training Program
DX: Z51.5 Encounter for palliative care (principal); I21.A1 Myocardial infarction type 2; A41.9 Sepsis, unspecified organism; R65.20 Severe sepsis without septic shock; J18.9 Pneumonia, unspecified organism; E46 Unspecified protein-calorie malnutrition; I82.409 Acute embolism and thrombosis of unspecified deep veins of unspecified lower extremity; C79.9 Secondary malignant neoplasm of unspecified site; E87.20 Acidosis, unspecified; Z66 Do not resuscitate; C34.90 Malignant neoplasm of unspecified part of unspecified bronchus or lung; J90 Pleural effusion, not elsewhere classified; J96.11 Chronic respiratory failure with hypoxia; N17.9 Acute kidney failure, unspecified; Z68.1 Body mass index [BMI] 19.9 or less, adult; R13.10 Dysphagia, unspecified; E16.2 Hypoglycemia, unspecified; R53.81 Other malaise; Z87.891 Personal history of nicotine dependence; Z79.891 Long term (current) use of opiate analgesic; Z79.899 Other long term (current) drug therapy; Z79.52 Long term (current) use of systemic steroids